=== PATIENT | female | born 1945 | race Asian ===

== ENCOUNTER → 2017-08-25 12:00 | Outpatient (CLI) | payer MEDICARE, SELFPAY | PROVIDERS: Family Provider Family Medicine; PCP Family Medicine; Visit Provider Internal Medicine Cardiovascular Disease | DX: I25.10 Atherosclerotic heart disease of native coronary artery without angina pectoris (principal); J32.9 Chronic sinusitis, unspecified; R06.02 Shortness of breath ==

== ENCOUNTER → 2017-08-25 12:03 | Outpatient (CLI) | payer MEDICARE, SELFPAY ==
--- NOTE | 2017-08-25 12:05 | DI.RAD.S_ITS ---
PROCEDURE: XR CHEST 2V INDICATIONS: chest congestion with sinusitis TECHNIQUE: 2 views of the chest were acquired. COMPARISON: [facility], , CHEST 2 VIEW, 06/07/2014, 8:31. FINDINGS: Surgical changes and devices: Cervical spine postoperative change Lungs and pleura: No pleural effusions or pneumothorax. Lungs are clear. Mediastinum: Prominent cardiomediastinal silhouette. Vascular calcifications Bones and chest wall: No suspicious bony abnormalities. Soft tissues appear unremarkable. IMPRESSION: Prominent cardiomediastinal silhouette. Atherosclerotic disease. Lungs are clear. Dictated by: James Navarro M.D. on 08/25/2017 at 11:47 Approved by: James Navarro M.D. on 08/25/2017 at 11:49
== END ==
PROVIDERS: Family Provider Family Medicine; PCP Family Medicine; Visit Provider Nurse Practitioner Family
DX: I25.10 Atherosclerotic heart disease of native coronary artery without angina pectoris (principal); J32.9 Chronic sinusitis, unspecified; R09.89 Other specified symptoms and signs involving the circulatory and respiratory systems
CPT/HCPCS: 71046

== ENCOUNTER → 2017-08-27 13:10 | Outpatient (CLI) | payer MEDICARE, SELFPAY ==
--- NOTE | 2017-08-27 | DI.ECHO.S_ITS ---
[facility]---------+ [facility] +---------+ : : [address] [place] [address] : : : : [id number] : : : : Phone: [phone]+ Echocardiogram Report + + :Name: BOBO HEAD Study Date: 08/27/2017 Height: 57 in : :[facility] Weight: 136 lb : : Gender: Female BSA: 1.5 m2 : :: 1945 Age: 72 yrs BP: 134/82 mmHg: :Reason For Study: Dyspnea : :Ordering Physician: Suzanne : :Poloiwjames Performed By: Tamiko Matute : :Referring: Tawny Whitt : + + Interpretation Summary The left ventricle is normal in size. The ejection fraction is estimated to be 60-65%. There has been no significant change in LV EF since the previous study. The right ventricle is normal size. The right ventricular systolic function is normal. There is moderate aortic regurgitation. Compared to the prior echo study, there has been an increase in the severity of aortic regurgitation. The right ventricular systolic pressure is estimated at 33 mmHg assuming a right atrial pressure of 3 mm Hg. Procedure: A two-dimensional transthoracic echocardiogram with color flow and Doppler was performed. The study quality was technically adequate. Comparison is made with the echocardiogram of 03-17-13. The patient was in normal sinus rhythm during the exam. Left Ventricle: The left ventricle is normal in size. There is normal left ventricular wall thickness. There is no thrombus. The ejection fraction is estimated to be 60-65%. There has been no significant change since the previous study. There are no focal wall motion abnormalities. MV E/A: 0.84 Med Peak E' Alejandro: 5.2 cm/sec E/E' med: 15.3. Right Ventricle: The right ventricle is normal size. The right ventricular systolic function is normal. Atria: The left atrium is mildly dilated. The left atrium has mildly increased in size since the prior echo exam. Right atrial size is normal. The interatrial septum is intact with no evidence for an atrial septal defect. Mitral Valve: The mitral valve leaflets are slightly calcified. There is mild mitral regurgitation. Compared to the prior echo study, there has been an increase in the severity of mitral regurgitation. Aortic Valve: The aortic valve is trileaflet. There is discrete, calcified nodular thickening of the right coronary cusp which was seen in 03/2013 as well.. There is no aortic valve stenosis. There is moderate aortic regurgitation. Compared to the prior echo study, there has been an increase in the severity of aortic regurgitation. Tricuspid Valve: The tricuspid valve is normal in structure and function. There is trace tricuspid regurgitation. The right ventricular systolic pressure is estimated at 33 mmHg assuming a right atrial pressure of 3 mm Hg. Pulmonic Valve: The pulmonic valve is not well seen, but is grossly normal. There is trace pulmonic regurgitation. Great Vessels: The aortic root is normal size. The dimensions of the ascending aorta are normal. The IVC is of normal diameter and collapses greater than 50% with a sniff. This suggests a low right atrial pressure of 3 mm Hg. Pericardium/ Pleura There is no pericardial effusion. There is no pleural effusion. MMode/2D Measurements & Calculations LVIDd: 4.1 cm Ao root diam: 2.8 cm LVIDs: 2.5 cm Aortic Jxn: 2.4 cm FS: 39.7 % asc Aorta Diam: 3.4 cm EPSS: 0.29 cm Ao Arch Diam (Prox Trans): 2.5 cm IVSd: 0.89 cm LVPWd: 0.79 cm LV silva. diameter/BSA (cm/m^2): 2.7 LV sys. diameter/BSA (cm/m^2): 1.6 LA dimension: 3.7 cm RA long axis: 4.1 cm LA A2 area: 18.5 cm2 RA area: 12.2 cm2 LA A4 area: 17.9 cm2 RA vol: 30.8 ml LA length (vol): 5.0 cm RA : 20.2 ml/m2 LA vol: 56.6 ml IVC diam: 1.5 cm LA vol index: 37.1 ml/m2 Doppler Measurements & Calculations Ao V2 max: 156.7 cm/sec AI P1/2t: 497.5 msec Ao V2 mean: 106.6 cm/sec AI dec slope: 334.3 cm/sec2 Ao max P.8 mmHg Ao mean P.1 mmHg Ao V2 VTI: 34.9 cm MV E max alejandro: 79.7 cm/sec TR max alejandro: 274.8 cm/sec MV A max alejandro: 94.5 cm/sec TR max P.2 mmHg MV E/A: 0.84 PA V2 max: 80.4 cm/sec Med Peak E' Alejandro: 5.2 cm/sec PA V2 mean: 50.5 cm/sec E/E' med: 15.3 PA mean P.2 mmHg Lat Peak E' Alejandro: 7.0 cm/sec PA Accel Time: 0.14 sec E/E' lat: 11.4 E/e' average: 13.3 MV dec time: 0.20 sec MV P1/2t: 58.9 msec MV P1/2t max alejandro: 79.9 cm/sec MVA(P1/2t): 3.7 cm2 Reading Physician:JAMES
== END ==
PROVIDERS: Family Provider Family Medicine; PCP Family Medicine; Visit Provider Internal Medicine Cardiovascular Disease
DX: R06.00 Dyspnea, unspecified (principal)
CPT/HCPCS: 93306

== ENCOUNTER 2017-09-03 10:30 | Outpatient (RCR) | payer MEDICARE, SELFPAY ==
[2017-08-14 08:51] LABS: Cholesterol 169 mg/dL (140-199); HDL Cholesterol 68 mg/dL (40-60); LDL Cholesterol Calculated 57 mg/dL (<100); Triglycerides 219 mg/dL (35-150)
--- NOTE | 2017-08-18 08:14 | PT.OIE ---
Current Diagnoses Radiculopathy, lumbar region (08/17/17) Other enthesopathy of unspecified foot (08/17/17) Past Surgical History History of carpal tunnel repair Status post breast biopsy Status post parathyroidectomy Provider Visit Care Team Role Provider Type Tawny Whitt MD Attending Provider Physician Family Provider Primary Care Provider Specialty: Family Practice Address: [address] [place] [address], [facility] Email: [email or web address] Physical Therapy Initial Evaluation PT-OP-A Visit Information Start: 08/17/17 17:36 Freq: Status: Active Protocol: Document 08/17/17 16:00 EA (Rec: 08/18/17 08:12 EA [id number]) Out-Patient Physical Therapy Visit Information Visit Information Visit Type Initial Evaluation Visit Start Time 10:33 Visit Stop Time 11:20 Total Visit Minutes 45 Visit Number 1 Number of INSPECTOR RUBBER STAMP DIE Visits 0 Evaluation Information Evaluation Date 08/17/17 PT-OP-B Current Condition Start: 08/17/17 17:36 Freq: Status: Active Protocol: Document 08/17/17 16:00 EA (Rec: 08/18/17 08:12 EA [id number]) Current Condition History of Current Condition Onset Date 1 month ago Current Complaints Low back pain, right hip/thigh and leg pain History of Current Condition Patient reports initially c/o of back and foot pain with no history of recent surgery or history related to conditions. Patient right hip and low back gradually started after numerous yard gardening that mostly intensifies with bending, lifting and prolong walking. Pain to left foot was managed by cortisone shot but not resolved. Pain to other region managed temporarily with pain medication. Prior Treatments and Tests Right heel cortisone shot x 1 Future Testing and Treatments Planned x-rays taken to right heel Treatment Goals Patient/Caregiver Goals Patient wants to decrease pain to slight pain and be able to perform gardening and walking without increase of pain. Prior Functional Status Baseline Function- ADL's Independent Baseline Function- Mobility Independent Baseline Function- Other Gardening and walking more than 2 miles indep without discomfort Current Functional Impairments (Reported) Functional Limitations- ADL's indep with difficulty Functional Limitations- Mobility/Gait Indep with difficulty Functional Limitations- Other Gardening and walking more than 2 miles with difficulty Personal Factors Other Personal Factors That May Effect T2 DM insulin dependent, HTN, Therapy/Recovery History of kidney transplant ( R) PT-OP-C Subjective Start: 08/17/17 17:36 Freq: Status: Active Protocol: Document 08/17/17 16:00 EA (Rec: 08/18/17 08:12 EA [id number]) OP-PT Subjective Patient Comments Patient Comments Patient c/o of difficulty of gardening and prolong walking due to radiating/sore pain from low back to posterior thigh/leg and heel rated 7/10 with activities and 5/10 without activities. Patient Reported Progress Same Patient Questionnaires Lower Extremity Functional Scale LEFS Impairment 40 to 59% Impaired (Score 32- 47) Oswestry Low Back Index Oswestry Impairment 20 to 39% Impaired (Score 20- 39) PT-OP-F Manual Assessment Start: 08/17/17 17:36 Freq: Status: Active Protocol: Document 08/17/17 16:00 EA (Rec: 08/18/17 08:12 EA [id number]) Manual Assessments Soft Tissue Assessment Soft Tissue Mobility Assessment Tightness to right hamstring, calf, bilateral QL. PT-OP-G Mobility & Gait Start: 08/17/17 17:36 Freq: Status: Active Protocol: Document 08/17/17 16:00 EA (Rec: 08/18/17 08:12 EA [id number]) OP Gait Assessment Gait Deviations General Gait Pattern Antalgic Factors Limiting Gait Function Factors Limiting Gait Function Pain PT-OP-J Posture/Palpation/Skin Start: 08/17/17 17:36 Freq: Status: Active Protocol: Document 08/17/17 16:00 EA (Rec: 08/18/17 08:12 EA [id number]) Posture Evaluation Position Standing Evaluation View Lateral L-Spine Posture Decreased Lordosis Pelvis Posture Posterior Tilted Foot Arch (L) Low Arch (R) Low Arch Palpation Assessment Location One Palpation Location Low back region, upper gluteals, R prox hamstring, R lat calf Palpation Findings Soft Tissue Tightness Tenderness Palpation Details Low back region, upper gluteals, R prox hamstring, R lat calf PT-OP-K Range of Motion Start: 08/17/17 17:36 Freq: Status: Active Protocol: Document 08/17/17 16:00 EA (Rec: 08/18/17 08:12 EA [id number]) Lumbar Spine Range of Motion Lumbar Spine Active Percentage Testing Position Standing Flexion 70 Extension 75 Rotation Left 75 Rotation Right 75 Lateral Flexion Left 60 Lateral Flexion Right 60 ROM Limitations Soft Tissue Tightness Pain PT-OP-L Special Tests Start: 08/17/17 17:36 Freq: Status: Active Protocol: Document 08/17/17 16:00 EA (Rec: 08/18/17 08:12 EA [id number]) Special Tests Lumbar Spine Special Tests Other- 3 Test Results Positive with hamstring strain : Overpressure Other- 2 Test Results Quadrant test: Postive with facet dysfunction Other- 1 Test Results Obers test: Tight bilat Stork Test Test Results negative Straight Leg Raise Test Results hamstring pain,R Hip Special Tests Scour Test Test Results negative JAMIA Test Results Negative Piriformis Test Results Test sensitive to right PT-OP-M Strength Start: 08/17/17 17:36 Freq: Status: Active Protocol: Document 08/17/17 16:00 EA (Rec: 08/18/17 08:12 EA [id number]) Trunk Strength Trunk Manual Muscle Testing Flexion 3 Fair Rotation Left 3 Fair Rotation Right 3 Fair Lateral Flexion Left 3- Fair- Lateral Flexion Right 3- Fair- Hip Strength Hip Manual Muscle Testing Left Flexion (L2) 4- Good- Extension (S1) 4- Good- Abduction 4- Good- Adduction 4- Good- External Rotation 4- Good- Internal Rotation 3+ Fair+ Right Flexion (L2) 4- Good- Extension (S1) 4- Good- Abduction 4- Good- Adduction 3+ Fair+ External Rotation 4- Good- Internal Rotation 3+ Fair+ PT-OP-Q Treatments Start: 08/17/17 17:36 Freq: Status: Active Protocol: Document 08/18/17 08:13 EA (Rec: 08/18/17 08:13 EA [id number]) Self-Care/Home Management Treatment Education Patient Education Body Mechanics Pain Management Posture Safety PT-OP-T Assessment and Plan Start: 08/17/17 17:36 Freq: Status: Active Protocol: Document 08/17/17 16:00 EA (Rec: 08/18/17 08:12 EA [id number]) Physical Therapy Assessment Rehab Potential Rehabilitation Potential Good Evaluation Complexity Number of Personal Factors/Comorbidities 1-2 Number of Body Systems Impaired 3 Clinical Presentation at Evaluation Evolving Impairments Impairments Activity Tolerance Gait Pain Posture Soft Tissue Mobility Strength Goals Four Impairment Back/ RLE pain scale of 7/10 with activity Precast Concrete Ironworker Goal (LTG) Patient will subjectively report PS of 3/10 with activity LTG Duration 5 wks Three Impairment LEFS score of 37 Precast Concrete Ironworker Goal (LTG) Patient will increase LEFS score to 60 LTG Duration 5 wks Two Impairment gardening activity tolerance less than 1 hour Precast Concrete Ironworker Goal (LTG) Patient will increase activity tolerance of yard gardening to > 2 hours LTG Duration 6 wks One Impairment Walking tolerance to less 10 mins Precast Concrete Ironworker Goal (LTG) Patient will amb more than 10 -20 mins without increase of hip and low back pain LTG Duration 4 wks Assessment Summary Assessment 72 y/o F patient with a c/c of difficulty with prolong walking, lifting, bending, and decreased activity tolerance due to localized back/thigh, and leg pain. During physical assessment, patient demonstrates significant tightness to hamstring with possible strain to right, tightness to lumbar side flexors and posterior lumbar structures, and right calf muscle. Test reveals positive with Carlene's test, quadrant test ; SLR is sensitive to localized pain to hamstring but not leg and low back region; muscle weakness seems to be more related to disuse w / no indication of atrophy. Patient functional deficits is possibly related to all this dysfunctional mentioned body structures. Patient will benefit with skilled PT to address the aforementioned deficits and reach high functional mobility. Physical Therapy Plan Frequency and Duration Frequency of Treatment 2x/Week Plan of Care Start Date 08/17/17 Plan of Care End Date 10/17/17 Therapeutic Interventions Therapeutic Interventions Home Exercise Program Joint Mobilizations Manual Therapy Patient/Caregiver Education Self-Care/Home Management Soft Tissue Mobilization Therapeutic Activities Therapeutic Exercises Modalities Cold Pack/Ice Massage Electric Stimulation Hot Packs Ultrasound Next Visit Focus/Plan Next Visit Plan Begin with Cardio followed with flexibility, therapeutic exercises w/ postural correction. To end STM to low back, R hamstring and thermal agents Provider Signature Date
--- NOTE | 2017-08-18 08:18 | PT.OPPOC ---
Current Diagnoses Radiculopathy, lumbar region (08/17/17) Other enthesopathy of unspecified foot (08/17/17) Provider Visit Care Team Role Provider Type Tawny Whitt MD Attending Provider Physician Family Provider Primary Care Provider Specialty: Family Practice Address: [address] [place] [address], [id number] Email: [email or web address] Plan Of Care PT-OP-T Assessment and Plan Start: 08/17/17 17:36 Freq: Status: Active Protocol: Document 08/17/17 16:00 EA (Rec: 08/18/17 08:12 EA [id number]) Physical Therapy Assessment Rehab Potential Rehabilitation Potential Good Evaluation Complexity Number of Personal Factors/Comorbidities 1-2 Number of Body Systems Impaired 3 Clinical Presentation at Evaluation Evolving Impairments Impairments Activity Tolerance Gait Pain Posture Soft Tissue Mobility Strength Goals Four Impairment Back/ RLE pain scale of 7/10 with activity Supervisor/Port Director Goal (LTG) Patient will subjectively report PS of 3/10 with activity LTG Duration 5 wks Three Impairment LEFS score of 37 Supervisor/Port Director Goal (LTG) Patient will increase LEFS score to 60 LTG Duration 5 wks Two Impairment gardening activity tolerance less than 1 hour Supervisor/Port Director Goal (LTG) Patient will increase activity tolerance of yard gardening to > 2 hours LTG Duration 6 wks One Impairment Walking tolerance to less 10 mins Supervisor/Port Director Goal (LTG) Patient will amb more than 10 -20 mins without increase of hip and low back pain LTG Duration 4 wks Assessment Summary Assessment 72 y/o F patient with a c/c of difficulty with prolong walking, lifting, bending, decreased activity tolerance due to localized back/thigh, and leg pain. During physical assessment, patient demonstrates significant tightness to hamstring with possible strain to right, tightness to lumbar side flexors and posterio lumbars structures, and right calf muscle. Test reveals postive with Obers test, quadrant test ; SLR is sensitive to localized pain to hamstring but not leg and low back region; muscle weakness seems to be more related to disuse w / no idnation of atrophy. Patient functional deficits is possible related to all this dysfunctional mentioned body structures. Patient will benefit with skilled PT to address the aforementioned deficits and reach high functional mobility. Physical Therapy Plan Frequency and Duration Frequency of Treatment 2x/Week Plan of Care Start Date 08/17/17 Plan of Care End Date 10/17/17 Therapeutic Interventions Therapeutic Interventions Home Exercise Program Joint Mobilizations Manual Therapy Patient/Caregiver Education Self-Care/Home Management Soft Tissue Mobilization Therapeutic Activities Therapeutic Exercises Modalities Cold Pack/Ice Massage Electric Stimulation Hot Packs Ultrasound Next Visit Focus/Plan Next Visit Plan Begin with Cardio followed with flexibility, therapeutic exercises w/ postural correction. To end STM to low back, R hamstring and thermal agents Plan of Care Dates Plan of Care Start Date 08/17/17 Plan of Care End Date 10/17/17 Please Sign and Return: I have reviewed this Plan of Care and certify that the skilled therapy services above are required to meet the patient???s needs. Physician Signature Date Printed Name and Credentials
--- NOTE | 2017-08-20 14:53 | PT.OTN ---
Current Diagnoses Radiculopathy, lumbar region (08/20/17) Other enthesopathy of unspecified foot (08/20/17) Physical Therapy Treatment Note PT-OP-A Visit Information Start: 08/17/17 17:36 Freq: Status: Active Protocol: Document 08/20/17 14:42 EA (Rec: 08/20/17 14:53 EA [id number]) Out-Patient Physical Therapy Visit Information Visit Information Visit Type Treatment Note Visit Start Time 10:30 Visit Stop Time 11:15 Total Visit Minutes 45 Visit Number 2 PT-OP-B Current Condition Start: 08/17/17 17:36 Freq: Status: Active Protocol: Document 08/17/17 16:00 EA (Rec: 08/18/17 08:12 EA [id number]) Current Condition History of Current Condition Onset Date 1 month ago Current Complaints Low back pain, right hip/thigh and leg pain History of Current Condition Patient reports initially c/o of back and foot pain with no history of recent surgery or history related to conditions. Patient right hip and low back grdaully started after numerous yard gardening that mostly intensifies with bending, lifting and prolong walking. Pain to left foot was managed by cortisone shot but not resolved. Pain to other region managed temporarily with pain medication. Prior Treatments and Tests Right heel cortisone shot x 1 Future Testing and Treatments Planned x-rays taken to right heel Treatment Goals Patient/Caregiver Goals Patient wants to decrease pain to slight pain and be able to perform gardening and wlaking without increase of pain. Prior Functional Status Baseline Function- ADL's Independent Baseline Function- Mobility Independent Baseline Function- Other Gardening and walking more than 2 miles indep without discomfort Current Functional Impairments (Reported) Functional Limitations- ADL's indep with difficulty Functional Limitations- Mobility/Gait Indep with difficulty Functional Limitations- Other Gardening and walking more than 2 miles with difficulty Personal Factors Other Personal Factors That May Effect T2 DM insulin dependent, HTN, Therapy/Recovery History of kidney transplant ( R) PT-OP-C Subjective Start: 08/17/17 17:36 Freq: Status: Active Protocol: Document 08/20/17 14:42 EA (Rec: 08/20/17 14:53 EA [id number]) OP-PT Subjective Patient Comments Patient Comments As per patient; contrary to pervious reports, patient states that she remember this time that she had a fall prior to onset of yahir; states fell in the BR with knee extendend and hip flex on right side. PT-OP-F Manual Assessment Start: 08/17/17 17:36 Freq: Status: Active Protocol: Document 08/17/17 16:00 EA (Rec: 08/18/17 08:12 EA [id number]) Manual Assessments Soft Tissue Assessment Soft Tissue Mobility Assessment Tightness to right hamstring, calf, bilateral QL. PT-OP-G Mobility & Gait Start: 08/17/17 17:36 Freq: Status: Active Protocol: Document 08/17/17 16:00 EA (Rec: 08/18/17 08:12 EA [id number]) OP Gait Assessment Gait Deviations General Gait Pattern Antalgic Factors Limiting Gait Function Factors Limiting Gait Function Pain PT-OP-J Posture/Palpation/Skin Start: 08/17/17 17:36 Freq: Status: Active Protocol: Document 08/17/17 16:00 EA (Rec: 08/18/17 08:12 EA [id number]) Posture Evaluation Position Standing Evaluation View Lateral L-Spine Posture Decreased Lordosis Pelvis Posture Posterior Tilted Foot Arch (L) Low Arch (R) Low Arch Palpation Assessment Location One Palpation Location Low back region, upper gluteals, R prox hamstring, R lat calf Palpation Findings Soft Tissue Tightness Tenderness Palpation Details Low back region, upper gluteals, R prox hamstring, R lat calf PT-OP-K Range of Motion Start: 08/17/17 17:36 Freq: Status: Active Protocol: Document 08/17/17 16:00 EA (Rec: 08/18/17 08:12 EA [id number]) Lumbar Spine Range of Motion Lumbar Spine Active Percentage Testing Position Standing Flexion 70 Extension 75 Rotation Left 75 Rotation Right 75 Lateral Flexion Left 60 Lateral Flexion Right 60 ROM Limitations Soft Tissue Tightness Pain PT-OP-L Special Tests Start: 08/17/17 17:36 Freq: Status: Active Protocol: Document 08/17/17 16:00 EA (Rec: 08/18/17 08:12 EA [id number]) Special Tests Lumbar Spine Special Tests Other- 3 Test Results Positive with hamstring strain : Overpressure Other- 2 Test Results Quadrant test: Postive with facet dysfunction Other- 1 Test Results Obers test: Tight bilat Stork Test Test Results negative Straight Leg Raise Test Results hamstring pain,R Hip Special Tests Scour Test Test Results negative JAMIA Test Results Negative Piriformis Test Results Test sensitive to right PT-OP-M Strength Start: 08/17/17 17:36 Freq: Status: Active Protocol: Document 08/17/17 16:00 EA (Rec: 08/18/17 08:12 EA [id number]) Trunk Strength Trunk Manual Muscle Testing Flexion 3 Fair Rotation Left 3 Fair Rotation Right 3 Fair Lateral Flexion Left 3- Fair- Lateral Flexion Right 3- Fair- Hip Strength Hip Manual Muscle Testing Left Flexion (L2) 4- Good- Extension (S1) 4- Good- Abduction 4- Good- Adduction 4- Good- External Rotation 4- Good- Internal Rotation 3+ Fair+ Right Flexion (L2) 4- Good- Extension (S1) 4- Good- Abduction 4- Good- Adduction 3+ Fair+ External Rotation 4- Good- Internal Rotation 3+ Fair+ PT-OP-Q Treatments Start: 08/17/17 17:36 Freq: Status: Active Protocol: Document 08/20/17 14:42 EA (Rec: 08/20/17 14:53 EA [id number]) Cardio Equipment Recumbent Stepper (Sci-Fit) Duration (Minutes) 5 Resistance 1 Therapeutic Exercises Supine Exercises 1 Supine Exercise Name hamstring and Piriformis stretch Side right Reps/Minutes x 30 SH x 3 reps Prone Exercises 1 Prone Exercise Name hip extension and knee flexion Side right Resistance manual Reps/Minutes x 12 reps x 3 sets Sidelying Exercises 1 Sidelying Exercise Name IT band stretch Reps/Minutes x 15 sh x 2 reps Manual Therapy Treatment Soft Tissue Mobilization 1 Body Location Right proximal hamstring/ ER Mobilization Type Rolling Sustained Pressure Trigger Point Release Intensity/Depth Moderate Body Position Prone Self-Care/Home Management Treatment Education Patient Education Home Exercise Program PT-OP-R Modalities Start: 08/17/17 17:36 Freq: Status: Active Protocol: Document 08/20/17 14:42 EA (Rec: 08/20/17 14:53 EA [id number]) Electric Stimulation Electric Stimulation Interferential Current (IFC) Body Location right gluteals region/distal hamstring Combined With Heat/Cold Hot Pack PT-OP-T Assessment and Plan Start: 08/17/17 17:36 Freq: Status: Active Protocol: Document 08/20/17 14:42 EA (Rec: 05/17/18 14:53 EA [id number]) Physical Therapy Assessment Assessment Summary Assessment Tolerated treatment well. Physical Therapy Plan Next Visit Focus/Plan Next Visit Plan Cont. with current program
--- NOTE | 2017-08-24 11:14 | PT.OTN ---
Current Diagnoses Radiculopathy, lumbar region (08/24/17) Other enthesopathy of unspecified foot (08/24/17) Physical Therapy Treatment Note PT-OP-A Visit Information Start: 08/17/17 17:36 Freq: Status: Active Protocol: Document 08/24/17 11:10 EA (Rec: 08/24/17 11:14 EA [id number]) Out-Patient Physical Therapy Visit Information Visit Information Visit Type Treatment Note Visit Start Time 10:30 Visit Stop Time 11:15 Total Visit Minutes 45 Visit Number 3 Number of MEDIA PLANNER / BUYER Visits 0 PT-OP-B Current Condition Start: 08/17/17 17:36 Freq: Status: Active Protocol: Document 08/17/17 16:00 EA (Rec: 08/18/17 08:12 EA [id number]) Current Condition History of Current Condition Onset Date 1 month ago Current Complaints Low back pain, right hip/thigh and leg pain History of Current Condition Patient reports initially c/o of back and foot pain with no history of recent surgery or history related to conditions. Patient right hip and low back grdaully started after numerous yard gardening that mostly intensifies with bending, lifting and prolong walking. Pain to left foot was managed by cortisone shot but not resolved. Pain to other region managed temporarily with pain medication. Prior Treatments and Tests Right heel cortisone shot x 1 Future Testing and Treatments Planned x-rays taken to right heel Treatment Goals Patient/Caregiver Goals Patient wants to decrease pain to slight pain and be able to perform gardening and wlaking without increase of pain. Prior Functional Status Baseline Function- ADL's Independent Baseline Function- Mobility Independent Baseline Function- Other Gardening and walking more than 2 miles indep without discomfort Current Functional Impairments (Reported) Functional Limitations- ADL's indep with difficulty Functional Limitations- Mobility/Gait Indep with difficulty Functional Limitations- Other Gardening and walking more than 2 miles with difficulty Personal Factors Other Personal Factors That May Effect T2 DM insulin dependent, HTN, Therapy/Recovery History of kidney transplant ( R) PT-OP-C Subjective Start: 08/17/17 17:36 Freq: Status: Active Protocol: Document 08/24/17 11:10 EA (Rec: 08/24/17 11:14 EA [id number]) OP-PT Subjective Patient Comments Patient Comments Patient reports eased of pain after last session; states she has been complaint with HEP too. PT-OP-F Manual Assessment Start: 08/17/17 17:36 Freq: Status: Active Protocol: Document 08/17/17 16:00 EA (Rec: 08/18/17 08:12 EA [id number]) Manual Assessments Soft Tissue Assessment Soft Tissue Mobility Assessment Tightness to right hamstring, calf, bilateral QL. PT-OP-G Mobility & Gait Start: 08/17/17 17:36 Freq: Status: Active Protocol: Document 08/17/17 16:00 EA (Rec: 08/18/17 08:12 EA [id number]) OP Gait Assessment Gait Deviations General Gait Pattern Antalgic Factors Limiting Gait Function Factors Limiting Gait Function Pain PT-OP-J Posture/Palpation/Skin Start: 08/17/17 17:36 Freq: Status: Active Protocol: Document 08/17/17 16:00 EA (Rec: 08/18/17 08:12 EA [id number]) Posture Evaluation Position Standing Evaluation View Lateral L-Spine Posture Decreased Lordosis Pelvis Posture Posterior Tilted Foot Arch (L) Low Arch (R) Low Arch Palpation Assessment Location One Palpation Location Low back region, upper gluteals, R prox hamstring, R lat calf Palpation Findings Soft Tissue Tightness Tenderness Palpation Details Low back region, upper gluteals, R prox hamstring, R lat calf PT-OP-K Range of Motion Start: 08/17/17 17:36 Freq: Status: Active Protocol: Document 08/17/17 16:00 EA (Rec: 08/18/17 08:12 EA [id number]) Lumbar Spine Range of Motion Lumbar Spine Active Percentage Testing Position Standing Flexion 70 Extension 75 Rotation Left 75 Rotation Right 75 Lateral Flexion Left 60 Lateral Flexion Right 60 ROM Limitations Soft Tissue Tightness Pain PT-OP-L Special Tests Start: 08/17/17 17:36 Freq: Status: Active Protocol: Document 08/17/17 16:00 EA (Rec: 08/18/17 08:12 EA [id number]) Special Tests Lumbar Spine Special Tests Other- 3 Test Results Positive with hamstring strain : Overpressure Other- 2 Test Results Quadrant test: Postive with facet dysfunction Other- 1 Test Results Obers test: Tight bilat Stork Test Test Results negative Straight Leg Raise Test Results hamstring pain,R Hip Special Tests Scour Test Test Results negative JAMIA Test Results Negative Piriformis Test Results Test sensitive to right PT-OP-M Strength Start: 08/17/17 17:36 Freq: Status: Active Protocol: Document 08/17/17 16:00 EA (Rec: 08/18/17 08:12 EA [id number]) Trunk Strength Trunk Manual Muscle Testing Flexion 3 Fair Rotation Left 3 Fair Rotation Right 3 Fair Lateral Flexion Left 3- Fair- Lateral Flexion Right 3- Fair- Hip Strength Hip Manual Muscle Testing Left Flexion (L2) 4- Good- Extension (S1) 4- Good- Abduction 4- Good- Adduction 4- Good- External Rotation 4- Good- Internal Rotation 3+ Fair+ Right Flexion (L2) 4- Good- Extension (S1) 4- Good- Abduction 4- Good- Adduction 3+ Fair+ External Rotation 4- Good- Internal Rotation 3+ Fair+ PT-OP-Q Treatments Start: 08/17/17 17:36 Freq: Status: Active Protocol: Document 08/24/17 11:10 EA (Rec: 08/24/17 11:14 EA [id number]) Cardio Equipment Recumbent Stepper (Sci-Fit) Duration (Minutes) 5 Resistance 1 Therapeutic Exercises Supine Exercises 1 Supine Exercise Name hamstring and Piriformis stretch Side right Reps/Minutes x 30 SH x 3 reps Prone Exercises 1 Prone Exercise Name hip extension and knee flexion Side right Resistance manual Reps/Minutes x 12 reps x 3 sets Sidelying Exercises 1 Sidelying Exercise Name IT band stretch Reps/Minutes x 15 sh x 2 reps PT-OP-R Modalities Start: 08/17/17 17:36 Freq: Status: Active Protocol: Document 08/24/17 11:10 EA (Rec: 08/24/17 11:14 EA [id number]) Electric Stimulation Electric Stimulation Interferential Current (IFC) Body Location right gluteals region/distal hamstring Combined With Heat/Cold Hot Pack PT-OP-T Assessment and Plan Start: 08/17/17 17:36 Freq: Status: Active Protocol: Document 08/24/17 11:10 EA (Rec: 08/24/17 11:14 EA [id number]) Physical Therapy Assessment Assessment Summary Assessment Tolerated treatment well with minor discomfort during hamstring stretch. Physical Therapy Plan Next Visit Focus/Plan Next Visit Plan Cont. with current plan. Use ultra soung if necessary. Please Sign and Return: I have reviewed this Plan of Care and certify that the skilled therapy services above are required to meet the patient???s needs. Physician Signature Date Printed Name and Credentials Clinical Instructor Signature Printed Name and Credentials
--- NOTE | 2017-09-03 10:28 | PT.OTN ---
Current Diagnoses Radiculopathy, lumbar region (09/03/17) Other enthesopathy of unspecified foot (09/03/17) Physical Therapy Treatment Note PT-OP-A Visit Information Start: 08/17/17 17:36 Freq: Status: Active Protocol: Document 09/03/17 10:22 EA (Rec: 09/03/17 10:27 EA [id number]) Out-Patient Physical Therapy Visit Information Visit Information Visit Type Treatment Note Visit Start Time 09:45 Visit Stop Time 10:30 Total Visit Minutes 45 Visit Number 4 Number of THREAD ROLLER Visits 0 PT-OP-B Current Condition Start: 08/17/17 17:36 Freq: Status: Active Protocol: Document 08/17/17 16:00 EA (Rec: 08/18/17 08:12 EA [id number]) Current Condition History of Current Condition Onset Date 1 month ago Current Complaints Low back pain, right hip/thigh and leg pain History of Current Condition Patient reports initially c/o of back and foot pain with no history of recent surgery or history related to conditions. Patient right hip and low back grdaully started after numerous yard gardening that mostly intensifies with bending, lifting and prolong walking. Pain to left foot was managed by cortisone shot but not resolved. Pain to other region managed temporarily with pain medication. Prior Treatments and Tests Right heel cortisone shot x 1 Future Testing and Treatments Planned x-rays taken to right heel Treatment Goals Patient/Caregiver Goals Patient wants to decrease pain to slight pain and be able to perform gardening and wlaking without increase of pain. Prior Functional Status Baseline Function- ADL's Independent Baseline Function- Mobility Independent Baseline Function- Other Gardening and walking more than 2 miles indep without discomfort Current Functional Impairments (Reported) Functional Limitations- ADL's indep with difficulty Functional Limitations- Mobility/Gait Indep with difficulty Functional Limitations- Other Gardening and walking more than 2 miles with difficulty Personal Factors Other Personal Factors That May Effect T2 DM insulin dependent, HTN, Therapy/Recovery History of kidney transplant ( R) PT-OP-C Subjective Start: 08/17/17 17:36 Freq: Status: Active Protocol: Document 09/03/17 10:22 EA (Rec: 09/03/17 10:27 EA [id number]) OP-PT Subjective Patient Comments Patient Comments Patient reports pain and tightness is improving very well; states she has been compliant with HEP PT-OP-F Manual Assessment Start: 08/17/17 17:36 Freq: Status: Active Protocol: Document 08/17/17 16:00 EA (Rec: 08/18/17 08:12 EA [id number]) Manual Assessments Soft Tissue Assessment Soft Tissue Mobility Assessment Tightness to right hamstring, calf, bilateral QL. PT-OP-G Mobility & Gait Start: 08/17/17 17:36 Freq: Status: Active Protocol: Document 08/17/17 16:00 EA (Rec: 08/18/17 08:12 EA [id number]) OP Gait Assessment Gait Deviations General Gait Pattern Antalgic Factors Limiting Gait Function Factors Limiting Gait Function Pain PT-OP-J Posture/Palpation/Skin Start: 08/17/17 17:36 Freq: Status: Active Protocol: Document 08/17/17 16:00 EA (Rec: 08/18/17 08:12 EA [id number]) Posture Evaluation Position Standing Evaluation View Lateral L-Spine Posture Decreased Lordosis Pelvis Posture Posterior Tilted Foot Arch (L) Low Arch (R) Low Arch Palpation Assessment Location One Palpation Location Low back region, upper gluteals, R prox hamstring, R lat calf Palpation Findings Soft Tissue Tightness Tenderness Palpation Details Low back region, upper gluteals, R prox hamstring, R lat calf PT-OP-K Range of Motion Start: 08/17/17 17:36 Freq: Status: Active Protocol: Document 08/17/17 16:00 EA (Rec: 08/18/17 08:12 EA [id number]) Lumbar Spine Range of Motion Lumbar Spine Active Percentage Testing Position Standing Flexion 70 Extension 75 Rotation Left 75 Rotation Right 75 Lateral Flexion Left 60 Lateral Flexion Right 60 ROM Limitations Soft Tissue Tightness Pain PT-OP-L Special Tests Start: 08/17/17 17:36 Freq: Status: Active Protocol: Document 08/17/17 16:00 EA (Rec: 08/18/17 08:12 EA [id number]) Special Tests Lumbar Spine Special Tests Other- 3 Test Results Positive with hamstring strain : Overpressure Other- 2 Test Results Quadrant test: Postive with facet dysfunction Other- 1 Test Results Obers test: Tight bilat Stork Test Test Results negative Straight Leg Raise Test Results hamstring pain,R Hip Special Tests Scour Test Test Results negative JAMIA Test Results Negative Piriformis Test Results Test sensitive to right PT-OP-M Strength Start: 08/17/17 17:36 Freq: Status: Active Protocol: Document 08/17/17 16:00 EA (Rec: 08/18/17 08:12 EA [id number]) Trunk Strength Trunk Manual Muscle Testing Flexion 3 Fair Rotation Left 3 Fair Rotation Right 3 Fair Lateral Flexion Left 3- Fair- Lateral Flexion Right 3- Fair- Hip Strength Hip Manual Muscle Testing Left Flexion (L2) 4- Good- Extension (S1) 4- Good- Abduction 4- Good- Adduction 4- Good- External Rotation 4- Good- Internal Rotation 3+ Fair+ Right Flexion (L2) 4- Good- Extension (S1) 4- Good- Abduction 4- Good- Adduction 3+ Fair+ External Rotation 4- Good- Internal Rotation 3+ Fair+ PT-OP-Q Treatments Start: 08/17/17 17:36 Freq: Status: Active Protocol: Document 09/03/17 10:22 EA (Rec: 09/03/17 10:27 EA [id number]) Cardio Equipment Recumbent Stepper (Sci-Fit) Duration (Minutes) 5 Resistance 2 Therapeutic Exercises Supine Exercises 1 Supine Exercise Name hamstring and Piriformis stretch Side right Reps/Minutes x 30 SH x 3 reps Comments Contract relax- Prone Exercises 1 Prone Exercise Name hip extension and knee flexion Side right Resistance manual Reps/Minutes x 12 reps x 3 sets Sidelying Exercises 1 Sidelying Exercise Name IT band stretch Reps/Minutes x 15 sh x 2 reps Manual Therapy Treatment Soft Tissue Mobilization 1 Body Location Right proximal hamstring/ ER Mobilization Type Rolling Sustained Pressure Trigger Point Release Intensity/Depth Deep Body Position Prone PT-OP-R Modalities Start: 08/17/17 17:36 Freq: Status: Active Protocol: Document 09/03/17 10:22 EA (Rec: 09/03/17 10:27 EA [id number]) Electric Stimulation Electric Stimulation Interferential Current (IFC) Body Location right gluteals region/distal hamstring Combined With Heat/Cold Hot Pack PT-OP-T Assessment and Plan Start: 08/17/17 17:36 Freq: Status: Active Protocol: Document 09/03/17 10:22 EA (Rec: 09/03/17 10:27 EA [id number]) Physical Therapy Assessment Assessment Summary Assessment decreased tenderness and complaint of pain at this time . Patient is progressing well and may begin with progressive hasmtring exercises next visit Physical Therapy Plan Next Visit Focus/Plan Next Visit Plan Open chain hamstring with resistance. Please Sign and Return: I have reviewed this Plan of Care and certify that the skilled therapy services above are required to meet the patient???s needs. Physician Signature Date Printed Name and Credentials Clinical Instructor Signature Printed Name and Credentials
--- NOTE | 2017-11-05 14:50 | PT.OTN ---
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 Patient right hip and low back grdaully started after numerous yard gardening that mostly intensifies with bending, lifting and prolong walking. Pain to left foot was managed by cortisone shot but not resolved. Pain to other region managed temporarily with pain medication. Prior Treatments and Tests Right heel cortisone shot x 1 Future Testing and Treatments Planned x-rays taken to right heel Treatment Goals Patient/Caregiver Goals Patient wants to decrease pain to slight pain and be able to perform gardening and wlaking without increase of pain. Prior Functional Status Baseline Function- ADL's Independent Baseline Function- Mobility Independent Baseline Function- Other Gardening and walking more than 2 miles indep without discomfort Current Functional Impairments (Reported) Functional Limitations- ADL's indep with difficulty Functional Limitations- Mobility/Gait Indep with difficulty Functional Limitations- Other Gardening and walking more than 2 miles with difficulty Personal Factors Other Personal Factors That May Effect T2 DM insulin dependent, HTN, Therapy/Recovery History of kidney transplant ( R) PT-OP-C Subjective Start: 08/17/17 17:36 Freq: Status: Active Protocol: Document 11/05/17 14:47 EA (Rec: 11/05/17 14:50 EA [id number]) OP-PT Subjective Patient Comments Patient Comments As per conversation today by phone, patient reports that her condition is now resolved; states she wants to be discharge from skilled PT as her doctor recommends to rest for a while on medication for significant heart problem. PT-OP-F Manual Assessment Start: 08/17/17 17:36 Freq: Status: Active Protocol: Document 08/17/17 16:00 EA (Rec: 08/18/17 08:12 EA [id number]) Manual Assessments Soft Tissue Assessment Soft Tissue Mobility Assessment Tightness to right hamstring, calf, bilateral QL. PT-OP-G Mobility & Gait Start: 08/17/17 17:36 Freq: Status: Active Protocol: Document 08/17/17 16:00 EA (Rec: 08/18/17 08:12 EA [id number]) OP Gait Assessment Gait Deviations General Gait Pattern Antalgic Factors Limiting Gait Function Factors Limiting Gait Function Pain PT-OP-J Posture/Palpation/Skin Start: 08/17/17 17:36 Freq: Status: Active Protocol: Document 08/17/17 16:00 EA (Rec: 08/18/17 08:12 EA [id number]) Posture Evaluation Position Standing Evaluation View Lateral L-Spine Posture Decreased Lordosis Pelvis Posture Posterior Tilted Foot Arch (L) Low Arch (R) Low Arch Palpation Assessment Location One Palpation Location Low back region, upper gluteals, R prox hamstring, R lat calf Palpation Findings Soft Tissue Tightness Tenderness Palpation Details Low back region, upper gluteals, R prox hamstring, R lat calf PT-OP-K Range of Motion Start: 08/17/17 17:36 Freq: Status: Active Protocol: Document 08/17/17 16:00 EA (Rec: 08/18/17 08:12 EA [id number]) Lumbar Spine Range of Motion Lumbar Spine Active Percentage Testing Position Standing Flexion 70 Extension 75 Rotation Left 75 Rotation Right 75 Lateral Flexion Left 60 Lateral Flexion Right 60 ROM Limitations Soft Tissue Tightness Pain PT-OP-L Special Tests Start: 08/17/17 17:36 Freq: Status: Active Protocol: Document 08/17/17 16:00 EA (Rec: 08/18/17 08:12 EA [id number]) Special Tests Lumbar Spine Special Tests Other- 3 Test Results Positive with hamstring strain : Overpressure Other- 2 Test Results Quadrant test: Postive with facet dysfunction Other- 1 Test Results Obers test: Tight bilat Stork Test Test Results negative Straight Leg Raise Test Results hamstring pain,R Hip Special Tests Scour Test Test Results negative JAMIA Test Results Negative Piriformis Test Results Test sensitive to right PT-OP-M Strength Start: 08/17/17 17:36 Freq: Status: Active Protocol: Document 08/17/17 16:00 EA (Rec: 08/18/17 08:12 EA [id number]) Trunk Strength Trunk Manual Muscle Testing Flexion 3 Fair Rotation Left 3 Fair Rotation Right 3 Fair Lateral Flexion Left 3- Fair- Lateral Flexion Right 3- Fair- Hip Strength Hip Manual Muscle Testing Left Flexion (L2) 4- Good- Extension (S1) 4- Good- Abduction 4- Good- Adduction 4- Good- External Rotation 4- Good- Internal Rotation 3+ Fair+ Right Flexion (L2) 4- Good- Extension (S1) 4- Good- Abduction 4- Good- Adduction 3+ Fair+ External Rotation 4- Good- Internal Rotation 3+ Fair+ PT-OP-Q Treatments Start: 08/17/17 17:36 Freq: Status: Active Protocol: Document 09/03/17 10:22 EA (Rec: 09/03/17 10:27 EA [id number]) Cardio Equipment Recumbent Stepper (Sci-Fit) Duration (Minutes) 5 Resistance 2 Therapeutic Exercises Supine Exercises 1 Supine Exercise Name hamstring and Piriformis stretch Side right Reps/Minutes x 30 SH x 3 reps Comments Contract relax- Prone Exercises 1 Prone Exercise Name hip extension and knee flexion Side right Resistance manual Reps/Minutes x 12 reps x 3 sets Sidelying Exercises 1 Sidelying Exercise Name IT band stretch Reps/Minutes x 15 sh x 2 reps Manual Therapy Treatment Soft Tissue Mobilization 1 Body Location Right proximal hamstring/ ER Mobilization Type Rolling Sustained Pressure Trigger Point Release Intensity/Depth Deep Body Position Prone PT-OP-R Modalities Start: 08/17/17 17:36 Freq: Status: Active Protocol: Document 09/03/17 10:22 EA (Rec: 09/03/17 10:27 EA [id number]) Electric Stimulation Electric Stimulation Interferential Current (IFC) Body Location right gluteals region/distal hamstring Combined With Heat/Cold Hot Pack PT-OP-T Assessment and Plan Start: 08/17/17 17:36 Freq: Status: Active Protocol: Document 11/05/17 14:47 EA (Rec: 11/05/17 14:50 EA [id number]) Physical Therapy Assessment Assessment Summary Assessment Pt is discharge per request. Physical Therapy Plan Discharge Physical Therapy Discharge Reasons Patient Request Discharge Comments Patient is rehabilitated since the treatment.
--- NOTE | 2017-11-05 15:03 | PT.OPDS ---
Current Diagnoses Radiculopathy, lumbar region (09/03/17) Other enthesopathy of right foot (09/03/17) Provider Visit Care Team Role Provider Type Tawny Whitt MD Attending Provider Physician Family Provider Primary Care Provider Specialty: Family Practice Address: [address] [place] [address], [facility] Email: [email or web address] Visit Number Visit Number 4 Discharge Summary PT-OP-B Current Condition Start: 08/17/17 17:36 Freq: Status: Active Protocol: Document 08/17/17 16:00 EA (Rec: 08/18/17 08:12 EA [id number]) Current Condition History of Current Condition Onset Date 1 month ago Current Complaints Low back pain, right hip/thigh and leg pain History of Current Condition Patient reports initially c/o of back and foot pain with no history of recent surgery or history related to conditions. Patient right hip and low back grdaully started after numerous yard gardening that mostly intensifies with bending, lifting and prolong walking. Pain to left foot was managed by cortisone shot but not resolved. Pain to other region managed temporarily with pain medication. Prior Treatments and Tests Right heel cortisone shot x 1 Future Testing and Treatments Planned x-rays taken to right heel Treatment Goals Patient/Caregiver Goals Patient wants to decrease pain to slight pain and be able to perform gardening and wlaking without increase of pain. Prior Functional Status Baseline Function- ADL's Independent Baseline Function- Mobility Independent Baseline Function- Other Gardening and walking more than 2 miles indep without discomfort Current Functional Impairments (Reported) Functional Limitations- ADL's indep with difficulty Functional Limitations- Mobility/Gait Indep with difficulty Functional Limitations- Other Gardening and walking more than 2 miles with difficulty Personal Factors Other Personal Factors That May Effect T2 DM insulin dependent, HTN, Therapy/Recovery History of kidney transplant ( R) PT-OP-C Subjective Start: 08/17/17 17:36 Freq: Status: Active Protocol: Document 11/05/17 14:47 EA (Rec: 11/05/17 14:50 EA [id number]) OP-PT Subjective Patient Comments Patient Comments As per conversation today by phone, patient reports that her condition is now resolved; states she wants to be discharge from skilled PT as her doctor recommends to rest for a while on medication for significant heart problem. PT-OP-F Manual Assessment Start: 08/17/17 17:36 Freq: Status: Active Protocol: Document 08/17/17 16:00 EA (Rec: 08/18/17 08:12 EA [id number]) Manual Assessments Soft Tissue Assessment Soft Tissue Mobility Assessment Tightness to right hamstring, calf, bilateral QL. PT-OP-G Mobility & Gait Start: 08/17/17 17:36 Freq: Status: Active Protocol: Document 08/17/17 16:00 EA (Rec: 08/18/17 08:12 EA [id number]) OP Gait Assessment Gait Deviations General Gait Pattern Antalgic Factors Limiting Gait Function Factors Limiting Gait Function Pain PT-OP-J Posture/Palpation/Skin Start: 08/17/17 17:36 Freq: Status: Active Protocol: Document 08/17/17 16:00 EA (Rec: 08/18/17 08:12 EA [id number]) Posture Evaluation Position Standing Evaluation View Lateral L-Spine Posture Decreased Lordosis Pelvis Posture Posterior Tilted Foot Arch (L) Low Arch (R) Low Arch Palpation Assessment Location One Palpation Location Low back region, upper gluteals, R prox hamstring, R lat calf Palpation Findings Soft Tissue Tightness Tenderness Palpation Details Low back region, upper gluteals, R prox hamstring, R lat calf PT-OP-K Range of Motion Start: 08/17/17 17:36 Freq: Status: Active Protocol: Document 08/17/17 16:00 EA (Rec: 08/18/17 08:12 EA [id number]) Lumbar Spine Range of Motion Lumbar Spine Active Percentage Testing Position Standing Flexion 70 Extension 75 Rotation Left 75 Rotation Right 75 Lateral Flexion Left 60 Lateral Flexion Right 60 ROM Limitations Soft Tissue Tightness Pain PT-OP-L Special Tests Start: 08/17/17 17:36 Freq: Status: Active Protocol: Document 08/17/17 16:00 EA (Rec: 08/18/17 08:12 EA [id number]) Special Tests Lumbar Spine Special Tests Other- 3 Test Results Positive with hamstring strain : Overpressure Other- 2 Test Results Quadrant test: Postive with facet dysfunction Other- 1 Test Results Obers test: Tight bilat Stork Test Test Results negative Straight Leg Raise Test Results hamstring pain,R Hip Special Tests Scour Test Test Results negative JAMIA Test Results Negative Piriformis Test Results Test sensitive to right PT-OP-M Strength Start: 08/17/17 17:36 Freq: Status: Active Protocol: Document 08/17/17 16:00 EA (Rec: 08/18/17 08:12 EA [id number]) Trunk Strength Trunk Manual Muscle Testing Flexion 3 Fair Rotation Left 3 Fair Rotation Right 3 Fair Lateral Flexion Left 3- Fair- Lateral Flexion Right 3- Fair- Hip Strength Hip Manual Muscle Testing Left Flexion (L2) 4- Good- Extension (S1) 4- Good- Abduction 4- Good- Adduction 4- Good- External Rotation 4- Good- Internal Rotation 3+ Fair+ Right Flexion (L2) 4- Good- Extension (S1) 4- Good- Abduction 4- Good- Adduction 3+ Fair+ External Rotation 4- Good- Internal Rotation 3+ Fair+ PT-OP-T Assessment and Plan Start: 08/17/17 17:36 Freq: Status: Active Protocol: Document 11/05/17 14:47 EA (Rec: 11/05/17 14:50 EA [id number]) Physical Therapy Assessment Assessment Summary Assessment Pt is discharge per request. Physical Therapy Plan Discharge Physical Therapy Discharge Reasons Patient Request Discharge Comments Patient is rehabilitated since the treatment.
== END 2017-11-09 12:39 ==
LOC: PHYS 10:30
PROVIDERS: Family Provider Family Medicine; PCP Family Medicine; Visit Provider Family Medicine
DX: M77.51 Other enthesopathy of right foot and ankle (principal); M54.16 Radiculopathy, lumbar region
CPT/HCPCS: 36415; 80061; 97014; 97110; 97140; 97162; 97535; G0283

== ENCOUNTER 2017-09-05 14:01 | Emergency (ER) | payer MEDICARE, SELFPAY ==
[2017-09-05 14:04] VITALS: BP 161/77; PULSE 97; RESP 20; TEMP 37; O2SAT 98
--- NOTE | 2017-09-05 14:09 | DI.RAD.S_ITS ---
PROCEDURE: XR CHEST 1V INDICATIONS: chest pain TECHNIQUE: One view of the chest was acquired. COMPARISON: [facility], , XR CHEST 2V, 08/25/2017, 11:45. [facility], , CHEST 2 VIEW, 06/07/2014, 8:31. FINDINGS: Surgical changes and devices: Neck base surgical clips. Lungs and pleura: No pleural effusions or pneumothorax. Lungs are clear. Shallow inspiration. Mediastinum: Calcified tortuous aorta. Prominent cardiomediastinal contours. Bones and chest wall: No suspicious bony lesions. Overlying soft tissues appear unremarkable. IMPRESSION: Prominent cardiomediastinal contours. Calcified tortuous aorta. Shallow inspiration. Lungs are clear. Dictated by: James Navarro M.D. on 09/05/2017 at 14:27 Approved by: James Navarro M.D. on 09/05/2017 at 14:28
[2017-09-05 14:20] LABS: Add Manual Diff / Slide Review NO; Basophils Percent Auto 0.3 % (0-2); Eosinophils Percent Auto 0.8 % (2-4); Hematocrit 37.5 % (36-46); Hemoglobin 12.4 g/dL (12.0-16.0); Lymphocytes Percent Auto 22.4 % (25-40); Mean Corpuscular HGB Conc 33.2 % (30-36); Mean Corpuscular Hemoglobin 27.9 PG (26-34); Mean Corpuscular Volume 83.9 fL (80-100); Monocytes Percent Auto 11.8 % (3-14); Neutrophils Absolute Auto 5800 /uL (3000-5900); Neutrophils Percent Auto 64.7 % (50-75); Platelet Count 93 X10^3/uL (150-400); Red Blood Cell Count 4.46 X10^6/uL (4.0-5.2); Red Cell Distribution Width 15.5 % (11.6-14.8); White Blood Cell Count 8.9 X10^3/uL (4.5-11.0)
[2017-09-05] MEDS: ASPIRIN 81 MG TAB 324 MG PO (14:21)
[2017-09-05 14:31] LABS: Alanine Aminotransferase 33 IU/L (9-52); Albumin 4.1 g/dL (3.5-5.0); Albumin Globulin Ratio 1.2 (1.0-2.8); Alkaline Phosphatase 85 U/L (38-126); Aspartate Aminotransferase 24 IU/L (14-36); BUN Creatinine Ratio 12.6 (6-22); Bilirubin Total 0.6 mg/dL (0.2-1.3); Blood Urea Nitrogen 29 mg/dL (7-17); Calcium 10.6 mg/dL (8.4-10.2); Carbon Dioxide 25 mmol/L (22-32); Chloride 104 mmol/L (98-107); Globulin 3.3 g/dL (1.7-4.1); Glucose 88 mg/dL (80-110); HEMOLYSIS < 15 (0-50); Lipase 49 U/L (23-300); Potassium 4.7 mmol/L (3.4-5.1); Sodium 140 mmol/L (137-145); Total Protein 7.4 g/dL (6.3-8.2)
[2017-09-05 14:40] VITALS: BP 153/66; PULSE 98; RESP 16; O2SAT 98
[2017-09-05 14:48] LABS: Troponin I < 0.012 ng/mL (0.01-0.034)
--- NOTE | 2017-09-05 14:57 | ED_ITS ---
HPI - Chest Pain General Chief Complaint: Chest Pain Stated Complaint: CHEST PAIN Time Seen by Provider: 09/05/17 14:07 History of Present Illness HPI narrative: HPI 72-year-old female with DM, ESRD now S/P renal transplant and CAD with stents x 5 (2006) presents complaining of 2 days of gradually worsening substernal chest pain radiating to her back and jaw. Patient unable to characterize provoking or relieving factors. No known history of DVT or PE. Takes ASA 81 mg daily. Chart indicates a clopidogrel intolerance due to agranulocytosis. Denies fevers, chills, forward symptoms. M/S/F/SocHx notable for: please see HPI; remainder reviewed with patient and in chart. ROS: Negative constitutional, eye, cardiovascular, pulmonary, GI, , MSK, skin , neurologic, psychiatric, endocrine unless noted in the HPI. Exam Gen: Pleasant, non-toxic appearing, resting in mild discomfort. HEENT: NC, AT, PEERL, EOMI. Resp: Clear to auscultation bilaterally, normal work of breathing, no accessory muscle usage. Card: Regular rate and rhythm with no murmurs, rubs, or gallops, extremities warm and well perfused. GI: Non-tender to palpation throughout all quadrants, no focal tenderness at McBurney's point, negative Morris's sign, non-distended, no rebound or guarding. : No suprapubic tenderness to palpation. MSK: No visible deformities, strength and tone without visually appreciable deficit. Skin: Normal color with no visible lesions. Neuro: AO x 3, no facial asymmetry, vision and hearing WNL. Psych: Mood and affect appropriate. Labs / Imaging: EKG: SR 96 bpm, leads I with nonspecific ST segment depression, lead II with nonspecific ST segment elevation, lead III with [address] segment elevation, lead aVL with [address] segment depression, lead aVF with 0.[address] segment elevation, Q waves in leads III, no further Q waves, ST segment changes, or T- wave abnormalities appreciated. ECG compared with prior dated 2012, ST segment changes new. CXR: prominent cardiomediastinal contours. Calcified tortuous aorta. Shall inspiration. Lungs are clear. WBC 8.9, Hb 12.4, sodium 140, potassium 4.7, lipase 49, troponin less than 0.012. MDM Previous chart, nursing note, labs, imaging, and vitals reviewed. A: 72-year-old female with DM, ESRD now S/P renal transplant and CAD with stents x 5 (2006) presents complaining of 2 days of gradually worsening substernal chest pain radiating to her back and jaw. DDx & Evaluation: ECG concerning for STEMI. Patient given aspirin. Contacted [facility], initial cardiology consultation was inadvertently with general sludge control operator, [facility] recontacted for interventional cardiology. ECG transmitted by fax. Discussed patient's care with Dr. Patel, patient accepted in transfer. CBC and CMP are clinically WNL. Troponin nondetectable. Given duration of symptoms raises concern for persistent ST segment elevations due to aneurysm versus early STEMI. Chest x-ray without clear explain etiology for the patient's symptoms. While dissection cannot be definitively excluded, ST segment elevation NE is considered more likely likely and is in the patient's best interests for emergent transfer. Patient given aspirin, nitroglycerin held due to inferior wall, patient transferred for further care and evaluation at [facility]. Further evaluation of remainder of differential deferred to the accepting physician. PE also considered, however given lack of hypoxemia, tachycardia, or known risk factors further emergent evaluation is not presently indicated. Impression: chest pain, ECG with ST segment changes. (please reference below for remainder of encounter information) Critical Care Time Organ system(s): Cardiopulmonary Intervention: Assessment of the patient, interpretation of studies, communication related to patient care. Time: 30 minutes were spent directly related to patient care exclusive of separately billed procedures. Related Data Home Medications Medication Instructions Recorded Confirmed loratadine 10 mg PO QDAY #0 04/23/17 09/01/17 timolol maleate 1 drp [facility] QDAY #0 04/23/17 09/01/17 tacrolimus 1 mg PO BID #0 07/07/17 09/01/17 Previous Rx's Medication Instructions Recorded carvedilol [Coreg] 6.25 mg PO BID #60 tab 12/06/15 fluticasone 1 spray INTRANASAL BID #16 gm 04/14/16 metformin [Glucophage] 1,000 mg PO BIDCC #180 tab 07/28/16 magnesium oxide 0 PO BID #360 tab 08/18/16 gabapentin [Neurontin] 600 mg PO TID #90 tab 09/15/16 Glucose: Home Monitoring Kit kit TD QID #1 11/28/16 pravastatin [Pravachol] 80 mg PO HS #90 tab 02/20/17 Glucose: Test Strips box TD QID #3 02/23/17 [place] units SQ QID #120 02/23/17 Syringes 0 syr BID #120 ea 02/23/17 insulin lispro [Humalog U-100 0 u SQ TID #2 vial 06/03/17 Insulin] insulin glargine [Lantus U-100 40 unit SQ QHS #2 vial 06/08/17 Insulin] colchicine 0.6 mg PO QDAY #90 tab 06/11/17 albuterol sulfate HFA 90 2 puff INHALATION Q4-6H PRN #18 08/25/17 mcg/actuation aerosol inhaler gram amoxicillin 875 mg-potassium 1 tab PO BID #14 tab 08/25/17 clavulanate 125 mg tablet oxycodone 5 mg tablet 5 mg PO TID PRN #270 tab 09/01/17 Allergies Allergy/AdvReac Type Severity Reaction Status Date / Time clopidogrel [CLOPIDOGREL] Allergy Mild AGRANOLOCYT Unverified 07/15/17 12:11 OSIS PFSH Medical History Coronary stent patent (Acute) Diabetes (Acute) Surgical History Kidney replaced by transplant (Acute) History of carpal tunnel repair Status post breast biopsy Status post parathyroidectomy Social History Smoking Status: Never smoker Exam Initial Vital Signs Initial Vital Signs: Vital Signs Temperature 98.6 F 09/05/17 14:04 Pulse Rate 97 H 09/05/17 14:04 Respiratory Rate 20 09/05/17 14:04 Blood Pressure 161/77 H 09/05/17 14:04 Pulse Oximetry 98 09/05/17 14:04 Course Orders Ordered: ED Orders 09/05/17 14:00 Complete Blood Count AUTO DIFF Stat Comprehensive Metabolic Panel Stat Lipase Stat Troponin I Stat 09/05/17 14:09 XR chest 1V Stat Discontinued Medications Aspirin (Aspirin Chew) 324 mg PO NOW ONE Stop: 09/05/17 14:10 Last Admin: 09/05/17 14:21 Dose: 243 mg Vital Signs - 8 hr 09/05/17 14:04 09/05/17 14:40 Temperature 98.6 F Pulse Rate 97 H 98 H Respiratory Rate 20 16 Blood Pressure 161/77 H 153/66 H Pulse Oximetry 98 98 MDM - Chest Pain Lab Data Result diagrams: 09/05/17 14:00 09/05/17 14:00 Lab Results 09/05/17 09/05/17 Range/Units 14:00 14:00 WBC 8.9 (4.5-11.0) X10^3/uL RBC 4.46 (4.0-5.2) X10^6/uL Hgb 12.4 (12.0-16.0) g/dL Hct 37.5 (36-46) % MCV 83.9 (80-100) fL MCH 27.9 (26-34) PG MCHC 33.2 (30-36) % RDW 15.5 H (11.6-14.8) % Plt Count 93 L (150-400) X10^3/uL Neut % (Auto) 64.7 (50-75) % Lymph % (Auto) 22.4 L (25-40) % Bland % (Auto) 11.8 (3-14) % Eos % (Auto) 0.8 L (2-4) % Baso % (Auto) 0.3 (0-2) % Neut # (Auto) 5800 (7246-8545) /uL Sodium 140 (137-145) mmol/L Potassium 4.7 (3.4-5.1) mmol/L Chloride 104 (98-107) mmol/L Carbon Dioxide 25 (22-32) mmol/L BUN 29 H (7-17) mg/dL Creatinine 2.30 H (0.52-1.04) mg/dL Estimated GFR 21.0 L (>60) mL/min BUN/Creatinine Ratio 12.6 (6-22) Glucose 88 (80-110) mg/dL Calcium 10.6 H (8.4-10.2) mg/dL Total Bilirubin 0.6 (0.2-1.3) mg/dL AST 24 (14-36) IU/L ALT 33 (9-52) IU/L Alkaline Phosphatase 85 (38-126) U/L Troponin I < 0.012 (0.01-0.034) ng/mL Total Protein 7.4 (6.3-8.2) g/dL Albumin 4.1 (3.5-5.0) g/dL Globulin 3.3 (1.7-4.1) g/dL Albumin/Globulin Ratio 1.2 (1.0-2.8) Lipase 49 (23-300) U/L Discharge Plan Departure Interventions: ED Discharge Assessment Last Done: 09/05/17 14:40 Prescriptions: No Action carvedilol [Coreg] 6.25 MG tablet 6.25 mg PO BID Qty: 60 RF: 0 fluticasone 16 GM spray,suspension 1 spray Intranasal BID Qty: 16 RF: 12 metformin [Glucophage] 1,000 MG tablet 1,000 mg PO BIDCC Qty: 180 RF: 3 magnesium oxide 400 MG tablet PO BID Qty: 360 RF: 3 gabapentin [Neurontin] 600 MG tablet 600 mg PO TID Qty: 90 RF: 11 Glucose: Home Monitoring Kit TD QID Qty: 1 RF: PRN pravastatin [Pravachol] 80 MG tablet 80 mg PO HS Qty: 90 RF: 3 Glucose: Test Strips TD QID Qty: 3 RF: PRN Syringes BID Qty: 120 RF: 0 [place] SQ QID Qty: 120 RF: 11 timolol maleate 0.5 % drops 1 drp OPHTH QDAY Qty: 0 RF: 0 loratadine 10 MG tablet 10 mg PO QDAY Qty: 0 RF: 0 insulin lispro [Humalog U-100 Insulin] 100 UNIT/1 ML solution SQ TID Qty: 2 RF: 12 insulin glargine [Lantus U-100 Insulin] 100 UNIT/1 ML solution 40 unit SQ QHS Qty: 2 RF: 12 colchicine 0.6 MG tablet 0.6 mg PO QDAY Qty: 90 RF: 0 tacrolimus 1 MG capsule 1 mg PO BID Qty: 0 RF: 0 oxycodone [Roxicodone] 5 mg tablet 5 mg PO TID PRN (Reason: pain) Qty: 270 RF: 0 albuterol sulfate 90 mcg/actuation HFA aerosol inhaler 2 puff INHALATION Q4-6H PRN (Reason: shortness of breath or wheezing) Qty: 18 RF: 0 amoxicillin-pot clavulanate 875-125 mg tablet 1 tab PO BID Qty: 14 RF: 0
== END 2017-09-05 14:40 | disposition short-term general hospital (02) ==
PROVIDERS: Emergency Provider Emergency Medicine; Family Provider Family Medicine; PCP Family Medicine
DX: R07.9 Chest pain, unspecified (principal); R94.31 Abnormal electrocardiogram [ECG] [EKG]
CPT/HCPCS: 36415; 36591; 71045; 80053; 83690; 84484; 85025; 93005; 99282; 99285; 99291; 99292

== ENCOUNTER 2017-09-26 12:50 | Emergency (ER) | payer MEDICARE, SELFPAY ==
[2017-09-26 12:53] VITALS: BP 137/72; PULSE 80; RESP 14; TEMP 36.8; O2SAT 99; BMI 28.4
--- NOTE | 2017-09-26 12:53 | ED.GENADULT ---
HPI - General Adult General Chief complaint: Dizziness Stated complaint: LOW BLOOD PRESSUE Time Seen by Provider: 09/26/17 12:52 Source: patient Mode of arrival: ambulatory Limitations: no limitations History of Present Illness HPI narrative: Patient is a 72-year-old female here for evaluation of low blood pressure. Patient states that she has a history of a ?aortic swelling ?and is a renal transplant patient. She states that she has been placed on 4 different blood pressure medicines by the cardiothoracic surgeon at [place]. She states that this morning she took her blood pressure which she normally does and the systolic was 139. She states that she took 3 of her blood pressure medicines. She states that after that she took her blood pressure again and the systolic was in the 80s. She also felt like she was lightheaded. Denied any chest pain or problems breathing. She states that yesterday morning she took her blood pressure and it was 131. She states she only took 2 of her blood pressure medicines and subsequently her systolic blood pressure throughout the day was less than 120. By the time she arrived here in the emergency department she felt much better. Related Data Home Medications Medication Instructions Recorded Confirmed loratadine 10 mg PO QDAY #0 04/23/17 09/17/17 timolol maleate 1 drp OPH QDAY #0 04/23/17 09/17/17 tacrolimus 1 mg PO BID #0 07/07/17 09/26/17 amlodipine 10 mg tablet 10 mg PO DAILY 09/17/17 09/26/17 aspirin 81 mg tablet,delayed 81 mg PO DAILY 09/17/17 09/17/17 release isosorbide mononitrate ER 30 mg 30 mg PO QAM 09/17/17 09/26/17 tablet,extended release 24 hr lisinopril 40 mg tablet 40 mg PO DAILY 09/17/17 09/17/17 prednisone 5 mg tablet 5 mg PO DAILY 09/17/17 09/26/17 labetalol 200 mg PO BID 09/26/17 09/26/17 magnesium oxide 800 mg PO BID 09/26/17 09/26/17 Previous Rx's Medication Instructions Recorded fluticasone 1 spray INTRANASAL BID #16 gm 04/14/16 metformin [Glucophage] 1,000 mg PO BIDCC #180 tab 07/28/16 Glucose: Home Monitoring Kit kit TD QID #1 11/28/16 pravastatin [Pravachol] 80 mg PO HS #90 tab 02/20/17 Glucose: Test Strips box TD QID #3 02/23/17 [place] units SQ QID #120 02/23/17 insulin lispro [Humalog U-100 0 u SQ TID #2 vial 06/03/17 Insulin] insulin glargine [Lantus U-100 40 unit SQ QHS #2 vial 06/08/17 Insulin] oxycodone 5 mg tablet 5 mg PO TID PRN #270 tab 09/01/17 colchicine 0.6 mg tablet 0.6 mg PO QDAY #90 tab 09/08/17 Disabled Parking Permit See Label Instructions 09/17/17 [id number] .COMPLEX #1 [id number] ondansetron 4 mg disintegrating 4 mg PO Q6H PRN #30 tab 09/17/17 tablet gabapentin 600 mg tablet 600 mg PO TID #270 tab 09/21/17 Allergies Allergy/AdvReac Type Severity Reaction Status Date / Time clopidogrel [CLOPIDOGREL] Allergy Mild AGRANOLOCYT Verified 09/17/17 13:56 OSIS Review of Systems Constitutional Reports fatigue, Denies fever(s), Denies frequent falls, Denies headache(s) and Denies malaise ENT Ears, Nose, Mouth, and Throat: Reports dizziness and Denies headache(s) Cardiovascular Denies chest pain, Denies diaphoresis, Denies syncope, Denies rapid heart rate, Denies edema, Denies irregular heart rhythm, Denies dyspnea and Denies slow heart rate Respiratory Denies chest congestion, Denies cough and Denies dyspnea Gastrointestinal Gastrointestinal: Denies constipation, Denies diarrhea, Denies nausea and Denies vomiting Genitourinary Denies dysuria Musculoskeletal Denies myalgias, Denies arthralgias and Denies numbness Integumentary/Breasts Denies lesions, Denies rash and Denies wounds Neurologic Denies behavioral changes, Denies confusion, Reports dizziness, Denies syncope, Denies frequent falls, Denies headache(s), Denies memory loss and Denies numbness Psychiatric Denies behavioral changes, Denies confusion and Denies memory loss Endocrine Reports fatigue Hematologic/Lymphatic Denies easy bleeding PFSH Medical History Aortic aneurysm (Acute) Essential hypertension (Chronic 10/29/10) Diabetes mellitus type 2 in nonobese (Chronic 10/29/10) 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/15) Chronic lumbar radiculopathy (Chronic 03/19/15) Status post kidney transplant (Chronic 08/02/13) Peripheral polyneuropathy (Chronic 03/06/16) Aortic dissection (Acute) CAD (coronary artery disease) (Chronic 2007) Coronary stent patent (Chronic 03/2008) Diabetes (Chronic) GERD (gastroesophageal reflux disease) (Chronic) Hypertension (Chronic) Lumbar radiculopathy (Chronic) Tertiary hyperparathyroidism (Chronic) Vesicoureteral reflux (Chronic 07/01/13) Weakness on right side of face (Chronic) History of peritoneal dialysis (Resolved) Kidney replaced by transplant (Resolved) Chest pain (Inactive) ST elevation (Inactive) Surgical History History of cardiac cath (Resolved 04/2012) History of carpal tunnel repair (Resolved) Kidney transplant status, cadaveric (Resolved 04/03/13) Status post breast biopsy (Resolved) Status post parathyroidectomy (Resolved) Social History Smoking Status: Never smoker Exam Initial Vital Signs Initial Vital Signs: Vital Signs Temperature 98.2 F 09/26/17 12:53 Pulse Rate 80 09/26/17 12:53 Respiratory Rate 14 09/26/17 12:53 Blood Pressure 137/72 H 09/26/17 12:53 Pulse Oximetry 99 09/26/17 12:53 Const General: cooperative, comfortable and No acute distress Resp Effort & Inspection: normal respiratory effort Auscultation: clear to auscultation bilaterally Cardio Rate: regular rate Rhythm: regular rhythm GI Inspection: non-distended Palpation: soft and No firm Skin Rashes: no rashes Neuro General: alert, awake and oriented x3 Extrem General: normal to inspection Course Vital Signs - 8 hr 09/26/17 12:53 09/26/17 13:00 09/26/17 13:34 Temperature 98.2 F Pulse Rate 80 77 Pulse Rate [Orthostatic Lying] 76 Pulse Rate [Orthostatic Sitting] 78 Pulse Rate [Orthostatic Standing] 86 Respiratory Rate 14 22 Blood Pressure 137/72 H Blood Pressure [Left Arm] 123/61 H Blood Pressure [Orthostatic Lying] 110/59 L Blood Pressure [Orthostatic Sitting] 106/54 L Blood Pressure [Orthostatic Standing] 113/57 L Pulse Oximetry 99 99 Medical Decision Making MDM Narrative Medical decision making narrative: Patient was asymptomatic the time of my evaluation. Orthostatics were negative. Patient ambulated around the emergency department without any problems. She denies any chest pain or problems breathing. I suspect that her symptoms this morning were secondary to her taking the 3 blood pressure medicines and dropping her blood pressure too low. She states that on a regular basis she only takes 2 blood pressure medicines in the morning. She seems to be somewhat confused about what medicines to take at what time in for what reasons. She does have a list of medicines with instructions given to her by her cardiothoracic surgeon however I do not think that she is following these appropriately. We did discuss medicine use for the next couple days and an attempt to avoid future hypotension episodes. She was informed that she needed to contact her armature winder on Thursday to discuss this further. She does have an appointment with her armature winder on the of next month. She was given return precautions. She expressed understanding and agreement with plan. Discharge Plan Departure Patient Disposition: Home, Self-Care Clinical Impression: Acute hypotension Instructions: DI for Orthostatic Hypotension, DI for Hypotension Activity Restrictions/Additional Instructions: Take your medications like we discussed. Call your armature winder on Thursday to discuss further evaluation and treatment of your symptoms. Make sure you are taking your time when transitioning from laying to sitting and sitting to standing to avoid becoming lightheaded and falling. Return to the emergency department for any new symptoms, worsening symptoms, chest pain, or any other concerning symptoms. Prescriptions: No Action fluticasone 16 GM spray,suspension 1 spray Intranasal BID Qty: 16 RF: 12 metformin [Glucophage] 1,000 MG tablet 1,000 mg PO BIDCC Qty: 180 RF: 3 Glucose: Home Monitoring Kit TD QID Qty: 1 RF: PRN pravastatin [Pravachol] 80 MG tablet 80 mg PO HS Qty: 90 RF: 3 Glucose: Test Strips TD QID Qty: 3 RF: PRN [place] SQ QID Qty: 120 RF: 11 timolol maleate 0.5 % drops 1 drp OPHTH QDAY Qty: 0 RF: 0 loratadine 10 MG tablet 10 mg PO QDAY Qty: 0 RF: 0 insulin lispro [Humalog U-100 Insulin] 100 UNIT/1 ML solution SQ TID Qty: 2 RF: 12 insulin glargine [Lantus U-100 Insulin] 100 UNIT/1 ML solution 40 unit SQ QHS Qty: 2 RF: 12 tacrolimus 1 MG capsule 1 mg PO BID Qty: 0 RF: 0 oxycodone [Roxicodone] 5 mg tablet 5 mg PO TID PRN (Reason: pain) Qty: 270 RF: 0 colchicine 0.6 mg tablet 0.6 mg PO QDAY Qty: 90 RF: 3 gabapentin [Neurontin] 600 mg tablet 600 mg PO TID Qty: 270 RF: 3 prednisone 5 mg tablet 5 mg PO DAILY RF: 0 amlodipine 10 mg tablet 10 mg PO DAILY RF: 0 aspirin 81 mg tablet,delayed release (DR/EC) 81 mg PO DAILY RF: 0 isosorbide mononitrate 30 mg tablet extended release 24 hr 30 mg PO QAM RF: 0 lisinopril 40 mg tablet 40 mg PO DAILY RF: 0 ondansetron 4 mg tablet,disintegrating 4 mg PO Q6H PRN (Reason: nausea) Qty: 30 RF: 0 Disabled Parking Permit See Label Instructions [id number] .COMPLEX Qty: 1 RF: 0 labetalol 200 mg Tablet 200 mg PO BID RF: 0 magnesium oxide 400 MG tablet 800 mg PO BID RF: 0
[2017-09-26 13:00] VITALS: BP 123/61; PULSE 77; RESP 22; O2SAT 99
[2017-09-26 13:34] VITALS: BP 106/54; BP 110/59; BP 113/57; PULSE 76; PULSE 78; PULSE 86
[2017-09-26 14:15] VITALS: BP 110/59; PULSE 77; RESP 18; O2SAT 100
== END 2017-09-26 14:20 | disposition home or self-care (01) ==
PROVIDERS: Emergency Provider Emergency Medicine; Family Provider Family Medicine; PCP Family Medicine
DX: I95.9 Hypotension, unspecified (principal)
CPT/HCPCS: 93041; 99283

== ENCOUNTER → 2017-09-28 06:51 | Outpatient (CLI) | payer MEDICARE, SELFPAY ==
[2017-09-28 07:13] LABS: Bacteria Urine None Seen; RBC Urine None Seen (0-5/HPF); WBC Urine None Seen (0-5/HPF)
[2017-09-28 09:05] LABS: Add Manual Diff / Slide Review NO; Basophils Percent Auto 0.8 % (0-2); Eosinophils Percent Auto 2.2 % (2-4); Hematocrit 32.6 % (36-46); Hemoglobin 10.5 g/dL (12.0-16.0); Lymphocytes Percent Auto 25.2 % (25-40); Mean Corpuscular HGB Conc 32.2 % (30-36); Mean Corpuscular Hemoglobin 27.5 PG (26-34); Mean Corpuscular Volume 85.5 fL (80-100); Monocytes Percent Auto 7.7 % (3-14); Neutrophils Absolute Auto 4000 /uL (3000-5900); Neutrophils Percent Auto 64.1 % (50-75); Platelet Count 209 X10^3/uL (150-400); Red Blood Cell Count 3.81 X10^6/uL (4.0-5.2); Red Cell Distribution Width 15.2 % (11.6-14.8); White Blood Cell Count 6.3 X10^3/uL (4.5-11.0)
[2017-09-28 10:05] LABS: HEMOLYSIS < 15 (0-50)
[2017-09-28 10:06] LABS: Alanine Aminotransferase 31 IU/L (9-52); Albumin 4.3 g/dL (3.5-5.0); Albumin Globulin Ratio 1.3 (1.0-2.8); Alkaline Phosphatase 80 U/L (38-126); Aspartate Aminotransferase 23 IU/L (14-36); BUN Creatinine Ratio 17.8 (6-22); Bilirubin Total 0.5 mg/dL (0.2-1.3); Blood Urea Nitrogen 41 mg/dL (7-17); Calcium 10.6 mg/dL (8.4-10.2); Carbon Dioxide 24 mmol/L (22-32); Chloride 108 mmol/L (98-107); Globulin 3.2 g/dL (1.7-4.1); Glucose 85 mg/dL (80-110); Magnesium 2.1 mg/dL (1.6-2.3); Phosphorous 3.1 mg/dL (2.8-4.1); Sodium 143 mmol/L (137-145); Total Protein 7.5 g/dL (6.3-8.2)
[2017-09-28 10:50] LABS: Potassium 6.3 mmol/L (3.4-5.1)
[2017-09-28 12:20] LABS: Appearance Urine UA CLEAR; Bilirubin Urine UA NEGATIVE (NEGATIVE); Color Urine UA YELLOW; Glucose Urine UA NEGATIVE (Normal); Ketones Urine UA NEGATIVE (NEGATIVE); Leukocyte Esterase Urine UA NEGATIVE (NEGATIVE); Nitrite Urine UA Negative (Negative); Occult Blood Urine UA NEGATIVE (Negative); Protein Urine UA NEGATIVE (Negative); Urobilinogen Urine UA 0.2 E.U./dL (0.2); pH Urine UA 6.5 (4.5-8.0)
[2017-09-28 12:21] LABS: Culture Indicated Urine Cult Not Indicated; Urine Comments Microscopic Normal
[2017-09-28 12:32] LABS: Creatinine Urine Random 59.5 mg/dL; Protein (Total) Urine Random 16 mg/dL (0-12); Protein Creatinine Ratio Urine 0.26 GRAM/24H
[2017-09-30 10:39] LABS: Tacrolimus 4.1 mcg/L (5.0-20.0)
[2017-09-30 13:45] LABS: Parathyroid Hormone Int 135 pg/mL (14-64)
== END ==
PROVIDERS: PCP Family Medicine; Visit Provider Specialist
DX: Z94.0 Kidney transplant status (principal); Z41.8 Encounter for other procedures for purposes other than remedying health state; E11.22 Type 2 diabetes mellitus with diabetic chronic kidney disease
CPT/HCPCS: 36415; 80053; 80197; 81001; 82570; 83735; 83970; 84100; 84156; 85025

== ENCOUNTER → 2017-10-05 06:53 | Outpatient (CLI) | payer MEDICARE, SELFPAY ==
[2017-10-05 09:05] LABS: Cholesterol 125 mg/dL (140-199); HDL Cholesterol 59 mg/dL (40-60); LDL Cholesterol Calculated 35 mg/dL (<100); Triglycerides 155 mg/dL (35-150)
== END ==
PROVIDERS: PCP Family Medicine; Visit Provider Internal Medicine Cardiovascular Disease
DX: E78.5 Hyperlipidemia, unspecified (principal)
CPT/HCPCS: 36415; 80061

== ENCOUNTER → 2017-10-14 07:08 | Outpatient (CLI) | payer MEDICARE, SELFPAY ==
[2017-10-14 07:23] LABS: Bacteria Urine None Seen
[2017-10-14 08:16] LABS: Appearance Urine UA CLEAR; Bilirubin Urine UA NEGATIVE (NEGATIVE); Color Urine UA YELLOW; Glucose Urine UA NEGATIVE (Normal); Ketones Urine UA NEGATIVE (NEGATIVE); Leukocyte Esterase Urine UA NEGATIVE (NEGATIVE); Nitrite Urine UA Negative (Negative); Occult Blood Urine UA NEGATIVE (Negative); Protein Urine UA NEGATIVE (Negative); Urobilinogen Urine UA 0.2 E.U./dL (0.2)
[2017-10-14 08:29] LABS: Culture Indicated Urine Cult Not Indicated; RBC Urine 0-1/HPF (0-5/HPF); Transitional Epi Cells Urine 0-1/HPF (0-5/HPF); WBC Urine 0-1/HPF (0-5/HPF)
[2017-10-14 09:03] LABS: Add Manual Diff / Slide Review NO; Basophils Percent Auto 0.8 % (0-2); Eosinophils Percent Auto 2.5 % (2-4); Hematocrit 30.2 % (36-46); Lymphocytes Percent Auto 29.3 % (25-40); Mean Corpuscular HGB Conc 33.2 % (30-36); Mean Corpuscular Hemoglobin 28.4 PG (26-34); Mean Corpuscular Volume 85.5 fL (80-100); Neutrophils Absolute Auto 3400 /uL (3000-5900); Neutrophils Percent Auto 58.4 % (50-75); Platelet Count 117 X10^3/uL (150-400); Red Blood Cell Count 3.53 X10^6/uL (4.0-5.2); Red Cell Distribution Width 15.7 % (11.6-14.8); White Blood Cell Count 5.8 X10^3/uL (4.5-11.0)
[2017-10-14 09:43] LABS: Alanine Aminotransferase 23 IU/L (9-52); Albumin Globulin Ratio 1.4 (1.0-2.8); Alkaline Phosphatase 70 U/L (38-126); Aspartate Aminotransferase 19 IU/L (14-36); BUN Creatinine Ratio 18.2 (6-22); Bilirubin Total 0.4 mg/dL (0.2-1.3); Blood Urea Nitrogen 31 mg/dL (7-17); Calcium 10.2 mg/dL (8.4-10.2); Carbon Dioxide 26 mmol/L (22-32); Chloride 107 mmol/L (98-107); Estimated Glomerular Filt Rate 29.7 mL/min (>60); Globulin 2.8 g/dL (1.7-4.1); Glucose 92 mg/dL (80-110); HEMOLYSIS < 15 (0-50); Magnesium 2.1 mg/dL (1.6-2.3); Phosphorous 3.4 mg/dL (2.8-4.1); Sodium 143 mmol/L (137-145); Total Protein 6.8 g/dL (6.3-8.2)
[2017-10-14 09:47] LABS: Potassium 5.4 mmol/L (3.4-5.1)
== END ==
PROVIDERS: PCP Family Medicine; Visit Provider Specialist
DX: T86.11 Kidney transplant rejection (principal); Z41.8 Encounter for other procedures for purposes other than remedying health state
CPT/HCPCS: 36415; 80053; 81001; 83735; 84100; 85025; 87086

== ENCOUNTER → 2017-11-02 14:29 | Outpatient (CLI) | payer MEDICARE, SELFPAY ==
--- NOTE | 2017-11-02 14:32 | DI.US.S_ITS ---
PROCEDURE: US ABDOMEN COMPLETE INDICATIONS: HEPATOMEGALY TECHNIQUE: Real-time scanning was performed of the abdominal and retroperitoneal organs, with image documentation. COMPARISON: [facility], US, ABDOMEN COMPLETE, 03/16/2012, 10:59. FINDINGS: Liver: Liver measures 12.1 cm in length. Normal echotexture. Gallbladder: The gallbladder wall measures 2 mm in thickness. No sludge, stones, pericholecystic fluid or sonographic jaeger's sign. Biliary ducts: Intrahepatic bile ducts are non-dilated. Extrahepatic bile duct caliber measures 4 mm. Normal is 6-7 mm or less in diameter, or 10 mm or less post-cholecystectomy. Pancreas: Visualized portions of the pancreas are sonographically normal. Spleen: Spleen is normal in size and homogeneous in echotexture. Kidneys: The [place] kidney are not well-visualized. There is a right lower quadrant renal allograft which measures 9.7 cm in length. Aorta: Visualized aorta is normal in caliber at less than 3 cm. Iliacs: The iliacs are not visualize due to bowel gas. IVC: Intrahepatic inferior vena cava is patent. Miscellaneous: No free abdominal fluid. IMPRESSION: No cholelithiasis or findings to suggest choledocholithiasis or acute cholecystitis. Liver is normal size. Dictated by: Abbie Leonard M.D. on 11/02/2017 at 15:49 Approved by: Abbie Leonard M.D. on 11/02/2017 at 16:11
== END ==
PROVIDERS: Family Provider Specialist; PCP Internal Medicine; Visit Provider Internal Medicine Cardiovascular Disease
DX: R16.0 Hepatomegaly, not elsewhere classified (principal)
CPT/HCPCS: 76700

== ENCOUNTER → 2017-11-25 08:15 | Outpatient (CLI) | payer MEDICARE, SELFPAY | PROVIDERS: Family Provider Specialist; PCP Internal Medicine; Visit Provider Physician Assistant | DX: N39.0 Urinary tract infection, site not specified (principal) | CPT/HCPCS: 87077; 87086 ==

== ENCOUNTER → 2017-11-25 08:44 | Outpatient (CLI) | payer MEDICARE, SELFPAY ==
[2017-11-25 10:10] LABS: Chloride 106 mmol/L (98-107); HEMOLYSIS < 15 (0-50)
[2017-11-25 10:13] LABS: Alanine Aminotransferase 35 IU/L (9-52); Albumin 4.4 g/dL (3.5-5.0); Albumin Globulin Ratio 1.6 (1.0-2.8); Alkaline Phosphatase 85 U/L (38-126); Aspartate Aminotransferase 27 IU/L (14-36); BUN Creatinine Ratio 18.9 (6-22); Bilirubin Total 0.4 mg/dL (0.2-1.3); Blood Urea Nitrogen 34 mg/dL (7-17); Calcium 10.3 mg/dL (8.4-10.2); Carbon Dioxide 28 mmol/L (22-32); Estimated Glomerular Filt Rate 27.8 mL/min (>60); Globulin 2.7 g/dL (1.7-4.1); Glucose 132 mg/dL (80-110); Potassium 5.5 mmol/L (3.4-5.1); Sodium 142 mmol/L (137-145); Total Protein 7.1 g/dL (6.3-8.2)
[2017-11-25 10:27] LABS: Hemoglobin A1C% w Est Avg Glu 5.4 % (4.0-6.0)
== END ==
PROVIDERS: PCP Internal Medicine; Visit Provider Physician Assistant
DX: E11.59 Type 2 diabetes mellitus with other circulatory complications (principal); E11.9 Type 2 diabetes mellitus without complications; N39.0 Urinary tract infection, site not specified; Z94.0 Kidney transplant status
CPT/HCPCS: 36415; 80053; 83036; 87077; 87086; 87186

== ENCOUNTER → 2017-12-01 11:23 | Outpatient (CLI) | payer MEDICARE, SELFPAY ==
--- NOTE | 2017-12-01 11:25 | DI.RAD.S_ITS ---
PROCEDURE: XR FOOT RT MIN 3V INDICATIONS: Pain in unspecified foot TECHNIQUE: 3 views of the foot were acquired. COMPARISON: None. FINDINGS: Bones: No fractures or dislocations. No suspicious bony lesions. Osteoarthritic changes are noted at the first MTP joint. Well-defined plantar calcaneus enthesophyte is seen. Soft tissues: No tibiotalar joint effusion. Achilles tendon appears normal. IMPRESSION: First MTP joint osteoarthritis. No fracture or dislocation. Dictated by: Lucio Pelletier M.D. on 12/01/2017 at 12:28 Approved by: Lucio Pelletier M.D. on 12/01/2017 at 12:29
== END ==
PROVIDERS: PCP Internal Medicine; Visit Provider Internal Medicine
DX: M79.671 Pain in right foot (principal); M19.071 Primary osteoarthritis, right ankle and foot
CPT/HCPCS: 73630

== ENCOUNTER → 2017-12-24 07:42 | Outpatient (CLI) | payer MEDICARE, SELFPAY ==
[2017-12-24 07:50] LABS: Bacteria Urine None Seen; RBC Urine None Seen (0-5/HPF); WBC Urine None Seen (0-5/HPF)
[2017-12-24 08:05] LABS: Add Manual Diff / Slide Review NO; Basophils Percent Auto 0.6 % (0-2); Eosinophils Percent Auto 6.4 % (2-4); Hemoglobin 11.6 g/dL (12.0-16.0); Lymphocytes Percent Auto 32.7 % (25-40); Mean Corpuscular Hemoglobin 28.4 PG (26-34); Mean Corpuscular Volume 86.2 fL (80-100); Monocytes Percent Auto 8.7 % (3-14); Neutrophils Absolute Auto 3100 /uL (3000-5900); Neutrophils Percent Auto 51.6 % (50-75); Platelet Count 150 X10^3/uL (150-400); Red Blood Cell Count 4.07 X10^6/uL (4.0-5.2); Red Cell Distribution Width 14.7 % (11.6-14.8); White Blood Cell Count 6.1 X10^3/uL (4.5-11.0)
[2017-12-24 08:22] LABS: Appearance Urine UA CLEAR; Bilirubin Urine UA NEGATIVE (NEGATIVE); Color Urine UA YELLOW; Glucose Urine UA NEGATIVE (Normal); Ketones Urine UA NEGATIVE (NEGATIVE); Leukocyte Esterase Urine UA NEGATIVE (NEGATIVE); Nitrite Urine UA Negative (Negative); Occult Blood Urine UA NEGATIVE (Negative); Protein Urine UA NEGATIVE (Negative); Urobilinogen Urine UA 0.2 E.U./dL (0.2); pH Urine UA 5.5 (4.5-8.0)
[2017-12-24 08:29] LABS: Culture Indicated Urine Cult Not Indicated; Squamous Epithelial Cell Urine 5-10 /HPF
[2017-12-24 08:57] LABS: Alanine Aminotransferase 33 IU/L (9-52); Albumin 4.4 g/dL (3.5-5.0); Albumin Globulin Ratio 1.6 (1.0-2.8); Alkaline Phosphatase 76 U/L (38-126); Aspartate Aminotransferase 24 IU/L (14-36); BUN Creatinine Ratio 18.8 (6-22); Bilirubin Total 0.4 mg/dL (0.2-1.3); Blood Urea Nitrogen 32 mg/dL (7-17); Calcium 10.5 mg/dL (8.4-10.2); Carbon Dioxide 28 mmol/L (22-32); Chloride 107 mmol/L (98-107); Estimated Glomerular Filt Rate 29.7 mL/min (>60); Globulin 2.8 g/dL (1.7-4.1); Glucose 98 mg/dL (80-110); HEMOLYSIS < 15 (0-50); Magnesium 2.1 mg/dL (1.6-2.3); Phosphorous 3.5 mg/dL (2.8-4.1); Sodium 145 mmol/L (137-145); Total Protein 7.2 g/dL (6.3-8.2)
[2017-12-24 09:03] LABS: Potassium 5.5 mmol/L (3.4-5.1)
[2017-12-25 17:35] LABS: Creatinine Urine Random 90.9 mg/dL; Protein (Total) Urine Random 10 mg/dL (0-12); Protein Creatinine Ratio Urine 0.11 GRAM/24H
[2017-12-26 14:40] LABS: Parathyroid Hormone Int 117 pg/mL (14-64)
[2017-12-28 12:42] LABS: Tacrolimus 5.1 mcg/L (5.0-20.0)
== END ==
PROVIDERS: PCP Internal Medicine; Visit Provider Specialist
DX: Z94.0 Kidney transplant status (principal); Z41.8 Encounter for other procedures for purposes other than remedying health state
CPT/HCPCS: 36415; 80053; 80197; 81001; 82570; 83735; 83970; 84100; 84156; 85025

== ENCOUNTER → 2018-02-22 07:24 | Outpatient (CLI) | payer MEDICARE, SELFPAY ==
[2018-02-22 07:34] LABS: Bacteria Urine None Seen; RBC Urine None Seen (0-5/HPF); WBC Urine None Seen (0-5/HPF)
[2018-02-22 08:27] LABS: Add Manual Diff / Slide Review NO; Basophils Percent Auto 0.5 % (0-2); Eosinophils Percent Auto 3.8 % (2-4); Hematocrit 36.8 % (36-46); Hemoglobin 11.8 g/dL (12.0-16.0); Lymphocytes Percent Auto 33.7 % (25-40); Mean Corpuscular HGB Conc 32.2 % (30-36); Mean Corpuscular Hemoglobin 26.8 PG (26-34); Mean Corpuscular Volume 83.1 fL (80-100); Monocytes Percent Auto 6.7 % (3-14); Neutrophils Absolute Auto 3700 /uL (3000-5900); Neutrophils Percent Auto 55.3 % (50-75); Platelet Count 160 X10^3/uL (150-400); Red Blood Cell Count 4.43 X10^6/uL (4.0-5.2); Red Cell Distribution Width 14.5 % (11.6-14.8); White Blood Cell Count 6.7 X10^3/uL (4.5-11.0)
[2018-02-22 08:46] LABS: Alanine Aminotransferase 31 IU/L (9-52); Albumin 4.5 g/dL (3.5-5.0); Albumin Globulin Ratio 1.6 (1.0-2.8); Alkaline Phosphatase 69 U/L (38-126); Aspartate Aminotransferase 30 IU/L (14-36); BUN Creatinine Ratio 20.6 (6-22); Bilirubin Total 0.3 mg/dL (0.2-1.3); Blood Urea Nitrogen 35 mg/dL (7-17); Calcium 10.1 mg/dL (8.4-10.2); Carbon Dioxide 28 mmol/L (22-32); Chloride 106 mmol/L (98-107); Estimated Glomerular Filt Rate 29.7 mL/min (>60); Globulin 2.9 g/dL (1.7-4.1); Glucose 80 mg/dL (80-110); HEMOLYSIS < 15 (0-50); Magnesium 2.3 mg/dL (1.6-2.3); Phosphorous 3.3 mg/dL (2.8-4.1); Potassium 5.1 mmol/L (3.4-5.1); Sodium 143 mmol/L (137-145); Total Protein 7.4 g/dL (6.3-8.2)
[2018-02-22 09:01] LABS: Appearance Urine UA CLEAR; Bilirubin Urine UA NEGATIVE (NEGATIVE); Color Urine UA YELLOW; Glucose Urine UA NEGATIVE (Normal); Ketones Urine UA NEGATIVE (NEGATIVE); Leukocyte Esterase Urine UA NEGATIVE (NEGATIVE); Nitrite Urine UA NEGATIVE (Negative); Occult Blood Urine UA NEGATIVE (Negative); Protein Urine UA NEGATIVE (Negative); Specific Gravity Urine UA 1.015 (1.000-1.035); Urobilinogen Urine UA 0.2 E.U./dL (0.2)
[2018-02-22 09:31] LABS: Culture Indicated Urine Cult Not Indicated; Urine Comments Microscopic Normal
[2018-02-22 09:48] LABS: Creatinine Urine Random 73.3 mg/dL; Protein (Total) Urine Random 9 mg/dL (0-12); Protein Creatinine Ratio Urine 0.12 GRAM/24H
[2018-02-23 14:10] LABS: Parathyroid Hormone Int 148 pg/mL (14-64)
[2018-02-23 16:15] LABS: Tacrolimus 4.4 mcg/L (5.0-20.0)
== END ==
PROVIDERS: Family Provider Specialist; PCP Internal Medicine; Visit Provider Internal Medicine
DX: Z94.0 Kidney transplant status (principal); Z41.8 Encounter for other procedures for purposes other than remedying health state
CPT/HCPCS: 36415; 80053; 80197; 81001; 82570; 83735; 83970; 84100; 84156; 85025

== ENCOUNTER → 2018-04-03 10:31 | Outpatient (CLI) | payer MEDICARE, SELFPAY ==
--- NOTE | 2018-04-03 | DI.MG.S_ITS ---
BILATERAL DIGITAL SCREENING MAMMOGRAM 3D/2D WITH CAD: 04/03/2018 CLINICAL: Routine screening. Family history of breast cancer. Comparison is made to exams dated: 03/27/2017 mammogram, 03/24/2016 mammogram, and 03/22/2015 mammogram - Located [facility]. The tissue of both breasts is heterogeneously dense. This may lower the sensitivity of mammography. Current study was also evaluated with a Computer Aided Detection (CAD) system. There are benign calcifications in both breasts. No significant masses, calcifications, or other findings are seen in either breast. There has been no significant interval change. IMPRESSION: There is no mammographic evidence of malignancy. A 1 year screening mammogram is recommended. This exam was interpreted at Station ID: [id number]. NOTE: For mammograms, a report in lay terms will be sent to the patient. Approximately 15% of breast malignancies will not be visualized mammographically. In the management of a palpable breast mass, a negative mammogram must not discourage biopsy of a clinically suspicious lesion. Electronically Signed By: Antoni dalton/page:04/05/2018 10:18:25 letter sent: Normal Exam ACR BI-RADS Category 2: Benign Finding(s) [id number]
== END ==
PROVIDERS: Family Provider Specialist; PCP Internal Medicine; Visit Provider Internal Medicine
DX: Z12.31 Encounter for screening mammogram for malignant neoplasm of breast (principal); Z80.3 Family history of malignant neoplasm of breast
CPT/HCPCS: 77063; 77067

== ENCOUNTER → 2018-05-03 08:30 | Outpatient (CLI) | payer MEDICARE, SELFPAY ==
[2018-05-03 09:18] LABS: BUN Creatinine Ratio 18.8 (6-22); Blood Urea Nitrogen 30 mg/dL (7-17); Calcium 10.3 mg/dL (8.4-10.2); Carbon Dioxide 27 mmol/L (22-32); Chloride 106 mmol/L (98-107); Estimated Glomerular Filt Rate 31.9 mL/min (>60); Glucose 87 mg/dL (80-110); HEMOLYSIS < 15 (0-50); Potassium 5.1 mmol/L (3.4-5.1); Sodium 140 mmol/L (137-145)
[2018-05-03 10:03] LABS: Hemoglobin A1C% w Est Avg Glu 6.2 % (4.0-6.0)
== END ==
PROVIDERS: Family Provider Specialist; PCP Internal Medicine; Visit Provider Internal Medicine
DX: E11.9 Type 2 diabetes mellitus without complications (principal); I10 Essential (primary) hypertension
CPT/HCPCS: 36415; 80048; 83036

== ENCOUNTER → 2018-06-25 13:30 | Outpatient (CLI) | payer MEDICARE, SELFPAY ==
--- NOTE | 2018-06-25 | DI.ECHO.S_ITS ---
[facility]---------+ [facility] +---------+ : : [address] : : : : [id number] : : : : Phone: [phone]+ Echocardiogram Report + + :Name: BOBO HEAD Study Date: 06/25/2018 Height: 57 in : :[facility] Weight: 121 lb : : Gender: Female BSA: 1.5 m2 : :: 1945 Age: 72 yrs BP: 126/68 mmHg: :Reason For Study: THORACIC AORTIC DISSECTION : :Ordering Physician: Suzanne : :Sylvia Performed By: Eva Maldonado : :Referring: Dr. Brian Snow : + + Interpretation Summary The left ventricle is normal in size. The ejection fraction is estimated to be 60-65%. No significant change in LV systolic function. The right ventricle is normal in size and function. There is moderate aortic regurgitation. Compared to the prior echo study, there has been no change in the severity of aortic regurgitation. There is mild to moderate tricuspid regurgitation. Compared to the prior echo exam, there has been an increase in TR severity. The right ventricular systolic pressure is estimated to be at least 29 mmHg based on an estimated right atrial pressure of 3 mm Hg. Proximal aorta just distal to sinotubular junction is about 4.3 cm and more distally about 3.5 cm in diameter. In August 2017 more distal ascending aorta diameter was about 3.4 cm. The more proximal segment that time appears to have about 4.0 cm diameter. I don't see obvious dissection flap or false lumen. 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 Procedure: A two-dimensional transthoracic echocardiogram with color flow and Doppler was performed. The study quality was technically adequate. Comparison is made with the echocardiogram of 08/27/2017. The patient was in normal sinus rhythm during the exam. Left Ventricle: The left ventricle is normal in size. Left ventricular wall thickness is mildly increased. Proximal septal thickening is noted. There is no echo evidence for significant left ventricular outflow tract obstruction. There is no thrombus. The ejection fraction is estimated to be 60-65%. There are no focal wall motion abnormalities. MV E/A: 1.0 Med Peak E' Alejandro: 6.6 cm/sec E/E' med: 13.9. Right Ventricle: The right ventricle is normal in size and function. Atria: The left atrium is mildly dilated. The left atrium has remained unchanged in size since the prior echo exam. Right atrial size is normal. There is no Doppler evidence for an interatrial shunt. Mitral Valve: The mitral valve leaflets are slightly calcified. There is mild mitral regurgitation. Compared to the prior echo study, there has been no change in the severity of mitral regurgitation. Aortic Valve: The aortic valve is trileaflet. The aortic valve is mildly calcified. Nodular calcification involving all 3 cusps but more prominent in the right coronary cusp seen in the previous study as well. There is no aortic valve stenosis. There is moderate aortic regurgitation. Compared to the prior echo study, there has been no change in the severity of aortic regurgitation. Tricuspid Valve: The tricuspid valve is normal. There is mild to moderate tricuspid regurgitation. The right ventricular systolic pressure is estimated to be at least 29 mmHg based on an estimated right atrial pressure of 3 mm Hg. Compared to the prior echo exam, there has been an increase in TR severity. Pulmonic Valve: The pulmonic valve is normal in structure and function. There is a trace or physiologic amount of pulmonic regurgitation. Great Vessels: The aortic root is normal size. There is aortic root sclerosis/calcification. The ascending aorta is moderately enlarged. The aortic arch is normal in size. There is moderate luminal irregularity and echogenicity in the abdominal aorta, suggestive of aortic atherosclerotic disease. The IVC is of normal diameter and collapses greater than 50% with a sniff. This suggests a low right atrial pressure of 3 mm Hg. Pericardium/ Pleura There is no pericardial effusion. MMode/2D Measurements & Calculations LVIDd: 3.8 cm LVOT diam: 2.0 cm LVIDs: 2.1 cm Ao root diam: 2.8 cm FS: 44.5 % asc Aorta Diam: 4.3 cm EPSS: 0.27 cm Ao Arch Diam (Prox Trans): 2.6 cm IVSd: 1.2 cm LVPWd: 1.1 cm LV silva. diameter/BSA (cm/m^2): 2.6 LV sys. diameter/BSA (cm/m^2): 1.5 LA A2 area: 18.4 cm2 RA long axis: 3.9 cm LA A4 area: 16.7 cm2 RA area: 13.0 cm2 LA length (vol): 4.9 cm RA vol: 37.1 ml LA vol: 53.2 ml RA : 25.5 ml/m2 LA vol index: 36.6 ml/m2 IVC diam: 1.3 cm RVD1 (basal): 3.7 cm RVD2 (mid): 2.6 cm TAPSE: 1.5 cm Doppler Measurements & Calculations Ao V2 max: 156.5 cm/sec LVOT Max Alejandro: 105.0 cm/sec Ao V2 mean: 109.1 cm/sec LV V1 max P.4 mmHg Ao max P.8 mmHg LV V1 VTI: 22.5 cm Ao mean P.3 mmHg VIANEY(I,D): 1.9 cm2 Ao V2 VTI: 36.3 cm VIANEY(V,D): 2.0 cm2 sev ratio: 0.62 VIANEY indexed to BSA (cm^2/m^2): 1.3 AI P1/2t: 446.7 msec AI dec slope: 273.0 cm/sec2 MV E max alejandro: 92.0 cm/sec TR max alejandro: 253.8 cm/sec MV A max alejandro: 92.0 cm/sec TR max P.8 mmHg MV E/A: 1.0 PA V2 max: 71.7 cm/sec Med Peak E' Alejandro: 6.6 cm/sec PA V2 mean: 46.5 cm/sec E/E' med: 13.9 PA mean P.99 mmHg Lat Peak E' Alejandro: 9.7 cm/sec PA Accel Time: 0.12 sec E/E' lat: 9.5 E/e' average: 11.7 MV dec time: 0.16 sec MV P1/2t: 46.3 msec MV P1/2t max alejandro: 92.1 cm/sec SV(LVOT): 67.3 ml MVA(P1/2t): 4.7 cm2 Reading Physician:PM
== END ==
PROVIDERS: Family Provider Specialist; PCP Internal Medicine; Visit Provider Internal Medicine Cardiovascular Disease
DX: I08.3 Combined rheumatic disorders of mitral, aortic and tricuspid valves (principal); I71.01 Dissection of thoracic aorta
CPT/HCPCS: 93306

== ENCOUNTER → 2018-08-05 11:59 | Outpatient (CLI) | payer MEDICARE, SELFPAY ==
[2018-08-05 12:48] LABS: BUN Creatinine Ratio 20.6 (6-22); Blood Urea Nitrogen 33 mg/dL (7-17); Calcium 10.2 mg/dL (8.4-10.2); Carbon Dioxide 25 mmol/L (22-32); Chloride 107 mmol/L (98-107); Estimated Glomerular Filt Rate 31.8 mL/min (>60); Glucose 52 mg/dL (80-110); HEMOLYSIS < 15 (0-50); Potassium 4.9 mmol/L (3.4-5.1); Sodium 141 mmol/L (137-145)
== END ==
PROVIDERS: Family Provider Specialist; PCP Internal Medicine; Visit Provider Hospitalist
DX: R25.2 Cramp and spasm (principal)
CPT/HCPCS: 36415; 80048; 83735

== ENCOUNTER → 2018-08-26 07:22 | Outpatient (CLI) | payer MEDICARE, SELFPAY ==
[2018-08-26 08:09] LABS: Appearance Urine UA CLEAR; Bilirubin Urine UA NEGATIVE (NEGATIVE); Color Urine UA YELLOW; Glucose Urine UA NEGATIVE (Negative); Ketones Urine UA NEGATIVE (NEGATIVE); Leukocyte Esterase Urine UA NEGATIVE (NEGATIVE); Nitrite Urine UA NEGATIVE (Negative); Occult Blood Urine UA TRACE-INTACT (Negative); Protein Urine UA NEGATIVE (Negative); Urobilinogen Urine UA 0.2 E.U./dL (0.2); pH Urine UA 7.5 (4.5-8.0)
[2018-08-26 08:13] LABS: Add Manual Diff / Slide Review NO; Basophils Absolute Auto 0 /uL (0-100); Basophils Percent Auto 0.4 % (0-2); Eosinophils Absolute Auto 200 /uL (0-450); Eosinophils Percent Auto 2.6 % (2-4); Hematocrit 36.9 % (36-46); Lymphocytes Absolute Auto 2700 /uL (1100-4500); Lymphocytes Percent Auto 35.3 % (25-40); Mean Corpuscular HGB Conc 32.4 % (30-36); Mean Corpuscular Hemoglobin 27.9 PG (26-34); Mean Corpuscular Volume 86.3 fL (80-100); Monocytes Absolute Auto 600 /uL (0-900); Neutrophils Absolute Auto 4000 /uL (1500-7000); Neutrophils Percent Auto 53.7 % (50-75); Platelet Count 163 X10^3/uL (150-400); Red Blood Cell Count 4.28 X10^6/uL (4.0-5.2); Red Cell Distribution Width 14.7 % (11.6-14.8); White Blood Cell Count 7.5 X10^3/uL (4.5-11.0)
[2018-08-26 08:25] LABS: Bacteria Urine Occasional (0-1); Culture Indicated Urine Cult Not Indicated; RBC Urine 0-1/HPF (0-5/HPF); WBC Urine 1-5/HPF (0-5/HPF)
[2018-08-26 08:40] LABS: Creatinine Urine Random 84.6 mg/dL; Protein (Total) Urine Random 11 mg/dL (0-12); Protein Creatinine Ratio Urine 0.13 GRAM/24H
[2018-08-26 08:44] LABS: Alanine Aminotransferase 35 IU/L (9-52); Albumin 4.2 g/dL (3.5-5.0); Albumin Globulin Ratio 1.5 (1.0-2.8); Alkaline Phosphatase 64 U/L (38-126); Aspartate Aminotransferase 27 IU/L (14-36); BUN Creatinine Ratio 18.8 (6-22); Bilirubin Total 0.4 mg/dL (0.2-1.3); Blood Urea Nitrogen 30 mg/dL (7-17); Calcium 10.2 mg/dL (8.4-10.2); Carbon Dioxide 28 mmol/L (22-32); Chloride 106 mmol/L (98-107); Estimated Glomerular Filt Rate 31.8 mL/min (>60); Globulin 2.8 g/dL (1.7-4.1); Glucose 98 mg/dL (80-110); HEMOLYSIS < 15 (0-50); Magnesium 2.2 mg/dL (1.6-2.3); Phosphorous 3.1 mg/dL (2.8-4.1); Sodium 141 mmol/L (137-145)
[2018-08-28 15:15] LABS: Parathyroid Hormone Int 139 pg/mL (14-64)
[2018-08-31 09:43] LABS: Tacrolimus 5.5 mcg/L (5.0-20.0)
== END ==
PROVIDERS: PCP Internal Medicine; Visit Provider Specialist
DX: Z94.0 Kidney transplant status (principal); Z41.8 Encounter for other procedures for purposes other than remedying health state
CPT/HCPCS: 36415; 80053; 80197; 81001; 82570; 83735; 83970; 84100; 84156; 85025

== ENCOUNTER → 2019-01-24 07:31 | Outpatient (CLI) | payer MEDICARE, SELFPAY ==
[2019-01-24 08:19] LABS: Alanine Aminotransferase 36 IU/L (9-52); Albumin 4.3 g/dL (3.5-5.0); Albumin Globulin Ratio 1.5 (1.0-2.8); Alkaline Phosphatase 63 U/L (38-126); Aspartate Aminotransferase 32 IU/L (14-36); BUN Creatinine Ratio 21.3 (6-22); Bilirubin Total 0.5 mg/dL (0.2-1.3); Blood Urea Nitrogen 34 mg/dL (7-17); Calcium 10.1 mg/dL (8.4-10.2); Carbon Dioxide 29 mmol/L (22-32); Chloride 104 mmol/L (98-107); Estimated Glomerular Filt Rate 31.8 mL/min (>60); Globulin 2.8 g/dL (1.7-4.1); Glucose 79 mg/dL (80-110); HEMOLYSIS < 15 (0-50); Magnesium 2.3 mg/dL (1.6-2.3); Potassium 4.7 mmol/L (3.4-5.1); Sodium 141 mmol/L (137-145); Total Protein 7.1 g/dL (6.3-8.2)
[2019-01-24 08:20] LABS: Add Manual Diff / Slide Review NO; Appearance Urine UA SL CLOUDY; Basophils Absolute Auto 0 /uL (0-100); Basophils Percent Auto 0.3 % (0-2); Bilirubin Urine UA NEGATIVE (NEGATIVE); Color Urine UA YELLOW; Eosinophils Absolute Auto 200 /uL (0-450); Glucose Urine UA NEGATIVE (Negative); Hematocrit 37.8 % (36-46); Hemoglobin 12.5 g/dL (12.0-16.0); Ketones Urine UA NEGATIVE (NEGATIVE); Leukocyte Esterase Urine UA 2+ (NEGATIVE); Lymphocytes Absolute Auto 2400 /uL (1100-4500); Lymphocytes Percent Auto 34.1 % (25-40); Mean Corpuscular Hemoglobin 28.3 PG (26-34); Monocytes Absolute Auto 600 /uL (0-900); Monocytes Percent Auto 8.7 % (3-14); Neutrophils Absolute Auto 3700 /uL (1500-7000); Neutrophils Percent Auto 53.9 % (50-75); Nitrite Urine UA POSITIVE (Negative); Occult Blood Urine UA TRACE-INTACT (Negative); Platelet Count 146 X10^3/uL (150-400); Protein Urine UA NEGATIVE (Negative); Red Cell Distribution Width 14.4 % (11.6-14.8); Urobilinogen Urine UA 0.2 E.U./dL (0.2); White Blood Cell Count 6.9 X10^3/uL (4.5-11.0)
[2019-01-24 08:23] LABS: pH Urine UA 8.5 (4.5-8.0)
[2019-01-24 08:26] LABS: Bacteria Urine Many (>30); RBC Urine 1-5/HPF (0-5/HPF); Squamous Epithelial Cell Urine 0-1 /HPF (0-5/HPF); Triple Phosphate Crystal Urine Moderate; WBC Urine 5-10/HPF (0-5/HPF)
[2019-01-24 08:27] LABS: Culture Indicated Urine Specimen Cultured
[2019-01-24 08:55] LABS: Creatinine Urine Random 52.9 mg/dL; Protein (Total) Urine Random 16 mg/dL (0-12)
[2019-01-24 13:28] LABS: Phosphorous 2.9 mg/dL (2.8-4.1)
[2019-01-29 15:17] LABS: Parathyroid Hormone Int 113 pg/mL (14-64)
== END ==
PROVIDERS: Family Provider Internal Medicine; PCP Internal Medicine; Visit Provider Specialist
DX: Z94.0 Kidney transplant status (principal); Z41.8 Encounter for other procedures for purposes other than remedying health state
CPT/HCPCS: 36415; 80053; 80197; 81001; 82570; 83735; 83970; 84100; 84156; 85025; 87077; 87086; 87186

== ENCOUNTER → 2019-03-04 15:03 | Outpatient (CLI) | payer MEDICARE, SELFPAY ==
[2019-03-04 15:54] LABS: Erythrocyte Sedimentation Rate 4 MM/HR (0-20)
[2019-03-04 16:06] LABS: Blood Urea Nitrogen 38 mg/dL (7-17); Calcium 10.4 mg/dL (8.4-10.2); Carbon Dioxide 26 mmol/L (22-32); Chloride 105 mmol/L (98-107); Creatine Kinase 110 U/L (30-135); Estimated Glomerular Filt Rate 26.1 mL/min (>60); Glucose 240 mg/dL (80-110); HEMOLYSIS < 15 (0-50); Sodium 139 mmol/L (137-145)
[2019-03-04 16:16] LABS: C-Reactive Protein Quant < 0.5 mg/dL (<1.0); Potassium 5.6 mmol/L (3.4-5.1)
== END ==
PROVIDERS: Family Provider Internal Medicine; PCP Internal Medicine; Visit Provider Internal Medicine
DX: R25.2 Cramp and spasm (principal)
CPT/HCPCS: 36415; 80048; 82550; 85651; 86140

== ENCOUNTER → 2019-04-04 13:30 | Outpatient (CLI) | payer MEDICARE, SELFPAY ==
--- NOTE | 2019-04-04 | DI.MG.S_ITS ---
BILATERAL DIGITAL SCREENING MAMMOGRAM 3D/2D WITH CAD: 04/04/2019 CLINICAL: Routine screening. Family history of breast cancer. Comparison is made to exams dated: 04/03/2018 mammogram, 03/27/2017 mammogram, and 03/24/2016 mammogram - [facility]. The tissue of both breasts is heterogeneously dense. This may lower the sensitivity of mammography. Current study was also evaluated with a Computer Aided Detection (CAD) system. There are benign calcifications in both breasts. No significant masses, calcifications, or other findings are seen in either breast. There has been no significant interval change. IMPRESSION: There is no mammographic evidence of malignancy. A 1 year screening mammogram is recommended. This exam was interpreted at Station ID: [id number]. NOTE: For mammograms, a report in lay terms will be sent to the patient. Approximately 15% of breast malignancies will not be visualized mammographically. In the management of a palpable breast mass, a negative mammogram must not discourage biopsy of a clinically suspicious lesion. Electronically Signed By: Conor bowen/page:04/04/2019 18:20:07 letter sent: Normal Exam ACR BI-RADS Category 2: Benign Finding(s) 3342F
== END ==
PROVIDERS: PCP Internal Medicine; Visit Provider Internal Medicine
DX: Z12.31 Encounter for screening mammogram for malignant neoplasm of breast (principal); Z80.3 Family history of malignant neoplasm of breast
CPT/HCPCS: 77063; 77067

== ENCOUNTER → 2019-04-15 08:04 | Outpatient (CLI) | payer MEDICARE, SELFPAY ==
[2019-04-15 08:20] LABS: WBC Urine None Seen (0-5/HPF)
[2019-04-15 08:47] LABS: Appearance Urine UA CLEAR; Bilirubin Urine UA NEGATIVE (NEGATIVE); Color Urine UA YELLOW; Glucose Urine UA NEGATIVE (Negative); Ketones Urine UA NEGATIVE (NEGATIVE); Leukocyte Esterase Urine UA NEGATIVE (NEGATIVE); Nitrite Urine UA NEGATIVE (Negative); Occult Blood Urine UA NEGATIVE (Negative); Protein Urine UA NEGATIVE (Negative); Urobilinogen Urine UA 0.2 E.U./dL (0.2)
[2019-04-15 08:48] LABS: pH Urine UA 7.5 (4.5-8.0)
[2019-04-15 08:55] LABS: Add Manual Diff / Slide Review NO; Basophils Absolute Auto 0 /uL (0-100); Basophils Percent Auto 0.3 % (0-2); Eosinophils Absolute Auto 300 /uL (0-450); Eosinophils Percent Auto 4.8 % (2-4); Hematocrit 37.3 % (36-46); Hemoglobin 12.6 g/dL (12.0-16.0); Lymphocytes Absolute Auto 2400 /uL (1100-4500); Lymphocytes Percent Auto 34.6 % (25-40); Mean Corpuscular HGB Conc 33.9 % (30-36); Mean Corpuscular Hemoglobin 28.9 PG (26-34); Mean Corpuscular Volume 85.3 fL (80-100); Monocytes Absolute Auto 600 /uL (0-900); Monocytes Percent Auto 8.1 % (3-14); Neutrophils Absolute Auto 3700 /uL (1500-7000); Neutrophils Percent Auto 52.2 % (50-75); Platelet Count 149 X10^3/uL (150-400); Red Blood Cell Count 4.37 X10^6/uL (4.0-5.2); Red Cell Distribution Width 14.3 % (11.6-14.8)
[2019-04-15 09:10] LABS: Alanine Aminotransferase 40 IU/L (<35); Albumin 4.3 g/dL (3.5-5.0); Albumin Globulin Ratio 1.5 (1.0-2.8); Alkaline Phosphatase 66 U/L (38-126); Aspartate Aminotransferase 35 IU/L (14-36); Bilirubin Total 0.3 mg/dL (0.2-1.3); Blood Urea Nitrogen 32 mg/dL (7-17); Calcium 10.1 mg/dL (8.4-10.2); Carbon Dioxide 25 mmol/L (22-32); Chloride 106 mmol/L (98-107); Estimated Glomerular Filt Rate 31.8 mL/min (>60); Globulin 2.8 g/dL (1.7-4.1); Glucose 94 mg/dL (80-110); HEMOLYSIS < 15 (0-50); Magnesium 2.2 mg/dL (1.6-2.3); Phosphorous 2.6 mg/dL (2.8-4.1); Potassium 4.8 mmol/L (3.4-5.1); Sodium 138 mmol/L (137-145); Total Protein 7.1 g/dL (6.3-8.2)
[2019-04-15 09:12] LABS: Creatinine Urine Random 88.5 mg/dL; Protein (Total) Urine Random 12 mg/dL (0-12); Protein Creatinine Ratio Urine 0.13 GRAM/24H
[2019-04-15 09:27] LABS: Bacteria Urine Occasional (0-1); RBC Urine 0-1/HPF (0-5/HPF); Squamous Epithelial Cell Urine 0-1 /HPF (0-5/HPF)
[2019-04-18 12:53] LABS: Tacrolimus 6.3 mcg/L (5.0-20.0)
[2019-04-19 15:44] LABS: Parathyroid Hormone Int 63 pg/mL (14-64)
== END ==
PROVIDERS: PCP Internal Medicine; Visit Provider Specialist
DX: Z94.0 Kidney transplant status (principal); Z79.899 Other long term (current) drug therapy
CPT/HCPCS: 36415; 80053; 80197; 81001; 82570; 83735; 83970; 84100; 84156; 85025

== ENCOUNTER 2019-04-21 09:00 | Outpatient (RCR) | payer MEDICARE, SELFPAY ==
--- NOTE | 2019-03-10 13:42 | PT.OIE ---
Current Diagnoses Cervicalgia (03/10/19) Past Medical History (Last Reviewed 10/05/18 @ 15:42 by Gaston Valentino MD) Aortic aneurysm (Chronic) Ascending aortic dissection (Chronic) CAD (coronary atherosclerotic disease) (Chronic 10/29/10) Chest pain (Inactive) Chronic gout (Chronic 10/29/10) Diabetes mellitus type 2 in nonobese (Chronic 10/29/10) Essential hypertension (Chronic 10/29/10) GERD (gastroesophageal reflux disease) (Chronic) History of peritoneal dialysis (Resolved) Lumbar radiculopathy (Chronic) Other and unspecified hyperlipidemia (Chronic) Peripheral polyneuropathy (Chronic 03/06/16) ST elevation (Inactive) 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/15) Vesicoureteral reflux (Chronic 07/01/13) Weakness on right side of face (Chronic) Past Surgical History (Last Reviewed 10/05/18 @ 15:42 by Gaston Valentino MD) History of cardiac cath (Resolved 04/2012) History of carpal tunnel repair (Resolved) Status post breast biopsy (Resolved) Status post kidney transplant (Resolved 04/03/13) Status post parathyroidectomy (Resolved) Visit Care Team Role Provider Type Gaston Valentino MD Attending Provider Physician Primary Care Provider Specialty: Internal Medicine Address: [address] [place] [address], [address], [facility] Email: [email or web address] Physical Therapy Initial Evaluation PT-OP-A Visit Information Start: 03/10/19 07:29 Freq: Status: Active Protocol: Document 03/10/19 10:30 AMB (Rec: 03/10/19 13:38 AMB [email or web address]) Out-Patient Physical Therapy Visit Information Visit Information Visit Type Initial Evaluation Visit Start Time 10:30 Visit Stop Time 11:25 Total Visit Minutes 55 Visit Number 1 PT-OP-B Current Condition Start: 03/10/19 07:29 Freq: Status: Active Protocol: Document 03/10/19 10:30 AMB (Rec: 03/10/19 13:38 AMB [email or web address]) Current Condition History of Current Condition Onset Date 2 months ago Current Complaints R sided neck pain History of Current Condition Ignacia states that about 2 months ago she was doing a lot of yardwork and noticed increased pain. Since then she has had right sided neck pain with sleeping on the right side, and with using the right arm. Reports current pain 2/10, at worst in last week 5/10, denies radiating pain into the arm or hand, does go into the upper shoulder. Exercise seems to help. She is left hand dominant. Treatment Goals Patient/Caregiver Goals Reduce pain so can go back to yardwork/sleep without pain Prior Functional Status Baseline Function- ADL's Independent Baseline Function- Mobility Independent Current Functional Impairments (Reported) Functional Limitations- ADL's difficulty sleeping and difficulty using moving neck, epsecially to sleep. 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 History Therapy/Recovery of aortic dissection not surgically fixed- just watching it. History of kidney transplant in 2012. PT-OP-C Subjective Start: 03/10/19 07:29 Freq: Status: Active Protocol: Document 03/10/19 10:30 AMB (Rec: 03/10/19 13:38 AMB [email or web address]) Patient Questionnaires Quick Dash- Upper Extremity Quick Dash UE Score 32 Quick Dash UE Impairment 20 to 39% Impaired (Score 20- 39) PT-OP-J Posture/Palpation/Skin Start: 03/10/19 13:40 Freq: Status: Active Protocol: Document 03/10/19 10:30 AMB (Rec: 03/10/19 13:42 AMB [email or web address]) Posture Evaluation Comments Posture Comments Slight forward head, no winging scapula Palpation Assessment Location One Palpation Location cervical spine Palpation Findings Soft Tissue Tightness,Muscle Guarding,Tenderness Palpation Details Tendnerness at suboccipitals, tightness and tenderess at upper trap and levator scap. No pain with central PAs or unilateral PAs throughout C- spine. PT-OP-K Range of Motion Start: 03/10/19 07:29 Freq: Status: Active Protocol: Document 03/10/19 10:30 AMB (Rec: 03/10/19 13:38 AMB [email or web address]) Cervical Spine Range of Motion Cervical Spine Active Degrees Testing Position Sitting Flexion 55 Extension 57 Rotation Left 60 Rotation Right 52 Lateral Flexion Left 25 Lateral Flexion Right 35 Comments painful with extension, right rotation, right sidebending PT-OP-L Special Tests Start: 03/10/19 07:29 Freq: Status: Active Protocol: Document 03/10/19 10:30 AMB (Rec: 03/10/19 13:38 AMB [email or web address]) Special Tests Cervical Spine Special Tests Traction Test Results decreases pain Spurling's Test Test Results negative for radicular sx PT-OP-M Strength Start: 03/10/19 07:29 Freq: Status: Active Protocol: Document 03/10/19 10:30 AMB (Rec: 03/10/19 13:38 AMB [email or web address]) Hand Veterans Services Specialist/Pinch Strength Hand Dominance Hand Dominance Left Hand Strength Right Veterans Services Specialist (lbs) 20 Left Veterans Services Specialist (lbs) 25 PT-OP-R Modalities Start: 03/10/19 07:29 Freq: Status: Active Protocol: Document 03/10/19 10:30 AMB (Rec: 03/10/19 13:38 AMB [email or web address]) Electric Stimulation Electric Stimulation Interferential Current (IFC) Body Location R neck Duration (Minutes) 15 Combined With Heat/Cold Hot Pack PT-OP-T Assessment and Plan Start: 03/10/19 07:29 Freq: Status: Active Protocol: Document 03/10/19 10:30 AMB (Rec: 03/10/19 13:38 AMB [email or web address]) Physical Therapy Assessment Rehab Potential Rehabilitation Potential Good Evaluation Complexity Number of Personal Factors/Comorbidities 1-2 Number of Body Systems Impaired 4 or More Clinical Presentation at Evaluation Stable Impairments Impairments Functional Activities, Functional Mobility,Pain,ROM, Strength Goals Two Impairment neck pain Short Term Goal (STG) Ignacia will do 1 hour of yardwork with 2/10 neck pain or less. STG Duration 4 weeks [facility] Goal (LTG) Ignacia will lift 15 pounds from the floor to waist height without an increase in neck pain. LTG Duration 8 weeks One Impairment ROM Short Term Goal (STG) Ignacia will increase her cervical AROM to 60 degrees bilaterally. STG Duration 4 weeks [facility] Goal (LTG) Ignacia will increase her cervical sidebending to 35 degrees without an increase in pain. Assessment Summary Assessment Ignacia attends PT with 2 month history of right sided neck pain. She did not show signs of radicular symptoms and did not have any tenderness over spinous or transverse processes. She did have significant tenderness over R levator scapulae, upper trapezius, and suboccipitals. She will benefit from physical therapy to treat her muscular dysfunction with instruction in body mechanics and posture as needed. Physical Therapy Plan Frequency and Duration Frequency of Treatment 2x/Week Duration of Treatment 8 weeks Plan of Care Start Date 03/10/19 Plan of Care End Date 05/05/19 Therapeutic Interventions Therapeutic Interventions Home Exercise Program,Joint Mobilizations,Manual Therapy, Neuromuscular Re-education, Soft Tissue Mobilization, Therapeutic Activities, Therapeutic Exercises Modalities Electric Stimulation,Hot Packs ,Ultrasound Next Visit Focus/Plan Next Note Type Treatment Note Next Visit Plan Progress HEP with gentle cervical isometrics and stretching. Manual therapy and modalities as necessary for pain relief.
--- NOTE | 2019-03-15 08:05 | PT.OTN ---
Current Diagnoses Cervicalgia (03/14/19) Physical Therapy Treatment Note PT-OP-A Visit Information Start: 03/10/19 07:29 Freq: Status: Active Protocol: Document 03/14/19 10:30 AMB (Rec: 03/15/19 08:04 AMB [email or web address]) Out-Patient Physical Therapy Visit Information Visit Information Visit Type Treatment Note Visit Start Time 10:30 Visit Stop Time 11:25 Total Visit Minutes 55 Visit Number 2 PT-OP-B Current Condition Start: 03/10/19 07:29 Freq: Status: Active Protocol: Document 03/10/19 10:30 AMB (Rec: 03/10/19 13:38 AMB [email or web address]) Current Condition History of Current Condition Onset Date 2 months ago Current Complaints R sided neck pain History of Current Condition Ignacia states that about 2 months ago she was doing a lot of yardwork and noticed increased pain. Since then she has had right sided neck pain with sleeping on the right side, and with using the right arm. Reports current pain 2/10, at worst in last week 5/10, denies radiating pain into the arm or hand, does go into the upper shoulder. Exercise seems to help. She is left hand dominant. Treatment Goals Patient/Caregiver Goals Reduce pain so can go back to yardwork/sleep without pain Prior Functional Status Baseline Function- ADL's Independent Baseline Function- Mobility Independent Current Functional Impairments (Reported) Functional Limitations- ADL's difficulty sleeping and difficulty using moving neck, epsecially to sleep. 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 History Therapy/Recovery of aortic dissection not surgically fixed- just watching it. History of kidney transplant in 2012. PT-OP-C Subjective Start: 03/10/19 07:29 Freq: Status: Active Protocol: Document 03/14/19 10:30 AMB (Rec: 03/15/19 08:04 AMB [email or web address]) OP-PT Subjective Patient Comments Patient Comments Pt states she is doing a little better. She was able to tolerate mopping the floors for a while this week. PT-OP-J Posture/Palpation/Skin Start: 03/10/19 13:40 Freq: Status: Active Protocol: Document 03/10/19 10:30 AMB (Rec: 03/10/19 13:42 AMB [email or web address]) Posture Evaluation Comments Posture Comments Slight forward head, no winging scapula Palpation Assessment Location One Palpation Location cervical spine Palpation Findings Soft Tissue Tightness,Muscle Guarding,Tenderness Palpation Details Tendnerness at suboccipitals, tightness and tenderess at upper trap and levator scap. No pain with central PAs or unilateral PAs throughout C- spine. PT-OP-K Range of Motion Start: 03/10/19 07:29 Freq: Status: Active Protocol: Document 03/10/19 10:30 AMB (Rec: 03/10/19 13:38 AMB [email or web address]) Cervical Spine Range of Motion Cervical Spine Active Degrees Testing Position Sitting Flexion 55 Extension 57 Rotation Left 60 Rotation Right 52 Lateral Flexion Left 25 Lateral Flexion Right 35 Comments painful with extension, right rotation, right sidebending PT-OP-L Special Tests Start: 03/10/19 07:29 Freq: Status: Active Protocol: Document 03/10/19 10:30 AMB (Rec: 03/10/19 13:38 AMB [email or web address]) Special Tests Cervical Spine Special Tests Traction Test Results decreases pain Spurling's Test Test Results negative for radicular sx PT-OP-M Strength Start: 03/10/19 07:29 Freq: Status: Active Protocol: Document 03/10/19 10:30 AMB (Rec: 03/10/19 13:38 AMB [email or web address]) Hand Aging Room Operator/Pinch Strength Hand Dominance Hand Dominance Left Hand Strength Right Aging Room Operator (lbs) 20 Left Aging Room Operator (lbs) 25 PT-OP-Q Treatments Start: 03/10/19 07:29 Freq: Status: Active Protocol: Document 03/14/19 10:30 AMB (Rec: 03/15/19 08:04 AMB [email or web address]) Cardio Equipment Upper Body Ergometer (UBE) Duration (Minutes) 3 Other increased pt pain Therapeutic Exercises Supine Exercises 1 Supine Exercise Name cervical rotation isometric Comments 5x5 Sitting Exercises 1 Sitting Exercise Name levator scap stretch Reps/Minutes 30x2 Manual Therapy Treatment Soft Tissue Mobilization 1 Body Location Cervical spine Mobilization Type Myofascial Release,Rolling, Sustained Pressure,Trigger Point Release Intensity/Depth Deep Body Position Supine Comments R levator scap/upper trap, sub occipitals Manual Traction Cervical Body Position Hooklying Other Other Manual Treatments PROM sidebending and rotation PT-OP-R Modalities Start: 03/10/19 07:29 Freq: Status: Active Protocol: Document 03/14/19 10:30 AMB (Rec: 03/15/19 08:05 AMB [email or web address]) Electric Stimulation Electric Stimulation Interferential Current (IFC) Body Location R neck Duration (Minutes) 15 Combined With Heat/Cold Hot Pack PT-OP-T Assessment and Plan Start: 03/10/19 07:29 Freq: Status: Active Protocol: Document 03/14/19 10:30 AMB (Rec: 03/15/19 08:04 AMB [email or web address]) Physical Therapy Assessment Assessment Summary Assessment Ignacia encouraged to gently stretch for HEP, as she has been forcing the neck. She is worried about lifting, as she states when she was in the hospital for her aorta they told her not to lift much, but her partner thinks that was just for while in the hospital . Pt encouraged to follow up with leaf fat scraper regarding cardiac precautions, but orthopedically she is allowed to lift things. Physical Therapy Plan Next Visit Focus/Plan Next Note Type Treatment Note Next Visit Plan Progress HEP with gentle cervical isometrics and stretching. Manual therapy and modalities as necessary for pain relief, assess thoracic spine.
--- NOTE | 2019-03-16 10:30 | PT.OTN ---
Current Diagnoses Cervicalgia (03/16/19) Physical Therapy Treatment Note PT-OP-A Visit Information Start: 03/10/19 07:29 Freq: Status: Active Protocol: Document 03/16/19 10:05 SP (Rec: 03/16/19 11:24 SP [id number]) Out-Patient Physical Therapy Visit Information Visit Information Visit Type Treatment Note Visit Note Pt arrived 20 min late. Visit Start Time 10:05 Visit Stop Time 10:30 Total Visit Minutes 25 Visit Number 3 Number of OPERATIONS EXECUTIVE Visits 1 PT-OP-B Current Condition Start: 03/10/19 07:29 Freq: Status: Active Protocol: Document 03/10/19 10:30 AMB (Rec: 03/10/19 13:38 AMB [email or web address]) Current Condition History of Current Condition Onset Date 2 months ago Current Complaints R sided neck pain History of Current Condition Ignacia states that about 2 months ago she was doing a lot of yardwork and noticed increased pain. Since then she has had right sided neck pain with sleeping on the right side, and with using the right arm. Reports current pain 2/10, at worst in last week 510, denies radiating pain into the arm or hand, does go into the upper shoulder. Exercise seems to help. She is left hand dominant. Treatment Goals Patient/Caregiver Goals Reduce pain so can go back to yardwork/sleep without pain Prior Functional Status Baseline Function- ADL's Independent Baseline Function- Mobility Independent Current Functional Impairments (Reported) Functional Limitations- ADL's difficulty sleeping and difficulty using moving neck, epsecially to sleep. 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 History Therapy/Recovery of aortic dissection not surgically fixed- just watching it. History of kidney transplant in 2012. PT-OP-C Subjective Start: 03/10/19 07:29 Freq: Status: Active Protocol: Document 03/16/19 10:05 SP (Rec: 03/16/19 11:24 SP [id number]) OP-PT Subjective Patient Comments Patient Comments Pt stated compliant with HEP, R lateral neck tightness pre PT. PT-OP-J Posture/Palpation/Skin Start: 03/10/19 13:40 Freq: Status: Active Protocol: Document 03/10/19 10:30 AMB (Rec: 03/10/19 13:42 AMB [email or web address]) Posture Evaluation Comments Posture Comments Slight forward head, no winging scapula Palpation Assessment Location One Palpation Location cervical spine Palpation Findings Soft Tissue Tightness,Muscle Guarding,Tenderness Palpation Details Tendnerness at suboccipitals, tightness and tenderess at upper trap and levator scap. No pain with central PAs or unilateral PAs throughout C- spine. PT-OP-K Range of Motion Start: 03/10/19 07:29 Freq: Status: Active Protocol: Document 03/10/19 10:30 AMB (Rec: 03/10/19 13:38 AMB [email or web address]) Cervical Spine Range of Motion Cervical Spine Active Degrees Testing Position Sitting Flexion 55 Extension 57 Rotation Left 60 Rotation Right 52 Lateral Flexion Left 25 Lateral Flexion Right 35 Comments painful with extension, right rotation, right sidebending PT-OP-L Special Tests Start: 03/10/19 07:29 Freq: Status: Active Protocol: Document 03/10/19 10:30 AMB (Rec: 03/10/19 13:38 AMB [email or web address]) Special Tests Cervical Spine Special Tests Traction Test Results decreases pain Spurling's Test Test Results negative for radicular sx PT-OP-M Strength Start: 03/10/19 07:29 Freq: Status: Active Protocol: Document 03/10/19 10:30 AMB (Rec: 03/10/19 13:38 AMB [email or web address]) Hand Vulcanizer Operator/Pinch Strength Hand Dominance Hand Dominance Left Hand Strength Right Vulcanizer Operator (lbs) 20 Left Vulcanizer Operator (lbs) 25 PT-OP-Q Treatments Start: 03/10/19 07:29 Freq: Status: Active Protocol: Document 03/16/19 10:05 SP (Rec: 03/16/19 11:24 SP [id number]) Therapeutic Exercises Supine Exercises chin nods Supine Exercise Name (DNF) chin nods Reps/Minutes 5 x5 Comments cued slow pacing small range 1 Supine Exercise Name cervical rotation isometric Comments 5x5 Sitting Exercises scap retraction Reps/Minutes 5 x5 chin nods Reps/Minutes 5 x5 Comments chest elevate with neutral CS chin nod 1 Sitting Exercise Name levator scap stretch Side right Reps/Minutes 30x3 PT-OP-R Modalities Start: 03/10/19 07:29 Freq: Status: Active Protocol: Document 03/14/19 10:30 AMB (Rec: 03/15/19 08:05 AMB [email or web address]) Electric Stimulation Electric Stimulation Interferential Current (IFC) Body Location R neck Duration (Minutes) 15 Combined With Heat/Cold Hot Pack PT-OP-T Assessment and Plan Start: 03/10/19 07:29 Freq: Status: Active Protocol: Document 03/16/19 10:05 SP (Rec: 03/16/19 11:24 SP [id number]) Physical Therapy Assessment Goals Four Impairment Back/ RLE pain scale of 7/10 with activity [facility] Goal (LTG) Patient will subjectively report PS of 3/10 with activity LTG Duration 5 wks Three Impairment LEFS score of 37 Typewriter Mechanic Goal (LTG) Patient will increase LEFS score to 60 LTG Duration 5 wks Two Impairment neck pain Short Term Goal (STG) Ignacia will do 1 hour of yardwork with 2/10 neck pain or less. STG Duration 4 weeks [facility] Goal (LTG) Ignacia will lift 15 pounds from the floor to waist height without an increase in neck pain. LTG Duration 8 weeks One Impairment ROM Short Term Goal (STG) Ignacia will increase her cervical AROM to 60 degrees bilaterally. STG Duration 4 weeks [facility] Goal (LTG) Ignacia will increase her cervical sidebending to 35 degrees without an increase in pain. Assessment Summary Assessment Pt arrived 20 min late for apt , still worked with her for remaining time of appt. Office staff provided print out of appts to view and refer to. Reviewed HEP, cued for slow pacing gentle contraction rotation isometric, introduced chin nod (DNF) and scap retraction gentle activation to decrease over SCM recruitment head lift supine and CS and TS extension seated . Improvement with self corrections as progressed in reps. Pt stated not as tight end of tx. Physical Therapy Plan Frequency and Duration Frequency of Treatment 2x/Week Duration of Treatment 8 weeks Plan of Care Start Date 03/10/19 Plan of Care End Date 05/05/19 Therapeutic Interventions Therapeutic Interventions Home Exercise Program,Joint Mobilizations,Manual Therapy, Neuromuscular Re-education, Soft Tissue Mobilization, Therapeutic Activities, Therapeutic Exercises Modalities Electric Stimulation,Hot Packs ,Ultrasound Next Visit Focus/Plan Next Note Type Treatment Note Next Visit Plan Assess response to added chin nods and scap retractions last tx. Continue per PT POC: Progress HEP with gentle cervical isometrics and stretching. Manual therapy and modalities as necessary for pain relief, assess thoracic spine.
--- NOTE | 2019-03-21 14:13 | PT.OTN ---
Current Diagnoses Cervicalgia (03/21/19) Physical Therapy Treatment Note PT-OP-A Visit Information Start: 03/10/19 07:29 Freq: Status: Active Protocol: Document 03/21/19 10:15 AMB (Rec: 03/21/19 11:02 AMB [id number]) Out-Patient Physical Therapy Visit Information Visit Information Visit Type Treatment Note Visit Start Time 10:00 Visit Stop Time 10:45 Total Visit Minutes 45 Visit Number 4 Number of FOOD MANAGER Visits 0 PT-OP-B Current Condition Start: 03/10/19 07:29 Freq: Status: Active Protocol: Document 03/10/19 10:30 AMB (Rec: 03/10/19 13:38 AMB [email or web address]) Current Condition History of Current Condition Onset Date 2 months ago Current Complaints R sided neck pain History of Current Condition Ignacia states that about 2 months ago she was doing a lot of yardwork and noticed increased pain. Since then she has had right sided neck pain with sleeping on the right side, and with using the right arm. Reports current pain 2/10, at worst in last week 5/10, denies radiating pain into the arm or hand, does go into the upper shoulder. Exercise seems to help. She is left hand dominant. Treatment Goals Patient/Caregiver Goals Reduce pain so can go back to yardwork/sleep without pain Prior Functional Status Baseline Function- ADL's Independent Baseline Function- Mobility Independent Current Functional Impairments (Reported) Functional Limitations- ADL's difficulty sleeping and difficulty using moving neck, epsecially to sleep. 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 History Therapy/Recovery of aortic dissection not surgically fixed- just watching it. History of kidney transplant in 2012. PT-OP-C Subjective Start: 03/10/19 07:29 Freq: Status: Active Protocol: Document 03/21/19 10:15 AMB (Rec: 03/21/19 11:02 AMB [id number]) OP-PT Subjective Patient Comments Patient Comments Pt is doing well, she states her neck is feeling better. Her spouse states that she did a lot of cooking on Thursday and that increased her neck pain. PT-OP-J Posture/Palpation/Skin Start: 03/10/19 13:40 Freq: Status: Active Protocol: Document 03/10/19 10:30 AMB (Rec: 03/10/19 13:42 AMB [email or web address]) Posture Evaluation Comments Posture Comments Slight forward head, no winging scapula Palpation Assessment Location One Palpation Location cervical spine Palpation Findings Soft Tissue Tightness,Muscle Guarding,Tenderness Palpation Details Tendnerness at suboccipitals, tightness and tenderess at upper trap and levator scap. No pain with central PAs or unilateral PAs throughout C- spine. PT-OP-K Range of Motion Start: 03/10/19 07:29 Freq: Status: Active Protocol: Document 03/10/19 10:30 AMB (Rec: 03/10/19 13:38 AMB [email or web address]) Cervical Spine Range of Motion Cervical Spine Active Degrees Testing Position Sitting Flexion 55 Extension 57 Rotation Left 60 Rotation Right 52 Lateral Flexion Left 25 Lateral Flexion Right 35 Comments painful with extension, right rotation, right sidebending PT-OP-L Special Tests Start: 03/10/19 07:29 Freq: Status: Active Protocol: Document 03/10/19 10:30 AMB (Rec: 03/10/19 13:38 AMB [email or web address]) Special Tests Cervical Spine Special Tests Traction Test Results decreases pain Spurling's Test Test Results negative for radicular sx PT-OP-M Strength Start: 03/10/19 07:29 Freq: Status: Active Protocol: Document 03/10/19 10:30 AMB (Rec: 03/10/19 13:38 AMB [email or web address]) Hand Process Mechanic/Pinch Strength Hand Dominance Hand Dominance Left Hand Strength Right Process Mechanic (lbs) 20 Left Process Mechanic (lbs) 25 PT-OP-Q Treatments Start: 03/10/19 07:29 Freq: Status: Active Protocol: Document 03/21/19 10:15 AMB (Rec: 03/22/19 14:13 AMB [email or web address]) Therapeutic Exercises Supine Exercises 1 Supine Exercise Name cervical rotation isometric Comments 5x10 Sitting Exercises scap retraction Reps/Minutes 5 x10 1 Sitting Exercise Name levator scap stretch Side right Reps/Minutes 30x3 Manual Therapy Treatment Soft Tissue Mobilization 1 Body Location Cervical spine Mobilization Type Myofascial Release,Rolling, Sustained Pressure,Trigger Point Release Intensity/Depth Deep Body Position Supine Comments R levator scap/upper trap, sub occipitals Manual Traction Cervical Body Position Hooklying PT-OP-R Modalities Start: 03/10/19 07:29 Freq: Status: Active Protocol: Document 03/21/19 10:15 AMB (Rec: 03/22/19 14:13 AMB [email or web address]) Electric Stimulation Electric Stimulation Interferential Current (IFC) Body Location R neck Duration (Minutes) 15 Combined With Heat/Cold Hot Pack PT-OP-T Assessment and Plan Start: 03/10/19 07:29 Freq: Status: Active Protocol: Document 03/21/19 10:15 AMB (Rec: 03/22/19 14:13 AMB [email or web address]) Physical Therapy Assessment Goals Two Impairment neck pain Short Term Goal (STG) Ignacia will do 1 hour of yardwork with 2/10 neck pain or less. STG Duration 4 weeks [facility] Goal (LTG) Ignacia will lift 15 pounds from the floor to waist height without an increase in neck pain. LTG Duration 8 weeks One Impairment ROM Short Term Goal (STG) Ignacia will increase her cervical AROM to 60 degrees bilaterally. STG Duration 4 weeks Photoengraving Apprentice Goal (LTG) Ignacia will increase her cervical sidebending to 35 degrees without an increase in pain. Assessment Summary Assessment Pt overall states that symptoms are much improved. However she did have increased pain with extended cooking. Physical Therapy Plan Next Visit Focus/Plan Next Note Type Treatment Note Next Visit Plan Pt did well with HEP, if still doing well, could try to add back in UBE or other cardio equipment.
--- NOTE | 2019-03-23 15:43 | PT.OTN ---
Current Diagnoses Cervicalgia (03/23/19) Physical Therapy Treatment Note PT-OP-A Visit Information Start: 03/10/19 07:29 Freq: Status: Active Protocol: Document 03/23/19 10:15 AMB (Rec: 03/23/19 14:32 AMB [email or web address]) Out-Patient Physical Therapy Visit Information Visit Information Visit Type Treatment Note Visit Start Time 10:15 Visit Stop Time 11:10 Total Visit Minutes 55 Visit Number 5 Number of RN FORENSIC Visits 0 PT-OP-B Current Condition Start: 03/10/19 07:29 Freq: Status: Active Protocol: Document 03/10/19 10:30 AMB (Rec: 03/10/19 13:38 AMB [email or web address]) Current Condition History of Current Condition Onset Date 2 months ago Current Complaints R sided neck pain History of Current Condition Ignacia states that about 2 months ago she was doing a lot of yardwork and noticed increased pain. Since then she has had right sided neck pain with sleeping on the right side, and with using the right arm. Reports current pain 2/10, at worst in last week 510, denies radiating pain into the arm or hand, does go into the upper shoulder. Exercise seems to help. She is left hand dominant. Treatment Goals Patient/Caregiver Goals Reduce pain so can go back to yardwork/sleep without pain Prior Functional Status Baseline Function- ADL's Independent Baseline Function- Mobility Independent Current Functional Impairments (Reported) Functional Limitations- ADL's difficulty sleeping and difficulty using moving neck, epsecially to sleep. 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 History Therapy/Recovery of aortic dissection not surgically fixed- just watching it. History of kidney transplant in 2012. PT-OP-C Subjective Start: 03/10/19 07:29 Freq: Status: Active Protocol: Document 03/23/19 10:15 AMB (Rec: 03/23/19 14:32 AMB [email or web address]) OP-PT Subjective Patient Comments Patient Comments Pt overall feels better, but states that when she is vacuuming or otherwise using the right arm the neck pain has continued PT-OP-J Posture/Palpation/Skin Start: 03/10/19 13:40 Freq: Status: Active Protocol: Document 03/10/19 10:30 AMB (Rec: 03/10/19 13:42 AMB [email or web address]) Posture Evaluation Comments Posture Comments Slight forward head, no winging scapula Palpation Assessment Location One Palpation Location cervical spine Palpation Findings Soft Tissue Tightness,Muscle Guarding,Tenderness Palpation Details Tendnerness at suboccipitals, tightness and tenderess at upper trap and levator scap. No pain with central PAs or unilateral PAs throughout C- spine. PT-OP-K Range of Motion Start: 03/10/19 07:29 Freq: Status: Active Protocol: Document 03/10/19 10:30 AMB (Rec: 03/10/19 13:38 AMB [email or web address]) Cervical Spine Range of Motion Cervical Spine Active Degrees Testing Position Sitting Flexion 55 Extension 57 Rotation Left 60 Rotation Right 52 Lateral Flexion Left 25 Lateral Flexion Right 35 Comments painful with extension, right rotation, right sidebending PT-OP-L Special Tests Start: 03/10/19 07:29 Freq: Status: Active Protocol: Document 03/10/19 10:30 AMB (Rec: 03/10/19 13:38 AMB [email or web address]) Special Tests Cervical Spine Special Tests Traction Test Results decreases pain Spurling's Test Test Results negative for radicular sx PT-OP-M Strength Start: 03/10/19 07:29 Freq: Status: Active Protocol: Document 03/10/19 10:30 AMB (Rec: 03/10/19 13:38 AMB [email or web address]) Hand Swim Instructor/Pinch Strength Hand Dominance Hand Dominance Left Hand Strength Right Swim Instructor (lbs) 20 Left Swim Instructor (lbs) 25 PT-OP-Q Treatments Start: 03/10/19 07:29 Freq: Status: Active Protocol: Document 03/23/19 10:15 AMB (Rec: 03/23/19 14:32 AMB [email or web address]) Therapeutic Exercises Supine Exercises 1 Supine Exercise Name cervical rotation isometric Comments 5x10 Sitting Exercises 1 Sitting Exercise Name levator scap stretch Side right Reps/Minutes 30x3 Standing Exercises 3 Standing Exercise Name lifting 10# crate without over using upper traps Reps/Minutes x10 Comments did slightly increase pain. 2 Standing Exercise Name rows Resistance #2 t band Reps/Minutes 3x10 1 Standing Exercise Name ER and IR Resistance #2 t band Reps/Minutes 2x10 ea Comments with curing for form Manual Therapy Treatment Soft Tissue Mobilization 1 Body Location Cervical spine Mobilization Type Myofascial Release,Rolling, Sustained Pressure,Trigger Point Release Intensity/Depth Deep Body Position Supine Comments R levator scap/upper trap, sub occipitals Manual Traction Cervical Body Position Hooklying PT-OP-R Modalities Start: 03/10/19 07:29 Freq: Status: Active Protocol: Document 03/23/19 10:15 AMB (Rec: 03/23/19 15:43 AMB [email or web address]) Electric Stimulation Electric Stimulation Interferential Current (IFC) Body Location R neck Duration (Minutes) 15 Combined With Heat/Cold Hot Pack PT-OP-T Assessment and Plan Start: 03/10/19 07:29 Freq: Status: Active Protocol: Document 03/23/19 10:15 AMB (Rec: 03/23/19 14:32 AMB [email or web address]) Physical Therapy Assessment Goals Two Impairment neck pain Short Term Goal (STG) Ignacia will do 1 hour of yardwork with 2/10 neck pain or less. STG Duration 4 weeks [facility] Goal (LTG) Ignacia will lift 15 pounds from the floor to waist height without an increase in neck pain. LTG Duration 8 weeks One Impairment ROM Short Term Goal (STG) Ignacia will increase her cervical AROM to 60 degrees bilaterally. STG Duration 4 weeks Senior [facility] Goal (LTG) Ignacia will increase her cervical sidebending to 35 degrees without an increase in pain. Assessment Summary Assessment Reinforced not overusing upper trap with lifting and with exercises. Pt appeared to tolerate band exercises without an increase in pain but did need cueing to avoid shrugged shoulder position with exercises and lifting Physical Therapy Plan Next Visit Focus/Plan Next Note Type Treatment Note Next Visit Plan Assess response to added theraband exercises, if tolerated well provide band and written HEP for t band rows, ER, IR
--- NOTE | 2019-04-05 14:30 | PT.OTN ---
Current Diagnoses Cervicalgia (04/05/19) Physical Therapy Treatment Note PT-OP-A Visit Information Start: 03/10/19 07:29 Freq: Status: Active Protocol: Document 04/05/19 13:52 SP (Rec: 04/05/19 14:38 SP [id number]) Out-Patient Physical Therapy Visit Information Visit Information Visit Type Treatment Note Visit Start Time 13:52 Visit Stop Time 14:30 Total Visit Minutes 38 Visit Number 6 Number of QUALITY LIAISON Visits 1 PT-OP-B Current Condition Start: 03/10/19 07:29 Freq: Status: Active Protocol: Document 03/10/19 10:30 AMB (Rec: 03/10/19 13:38 AMB [email or web address]) Current Condition History of Current Condition Onset Date 2 months ago Current Complaints R sided neck pain History of Current Condition Ignacia states that about 2 months ago she was doing a lot of yardwork and noticed increased pain. Since then she has had right sided neck pain with sleeping on the right side, and with using the right arm. Reports current pain 2/10, at worst in last week 5/10, denies radiating pain into the arm or hand, does go into the upper shoulder. Exercise seems to help. She is left hand dominant. Treatment Goals Patient/Caregiver Goals Reduce pain so can go back to yardwork/sleep without pain Prior Functional Status Baseline Function- ADL's Independent Baseline Function- Mobility Independent Current Functional Impairments (Reported) Functional Limitations- ADL's difficulty sleeping and difficulty using moving neck, epsecially to sleep. 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 History Therapy/Recovery of aortic dissection not surgically fixed- just watching it. History of kidney transplant in 2012. PT-OP-C Subjective Start: 03/10/19 07:29 Freq: Status: Active Protocol: Document 04/05/19 13:52 SP (Rec: 04/05/19 14:38 SP [id number]) OP-PT Subjective Patient Comments Patient Comments Pt stated hurts a little when tips head back and L lateral side bend but not to bad, overall better. PT-OP-J Posture/Palpation/Skin Start: 03/10/19 13:40 Freq: Status: Active Protocol: Document 03/10/19 10:30 AMB (Rec: 03/10/19 13:42 AMB [email or web address]) Posture Evaluation Comments Posture Comments Slight forward head, no winging scapula Palpation Assessment Location One Palpation Location cervical spine Palpation Findings Soft Tissue Tightness,Muscle Guarding,Tenderness Palpation Details Tendnerness at suboccipitals, tightness and tenderess at upper trap and levator scap. No pain with central PAs or unilateral PAs throughout C- spine. PT-OP-K Range of Motion Start: 03/10/19 07:29 Freq: Status: Active Protocol: Document 03/10/19 10:30 AMB (Rec: 03/10/19 13:38 AMB [email or web address]) Cervical Spine Range of Motion Cervical Spine Active Degrees Testing Position Sitting Flexion 55 Extension 57 Rotation Left 60 Rotation Right 52 Lateral Flexion Left 25 Lateral Flexion Right 35 Comments painful with extension, right rotation, right sidebending PT-OP-L Special Tests Start: 03/10/19 07:29 Freq: Status: Active Protocol: Document 03/10/19 10:30 AMB (Rec: 03/10/19 13:38 AMB [email or web address]) Special Tests Cervical Spine Special Tests Traction Test Results decreases pain Spurling's Test Test Results negative for radicular sx PT-OP-M Strength Start: 03/10/19 07:29 Freq: Status: Active Protocol: Document 03/10/19 10:30 AMB (Rec: 03/10/19 13:38 AMB [email or web address]) Hand Delivery Supervisor/Pinch Strength Hand Dominance Hand Dominance Left Hand Strength Right Delivery Supervisor (lbs) 20 Left Delivery Supervisor (lbs) 25 PT-OP-Q Treatments Start: 03/10/19 07:29 Freq: Status: Active Protocol: Document 04/05/19 13:52 SP (Rec: 04/05/19 14:38 SP [id number]) Therapeutic Exercises Supine Exercises chin nods Supine Exercise Name (DNF) chin nods Reps/Minutes 5 x5 Comments cued slow pacing small range Standing Exercises 3 Standing Exercise Name lifting 10# crate without over using upper traps Reps/Minutes x10 Comments no pain, max cues sit back as into chair (hip hinge) 2 Standing Exercise Name rows Resistance #2 t band Reps/Minutes 3x10 1 Standing Exercise Name ER and IR Resistance #2 t band Reps/Minutes 2x10 ea Comments with curing for form Manual Therapy Treatment Soft Tissue Mobilization 1 Body Location Cervical spine Mobilization Type Myofascial Release,Rolling, Sustained Pressure,Trigger Point Release Intensity/Depth Deep Body Position Supine Comments R levator scap/upper trap, PT-OP-R Modalities Start: 03/10/19 07:29 Freq: Status: Active Protocol: Document 03/23/19 10:15 AMB (Rec: 03/23/19 15:43 AMB [email or web address]) Electric Stimulation Electric Stimulation Interferential Current (IFC) Body Location R neck Duration (Minutes) 15 Combined With Heat/Cold Hot Pack PT-OP-T Assessment and Plan Start: 03/10/19 07:29 Freq: Status: Active Protocol: Document 04/05/19 13:52 SP (Rec: 04/05/19 14:38 SP [id number]) Physical Therapy Assessment Goals Four Impairment Back/ RLE pain scale of 7/10 with activity Care Home Goal (LTG) Patient will subjectively report PS of 3/10 with activity LTG Duration 5 wks Three Impairment LEFS score of 37 Theatrical Agent Goal (LTG) Patient will increase LEFS score to 60 LTG Duration 5 wks Two Impairment neck pain Short Term Goal (STG) Ignacia will do 1 hour of yardwork with 2/10 neck pain or less. STG Duration 4 weeks Care Home Goal (LTG) Ignacia will lift 15 pounds from the floor to waist height without an increase in neck pain. LTG Duration 8 weeks One Impairment ROM Short Term Goal (STG) Ignacia will increase her cervical AROM to 60 degrees bilaterally. STG Duration 4 weeks Theatrical Agent Goal (LTG) Ignacia will increase her cervical sidebending to 35 degrees without an increase in pain. Assessment Summary Assessment Pt tolerated tx well, cued R UT started tightnesing during ther ex but improved post cue for chest lift/ribcage elevation with awareness of CS neutral head nod range with positive demonstration. Added sit to stands with arms across body to improve hip hinge, knees apart and chest lift mechanics to lift 10# basket for carrying laundry. Provided Tb and hand outs for recall and proper form. Physical Therapy Plan Frequency and Duration Frequency of Treatment 2x/Week Duration of Treatment 8 weeks Plan of Care Start Date 03/10/19 Plan of Care End Date 05/05/19 Therapeutic Interventions Therapeutic Interventions Home Exercise Program,Joint Mobilizations,Manual Therapy, Neuromuscular Re-education, Soft Tissue Mobilization, Therapeutic Activities, Therapeutic Exercises Modalities Electric Stimulation,Hot Packs ,Ultrasound Discharge Physical Therapy Discharge Reasons Patient Request Next Visit Focus/Plan Next Note Type Treatment Note Next Visit Plan Assess response to added theraband exercises and sit to stands to improved lifting laundry basket,Continue strengthening as toleranted
--- NOTE | 2019-04-07 17:53 | PT.OTN ---
Current Diagnoses Cervicalgia (04/07/19) Physical Therapy Treatment Note PT-OP-A Visit Information Start: 03/10/19 07:29 Freq: Status: Active Protocol: Document 04/07/19 14:52 HH (Rec: 04/07/19 17:51 [id number]) Out-Patient Physical Therapy Visit Information Visit Information Visit Type Treatment Note Visit Note Pt's attended session Visit Start Time 14:35 Visit Stop Time 15:15 Total Visit Minutes 40 Visit Number 7 Number of CATTLE BROKER Visits 0 PT-OP-B Current Condition Start: 03/10/19 07:29 Freq: Status: Active Protocol: Document 03/10/19 10:30 AMB (Rec: 03/10/19 13:38 AMB [email or web address]) Current Condition History of Current Condition Onset Date 2 months ago Current Complaints R sided neck pain History of Current Condition Ignacia states that about 2 months ago she was doing a lot of yardwork and noticed increased pain. Since then she has had right sided neck pain with sleeping on the right side, and with using the right arm. Reports current pain 2/10, at worst in last week 5/10, denies radiating pain into the arm or hand, does go into the upper shoulder. Exercise seems to help. She is left hand dominant. Treatment Goals Patient/Caregiver Goals Reduce pain so can go back to yardwork/sleep without pain Prior Functional Status Baseline Function- ADL's Independent Baseline Function- Mobility Independent Current Functional Impairments (Reported) Functional Limitations- ADL's difficulty sleeping and difficulty using moving neck, epsecially to sleep. 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 History Therapy/Recovery of aortic dissection not surgically fixed- just watching it. History of kidney transplant in 2012. PT-OP-C Subjective Start: 03/10/19 07:29 Freq: Status: Active Protocol: Document 04/07/19 14:52 HH (Rec: 04/07/19 17:51 HH [id number]) OP-PT Subjective Patient Comments Patient Comments Suki been doing very good but turning my head is still bothers me. Patient Reported Progress Improving PT-OP-J Posture/Palpation/Skin Start: 03/10/19 13:40 Freq: Status: Active Protocol: Document 03/10/19 10:30 AMB (Rec: 03/10/19 13:42 AMB [email or web address]) Posture Evaluation Comments Posture Comments Slight forward head, no winging scapula Palpation Assessment Location One Palpation Location cervical spine Palpation Findings Soft Tissue Tightness,Muscle Guarding,Tenderness Palpation Details Tendnerness at suboccipitals, tightness and tenderess at upper trap and levator scap. No pain with central PAs or unilateral PAs throughout C- spine. PT-OP-K Range of Motion Start: 03/10/19 07:29 Freq: Status: Active Protocol: Document 03/10/19 10:30 AMB (Rec: 03/10/19 13:38 AMB [email or web address]) Cervical Spine Range of Motion Cervical Spine Active Degrees Testing Position Sitting Flexion 55 Extension 57 Rotation Left 60 Rotation Right 52 Lateral Flexion Left 25 Lateral Flexion Right 35 Comments painful with extension, right rotation, right sidebending PT-OP-L Special Tests Start: 03/10/19 07:29 Freq: Status: Active Protocol: Document 03/10/19 10:30 AMB (Rec: 03/10/19 13:38 AMB [email or web address]) Special Tests Cervical Spine Special Tests Traction Test Results decreases pain Spurling's Test Test Results negative for radicular sx PT-OP-M Strength Start: 03/10/19 07:29 Freq: Status: Active Protocol: Document 03/10/19 10:30 AMB (Rec: 03/10/19 13:38 AMB [email or web address]) Hand Graphics Coordinator/Pinch Strength Hand Dominance Hand Dominance Left Hand Strength Right Graphics Coordinator (lbs) 20 Left Graphics Coordinator (lbs) 25 PT-OP-Q Treatments Start: 03/10/19 07:29 Freq: Status: Active Protocol: Document 04/07/19 14:52 HH (Rec: 04/07/19 17:51 HH [id number]) Therapeutic Exercises Supine Exercises chin nods Supine Exercise Name (DNF) chin nods Reps/Minutes 5 x5 Comments cued slow pacing small range Sidelying Exercises open book Side bilateral Reps/Minutes 15 x 2 Comments cues for cervical rotation Sitting Exercises seated t/s extension Side bilateral Reps/Minutes 10 x2 Comments cues on cervical extension Standing Exercises shoulder circles Side bilateral Reps/Minutes 10 x 2 Comments bwd and fwd , cues on isolated movements. prayer stretch Standing Exercise Name UEs on grab bar Reps/Minutes 10 x2 Comments cues on trunk extension Manual Therapy Treatment Soft Tissue Mobilization 1 Body Location Cervical spine Mobilization Type Myofascial Release,Rolling, Sustained Pressure,Trigger Point Release Intensity/Depth Deep Body Position Supine Comments R levator scap/upper trap, Joint Mobilizations C/S distraction Grade III Body Position Supine Reps/Duration 8 secs hold x5 Comments with SB bilaterally PT-OP-R Modalities Start: 03/10/19 07:29 Freq: Status: Active Protocol: Document 03/23/19 10:15 AMB (Rec: 03/23/19 15:43 AMB [email or web address]) Electric Stimulation Electric Stimulation Interferential Current (IFC) Body Location R neck Duration (Minutes) 15 Combined With Heat/Cold Hot Pack PT-OP-T Assessment and Plan Start: 03/10/19 07:29 Freq: Status: Active Protocol: Document 04/07/19 14:52 HH (Rec: 04/07/19 17:51 HH [id number]) Physical Therapy Assessment Goals Four Impairment Back/ RLE pain scale of 7/10 with activity Correction Goal (LTG) Patient will subjectively report PS of 3/10 with activity LTG Duration 5 wks Three Impairment LEFS score of 37 Assistant Store Manager Goal (LTG) Patient will increase LEFS score to 60 LTG Duration 5 wks Two Impairment neck pain Short Term Goal (STG) Ignacia will do 1 hour of yardwork with 2/10 neck pain or less. STG Duration 4 weeks Correction Goal (LTG) Ignacia will lift 15 pounds from the floor to waist height without an increase in neck pain. LTG Duration 8 weeks One Impairment ROM Short Term Goal (STG) Ignacia will increase her cervical AROM to 60 degrees bilaterally. STG Duration 4 weeks Assistant Store Manager Goal (LTG) Hermpraveen will increase her cervical sidebending to 35 degrees without an increase in pain. Assessment Summary Assessment Added open book with C/s rotation and trunk ext to facilitate T/S and cervical extension. Pt reports improved c/s rotation but residual discomfort but pain free with c/s extension at the end of session. New hep with seated t /s ext and open book with c/s rotation. Physical Therapy Plan Next Visit Focus/Plan Next Note Type Treatment Note Next Visit Plan Assess response to added theraband exercises and sit to stands to improved lifting laundry basket,Continue strengthening as toleranted
--- NOTE | 2019-04-12 16:00 | PT.OTN ---
Current Diagnoses Cervicalgia (04/12/19) Physical Therapy Treatment Note PT-OP-A Visit Information Start: 03/10/19 07:29 Freq: Status: Active Protocol: Document 04/12/19 14:30 AMB (Rec: 04/12/19 16:48 AMB [id number]) Out-Patient Physical Therapy Visit Information Visit Information Visit Type Treatment Note Visit Start Time 14:35 Visit Stop Time 15:15 Total Visit Minutes 40 Visit Number 8 Number of PERIODONTAL ASSISTANT Visits 0 PT-OP-B Current Condition Start: 03/10/19 07:29 Freq: Status: Active Protocol: Document 03/10/19 10:30 AMB (Rec: 03/10/19 13:38 AMB [email or web address]) Current Condition History of Current Condition Onset Date 2 months ago Current Complaints R sided neck pain History of Current Condition Ignacia states that about 2 months ago she was doing a lot of yardwork and noticed increased pain. Since then she has had right sided neck pain with sleeping on the right side, and with using the right arm. Reports current pain 2/10, at worst in last week 5/10, denies radiating pain into the arm or hand, does go into the upper shoulder. Exercise seems to help. She is left hand dominant. Treatment Goals Patient/Caregiver Goals Reduce pain so can go back to yardwork/sleep without pain Prior Functional Status Baseline Function- ADL's Independent Baseline Function- Mobility Independent Current Functional Impairments (Reported) Functional Limitations- ADL's difficulty sleeping and difficulty using moving neck, epsecially to sleep. 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 History Therapy/Recovery of aortic dissection not surgically fixed- just watching it. History of kidney transplant in 2012. PT-OP-C Subjective Start: 03/10/19 07:29 Freq: Status: Active Protocol: Document 04/12/19 14:30 AMB (Rec: 04/12/19 16:48 AMB [id number]) OP-PT Subjective Patient Comments Patient Comments Pt states overall better, but does feel neck pain when she falls asleep in her chair and the neck falls to the right side. PT-OP-J Posture/Palpation/Skin Start: 03/10/19 13:40 Freq: Status: Active Protocol: Document 03/10/19 10:30 AMB (Rec: 03/10/19 13:42 AMB [email or web address]) Posture Evaluation Comments Posture Comments Slight forward head, no winging scapula Palpation Assessment Location One Palpation Location cervical spine Palpation Findings Soft Tissue Tightness,Muscle Guarding,Tenderness Palpation Details Tendnerness at suboccipitals, tightness and tenderess at upper trap and levator scap. No pain with central PAs or unilateral PAs throughout C- spine. PT-OP-K Range of Motion Start: 03/10/19 07:29 Freq: Status: Active Protocol: Document 03/10/19 10:30 AMB (Rec: 03/10/19 13:38 AMB [email or web address]) Cervical Spine Range of Motion Cervical Spine Active Degrees Testing Position Sitting Flexion 55 Extension 57 Rotation Left 60 Rotation Right 52 Lateral Flexion Left 25 Lateral Flexion Right 35 Comments painful with extension, right rotation, right sidebending PT-OP-L Special Tests Start: 03/10/19 07:29 Freq: Status: Active Protocol: Document 03/10/19 10:30 AMB (Rec: 03/10/19 13:38 AMB [email or web address]) Special Tests Cervical Spine Special Tests Traction Test Results decreases pain Spurling's Test Test Results negative for radicular sx PT-OP-M Strength Start: 03/10/19 07:29 Freq: Status: Active Protocol: Document 03/10/19 10:30 AMB (Rec: 03/10/19 13:38 AMB [email or web address]) Hand Color Making Supervisor/Pinch Strength Hand Dominance Hand Dominance Left Hand Strength Right Color Making Supervisor (lbs) 20 Left Color Making Supervisor (lbs) 25 PT-OP-Q Treatments Start: 03/10/19 07:29 Freq: Status: Active Protocol: Document 04/12/19 14:30 AMB (Rec: 04/12/19 16:48 AMB [id number]) Therapeutic Exercises Supine Exercises chin nods Supine Exercise Name (DNF) chin nods Reps/Minutes 5 x5 Comments cued slow pacing small range Standing Exercises shoulder circles Side bilateral Reps/Minutes 10 x 2 Comments bwd and fwd , cues on isolated movements. prayer stretch Standing Exercise Name UEs on grab bar Reps/Minutes 10 x2 Comments cues on trunk extension 3 Standing Exercise Name lifting 10# crate without over using upper traps Reps/Minutes x10 Comments no pain, max cues sit back as into chair (hip hinge) 2 Standing Exercise Name rows Resistance #2 t band Reps/Minutes 3x10 1 Standing Exercise Name ER and IR Resistance #2 t band Reps/Minutes 2x10 ea Comments with curing for form Manual Therapy Treatment Soft Tissue Mobilization 1 Body Location Cervical spine Mobilization Type Myofascial Release,Rolling, Sustained Pressure,Trigger Point Release Intensity/Depth Deep Body Position Supine Comments R levator scap/upper trap, PT-OP-R Modalities Start: 03/10/19 07:29 Freq: Status: Active Protocol: Document 03/23/19 10:15 AMB (Rec: 03/23/19 15:43 AMB [email or web address]) Electric Stimulation Electric Stimulation Interferential Current (IFC) Body Location R neck Duration (Minutes) 15 Combined With Heat/Cold Hot Pack PT-OP-T Assessment and Plan Start: 03/10/19 07:29 Freq: Status: Active Protocol: Document 04/12/19 14:30 AMB (Rec: 04/12/19 16:48 AMB [id number]) Physical Therapy Assessment Assessment Summary Assessment Pt tolerated new exercises well, states she is doing well with HEP. Encouraged pt to try to avoid sleeping in recliner with head un supported. Physical Therapy Plan Next Visit Focus/Plan Next Note Type Treatment Note Next Visit Plan Continue strengthening as toleranted
--- NOTE | 2019-04-14 15:04 | PT.OTN ---
Current Diagnoses Cervicalgia (04/14/19) Physical Therapy Treatment Note PT-OP-A Visit Information Start: 03/10/19 07:29 Freq: Status: Active Protocol: Document 04/14/19 09:46 EG (Rec: 04/14/19 10:02 EG [email or web address]) Out-Patient Physical Therapy Visit Information Visit Information Visit Type Treatment Note Visit Note Pt's attended session Visit Start Time 09:00 Visit Stop Time 09:45 Total Visit Minutes 45 Visit Number 9 PT-OP-B Current Condition Start: 03/10/19 07:29 Freq: Status: Active Protocol: Document 03/10/19 10:30 AMB (Rec: 03/10/19 13:38 AMB [email or web address]) Current Condition History of Current Condition Onset Date 2 months ago Current Complaints R sided neck pain History of Current Condition Ignacia states that about 2 months ago she was doing a lot of yardwork and noticed increased pain. Since then she has had right sided neck pain with sleeping on the right side, and with using the right arm. Reports current pain 2/10, at worst in last week 5/10, denies radiating pain into the arm or hand, does go into the upper shoulder. Exercise seems to help. She is left hand dominant. Treatment Goals Patient/Caregiver Goals Reduce pain so can go back to yardwork/sleep without pain Prior Functional Status Baseline Function- ADL's Independent Baseline Function- Mobility Independent Current Functional Impairments (Reported) Functional Limitations- ADL's difficulty sleeping and difficulty using moving neck, epsecially to sleep. 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 History Therapy/Recovery of aortic dissection not surgically fixed- just watching it. History of kidney transplant in 2012. PT-OP-C Subjective Start: 03/10/19 07:29 Freq: Status: Active Protocol: Document 04/14/19 09:46 EG (Rec: 04/14/19 10:02 EG [email or web address]) OP-PT Subjective Patient Comments Patient Comments Patient reports that she is feeling better and that her legs were sore after last session when practicing the bends when picking things up. She feels like she is getting stronger and would like to strengthen her back muscles so she stands up straight. Patient Reported Progress Improving PT-OP-J Posture/Palpation/Skin Start: 03/10/19 13:40 Freq: Status: Active Protocol: Document 03/10/19 10:30 AMB (Rec: 03/10/19 13:42 AMB [email or web address]) Posture Evaluation Comments Posture Comments Slight forward head, no winging scapula Palpation Assessment Location One Palpation Location cervical spine Palpation Findings Soft Tissue Tightness,Muscle Guarding,Tenderness Palpation Details Tendnerness at suboccipitals, tightness and tenderess at upper trap and levator scap. No pain with central PAs or unilateral PAs throughout C- spine. PT-OP-K Range of Motion Start: 03/10/19 07:29 Freq: Status: Active Protocol: Document 03/10/19 10:30 AMB (Rec: 03/10/19 13:38 AMB [email or web address]) Cervical Spine Range of Motion Cervical Spine Active Degrees Testing Position Sitting Flexion 55 Extension 57 Rotation Left 60 Rotation Right 52 Lateral Flexion Left 25 Lateral Flexion Right 35 Comments painful with extension, right rotation, right sidebending PT-OP-L Special Tests Start: 03/10/19 07:29 Freq: Status: Active Protocol: Document 03/10/19 10:30 AMB (Rec: 03/10/19 13:38 AMB [email or web address]) Special Tests Cervical Spine Special Tests Traction Test Results decreases pain Spurling's Test Test Results negative for radicular sx PT-OP-M Strength Start: 03/10/19 07:29 Freq: Status: Active Protocol: Document 03/10/19 10:30 AMB (Rec: 03/10/19 13:38 AMB [email or web address]) Hand Environmental Services Specialist/Pinch Strength Hand Dominance Hand Dominance Left Hand Strength Right Environmental Services Specialist (lbs) 20 Left Environmental Services Specialist (lbs) 25 PT-OP-Q Treatments Start: 03/10/19 07:29 Freq: Status: Active Protocol: Document 04/14/19 09:46 EG (Rec: 04/14/19 10:02 EG [email or web address]) Therapeutic Exercises Sidelying Exercises open book Sidelying Exercise Name Open Books Side bilateral Reps/Minutes 10x ea side Comments cued moving with the breath Sitting Exercises seated t/s extension Sitting Exercise Name Standing pectoral stretch Reps/Minutes 2 sets 20 sec Comments done standing at wall Standing Exercises 5 Standing Exercise Name Y's on the wall Side bilateral Reps/Minutes 2x10 4 Standing Exercise Name Scaption Side bilateral Resistance 2# weights Reps/Minutes 2x10 Comments cueing for stopping at shoulder height 2 Standing Exercise Name Lat pull down Resistance #2 t band Reps/Minutes 2x10 1 Standing Exercise Name ER and IR Resistance #2 t band Reps/Minutes 2x10 ea Comments with cueing for form Therapeutic Activity Therapeutic Activity Deadlift crate Name Lifting crate with 7# weight Reps/Minutes done 10x Comments cue for bend at knees, hinge at hips, and shoulder retraction Manual Therapy Treatment Soft Tissue Mobilization 1 Body Location Cervical spine Mobilization Type Myofascial Release,Rolling, Sustained Pressure,Trigger Point Release Intensity/Depth Deep Body Position Supine Comments R levator scap/upper trap, Manual Traction Cervical Details Manual traction Body Position Supine Reps/Duration 2x 30 sec PT-OP-R Modalities Start: 03/10/19 07:29 Freq: Status: Active Protocol: Document 03/23/19 10:15 AMB (Rec: 03/23/19 15:43 AMB [email or web address]) Electric Stimulation Electric Stimulation Interferential Current (IFC) Body Location R neck Duration (Minutes) 15 Combined With Heat/Cold Hot Pack PT-OP-T Assessment and Plan Start: 03/10/19 07:29 Freq: Status: Active Protocol: Document 04/14/19 09:45 EG (Rec: 04/14/19 12:11 EG [email or web address]) Physical Therapy Assessment Assessment Summary Assessment Patient tolerated physical therapy treatment well this morning and was able to complete scapular postural musculature strengthening with good form. The patient has been increasing her neck ROM without pain and will continue to benefit from scapular strengthening to increase posterior musculature strength . Patient will also continue to benefit from alignment cues when picking up object from the ground to allow for increased LE work instead of stressing out the shoulder and arm musculature when performing this activity at home. Physical Therapy Plan Next Visit Focus/Plan Next Note Type Treatment Note Next Visit Plan Continue to strengthen the posterior chain as well as stretch out pectoral musculature. Begin to increase resistance on rotator cuff musculature and begin doing functional movements over head . Increase weight for lifting object off the ground. Possibly perform STS with overhead movements of the arms .
--- NOTE | 2019-04-21 13:30 | PT.OTN ---
Current Diagnoses Cervicalgia (04/21/19) Physical Therapy Treatment Note PT-OP-A Visit Information Start: 03/10/19 07:29 Freq: Status: Active Protocol: Document 04/21/19 10:32 EG (Rec: 04/21/19 10:56 EG [email or web address]) Out-Patient Physical Therapy Visit Information Visit Information Visit Type Discharge Summary Visit Note Pt's attended session Visit Start Time 09:05 Visit Stop Time 09:50 Total Visit Minutes 45 Visit Number 10 PT-OP-B Current Condition Start: 03/10/19 07:29 Freq: Status: Active Protocol: Document 03/10/19 10:30 AMB (Rec: 03/10/19 13:38 AMB [email or web address]) Current Condition History of Current Condition Onset Date 2 months ago Current Complaints R sided neck pain History of Current Condition Ignacia states that about 2 months ago she was doing a lot of yardwork and noticed increased pain. Since then she has had right sided neck pain with sleeping on the right side, and with using the right arm. Reports current pain 2/10, at worst in last week 5/10, denies radiating pain into the arm or hand, does go into the upper shoulder. Exercise seems to help. She is left hand dominant. Treatment Goals Patient/Caregiver Goals Reduce pain so can go back to yardwork/sleep without pain Prior Functional Status Baseline Function- ADL's Independent Baseline Function- Mobility Independent Current Functional Impairments (Reported) Functional Limitations- ADL's difficulty sleeping and difficulty using moving neck, epsecially to sleep. 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 History Therapy/Recovery of aortic dissection not surgically fixed- just watching it. History of kidney transplant in 2012. PT-OP-C Subjective Start: 03/10/19 07:29 Freq: Status: Active Protocol: Document 04/21/19 10:32 EG (Rec: 04/21/19 10:56 EG [email or web address]) OP-PT Subjective Patient Comments Patient Comments Patient reported that she has been feeling very good and that she feels stronger. She did report that she had to change the sheets on her chavo size bed and that was a little difficult due to the bed being big. She reports that when she is doing this and feels her neck, she takes a break. Patient Reported Progress Improving PT-OP-J Posture/Palpation/Skin Start: 03/10/19 13:40 Freq: Status: Active Protocol: Document 03/10/19 10:30 AMB (Rec: 03/10/19 13:42 AMB [email or web address]) Posture Evaluation Comments Posture Comments Slight forward head, no winging scapula Palpation Assessment Location One Palpation Location cervical spine Palpation Findings Soft Tissue Tightness,Muscle Guarding,Tenderness Palpation Details Tendnerness at suboccipitals, tightness and tenderess at upper trap and levator scap. No pain with central PAs or unilateral PAs throughout C- spine. PT-OP-K Range of Motion Start: 03/10/19 07:29 Freq: Status: Active Protocol: Document 04/21/19 10:32 EG (Rec: 04/21/19 10:56 EG [email or web address]) Cervical Spine Range of Motion Cervical Spine Active Degrees Testing Position Sitting Rotation Left 55 Rotation Right 65 Lateral Flexion Left 30 Lateral Flexion Right 40 Comments no p! reported with movement PT-OP-L Special Tests Start: 03/10/19 07:29 Freq: Status: Active Protocol: Document 03/10/19 10:30 AMB (Rec: 03/10/19 13:38 AMB [email or web address]) Special Tests Cervical Spine Special Tests Traction Test Results decreases pain Spurling's Test Test Results negative for radicular sx PT-OP-M Strength Start: 03/10/19 07:29 Freq: Status: Active Protocol: Document 03/10/19 10:30 AMB (Rec: 03/10/19 13:38 AMB [email or web address]) Hand Cloth Covered Helmet Puller/Pinch Strength Hand Dominance Hand Dominance Left Hand Strength Right Cloth Covered Helmet Puller (lbs) 20 Left Cloth Covered Helmet Puller (lbs) 25 PT-OP-Q Treatments Start: 03/10/19 07:29 Freq: Status: Active Protocol: Document 04/21/19 10:32 EG (Rec: 04/21/19 10:56 EG [email or web address]) Therapeutic Exercises Sitting Exercises pulleys Sitting Exercise Name pulleys Side bilateral Equipment Used miguel cord Reps/Minutes 2 min flex, 2 min abd Upper trap/levator scap stretch Sitting Exercise Name Seated upper trap and levator scap stretch Side bilateral Reps/Minutes 30 sec ea side Comments palm under seat with contralateral ear to shoulder Standing Exercises shoulder circles Side bilateral Reps/Minutes 10 x 2 Comments bwd 3 Standing Exercise Name lifting 10# crate without over using upper traps Reps/Minutes x10 Comments need max verbal cues to stick hips back with squat 2 Standing Exercise Name band work: ER, TB bilateral lat pull down, TB rows Side bilateral Resistance #2 for ER and rows, #1 for lat pulldown Reps/Minutes 2x10 Comments superset with each exercise PT-OP-R Modalities Start: 03/10/19 07:29 Freq: Status: Active Protocol: Document 03/23/19 10:15 AMB (Rec: 03/23/19 15:43 AMB [email or web address]) Electric Stimulation Electric Stimulation Interferential Current (IFC) Body Location R neck Duration (Minutes) 15 Combined With Heat/Cold Hot Pack PT-OP-T Assessment and Plan Start: 03/10/19 07:29 Freq: Status: Active Protocol: Document 04/21/19 10:32 EG (Rec: 04/21/19 10:56 EG [email or web address]) Physical Therapy Assessment Goals Two Impairment neck pain Short Term Goal (STG) Ignacia will do 1 hour of yardwork with 2/10 neck pain or less. STG Duration met [employer] Goal (LTG) Ignacia will lift 15 pounds from the floor to waist height without an increase in neck pain. LTG Duration improved One Impairment ROM Short Term Goal (STG) Ignacia will increase her cervical AROM to 60 degrees bilaterally. STG Duration improved but not met Mcc Goal (LTG) Ignacia will increase her cervical sidebending to 35 degrees without an increase in pain. LTG Duration improved Progress Towards Goals Progress Towards Goals Progressing Toward Goals,Slow Progress - Other Progress Comments Patient is discharging and will continue toward ROM goals at home with HEP for stretching. No longer limited by p! with daily activities and has learned activity modifications if pain in neck does increase. Assessment Summary Assessment Patient is now discharging from physical therapy services due to seeing improvements at home and having no other complaints. The patient has progressed toward goals but does still have cervical ROM defecits in to L lateral sidebend and L rotation though this does not cause pain during these movements. Patient was given stretches for the upper trapezius and levator scap to continue to do at home and encourage normal ROM per the R side. The patient has been able to do housework with less irritation and has increased awareness to body mechanics when lifting heavier objects. The patient will continue to work on LE strengthening at home by practicing squats with a chair which will help translate to picking up heavier objects at home. Physical Therapy Plan Discharge Physical Therapy Discharge Reasons Patient Request Discharge Comments Patient feels as if she has improved and will see MD about neck in upcoming appointments . She will continue HEP at home to continue to reach goals. Deepthi Velásquez DPT, supervised all treatment performed by, and agreed with the plan of care, as performed by Amanda Ibarra, DAVID.
== END 2019-06-02 13:03 ==
LOC: PHYS 09:00
PROVIDERS: PCP Internal Medicine; Visit Provider Internal Medicine
DX: M54.2 Cervicalgia (principal)
CPT/HCPCS: 97014; 97110; 97140; 97161; 97530; G0283

== ENCOUNTER → 2019-04-28 11:02 | Outpatient (CLI) | payer MEDICARE, SELFPAY ==
[2019-04-28 11:48] LABS: Hemoglobin A1C% w Est Avg Glu 6.8 % (4.0-6.0)
== END ==
PROVIDERS: PCP Internal Medicine; Visit Provider Internal Medicine
DX: E11.65 Type 2 diabetes mellitus with hyperglycemia (principal)
CPT/HCPCS: 36415; 83036

== ENCOUNTER → 2019-05-31 07:32 | Outpatient (CLI) | payer MEDICARE, SELFPAY ==
[2019-05-31 08:19] LABS: Add Manual Diff / Slide Review NO; Basophils Absolute Auto 0 /uL (0-100); Basophils Percent Auto 0.5 % (0-2); Eosinophils Absolute Auto 300 /uL (0-450); Eosinophils Percent Auto 4.6 % (2-4); Hematocrit 39.1 % (36-46); Lymphocytes Absolute Auto 2400 /uL (1100-4500); Lymphocytes Percent Auto 37.4 % (25-40); Mean Corpuscular HGB Conc 33.2 % (30-36); Mean Corpuscular Hemoglobin 28.4 PG (26-34); Mean Corpuscular Volume 85.5 fL (80-100); Monocytes Absolute Auto 500 /uL (0-900); Monocytes Percent Auto 7.4 % (3-14); Neutrophils Absolute Auto 3300 /uL (1500-7000); Neutrophils Percent Auto 50.1 % (50-75); Platelet Count 147 X10^3/uL (150-400); Red Blood Cell Count 4.58 X10^6/uL (4.0-5.2); Red Cell Distribution Width 14.6 % (11.6-14.8); White Blood Cell Count 6.5 X10^3/uL (4.5-11.0)
[2019-05-31 08:28] LABS: Hemoglobin A1C% w Est Avg Glu 7.4 % (4.0-6.0)
[2019-05-31 08:28] LABS: Alanine Aminotransferase 41 IU/L (<35); Albumin 4.3 g/dL (3.5-5.0); Albumin Globulin Ratio 1.3 (1.0-2.8); Alkaline Phosphatase 69 U/L (38-126); Aspartate Aminotransferase 32 IU/L (14-36); BUN Creatinine Ratio 19.4 (6-22); Bilirubin Total 0.3 mg/dL (0.2-1.3); Blood Urea Nitrogen 31 mg/dL (7-17); Calcium 10.1 mg/dL (8.4-10.2); Carbon Dioxide 28 mmol/L (22-32); Chloride 105 mmol/L (98-107); Cholesterol 173 mg/dL (140-199); Estimated Glomerular Filt Rate 31.8 mL/min (>60); Globulin 3.2 g/dL (1.7-4.1); Glucose 145 mg/dL (80-110); HDL Cholesterol 56 mg/dL (40-60); HEMOLYSIS < 15 (0-50); LDL Cholesterol Calculated 76 mg/dL (<100); Potassium 4.8 mmol/L (3.4-5.1); Sodium 140 mmol/L (137-145); Total Protein 7.5 g/dL (6.3-8.2); Triglycerides 206 mg/dL (35-150)
== END ==
PROVIDERS: PCP Internal Medicine; Referring Provider Nurse Practitioner; Visit Provider Nurse Practitioner
DX: E11.59 Type 2 diabetes mellitus with other circulatory complications (principal)
CPT/HCPCS: 36415; 80053; 80061; 83036; 85025

== ENCOUNTER 2019-06-19 08:27 | Emergency (ER) | payer MEDICARE, SELFPAY ==
[2019-06-19 08:35] VITALS: BP 158/77; PULSE 97; RESP 20; TEMP 37.3; O2SAT 97; BMI 28.2
--- NOTE | 2019-06-19 09:01 | DI.RAD.S_ITS ---
PROCEDURE: XR CHEST 2V INDICATIONS: cough, sore throat TECHNIQUE: 2 views of the chest were acquired. COMPARISON: [facility], CR, CHEST 2 VIEW, 06/07/2014, 8:31. [facility], CR, XR CHEST 2V, 08/25/2017, 11:45. [facility], CR, XR CHEST 1V, 09/05/2017, 14:14. FINDINGS: Surgical changes and devices: Cervical spine fixation hardware is seen. Right lower neck seen. Lungs and pleura: An incomplete inspiratory result is noted, causing a crowded appearance to the lung markings. No focal infiltrates are seen. No pneumothorax or significant pleural effusions are seen. Mediastinum: The cardiac contours are within normal limits. The aorta demonstrates calcification and tortuosity. Bones and chest wall: No suspicious bony abnormalities. Age-appropriate bony degenerative changes are seen. Soft tissues appear unremarkable. IMPRESSION: Limited study demonstrating no focal infiltrates. Prominent, tortuous aorta. Postoperative and degenerative changes are seen. Dictated by: Júnior Nieves M.D. on 06/19/2019 at 8:14 Approved by: Júnior Nieves M.D. on 06/19/2019 at 8:16
--- NOTE | 2019-06-19 09:03 | ED_ITS ---
HPI - URI/Sore Throat General Chief Complaint: Upper Respiratory Symptoms Stated Complaint: cough possible fever sore throat Source: patient and family Mode of arrival: Ambulatory History of Present Illness HPI Narrative: HPI: The patient is a 73-year-old female who presents to the emergency department for an evaluation of her upper respiratory infection. She states that she has had a mild cough that has been nonproductive of any sputum that started 5 days ago associated with a sore throat. She states that it got better in improved but then she became sick again last night with a sore throat. She denies any dizziness lightheadedness or passing out. She does not smoke cigarettes or drink alcohol. She has had no recent fever chills or sweats as well as any headache. She has developed a sore throat without any significant sinus congestion nasal drainage recent cough chest pain shortness of breath. She has been on nauseous but has had no vomiting diarrhea change in bowel habits. She has had no urinary symptoms. She admits to history of diabetes mellitus and hypertension but denies a history of a stroke congestive heart failure myocardial infarction COPD or asthma. The patient has not been exposed to anyone with defined winters virus. She has had no extremely high fever she has not traveled outside the [place]. Related Data Home Medications Medication Instructions Recorded Confirmed loratadine 10 mg PO QDAY #0 04/23/17 06/03/19 timolol maleate 1 drp OPHTH QDAY #0 04/23/17 06/03/19 tacrolimus 1 mg PO BID #0 07/07/17 06/03/19 amlodipine 10 mg tablet 10 mg PO DAILY 09/17/17 06/03/19 aspirin 81 mg tablet,delayed 81 mg PO DAILY 09/17/17 06/03/19 release isosorbide mononitrate 30 mg 30 mg PO QAM 09/17/17 06/03/19 tablet,extended release 24 hr lisinopril 40 mg tablet 40 mg PO DAILY 09/17/17 06/03/19 prednisone 5 mg tablet 5 mg PO DAILY 09/17/17 06/03/19 labetalol 200 mg tablet 100 mg PO DAILY tab 04/28/19 06/03/19 Previous Rx's Medication Instructions Recorded fluticasone propionate 1 spray INTRANASAL BID #16 gm 04/14/16 Glucose: Home Monitoring Kit kit TD QID #1 11/28/16 Disabled Parking Permit See Rx Instructions .ROUTE 09/17/17 .COMPLEX #1 each estradiol 1 gram VAG 2XW #42.5 gram 11/24/17 insulin lispro [Humalog U-100 0 u SQ TID #2 vial 06/04/18 Insulin] colchicine 0.6 mg tablet 0.6 mg PO QDAY #90 tab 09/22/18 gabapentin 600 mg tablet 600 mg PO TID #270 tab 09/24/18 metformin 1,000 mg tablet 1,000 mg PO BIDCC #180 tab 10/05/18 magnesium oxide 400 mg (241.3 mg 800 mg PO BID #360 tab 11/05/18 magnesium) tablet blood sugar diagnostic See Rx Instructions .ROUTE 02/04/19 .COMPLEX #100 each pravastatin 80 mg tablet 80 mg PO HS #90 tab 02/23/19 insulin glargine 100 unit/mL 20 - 30 unit SUBCUT QHS #2 vial 04/28/19 subcutaneous solution insulin syringe-needle U-100 0.5 See Rx Instructions .ROUTE 05/04/19 mL 31 gauge x 5/16 .COMPLEX #120 unspecified oxycodone 5 mg tablet 5 mg PO TID PRN #90 tab 06/02/19 oseltamivir [Tamiflu] 75 mg PO BID 5 Days #10 cap 06/19/19 Allergies Allergy/AdvReac Type Severity Reaction Status Date / Time clopidogrel [CLOPIDOGREL] Allergy Mild AGRANOLOCYT Verified 06/19/19 08:44 OSIS Review of Systems Review of Systems Narrative: The patient's review of systems were all negative except for those mentioned in the history of present illness. Patient History Medical History Aortic aneurysm (Chronic) Ascending aortic dissection (Chronic) CAD (coronary atherosclerotic disease) (Chronic 10/29/10) Chest pain (Inactive) Chronic gout (Chronic 10/29/10) Diabetes mellitus type 2 in nonobese (Chronic 10/29/10) Essential hypertension (Chronic 10/29/10) GERD (gastroesophageal reflux disease) (Chronic) History of peritoneal dialysis (Resolved) Lumbar radiculopathy (Chronic) Other and unspecified hyperlipidemia (Chronic) Peripheral polyneuropathy (Chronic 03/06/16) ST elevation (Inactive) Tertiary hyperparathyroidism (Inactive) Type 2 diabetes mellitus (Chronic) 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/15) Vesicoureteral reflux (Chronic 07/01/13) Weakness on right side of face (Chronic) Surgical History History of cardiac cath (Resolved 04/2012) History of carpal tunnel repair (Resolved) Status post breast biopsy (Resolved) Status post kidney transplant (Resolved 04/03/13) Status post parathyroidectomy (Resolved) Social History marital status: number of children: 0 household members: spouse lives independently: Yes caregiver/support person: No housing: house pets and animals: No education level: high school occupational status: other (retired.) 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 Does not appear toxic or ill. HEAD: AT/NC EENT: PERRL, FROM of eyes, no discharge, No drainage from the ears, Tympanic membranes intact bilaterally, external auditory canals are partially occluded with cerumen. No epistaxis or nasal drainage Oral mucosa is moist and pink, posterior pharynx is without erythema or exudate. NECK: Supple, no obvious JVD, Trachea is midline without stridor, no palpable LN SPINE: No gross deformity, no palpable tenderness of the cervical, thoracic, lumbar or sacral spine. No CVA tenderness. THORAX: No deformity, retractions, chest wall tenderness, LUNGS: She has inspiratory crackles in both bases of her lungs without expiratory wheezes. HEART: Normal heart tones, regular rhythm and rate without murmur. ABDOMEN: Soft, non-tender, normal bowel sounds without guarding, rebound, rigidity or palpable mass EXTREMITIES: No edema, cyanosis, deformity or tenderness. SKIN: No rash, bruising, petechiae or purpura. NEURO: Awake, alert, oriented, conversive, cranial nerves II-XII are symmetrical and normal, moves all 4 extremities and is ambulatory Initial Vital Signs Initial Vital Signs: Vital Signs Temperature 99.2 F 06/19/19 08:35 Pulse Rate 97 H 06/19/19 08:35 Respiratory Rate 20 06/19/19 08:35 Blood Pressure 158/77 H 06/19/19 08:35 Pulse Oximetry 97 06/19/19 08:35 Course Course Course Narrative: 1040: Chest x-ray is negative for any infiltrates. Strep screen is negative. The patient is positive for influenza A she will be discharged home and started on Tamiflu. Orders Ordered: ED Orders 06/19/19 08:35 Influenza A & B (PCR) Stat Strep Grp A by PCR Rapid Stat 06/19/19 09:01 XR chest 2V Stat Discontinued Medications Prednisone (Deltasone) 60 mg PO NOW ONE Stop: 06/19/19 09:03 Last Admin: 06/19/19 09:11 Dose: 60 mg Documented by: ROSE Vital Signs Vital signs: Vital Signs - 8 hr 06/19/19 08:35 06/19/19 11:05 Temperature 99.2 F Pulse Rate 97 H 105 H Respiratory Rate 20 16 Blood Pressure 158/77 H Blood Pressure [Right Arm] 167/78 H Pulse Oximetry 97 98 MDM - URI/Sore Throat Lab Data Labs: Lab Results 06/19/19 06/19/19 Range/Units 08:35 08:35 Influenza A (RT-PCR) Flu a positive H (NEGATIVE) Influenza B (RT-PCR) Flu b negative (NEGATIVE) Group A Strep (PCR) Negative Discharge Plan Departure Patient Disposition: Home Clinical Impression: Acute sore throat, Cough, Influenza A Discharge Date/Time: 06/19/19 11:13 Instructions: DI for Influenza -- Adult, DI for Viral Pharyngitis Activity Restrictions/Additional Instructions: 1. Stay at home for the next 5 days. You have influenza a that causes sore throat cough and fever. You are contagious. 2. Follow-up as needed with her primary care physician in be rechecked in 4-5 days if not improved. 3. Take Tylenol or ibuprofen for pain and discomfort. You can take 600 mg of ibuprofen every 6 hours which is 3, 200 mg tablets over the counter. You can take Tylenol 650 mg every 4-6 hours for pain and discomfort or 1 g every 6 hours. Drink 2-3 L of fluid per day to keep herself hydrated. 4. Take Tamiflu 75 mg b.i.d.. For the next 5 days until gone. Prescriptions: New oseltamivir [Tamiflu] 75 mg capsule 75 mg PO BID 5 Days Qty: 10 RF: 0 No Action fluticasone propionate 16 GM spray,suspension 1 spray Intranasal BID Qty: 16 RF: 12 Glucose: Home Monitoring Kit TD QID Qty: 1 RF: PRN timolol maleate 0.5 % drops 1 drp OPHTH QDAY Qty: 0 RF: 0 loratadine 10 MG tablet 10 mg PO QDAY Qty: 0 RF: 0 tacrolimus 1 MG capsule 1 mg PO BID Qty: 0 RF: 0 estradiol 0.01 % (0.1 mg/gram) cream 1 gram VAG 2XW Qty: 42.5 RF: 3 Humalog U-100 Insulin 100 unit/mL solution 0 u SQ TID Qty: 2 RF: 12 colchicine 0.6 mg tablet 0.6 mg PO QDAY Qty: 90 RF: 3 gabapentin [Neurontin] 600 mg tablet 600 mg PO TID Qty: 270 RF: 3 magnesium oxide 400 mg (241.3 mg magnesium) tablet 800 mg PO BID Qty: 360 RF: 3 blood sugar diagnostic [Glucocard Expression] Strip See Rx Instructions .ROUTE .COMPLEX Qty: 100 RF: 11 pravastatin 80 mg tablet 80 mg PO HS Qty: 90 RF: 3 insulin syringe-needle U-100 0.5 mL 31 gauge x 5/16 syringe See Rx Instructions .ROUTE .COMPLEX Qty: 120 RF: 6 oxycodone [Roxicodone] 5 mg tablet 5 mg PO TID PRN (Reason: pain) Qty: 90 RF: 0 Lantus U-100 Insulin 100 unit/mL solution 20 - 30 unit subcut QHS Qty: 2 RF: 12 prednisone 5 mg tablet 5 mg PO DAILY RF: 0 amlodipine 10 mg tablet 10 mg PO DAILY RF: 0 aspirin 81 mg tablet,delayed release (DR/EC) 81 mg PO DAILY RF: 0 isosorbide mononitrate 30 mg tablet extended release 24 hr 30 mg PO QAM RF: 0 lisinopril 40 mg tablet 40 mg PO DAILY RF: 0 Disabled Parking Permit See Rx Instructions .Route .COMPLEX Qty: 1 RF: 0 metformin [Glucophage] 1,000 mg tablet 1,000 mg PO BIDCC Qty: 180 RF: 3 labetalol 200 mg tablet 100 mg PO DAILY RF: 0 Referrals: Gaston Valentino MD [Primary Care Provider] -
[2019-06-19] MEDS: predniSONE 20 MG TABLET 60 MG PO (09:11)
[2019-06-19 09:15] LABS: Strep Grp A by PCR Rapid Negative
[2019-06-19 09:44] LABS: Influenza A - CEPHEID Flu A POSITIVE (NEGATIVE); Influenza B - CEPHEID Flu B NEGATIVE (NEGATIVE)
[2019-06-19 11:05] VITALS: BP 167/78; PULSE 105; RESP 16; O2SAT 98
== END 2019-06-19 11:13 | disposition home or self-care (01) ==
PROVIDERS: Emergency Provider Emergency Medicine; PCP Internal Medicine
DX: J10.1 Influenza due to other identified influenza virus with other respiratory manifestations (principal); R05 Cough
CPT/HCPCS: 71046; 87502; 87651; 99283

== ENCOUNTER → 2019-07-29 07:42 | Outpatient (CLI) | payer MEDICARE, SELFPAY ==
[2019-07-29 07:52] LABS: Bacteria Urine None Seen
[2019-07-29 08:26] LABS: Add Manual Diff / Slide Review NO; Basophils Absolute Auto 0 /uL (0-100); Basophils Percent Auto 0.5 % (0-2); Eosinophils Absolute Auto 300 /uL (0-450); Eosinophils Percent Auto 3.9 % (2-4); Hematocrit 38.9 % (36-46); Hemoglobin 12.9 g/dL (12.0-16.0); Lymphocytes Absolute Auto 2600 /uL (1100-4500); Lymphocytes Percent Auto 35.5 % (25-40); Mean Corpuscular HGB Conc 33.1 % (30-36); Mean Corpuscular Hemoglobin 28.4 PG (26-34); Mean Corpuscular Volume 85.7 fL (80-100); Monocytes Absolute Auto 500 /uL (0-900); Monocytes Percent Auto 7.3 % (3-14); Neutrophils Absolute Auto 3800 /uL (1500-7000); Neutrophils Percent Auto 52.8 % (50-75); Platelet Count 140 X10^3/uL (150-400); Red Blood Cell Count 4.54 X10^6/uL (4.0-5.2); Red Cell Distribution Width 14.6 % (11.6-14.8); White Blood Cell Count 7.3 X10^3/uL (4.5-11.0)
[2019-07-29 08:46] LABS: Alanine Aminotransferase 41 IU/L (<35); Albumin 4.3 g/dL (3.5-5.0); Albumin Globulin Ratio 1.3 (1.0-2.8); Alkaline Phosphatase 71 U/L (38-126); Aspartate Aminotransferase 41 IU/L (14-36); Bilirubin Total 0.3 mg/dL (0.2-1.3); Blood Urea Nitrogen 31 mg/dL (7-17); Calcium 9.9 mg/dL (8.4-10.2); Carbon Dioxide 27 mmol/L (22-32); Chloride 104 mmol/L (98-107); Globulin 3.3 g/dL (1.7-4.1); Glucose 114 mg/dL (80-110); HEMOLYSIS 16 (0-50); Magnesium 2.6 mg/dL (1.6-2.3); Phosphorous 2.9 mg/dL (2.8-4.1); Potassium 5.2 mmol/L (3.4-5.1); Sodium 138 mmol/L (137-145); Total Protein 7.6 g/dL (6.3-8.2)
[2019-07-29 09:32] LABS: Appearance Urine UA CLEAR; Bilirubin Urine UA NEGATIVE (NEGATIVE); Color Urine UA YELLOW; Glucose Urine UA NEGATIVE (Negative); Ketones Urine UA NEGATIVE (NEGATIVE); Leukocyte Esterase Urine UA NEGATIVE (NEGATIVE); Nitrite Urine UA NEGATIVE (Negative); Occult Blood Urine UA NEGATIVE (Negative); Protein Urine UA NEGATIVE (Negative); Specific Gravity Urine UA 1.015 (1.000-1.035); Urobilinogen Urine UA 0.2 E.U./dL (0.2)
[2019-07-29 09:35] LABS: pH Urine UA 7.5 (4.5-8.0)
[2019-07-29 09:46] LABS: Culture Indicated Urine Cult Not Indicated; RBC Urine 0-1/HPF (0-5/HPF); WBC Urine 0-1/HPF (0-5/HPF)
[2019-07-29 10:38] LABS: Creatinine Urine Random 146.4 mg/dL; Protein (Total) Urine Random 7 mg/dL (0-12); Protein Creatinine Ratio Urine 0.04 GRAM/24H
[2019-07-30 05:36] LABS: Tacrolimus 7.1 ng/mL (2.0-20.0)
== END ==
PROVIDERS: PCP Internal Medicine; Referring Provider Specialist; Visit Provider Internal Medicine
DX: Z94.0 Kidney transplant status (principal); Z79.899 Other long term (current) drug therapy; E83.52 Hypercalcemia; E87.5 Hyperkalemia
CPT/HCPCS: 36415; 80053; 80197; 81001; 82570; 83735; 84100; 84156; 85025

== ENCOUNTER → 2019-08-30 06:59 | Outpatient (CLI) | payer MEDICARE, SELFPAY ==
[2019-08-30 07:39] LABS: Bacteria Urine None Seen; RBC Urine None Seen (0-5/HPF)
[2019-08-30 08:39] LABS: Add Manual Diff / Slide Review NO; Basophils Absolute Auto 0 /uL (0-100); Basophils Percent Auto 0.4 % (0-2); Eosinophils Absolute Auto 300 /uL (0-450); Eosinophils Percent Auto 4.4 % (2-4); Hematocrit 38.4 % (36-46); Hemoglobin 12.7 g/dL (12.0-16.0); Lymphocytes Absolute Auto 2500 /uL (1100-4500); Mean Corpuscular HGB Conc 33.2 % (30-36); Mean Corpuscular Hemoglobin 28.5 PG (26-34); Mean Corpuscular Volume 85.9 fL (80-100); Monocytes Absolute Auto 500 /uL (0-900); Monocytes Percent Auto 7.2 % (3-14); Neutrophils Absolute Auto 3900 /uL (1500-7000); Platelet Count 140 X10^3/uL (150-400); Red Blood Cell Count 4.47 X10^6/uL (4.0-5.2); White Blood Cell Count 7.3 X10^3/uL (4.5-11.0)
[2019-08-30 09:36] LABS: Alanine Aminotransferase 37 IU/L (<35); Alkaline Phosphatase 67 U/L (38-126); Aspartate Aminotransferase 33 IU/L (14-36); BUN Creatinine Ratio 24.8 (6-22); Bilirubin Total 0.3 mg/dL (0.2-1.3); Blood Urea Nitrogen 39 mg/dL (7-17); Calcium 10.1 mg/dL (8.4-10.2); Carbon Dioxide 28 mmol/L (22-32); Estimated Glomerular Filt Rate 32.4 mL/min (>60); Glucose 116 mg/dL (80-110); HEMOLYSIS < 15 (0-50); Magnesium 2.3 mg/dL (1.6-2.3); Phosphorous 2.5 mg/dL (2.8-4.1); Total Protein 7.5 g/dL (6.3-8.2)
[2019-08-30 10:33] LABS: Creatinine Urine Random 65.6 mg/dL; Protein (Total) Urine Random 14 mg/dL (0-12); Protein Creatinine Ratio Urine 0.21 GRAM/24H
[2019-08-30 11:00] LABS: Vitamin D 25 Hydroxy (D3) 18.5 ng/mL (30.0-100.0)
[2019-08-30 12:34] LABS: Cholesterol 170 mg/dL (140-199); HDL Cholesterol 58 mg/dL (40-60); LDL Cholesterol Calculated 70 mg/dL (<100); Triglycerides 210 mg/dL (35-150)
[2019-08-30 12:45] LABS: Appearance Urine UA CLEAR; Bilirubin Urine UA NEGATIVE (NEGATIVE); Color Urine UA YELLOW; Glucose Urine UA NEGATIVE (Negative); Ketones Urine UA NEGATIVE (NEGATIVE); Leukocyte Esterase Urine UA NEGATIVE (NEGATIVE); Nitrite Urine UA NEGATIVE (Negative); Occult Blood Urine UA NEGATIVE (Negative); Protein Urine UA NEGATIVE (Negative); Specific Gravity Urine UA 1.015 (1.000-1.035); Urobilinogen Urine UA 0.2 E.U./dL (0.2)
[2019-08-30 13:19] LABS: Albumin 4.4 g/dL (3.5-5.0); Albumin Globulin Ratio 1.4 (1.0-2.8); Chloride 107 mmol/L (98-107); Globulin 3.1 g/dL (1.7-4.1); Potassium 4.8 mmol/L (3.4-5.1); Sodium 138 mmol/L (137-145)
[2019-08-30 13:28] LABS: Culture Indicated Urine Cult Not Indicated; Squamous Epithelial Cell Urine 0-1 /HPF (0-5/HPF); WBC Urine 0-1/HPF (0-5/HPF); pH Urine UA 7.5 (4.5-8.0)
[2019-08-31 08:37] LABS: Parathyroid Hormone Int 94 pg/mL (15-65)
[2019-08-31 10:48] LABS: Tacrolimus 6.3 ng/mL (2.0-20.0)
== END ==
PROVIDERS: PCP Internal Medicine
DX: Z48.298 Encounter for aftercare following other organ transplant (principal); Z94.0 Kidney transplant status; T86.90 Unspecified complication of unspecified transplanted organ and tissue; E83.40 Disorders of magnesium metabolism, unspecified; B34.9 Viral infection, unspecified
CPT/HCPCS: 36415; 80053; 80061; 80197; 81001; 82306; 82570; 83735; 83970; 84100; 84156; 85025; 87799

== ENCOUNTER → 2019-10-31 07:14 | Outpatient (CLI) | payer MEDICARE, SELFPAY ==
[2019-10-31 08:01] LABS: Add Manual Diff / Slide Review NO; Basophils Absolute Auto 0 /uL (0-100); Basophils Percent Auto 0.4 % (0-2); Eosinophils Absolute Auto 400 /uL (0-450); Eosinophils Percent Auto 5.9 % (2-4); Hematocrit 38.4 % (36-46); Hemoglobin 12.7 g/dL (12.0-16.0); Lymphocytes Absolute Auto 2300 /uL (1100-4500); Lymphocytes Percent Auto 32.6 % (25-40); Mean Corpuscular Hemoglobin 28.5 PG (26-34); Mean Corpuscular Volume 86.4 fL (80-100); Monocytes Absolute Auto 500 /uL (0-900); Monocytes Percent Auto 7.7 % (3-14); Neutrophils Absolute Auto 3700 /uL (1500-7000); Neutrophils Percent Auto 53.4 % (50-75); Platelet Count 146 X10^3/uL (150-400); Red Blood Cell Count 4.44 X10^6/uL (4.0-5.2); Red Cell Distribution Width 14.6 % (11.6-14.8); White Blood Cell Count 6.9 X10^3/uL (4.5-11.0)
[2019-10-31 08:20] LABS: Alanine Aminotransferase 42 IU/L (<35); Albumin 4.2 g/dL (3.5-5.0); Albumin Globulin Ratio 1.4 (1.0-2.8); Alkaline Phosphatase 78 U/L (38-126); Aspartate Aminotransferase 46 IU/L (14-36); BUN Creatinine Ratio 24.1 (6-22); Bilirubin Total 0.3 mg/dL (0.2-1.3); Blood Urea Nitrogen 40 mg/dL (7-17); Carbon Dioxide 27 mmol/L (22-32); Chloride 108 mmol/L (98-107); Estimated Glomerular Filt Rate 30.4 mL/min (>60); Globulin 2.9 g/dL (1.7-4.1); Glucose 114 mg/dL (80-110); HEMOLYSIS < 15 (0-50); Magnesium 2.7 mg/dL (1.6-2.3); Phosphorous 2.6 mg/dL (2.8-4.1); Potassium 4.7 mmol/L (3.4-5.1); Sodium 138 mmol/L (137-145); Total Protein 7.1 g/dL (6.3-8.2)
[2019-11-01 07:13] LABS: Parathyroid Hormone Int 137 pg/mL (15-65)
== END ==
PROVIDERS: PCP Internal Medicine; Referring Provider Specialist; Visit Provider Specialist
DX: N18.9 Chronic kidney disease, unspecified (principal); Z94.0 Kidney transplant status; E21.1 Secondary hyperparathyroidism, not elsewhere classified; E55.9 Vitamin D deficiency, unspecified
CPT/HCPCS: 36415; 80053; 82306; 83735; 83970; 84100; 85025

== ENCOUNTER → 2019-11-07 13:37 | Outpatient (CLI) | payer MEDICARE, SELFPAY ==
--- NOTE | 2019-11-07 13:38 | DI.RAD.S_ITS ---
PROCEDURE: XR CERVICAL SPINE 2V OR 3V INDICATIONS: neck pain TECHNIQUE: 3 view(s) of the cervical spine were acquired. COMPARISON: None. FINDINGS: Bones: No fractures or dislocations to the C7 level. The lateral masses of C1 appear intact on the odontoid view. No suspicious bony lesions. Postsurgical changes related to C4-C6 ACDF. The hardware appears intact and there is expected postoperative alignment. Mild narrowing of the C2-C3 disc space and the C7-T1 disc space. Multilevel degenerative endplate sclerosis and spurring. Diffuse facet arthropathy. Soft tissues: No prevertebral soft tissue swelling. Carotid atherosclerotic plaques incidentally noted. IMPRESSION: Postsurgical changes from C4-C6 related to ACDF. Straightening of the normal lordotic curvature. Mild spondylosis at the remaining cervical levels. Dictated by: Robert Coy M.D. on 11/07/2019 at 15:13 Approved by: Robert Coy M.D. on 11/07/2019 at 15:23
== END ==
PROVIDERS: PCP Internal Medicine; Referring Provider Registered Nurse; Visit Provider Registered Nurse
DX: M54.2 Cervicalgia (principal); M47.812 Spondylosis without myelopathy or radiculopathy, cervical region; I65.29 Occlusion and stenosis of unspecified carotid artery; Z98.1 Arthrodesis status
CPT/HCPCS: 72040

== ENCOUNTER 2019-11-25 13:45 | Outpatient (RCR) | payer MEDICARE, SELFPAY ==
--- NOTE | 2019-11-17 14:07 | PT.OIE ---
Current Diagnoses Low back pain (11/17/19) Past Medical History (Last Reviewed 06/19/19 @ 09:05 by Gaston Manzo MD) Aortic aneurysm (Chronic) Ascending aortic dissection (Chronic) CAD (coronary atherosclerotic disease) (Chronic 10/29/10) Chest pain (Inactive) Chronic gout (Chronic 10/29/10) Diabetes mellitus type 2 in nonobese (Chronic 10/29/10) Essential hypertension (Chronic 10/29/10) GERD (gastroesophageal reflux disease) (Chronic) History of peritoneal dialysis (Resolved) Lumbar radiculopathy (Chronic) Other and unspecified hyperlipidemia (Chronic) Peripheral polyneuropathy (Chronic 03/06/16) ST elevation (Inactive) Tertiary hyperparathyroidism (Inactive) Type 2 diabetes mellitus (Chronic) 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/15) Vesicoureteral reflux (Chronic 07/01/13) Weakness on right side of face (Chronic) Past Surgical History (Last Reviewed 06/19/19 @ 09:05 by Gaston Manzo MD) History of cardiac cath (Resolved 04/2012) History of carpal tunnel repair (Resolved) Status post breast biopsy (Resolved) Status post kidney transplant (Resolved 04/03/13) Status post parathyroidectomy (Resolved) Visit Care Team Role Provider Type Gaston Valentino MD Family Provider Physician Primary Care Provider Specialty: Internal Medicine Address: [address] [place] [address], [address], [address] Email: [email or web address] ARIADNA Rivera Attending Provider Advanced Wool Cleaner Referring Provider Specialty: Medical Address: [address] [place] [address], [id number] Email: [email or web address] Physical Therapy Initial Evaluation PT-OP-A Visit Information Start: 11/17/19 10:55 Freq: Status: Active Protocol: Document 11/17/19 12:59 MB (Rec: 11/17/19 13:15 MB [id number]) Out-Patient Physical Therapy Visit Information Visit Information Visit Type Initial Evaluation Visit Note Medicare Visit Start Time 12:59 Visit Stop Time 13:44 Total Visit Minutes 45 Visit Number 1 Evaluation Information Evaluation Date 11/17/19 PT-OP-B Current Condition Start: 11/17/19 10:55 Freq: Status: Active Protocol: Document 11/17/19 12:59 MB (Rec: 11/17/19 13:15 MB [id number]) Current Condition History of Current Condition Onset Date 3 weeks Current Complaints Right arm numbness, thoracic pain History of Current Condition 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 She reports she does not neet an paper deliverer. Pt reports that three weeks ago, she was doing a lot of cutting outside and she got thoracic pain. Right thoracic pain up to 7/10 and right arm numbness and pain up to 5/10. Pt is left handed. Pt sleeps on her back. She uses one high pillow under her head. Prior Treatments and Tests History of C4-6 ACDF in 2005 Recent cervical spine x-ray 11/07/2019: post-surgical changes, straightening of cervical lordosis, previous PT for her neck Treatment Goals Patient/Caregiver Goals Pt's tends to speak. Pt's goal is to decrease pain and increase strength. PT-OP-C Subjective Start: 11/17/19 10:55 Freq: Status: Active Protocol: Document 11/17/19 12:59 MB (Rec: 11/17/19 13:15 MB [id number]) OP-PT Subjective Patient Comments Patient Comments See history of current condition. PT-OP-J Posture/Palpation/Skin Start: 11/17/19 10:55 Freq: Status: Active Protocol: Document 11/17/19 12:59 MB (Rec: 11/17/19 13:59 MB [id number]) Posture Evaluation Comments Posture Comments Standing posture: little cervical lordosis in setting of cervical fusion, mild Dowager's hump, no thoracic kyphosis, right scapula elevated and protracted compared to the left, anterior tilt pelvis and increased lumbar lordosis, right iliac crest higher than the left Standing thoracic rotation with hands crossed over shoulders: left 50% less than the right PT-OP-K Range of Motion Start: 11/17/19 10:55 Freq: Status: Active Protocol: Document 11/17/19 12:59 MB (Rec: 11/17/19 13:59 MB [id number]) Cervical Spine Range of Motion Cervical Spine Active Degrees Testing Position Standing Flexion 30 Extension 30 Rotation Left 35 Rotation Right 50 Lateral Flexion Left 11 Lateral Flexion Right 20 Shoulder Goniometric Range of Motion Shoulder Left Shoulder ROM WFL Yes Testing Position Standing Right Shoulder ROM WFL Yes Testing Position Standing PT-OP-M Strength Start: 11/17/19 10:55 Freq: Status: Active Protocol: Document 11/17/19 12:59 MB (Rec: 11/17/19 13:59 MB [id number]) Shoulder Strength Shoulder Manual Muscle Testing Left Flexion 4 Good Abduction (C5) 5 Normal External Rotation 4 Good Internal Rotation 5 Normal Right Flexion 4 Good Abduction (C5) 4 Good External Rotation 3+ Fair+ Internal Rotation 5 Normal Elbow/Forearm Strength Elbow and Forearm Manual Muscle Testing Left Flexion (C6) 5 Normal Extension (C7) 5 Normal Pronation 5 Normal Supination 5 Normal Right Flexion (C6) 4 Good Extension (C7) 5 Normal Pronation 4 Good Supination 4 Good Hand Corporate Law Assistant/Pinch Strength Hand Strength Left Comments 35 lb, 35 lb, 35 lb Pt standing with arm straight out in front of her, 90 deg shoulder flexion Right Comments 28 lb, 29 lb, 25 lb Pt standing with arm straight out in front of her, 90 deg shoulder flexion PT-OP-Q Treatments Start: 11/17/19 10:55 Freq: Status: Active Protocol: Document 11/17/19 12:59 MB (Rec: 11/17/19 13:54 MB [id number]) Therapeutic Exercises Standing Exercises Infraspinatus MWM with racquet ball Side right Comments Active shoulder ER and IR with ball on trigger point Intrascapular STM with racquet ball Side right Comments Ed pt to perform on both sides , use a sock, keep shoulder relaxed Self-Care/Home Management Treatment Education Patient Education Posture Other Education 2' proper sleeping position on back or side with one pillow and cervical support with towel roll PT-OP-T Assessment and Plan Start: 11/17/19 10:55 Freq: Status: Active Protocol: Document 11/17/19 12:59 MB (Rec: 11/17/19 13:22 MB [id number]) Physical Therapy Assessment Rehab Potential Rehabilitation Potential Fair Evaluation Complexity Number of Personal Factors/Comorbidities 1-2 Number of Body Systems Impaired 1-2 Clinical Presentation at Evaluation Evolving Impairments Impairments Activity Tolerance,Functional Activities,Functional Mobility ,Pain,Posture,ROM,Sensation, Soft Tissue Mobility,Strength Other Impairments Pt states that she can understand PT if PT lowers voice and speed of speaking Goals Four Merchandise Shopper Goal (LTG) Pt will present with improved left cervical and thoracic rotation equal to the left to improve looking over left shoulder and improve mobility by 01/17/2020. LTG Duration 8 weeks Three Group Home Goal (LTG) Pt will perform progressive HEP with I including postural, alignment, flexibility and strengthening exercises to improve overall strength and pain by 01/17/2020. LTG Duration 8 weeks Two Merchandise Shopper Goal (LTG) Pt will present with right shoulder abduction, elbow flexion, pronation and supination to 5/5 to improve functional strength for gardening by 01/17/2020. LTG Duration 8 weeks Assessment Summary Assessment PT order is for LBP. Doctor note from 11/07/2019 does not mention LBP and she had a cervical x-ray then d/t reports of right arm numbness and history of neck surgery. Pt denies LBP. Pt reports thoracic/intrascapular pain and PT asks front office to call about getting an order for PT eval and treat for pt's thoracic spine and PT evaluates this today given pt reports, MD note and recent dx . There is no indication for LBP. Pt presents with postural spinal changes, right UE paresthesias with decreased sensation and reports of numbness in C7 distribution right UE and in right finger tips, weakness in right UE and decreased left greater than right cervical and thoracic rotation. She will benefit from PT to improve posture, shoulder, intrascapular and core strength, flexibility and ergonomic and body mechanics training. Physical Therapy Plan Frequency and Duration Frequency of Treatment 2x/Week Duration of Treatment 8 weeks Plan of Care Start Date 11/17/19 Plan of Care End Date 01/17/20 Therapeutic Interventions Therapeutic Interventions Balance Training,Canalithic Repositioning,Home Exercise Program,Manual Therapy, Neuromuscular Re-education, Patient/Caregiver Education, Self-Care/Home Management,Soft Tissue Mobilization,Taping, Therapeutic Activities, Therapeutic Exercises Modalities Cold Pack/Ice Massage,Electric Stimulation,Hot Packs, Ultrasound Next Visit Focus/Plan Next Note Type Treatment Note Next Visit Plan Review exercises and progress as appropriate
--- NOTE | 2019-11-17 14:08 | PT.OPPOC ---
Physical, Occupational & Speech Therapy At [facility] Current Diagnoses Low back pain (11/17/19) Visit Care Team Role Provider Type Gaston Valentino MD Family Provider Physician Primary Care Provider Specialty: Internal Medicine Address: [address] [place] [address], [address], [place], [address] Email: [email or web address] ARIADNA Rivera Attending Provider Advanced Video Control Operator Referring Provider Specialty: Medical Address: [address] [place] [address], [address] Email: [email or web address] Plan Of Care PT-OP-T Assessment and Plan Start: 11/17/19 10:55 Freq: Status: Active Protocol: Document 11/17/19 12:59 MB (Rec: 11/17/19 13:22 MB [id number]) Physical Therapy Assessment Rehab Potential Rehabilitation Potential Fair Evaluation Complexity Number of Personal Factors/Comorbidities 1-2 Number of Body Systems Impaired 1-2 Clinical Presentation at Evaluation Evolving Impairments Impairments Activity Tolerance,Functional Activities,Functional Mobility ,Pain,Posture,ROM,Sensation, Soft Tissue Mobility,Strength Other Impairments Pt states that she can understand PT if PT lowers voice and speed of speaking Goals Four Vice President Medical Affairs Goal (LTG) Pt will present with improved left cervical and thoracic rotation equal to the left to improve looking over left shoulder and improve mobility by 01/17/2020. LTG Duration 8 weeks Three Vice President Medical Affairs Goal (LTG) Pt will perform progressive HEP with I including postural, alignment, flexibility and strengthening exercises to improve overall strength and pain by 01/17/2020. LTG Duration 8 weeks Two Vice President Medical Affairs Goal (LTG) Pt will present with right shoulder abduction, elbow flexion, pronation and supination to 5/5 to improve functional strength for gardening by 01/17/2020. LTG Duration 8 weeks Assessment Summary Assessment PT order is for LBP. Doctor note from 11/07/2019 does not mention LBP and she had a cervical x-ray then d/t reports of right arm numbness and history of neck surgery. Pt denies LBP. Pt reports thoracic/intrascapular pain and PT asks front office to call about getting an order for PT eval and treat for pt's thoracic spine and PT evaluates this today given pt reports, MD note and recent dx . There is no indication for LBP. Pt presents with postural spinal changes, right UE paresthesias with decreased sensation and reports of numbness in C7 distribution right UE and in right finger tips, weakness in right UE and decreased left greater than right cervical and thoracic rotation. She will benefit from PT to improve posture, shoulder, intrascapular and core strength, flexibility and ergonomic and body mechanics training. Physical Therapy Plan Frequency and Duration Frequency of Treatment 2x/Week Duration of Treatment 8 weeks Plan of Care Start Date 11/17/19 Plan of Care End Date 01/17/20 Therapeutic Interventions Therapeutic Interventions Balance Training,Canalithic Repositioning,Home Exercise Program,Manual Therapy, Neuromuscular Re-education, Patient/Caregiver Education, Self-Care/Home Management,Soft Tissue Mobilization,Taping, Therapeutic Activities, Therapeutic Exercises Modalities Cold Pack/Ice Massage,Electric Stimulation,Hot Packs, Ultrasound Next Visit Focus/Plan Next Note Type Treatment Note Next Visit Plan Review exercises and progress as appropriate Plan of Care Dates Plan of Care Start Date 11/17/19 Plan of Care End Date 01/17/20 Electronically Signed by: Phyllis Royal, PT 11/17/19 [id number] Please Sign and Return: I have reviewed this Plan of Care and certify that the skilled therapy services above are required to meet the patient?s needs. Physician Signature Date Printed Name and Credentials Clinical Instructor Signature Printed Name and Credentials
--- NOTE | 2019-11-21 10:30 | PT.OTN ---
Current Diagnoses Low back pain (11/21/19) Physical Therapy Treatment Note PT-OP-A Visit Information Start: 11/17/19 10:55 Freq: Status: Active Protocol: Document 11/21/19 09:50 SP (Rec: 11/21/19 10:30 SP [id number]) Out-Patient Physical Therapy Visit Information Visit Information Visit Type Treatment Note Visit Start Time 09:50 Visit Stop Time 10:30 Total Visit Minutes 40 Visit Number 2 Number of BILLING CLERK Visits 1 PT-OP-B Current Condition Start: 11/17/19 10:55 Freq: Status: Active Protocol: Document 11/17/19 12:59 MB (Rec: 11/17/19 13:15 MB [id number]) Current Condition History of Current Condition Onset Date 3 weeks Current Complaints Right arm numbness, thoracic pain History of Current Condition 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 She reports she does not neet an choir teacher. Pt reports that three weeks ago, she was doing a lot of cutting outside and she got thoracic pain. Right thoracic pain up to 7/10 and right arm numbness and pain up to 5/10. Pt is left handed. Pt sleeps on her back. She uses one high pillow under her head. Prior Treatments and Tests History of C4-6 ACDF in 2005 Recent cervical spine x-ray 11/07/2019: post-surgical changes, straightening of cervical lordosis, previous PT for her neck Treatment Goals Patient/Caregiver Goals Pt's tends to speak. Pt's goal is to decrease pain and increase strength. PT-OP-C Subjective Start: 11/17/19 10:55 Freq: Status: Active Protocol: Document 11/21/19 09:50 SP (Rec: 11/21/19 10:30 SP [id number]) OP-PT Subjective Patient Comments Patient Comments The ball in the sock rolling helped alot and doing at home, makes me feel better. PT-OP-J Posture/Palpation/Skin Start: 11/17/19 10:55 Freq: Status: Active Protocol: Document 11/17/19 12:59 MB (Rec: 11/17/19 13:59 MB [id number]) Posture Evaluation Comments Posture Comments Standing posture: little cervical lordosis in setting of cervical fusion, mild Dowager's hump, no thoracic kyphosis, right scapula elevated and protracted compared to the left, anterior tilt pelvis and increased lumbar lordosis, right iliac crest higher than the left Standing thoracic rotation with hands crossed over shoulders: left 50% less than the right PT-OP-K Range of Motion Start: 11/17/19 10:55 Freq: Status: Active Protocol: Document 11/17/19 12:59 MB (Rec: 11/17/19 13:59 MB [id number]) Cervical Spine Range of Motion Cervical Spine Active Degrees Testing Position Standing Flexion 30 Extension 30 Rotation Left 35 Rotation Right 50 Lateral Flexion Left 11 Lateral Flexion Right 20 Shoulder Goniometric Range of Motion Shoulder Left Shoulder ROM WFL Yes Testing Position Standing Right Shoulder ROM WFL Yes Testing Position Standing PT-OP-M Strength Start: 11/17/19 10:55 Freq: Status: Active Protocol: Document 11/17/19 12:59 MB (Rec: 11/17/19 13:59 MB [id number]) Shoulder Strength Shoulder Manual Muscle Testing Left Flexion 4 Good Abduction (C5) 5 Normal External Rotation 4 Good Internal Rotation 5 Normal Right Flexion 4 Good Abduction (C5) 4 Good External Rotation 3+ Fair+ Internal Rotation 5 Normal Elbow/Forearm Strength Elbow and Forearm Manual Muscle Testing Left Flexion (C6) 5 Normal Extension (C7) 5 Normal Pronation 5 Normal Supination 5 Normal Right Flexion (C6) 4 Good Extension (C7) 5 Normal Pronation 4 Good Supination 4 Good Hand Printed Circuit Board Panels Trimmer/Pinch Strength Hand Strength Left Comments 35 lb, 35 lb, 35 lb Pt standing with arm straight out in front of her, 90 deg shoulder flexion Right Comments 28 lb, 29 lb, 25 lb Pt standing with arm straight out in front of her, 90 deg shoulder flexion PT-OP-Q Treatments Start: 11/17/19 10:55 Freq: Status: Active Protocol: Document 11/21/19 09:50 SP (Rec: 11/21/19 10:30 SP [id number]) Therapeutic Exercises Supine Exercises scaption Supine Exercise Name Y Side bilateral Reps/Minutes 2x5 chin nods Supine Exercise Name (DNF) chin nods, towel under c /s Reps/Minutes 5 x5 Comments cued slow pacing small range Sidelying Exercises open book Sidelying Exercise Name Open Books Side bilateral Reps/Minutes 10x ea side Comments cued moving with the breath, head with arm Standing Exercises scaption pec stretch at wall Standing Exercise Name corner, forearms on wall tolerant range Reps/Minutes 3x10 wall posture Standing Exercise Name roll down back to wall Reps/Minutes 2 min Infraspinatus MWM with racquet ball Side right Comments Active shoulder ER and IR with ball on trigger point Intrascapular STM with racquet ball Side right Comments Ed pt to perform on both sides , use a sock, keep shoulder relaxed PT-OP-T Assessment and Plan Start: 11/17/19 10:55 Freq: Status: Active Protocol: Document 11/21/19 09:50 SP (Rec: 11/21/19 10:30 SP [id number]) Physical Therapy Assessment Goals Four Fci Goal (LTG) Pt will present with improved left cervical and thoracic rotation equal to the left to improve looking over left shoulder and improve mobility by 01/17/2020. LTG Duration 8 weeks Three Fci Goal (LTG) Pt will perform progressive HEP with I including postural, alignment, flexibility and strengthening exercises to improve overall strength and pain by 01/17/2020. LTG Duration 8 weeks Two Fci Goal (LTG) Pt will present with right shoulder abduction, elbow flexion, pronation and supination to 5/5 to improve functional strength for gardening by 01/17/2020. LTG Duration 8 weeks One Impairment ROM Short Term Goal (STG) Ignacia will increase her cervical AROM to 60 degrees bilaterally. STG Duration improved but not met Pole Truck Driver Goal (LTG) Ignacia will increase her cervical sidebending to 35 degrees without an increase in pain. LTG Duration improved Assessment Summary Assessment Tx focused on c/s chin nods, TS mobility, pec stretching and wall posture to improve over all mobility. Required cuing for set up and proper form with good feedback results I feel alot better. Physical Therapy Plan Frequency and Duration Frequency of Treatment 2x/Week Duration of Treatment 8 weeks Plan of Care Start Date 11/17/19 Plan of Care End Date 01/17/20 Therapeutic Interventions Therapeutic Interventions Balance Training,Canalithic Repositioning,Home Exercise Program,Manual Therapy, Neuromuscular Re-education, Patient/Caregiver Education, Self-Care/Home Management,Soft Tissue Mobilization,Taping, Therapeutic Activities, Therapeutic Exercises Modalities Cold Pack/Ice Massage,Electric Stimulation,Hot Packs, Ultrasound Next Visit Focus/Plan Next Note Type Treatment Note Next Visit Plan Assess response to last tx: supine, side, standing mobility exercises for posture . Review exercises and progress as appropriate
--- NOTE | 2019-11-25 14:30 | PT.OTN ---
Current Diagnoses Low back pain (11/25/19) Physical Therapy Treatment Note PT-OP-A Visit Information Start: 11/17/19 10:55 Freq: Status: Active Protocol: Document 11/25/19 13:45 MB (Rec: 11/25/19 14:06 MB [id number]) Out-Patient Physical Therapy Visit Information Visit Information Visit Type Treatment Note Visit Start Time 13:45 Visit Stop Time 14:23 Total Visit Minutes 38 Visit Number 3 Number of WET ROOM SUPERVISOR Visits 0 PT-OP-B Current Condition Start: 11/17/19 10:55 Freq: Status: Active Protocol: Document 11/17/19 12:59 MB (Rec: 11/17/19 13:15 MB [id number]) Current Condition History of Current Condition Onset Date 3 weeks Current Complaints Right arm numbness, thoracic pain History of Current Condition 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 Pt reports that three weeks ago, she was doing a lot of cutting outside and she got thoracic pain. Right thoracic pain up to 7/10 and right arm numbness and pain up to 5/10. Pt is left handed. Pt sleeps on her back. She uses one high pillow under her head. Prior Treatments and Tests History of C4-6 ACDF in 2005 Recent cervical spine x-ray 11/07/2019: post-surgical changes, straightening of cervical lordosis, previous PT for her neck Treatment Goals Patient/Caregiver Goals Pt's tends to speak. Pt's goal is to decrease pain and increase strength. PT-OP-C Subjective Start: 11/17/19 10:55 Freq: Status: Active Protocol: Document 11/25/19 13:45 MB (Rec: 11/25/19 14:06 MB [id number]) OP-PT Subjective Patient Comments Patient Comments Pt likes the exercises and is able to use the electric hiral and push the vacuum. Her traps were sore afterwards and her massaged her shoulders. PT-OP-J Posture/Palpation/Skin Start: 11/17/19 10:55 Freq: Status: Active Protocol: Document 11/17/19 12:59 MB (Rec: 11/17/19 13:59 MB [id number]) Posture Evaluation Comments Posture Comments Standing posture: little cervical lordosis in setting of cervical fusion, mild Dowager's hump, no thoracic kyphosis, right scapula elevated and protracted compared to the left, anterior tilt pelvis and increased lumbar lordosis, right iliac crest higher than the left Standing thoracic rotation with hands crossed over shoulders: left 50% less than the right PT-OP-K Range of Motion Start: 11/17/19 10:55 Freq: Status: Active Protocol: Document 11/17/19 12:59 MB (Rec: 11/17/19 13:59 MB [id number]) Cervical Spine Range of Motion Cervical Spine Active Degrees Testing Position Standing Flexion 30 Extension 30 Rotation Left 35 Rotation Right 50 Lateral Flexion Left 11 Lateral Flexion Right 20 Shoulder Goniometric Range of Motion Shoulder Left Shoulder ROM WFL Yes Testing Position Standing Right Shoulder ROM WFL Yes Testing Position Standing PT-OP-M Strength Start: 11/17/19 10:55 Freq: Status: Active Protocol: Document 11/17/19 12:59 MB (Rec: 11/17/19 13:59 MB [id number]) Shoulder Strength Shoulder Manual Muscle Testing Left Flexion 4 Good Abduction (C5) 5 Normal External Rotation 4 Good Internal Rotation 5 Normal Right Flexion 4 Good Abduction (C5) 4 Good External Rotation 3+ Fair+ Internal Rotation 5 Normal Elbow/Forearm Strength Elbow and Forearm Manual Muscle Testing Left Flexion (C6) 5 Normal Extension (C7) 5 Normal Pronation 5 Normal Supination 5 Normal Right Flexion (C6) 4 Good Extension (C7) 5 Normal Pronation 4 Good Supination 4 Good Hand Cooker Sulfate/Pinch Strength Hand Strength Left Comments 35 lb, 35 lb, 35 lb Pt standing with arm straight out in front of her, 90 deg shoulder flexion Right Comments 28 lb, 29 lb, 25 lb Pt standing with arm straight out in front of her, 90 deg shoulder flexion PT-OP-Q Treatments Start: 11/17/19 10:55 Freq: Status: Active Protocol: Document 11/25/19 13:45 MB (Rec: 11/25/19 14:06 MB [id number]) Therapeutic Exercises Sitting Exercises MWM upper traps Side bilateral Comments Ball on trigger point and pt performing cervical rotation Standing Exercises 5 Standing Exercise Name Scapular retraction and shoulder ER with level 2 band Side bilateral Reps/Minutes 10 Comments Slowly Other Exercises Reviewed all exercise handouts Comments reviewed all HEP exercises today for understanding and pt verbalizes unders Self-Care/Home Management Treatment Education Other Education Body mechanics for gardening and vacuuming: keep vacuum near and step with feet rather than reaching, for trimming, similar as much as possible. Also ed on stopping to break and perform scapular retraction, discussed PT plan and looked at appointments and will check back in 3 weeks and d/c in 2 treatments. PT-OP-T Assessment and Plan Start: 11/17/19 10:55 Freq: Status: Active Protocol: Document 11/25/19 13:45 MB (Rec: 11/25/19 14:06 MB [id number]) Physical Therapy Assessment Rehab Potential Rehabilitation Potential Fair Evaluation Complexity Number of Personal Factors/Comorbidities 1-2 Number of Body Systems Impaired 1-2 Clinical Presentation at Evaluation Evolving Impairments Impairments Activity Tolerance,Functional Activities,Functional Mobility ,Pain,Posture,ROM,Sensation, Soft Tissue Mobility,Strength Other Impairments Pt states that she can understand PT if PT lowers voice and speed of speaking Goals [employer] Line Technician Goal (LTG) Pt will present with improved left cervical and thoracic rotation equal to the left to improve looking over left shoulder and improve mobility by 01/17/2020. LTG Duration 8 weeks Three Halfway Goal (LTG) Pt will perform progressive HEP with I including postural, alignment, flexibility and strengthening exercises to improve overall strength and pain by 01/17/2020. LTG Duration 8 weeks Two Halfway Goal (LTG) Pt will present with right shoulder abduction, elbow flexion, pronation and supination to 5/5 to improve functional strength for gardening by 01/17/2020. LTG Duration 8 weeks Assessment Summary Assessment Pt is very compliant and is doing much better. Progressed strengthening and body mechanics training today. She is very compliant and active. Decreased frequency and duration of PT treatments today. Physical Therapy Plan Frequency and Duration Frequency of Treatment 2x/Week Duration of Treatment 8 weeks Plan of Care Start Date 11/17/19 Plan of Care End Date 01/17/20 Therapeutic Interventions Therapeutic Interventions Balance Training,Canalithic Repositioning,Home Exercise Program,Manual Therapy, Neuromuscular Re-education, Patient/Caregiver Education, Self-Care/Home Management,Soft Tissue Mobilization,Taping, Therapeutic Activities, Therapeutic Exercises Modalities Cold Pack/Ice Massage,Electric Stimulation,Hot Packs, Ultrasound Next Visit Focus/Plan Next Note Type Treatment Note Next Visit Plan Review exercises and progress as appropriate
--- NOTE | 2019-12-16 16:08 | PT.OPDS ---
Current Diagnoses Low back pain (11/25/19) Visit Care Team Role Provider Type Gaston Valentino MD Family Provider Physician Primary Care Provider Specialty: Internal Medicine Address: [address] [place] [address], [address], [place], [address] Email: [email or web address] ARIADNA Rivera Attending Provider Advanced Dsp Engineer Referring Provider Specialty: Medical Address: [address] [place] [address], [id number] Email: [email or web address] Visit Number Visit Number 3 Discharge Summary PT-OP-B Current Condition Start: 11/17/19 10:55 Freq: Status: Active Protocol: Document 11/17/19 12:59 MB (Rec: 11/17/19 13:15 MB [id number]) Current Condition History of Current Condition Onset Date 3 weeks Current Complaints Right arm numbness, thoracic pain History of Current Condition 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 Pt reports that three weeks ago, she was doing a lot of cutting outside and she got thoracic pain. Right thoracic pain up to 7/10 and right arm numbness and pain up to 5/10. Pt is left handed. Pt sleeps on her back. She uses one high pillow under her head. Prior Treatments and Tests History of C4-6 ACDF in 2005 Recent cervical spine x-ray 11/07/2019: post-surgical changes, straightening of cervical lordosis, previous PT for her neck Treatment Goals Patient/Caregiver Goals Pt's tends to speak. Pt's goal is to decrease pain and increase strength. PT-OP-C Subjective Start: 11/17/19 10:55 Freq: Status: Active Protocol: Document 11/25/19 13:45 MB (Rec: 11/25/19 14:06 MB [id number]) OP-PT Subjective Patient Comments Patient Comments Pt likes the exercises and is able to use the electric hiral and push the vacuum. Her traps were sore afterwards and her massaged her shoulders. PT-OP-J Posture/Palpation/Skin Start: 11/17/19 10:55 Freq: Status: Active Protocol: Document 11/17/19 12:59 MB (Rec: 11/17/19 13:59 MB [id number]) Posture Evaluation Comments Posture Comments Standing posture: little cervical lordosis in setting of cervical fusion, mild Dowager's hump, no thoracic kyphosis, right scapula elevated and protracted compared to the left, anterior tilt pelvis and increased lumbar lordosis, right iliac crest higher than the left Standing thoracic rotation with hands crossed over shoulders: left 50% less than the right PT-OP-K Range of Motion Start: 11/17/19 10:55 Freq: Status: Active Protocol: Document 11/17/19 12:59 MB (Rec: 11/17/19 13:59 MB [id number]) Cervical Spine Range of Motion Cervical Spine Active Degrees Testing Position Standing Flexion 30 Extension 30 Rotation Left 35 Rotation Right 50 Lateral Flexion Left 11 Lateral Flexion Right 20 Shoulder Goniometric Range of Motion Shoulder Left Shoulder ROM WFL Yes Testing Position Standing Right Shoulder ROM WFL Yes Testing Position Standing PT-OP-M Strength Start: 11/17/19 10:55 Freq: Status: Active Protocol: Document 11/17/19 12:59 MB (Rec: 11/17/19 13:59 MB [id number]) Shoulder Strength Shoulder Manual Muscle Testing Left Flexion 4 Good Abduction (C5) 5 Normal External Rotation 4 Good Internal Rotation 5 Normal Right Flexion 4 Good Abduction (C5) 4 Good External Rotation 3+ Fair+ Internal Rotation 5 Normal Elbow/Forearm Strength Elbow and Forearm Manual Muscle Testing Left Flexion (C6) 5 Normal Extension (C7) 5 Normal Pronation 5 Normal Supination 5 Normal Right Flexion (C6) 4 Good Extension (C7) 5 Normal Pronation 4 Good Supination 4 Good Hand Soil Biology Teacher/Pinch Strength Hand Strength Left Comments 35 lb, 35 lb, 35 lb Pt standing with arm straight out in front of her, 90 deg shoulder flexion Right Comments 28 lb, 29 lb, 25 lb Pt standing with arm straight out in front of her, 90 deg shoulder flexion PT-OP-T Assessment and Plan Start: 11/17/19 10:55 Freq: Status: Active Protocol: Document 12/16/19 16:07 MB (Rec: 12/16/19 16:08 MB [id number]) Physical Therapy Plan Discharge Physical Therapy Discharge Reasons Patient Request Discharge Comments calls to state that pt is doing well and does not need any more PT. He cancels PT appointment. Will d/c PT.
== END 2019-12-19 13:27 ==
LOC: PHYS 13:45
PROVIDERS: Family Provider Internal Medicine; PCP Internal Medicine; Referring Provider Registered Nurse; Visit Provider Registered Nurse
DX: M54.5 Low back pain (principal)
CPT/HCPCS: 97110; 97161; 97535

== ENCOUNTER → 2020-02-20 10:48 | Outpatient (CLI) | payer MEDICARE, SELFPAY ==
[2020-02-20 12:03] LABS: BUN Creatinine Ratio 27.7 (6-22); Blood Urea Nitrogen 44 mg/dL (7-17); Calcium 10.1 mg/dL (8.4-10.2); Carbon Dioxide 29 mmol/L (22-32); Chloride 106 mmol/L (98-107); Estimated Glomerular Filt Rate 31.9 mL/min (>60); Glucose 182 mg/dL (80-110); HEMOLYSIS < 15 (0-50); Potassium 4.8 mmol/L (3.4-5.1); Sodium 136 mmol/L (137-145)
== END ==
PROVIDERS: Family Provider Internal Medicine; PCP Internal Medicine; Referring Provider Internal Medicine; Visit Provider Internal Medicine
DX: E11.9 Type 2 diabetes mellitus without complications (principal); I10 Essential (primary) hypertension
CPT/HCPCS: 36415; 80048; 83036

== ENCOUNTER → 2020-02-23 07:19 | Outpatient (CLI) | payer MEDICARE, SELFPAY ==
[2020-02-23 07:43] LABS: RBC Urine None Seen (0-5/HPF)
[2020-02-23 08:10] LABS: Add Manual Diff / Slide Review NO; Basophils Absolute Auto 0 /uL (0-100); Basophils Percent Auto 0.6 % (0-2); Eosinophils Absolute Auto 300 /uL (0-450); Eosinophils Percent Auto 5.3 % (2-4); Hemoglobin 12.9 g/dL (12.0-16.0); Lymphocytes Absolute Auto 2400 /uL (1100-4500); Lymphocytes Percent Auto 38.2 % (25-40); Mean Corpuscular HGB Conc 33.2 % (30-36); Mean Corpuscular Hemoglobin 28.5 PG (26-34); Mean Corpuscular Volume 85.7 fL (80-100); Monocytes Absolute Auto 500 /uL (0-900); Monocytes Percent Auto 7.8 % (3-14); Neutrophils Absolute Auto 3000 /uL (1500-7000); Neutrophils Percent Auto 48.1 % (50-75); Platelet Count 143 X10^3/uL (150-400); Red Blood Cell Count 4.55 X10^6/uL (4.0-5.2); Red Cell Distribution Width 14.2 % (11.6-14.8); White Blood Cell Count 6.2 X10^3/uL (4.5-11.0)
[2020-02-23 08:24] LABS: Hemoglobin A1C% w Est Avg Glu 7.9 % (4.0-6.0)
[2020-02-23 08:46] LABS: Alanine Aminotransferase 40 IU/L (<35); Albumin 4.1 g/dL (3.5-5.0); Albumin Globulin Ratio 1.3 (1.0-2.8); Alkaline Phosphatase 75 U/L (38-126); Aspartate Aminotransferase 37 IU/L (14-36); BUN Creatinine Ratio 25.5 (6-22); Bilirubin Total 0.4 mg/dL (0.2-1.3); Blood Urea Nitrogen 37 mg/dL (7-17); Calcium 10.2 mg/dL (8.4-10.2); Carbon Dioxide 29 mmol/L (22-32); Chloride 105 mmol/L (98-107); Estimated Glomerular Filt Rate 35.5 mL/min (>60); Globulin 3.1 g/dL (1.7-4.1); Glucose 97 mg/dL (80-110); HEMOLYSIS < 15 (0-50); Magnesium 2.6 mg/dL (1.6-2.3); Phosphorous 2.8 mg/dL (2.8-4.1); Potassium 4.8 mmol/L (3.4-5.1); Sodium 138 mmol/L (137-145); Total Protein 7.2 g/dL (6.3-8.2)
[2020-02-23 09:46] LABS: Appearance Urine UA CLEAR; Bilirubin Urine UA NEGATIVE (NEGATIVE); Color Urine UA YELLOW; Glucose Urine UA NEGATIVE (Negative); Ketones Urine UA NEGATIVE (NEGATIVE); Leukocyte Esterase Urine UA NEGATIVE (NEGATIVE); Nitrite Urine UA NEGATIVE (Negative); Occult Blood Urine UA NEGATIVE (Negative); Protein Urine UA NEGATIVE (Negative); Urobilinogen Urine UA 0.2 E.U./dL (0.2)
[2020-02-23 10:09] LABS: pH Urine UA 7.5 (4.5-8.0)
[2020-02-23 10:11] LABS: Amorphous Sediment Urine 3+; WBC Urine 1-5/HPF (0-5/HPF)
[2020-02-23 10:12] LABS: Bacteria Urine Many (>30); Culture Indicated Urine Cult Not Indicated
[2020-02-23 12:01] LABS: Creatinine Urine Random 50.8 mg/dL
[2020-02-23 12:05] LABS: Microalbumi Creatinin Ratio Ur 94.4 ug/mg CR (<30); Microalbumin Urine Random 4.8 mg/dL (0-1.6)
[2020-02-24 10:08] LABS: Tacrolimus 5.6 ng/mL (2.0-20.0)
== END ==
PROVIDERS: Family Provider Internal Medicine; PCP Internal Medicine; Referring Provider Specialist; Visit Provider Specialist
DX: E11.9 Type 2 diabetes mellitus without complications (principal); E55.9 Vitamin D deficiency, unspecified; N18.30 Chronic kidney disease, stage 3 unspecified; Z94.0 Kidney transplant status
CPT/HCPCS: 36415; 80053; 80197; 81001; 82043; 82306; 82570; 83036; 83735; 84100; 85025; 87799

== ENCOUNTER → 2020-04-11 09:49 | Outpatient (CLI) | payer MEDICARE, SELFPAY ==
[2020-04-11 11:22] LABS: Alanine Aminotransferase 37 IU/L (<35); Albumin 4.1 g/dL (3.5-5.0); Albumin Globulin Ratio 1.4 (1.0-2.8); Alkaline Phosphatase 63 U/L (38-126); Aspartate Aminotransferase 34 IU/L (14-36); BUN Creatinine Ratio 26.4 (6-22); Bilirubin Total 0.3 mg/dL (0.2-1.3); Blood Urea Nitrogen 38 mg/dL (7-17); Carbon Dioxide 28 mmol/L (22-32); Chloride 106 mmol/L (98-107); Estimated Glomerular Filt Rate 35.8 mL/min (>60); Glucose 201 mg/dL (80-110); HEMOLYSIS < 15 (0-50); Potassium 4.4 mmol/L (3.4-5.1); Sodium 138 mmol/L (137-145); Total Protein 7.1 g/dL (6.3-8.2)
== END ==
PROVIDERS: Family Provider Internal Medicine; PCP Internal Medicine; Referring Provider Nurse Practitioner; Visit Provider Nurse Practitioner
DX: N18.6 End stage renal disease (principal); I10 Essential (primary) hypertension
CPT/HCPCS: 36415; 80053

== ENCOUNTER → 2020-05-10 08:13 | Outpatient (CLI) | payer MEDICARE, SELFPAY ==
[2020-05-10 09:37] LABS: Hemoglobin A1C% w Est Avg Glu 7.7 % (4.0-6.0)
[2020-05-10 09:43] LABS: Cholesterol 197 mg/dL (140-199); HDL Cholesterol 68 mg/dL (40-60); LDL Cholesterol Calculated 88 mg/dL (<100); Triglycerides 206 mg/dL (35-150)
== END ==
PROVIDERS: Family Provider Internal Medicine; PCP Internal Medicine; Referring Provider Internal Medicine; Visit Provider Internal Medicine
DX: E11.40 Type 2 diabetes mellitus with diabetic neuropathy, unspecified (principal); I10 Essential (primary) hypertension; I25.10 Atherosclerotic heart disease of native coronary artery without angina pectoris; Z79.4 Long term (current) use of insulin
CPT/HCPCS: 36415; 80061; 83036

== ENCOUNTER → 2020-05-14 14:31 | Outpatient (CLI) | payer MEDICARE, SELFPAY ==
--- NOTE | 2020-05-14 | DI.ECHO.S_ITS ---
[facility] +---------+ : : [address] : : : : [phone] : : : : Phone: [phone]+ Echocardiogram Report + + :Name: BOBO HEAD Study Date: 05/14/2020 Height: 57 in : :[facility] ReadingLocation: Weight: 127 lb : : Gender: Female BSA: 1.5 m2 : :: 1945 Age: 74 yrs BP: 135/84 mmHg: :Reason For Study: SHORTNESS OF BREATH : :Ordering Physician: HARINI, : :MIGUELANGEL Vargas Performed By: Heather Urena : :Referring: MIGUELANGEL SCHULER : + + Interpretation Summary The left ventricle is normal in size. The ejection fraction is estimated to be 60-65%. There has been no significant change in LVEF since the previous exam. The right ventricle is normal in size and function. There is mild to moderate mitral regurgitation. Compared to the prior echo study, there has been an increase in the severity of mitral regurgitation. There is mild to moderate aortic regurgitation. There has been no significant change since the previous study. There is mild to moderate tricuspid regurgitation. Compared to the prior echo exam, there has been no change in TR severity. The right ventricular systolic pressure is estimated to be at least 30 mmHg based on an estimated right atrial pressure of 3 mm Hg. The proximal ascending aorta is moderately enlarged. 4.5 cm in diameter. Previously it was about 4.3 cm. Mild atherosclerotic plaque(s) in the aortic arch. Procedure: A two-dimensional transthoracic echocardiogram with color flow and Doppler was performed. The study quality was technically adequate. Comparison is made with the echocardiogram of 06/25/2018. The patient was in sinus rhythm with heart rates between 63-70 bpm during the exam. Left Ventricle: The left ventricle is normal in size. Proximal septal thickening is noted. There is no echo evidence for significant left ventricular outflow tract obstruction. There is no thrombus. The ejection fraction is estimated to be 60-65%. There has been no significant change since the previous exam. There are no focal wall motion abnormalities. MV E/A: 0.96 Med Peak E' Alejandro: 5.3 cm/sec E/E' med: 14.9. Right Ventricle: The right ventricle is normal in size and function. Atria: The left atrium is moderately dilated. The left atrium has mildly increased in size since the prior echo exam. Right atrial size is normal. There is no Doppler evidence for an interatrial shunt. Mitral Valve: The mitral valve leaflets appear mildly thickened, but open well. The mitral valve leaflets are slightly calcified. There is mild to moderate mitral regurgitation. Compared to the prior echo study, there has been an increase in the severity of mitral regurgitation. Aortic Valve: The aortic valve is mildly calcified. Nodular calcification involving all 3 cusps but more prominent in the right coronary cusp seen in the previous study as well. There is mildly reduced leaflet mobility. There is no hemodynamically significant valvular aortic stenosis. There is mild to moderate aortic regurgitation. There has been no significant change since the previous study. Tricuspid Valve: The tricuspid valve is normal. There is mild to moderate tricuspid regurgitation. The right ventricular systolic pressure is estimated to be at least 30 mmHg based on an estimated right atrial pressure of 3 mm Hg. Compared to the prior echo exam, there has been no change in TR severity. Pulmonic Valve: The pulmonic valve leaflets are thin and pliable; valve motion is normal. There is mild pulmonic regurgitation. Great Vessels: The aortic root is normal size. There is aortic root sclerosis/calcification. The ascending aorta is moderately enlarged. Mild atherosclerotic plaque(s) in the aortic arch. The IVC is of normal diameter and collapses greater than 50% with a sniff. This suggests a low right atrial pressure of 3 mm Hg. Pericardium/ Pleura There is no pericardial effusion. There is an anterior echo-free space consistent with a fat pad. Cannot rule out trivial pericardial effusion. No tamponade. There is no pleural effusion. MMode/2D Measurements & Calculations LVIDd: 3.9 cm LVOT diam: 1.9 cm LVIDs: 2.6 cm Ao root diam: 2.5 cm FS: 32.9 % asc Aorta Diam: 4.4 cm EPSS: 0.23 cm Ao Arch Diam (Prox Trans): 2.5 cm IVSd: 0.93 cm LVPWd: 0.92 cm LV silva. diameter/BSA (cm/m^2): 2.6 LV sys. diameter/BSA (cm/m^2): 1.8 LA A2 area: 14.9 cm2 RA long axis: 4.2 cm LA A4 area: 14.2 cm2 RA area: 11.5 cm2 LA length (vol): 4.8 cm RA vol: 26.5 ml LA vol: 37.3 ml RA : 17.9 ml/m2 LA vol index: 25.2 ml/m2 IVC diam: 1.3 cm RVD1 (basal): 2.7 cm TAPSE: 1.7 cm Doppler Measurements & Calculations Ao V2 max: 153.1 cm/sec LVOT Max Alejandro: 90.5 cm/sec Ao V2 mean: 98.6 cm/sec LV V1 max P.3 mmHg Ao max P.4 mmHg LV V1 VTI: 21.0 cm Ao mean P.7 mmHg VIANEY(I,D): 1.7 cm2 Ao V2 VTI: 34.5 cm VIANEY(V,D): 1.6 cm2 sev ratio: 0.61 VIANEY indexed to BSA (cm^2/m^2): 1.1 AI P1/2t: 516.4 msec AI dec slope: 224.6 cm/sec2 MV E max alejandro: 78.8 cm/sec TR max alejandro: 238.0 cm/sec MV A max alejandro: 81.9 cm/sec TR max P.7 mmHg MV E/A: 0.96 PA V2 max: 46.2 cm/sec Med Peak E' Alejandro: 5.3 cm/sec PA V2 mean: 31.9 cm/sec E/E' med: 14.9 PA mean P.47 mmHg Lat Peak E' Alejandro: 8.2 cm/sec PA pr(Accel): 39.6 mmHg E/E' lat: 9.6 E/e' average: 12.3 MV dec time: 0.18 sec SV(LVOT): 57.4 ml Reading Physician:12:11 PM
== END ==
PROVIDERS: Family Provider Internal Medicine; PCP Internal Medicine; Referring Provider Nurse Practitioner; Visit Provider Nurse Practitioner
DX: I08.3 Combined rheumatic disorders of mitral, aortic and tricuspid valves (principal); R06.02 Shortness of breath; I77.89 Other specified disorders of arteries and arterioles; I70.0 Atherosclerosis of aorta
CPT/HCPCS: 93306

== ENCOUNTER → 2020-06-18 10:38 | Outpatient (CLI) | payer MEDICARE, SELFPAY ==
[2020-06-18] MEDS: COVID-19 VACC, Ad26(JANSSEN)/PF 0.5 ML IM (10:44)
== END ==
PROVIDERS: Family Provider Internal Medicine; PCP Internal Medicine; Visit Provider Internal Medicine
DX: Z23 Encounter for immunization (principal)
CPT/HCPCS: 0031A; 91303

== ENCOUNTER → 2020-06-25 08:00 | Outpatient (CLI) | payer MEDICARE, SELFPAY ==
[2020-06-25 08:19] LABS: Bacteria Urine None Seen; RBC Urine None Seen (0-5/HPF); WBC Urine None Seen (0-5/HPF)
[2020-06-25 08:54] LABS: Hemoglobin A1C% w Est Avg Glu 7.8 % (4.0-6.0)
[2020-06-25 09:00] LABS: Add Manual Diff / Slide Review NO; Basophils Absolute Auto 0 /uL (0-100); Basophils Percent Auto 0.3 % (0-2); Eosinophils Absolute Auto 300 /uL (0-450); Eosinophils Percent Auto 4.5 % (2-4); Hematocrit 39.2 % (36-46); Hemoglobin 12.9 g/dL (12.0-16.0); Lymphocytes Absolute Auto 2600 /uL (1100-4500); Lymphocytes Percent Auto 35.3 % (25-40); Mean Corpuscular HGB Conc 32.9 % (30-36); Mean Corpuscular Hemoglobin 28.4 PG (26-34); Mean Corpuscular Volume 86.3 fL (80-100); Monocytes Absolute Auto 600 /uL (0-900); Monocytes Percent Auto 7.5 % (3-14); Neutrophils Absolute Auto 3900 /uL (1500-7000); Neutrophils Percent Auto 52.4 % (50-75); Platelet Count 141 X10^3/uL (150-400); Red Blood Cell Count 4.55 X10^6/uL (4.0-5.2); Red Cell Distribution Width 14.8 % (11.6-14.8); White Blood Cell Count 7.4 X10^3/uL (4.5-11.0)
[2020-06-25 09:07] LABS: Alanine Aminotransferase 46 IU/L (<35); Albumin 4.2 g/dL (3.5-5.0); Albumin Globulin Ratio 1.5 (1.0-2.8); Alkaline Phosphatase 77 U/L (38-126); Aspartate Aminotransferase 36 IU/L (14-36); BUN Creatinine Ratio 29.3 (6-22); Bilirubin Total 0.2 mg/dL (0.2-1.3); Blood Urea Nitrogen 49 mg/dL (7-17); Calcium 10.9 mg/dL (8.4-10.2); Carbon Dioxide 28 mmol/L (22-32); Chloride 105 mmol/L (98-107); Estimated Glomerular Filt Rate 30.2 mL/min (>60); Globulin 2.8 g/dL (1.7-4.1); Glucose 113 mg/dL (80-110); HEMOLYSIS < 15 (0-50); Magnesium 2.1 mg/dL (1.6-2.3); Phosphorous 3.5 mg/dL (2.8-4.1); Potassium 5.2 mmol/L (3.4-5.1); Sodium 139 mmol/L (137-145)
[2020-06-25 09:14] LABS: Appearance Urine UA CLEAR; Bilirubin Urine UA NEGATIVE (NEGATIVE); Color Urine UA YELLOW; Glucose Urine UA NEGATIVE (Negative); Ketones Urine UA NEGATIVE (NEGATIVE); Leukocyte Esterase Urine UA NEGATIVE (NEGATIVE); Nitrite Urine UA NEGATIVE (Negative); Occult Blood Urine UA NEGATIVE (Negative); Protein Urine UA NEGATIVE (Negative); Urobilinogen Urine UA 0.2 E.U./dL (0.2)
[2020-06-25 09:26] LABS: Culture Indicated Urine Cult Not Indicated; Urine Comments Microscopic Normal
[2020-06-25 09:50] LABS: Creatinine Urine Random 49.2 mg/dL
[2020-06-25 09:56] LABS: Microalbumi Creatinin Ratio Ur 32.5 ug/mg CR (<30); Microalbumin Urine Random 1.6 mg/dL (0-1.6)
[2020-06-26 08:50] LABS: Tacrolimus 9.2 ng/mL (2.0-20.0)
== END ==
PROVIDERS: Family Provider Internal Medicine; PCP Internal Medicine; Referring Provider Specialist; Visit Provider Specialist
DX: E11.9 Type 2 diabetes mellitus without complications (principal); E55.9 Vitamin D deficiency, unspecified; N18.30 Chronic kidney disease, stage 3 unspecified; Z94.0 Kidney transplant status
CPT/HCPCS: 36415; 80053; 80197; 81001; 82043; 82306; 82570; 83036; 83735; 84100; 85025; 87799

== ENCOUNTER → 2020-11-03 08:27 | Outpatient (CLI) | payer MEDICARE, SELFPAY ==
[2020-11-03 10:07] LABS: Hemoglobin A1C% w Est Avg Glu 7.3 % (4.0-6.0)
[2020-11-03 10:17] LABS: Alanine Aminotransferase 45 IU/L (<35); Albumin 3.9 g/dL (3.5-5.0); Albumin Globulin Ratio 1.3 (1.0-2.8); Alkaline Phosphatase 69 U/L (38-126); Aspartate Aminotransferase 43 IU/L (14-36); BUN Creatinine Ratio 23.1 (6-22); Bilirubin Total 0.4 mg/dL (0.2-1.3); Blood Urea Nitrogen 34 mg/dL (7-17); Calcium 10.3 mg/dL (8.4-10.2); Carbon Dioxide 27 mmol/L (22-32); Chloride 109 mmol/L (98-107); Estimated Glomerular Filt Rate 34.8 mL/min (>60); Glucose 106 mg/dL (80-110); HEMOLYSIS < 15 (0-50); Potassium 4.5 mmol/L (3.4-5.1); Sodium 140 mmol/L (137-145); Total Protein 6.9 g/dL (6.3-8.2)
== END ==
PROVIDERS: Family Provider Internal Medicine; PCP Internal Medicine; Referring Provider Internal Medicine; Visit Provider Internal Medicine
DX: E11.40 Type 2 diabetes mellitus with diabetic neuropathy, unspecified (principal); E78.5 Hyperlipidemia, unspecified; I10 Essential (primary) hypertension; Z79.4 Long term (current) use of insulin
CPT/HCPCS: 36415; 80053; 83036

== ENCOUNTER → 2020-11-10 08:04 | Outpatient (CLI) | payer MEDICARE, SELFPAY ==
[2020-11-10 08:16] LABS: RBC Urine None Seen (0-5/HPF)
[2020-11-10 09:13] LABS: Add Manual Diff / Slide Review NO; Basophils Absolute Auto 0 /uL (0-100); Basophils Percent Auto 0.5 % (0-2); Eosinophils Absolute Auto 300 /uL (0-450); Eosinophils Percent Auto 5.5 % (2-4); Hemoglobin 12.8 g/dL (12.0-16.0); Lymphocytes Absolute Auto 2200 /uL (1100-4500); Lymphocytes Percent Auto 36.5 % (25-40); Mean Corpuscular HGB Conc 32.9 % (30-36); Mean Corpuscular Hemoglobin 28.5 PG (26-34); Mean Corpuscular Volume 86.7 fL (80-100); Monocytes Absolute Auto 500 /uL (0-900); Neutrophils Absolute Auto 3000 /uL (1500-7000); Neutrophils Percent Auto 49.5 % (50-75); Platelet Count 138 X10^3/uL (150-400); Red Cell Distribution Width 15.2 % (11.6-14.8); White Blood Cell Count 6.1 X10^3/uL (4.5-11.0)
[2020-11-10 09:17] LABS: Hemoglobin A1C% w Est Avg Glu 7.2 % (4.0-6.0)
[2020-11-10 09:20] LABS: Appearance Urine UA CLEAR; Bilirubin Urine UA NEGATIVE (NEGATIVE); Color Urine UA YELLOW; Glucose Urine UA NEGATIVE (Negative); Ketones Urine UA NEGATIVE (NEGATIVE); Leukocyte Esterase Urine UA NEGATIVE (NEGATIVE); Nitrite Urine UA NEGATIVE (Negative); Occult Blood Urine UA NEGATIVE (Negative); Protein Urine UA NEGATIVE (Negative); Specific Gravity Urine UA 1.015 (1.000-1.035); Urobilinogen Urine UA 0.2 E.U./dL (0.2)
[2020-11-10 09:27] LABS: Alanine Aminotransferase 47 IU/L (<35); Albumin Globulin Ratio 1.3 (1.0-2.8); Alkaline Phosphatase 71 U/L (38-126); Aspartate Aminotransferase 42 IU/L (14-36); Bilirubin Total 0.4 mg/dL (0.2-1.3); Blood Urea Nitrogen 40 mg/dL (7-17); Calcium 10.4 mg/dL (8.4-10.2); Carbon Dioxide 27 mmol/L (22-32); Chloride 108 mmol/L (98-107); Estimated Glomerular Filt Rate 34.6 mL/min (>60); Glucose 98 mg/dL (80-110); HEMOLYSIS < 15 (0-50); Magnesium 2.3 mg/dL (1.6-2.3); Phosphorous 2.9 mg/dL (2.8-4.1); Potassium 5.2 mmol/L (3.4-5.1); Sodium 140 mmol/L (137-145)
[2020-11-10 09:43] LABS: Vitamin D 25 Hydroxy (D3) 22.2 ng/mL (30.0-100.0)
[2020-11-10 09:46] LABS: Bacteria Urine Occasional (0-1); Culture Indicated Urine Cult Not Indicated; WBC Urine 0-1/HPF (0-5/HPF)
[2020-11-10 09:52] LABS: Creatinine Urine Random 131.4 mg/dL
[2020-11-10 09:56] LABS: Microalbumi Creatinin Ratio Ur 17.5 ug/mg CR (<30); Microalbumin Urine Random 2.3 mg/dL (0-1.6)
[2020-11-11 13:10] LABS: Tacrolimus 8.8 ng/mL (2.0-20.0)
== END ==
PROVIDERS: Specialist; Family Provider Internal Medicine; PCP Internal Medicine; Referring Provider Internal Medicine; Visit Provider Internal Medicine
DX: Z94.0 Kidney transplant status (principal); E11.9 Type 2 diabetes mellitus without complications; E55.9 Vitamin D deficiency, unspecified
CPT/HCPCS: 36415; 80053; 80197; 81001; 82043; 82306; 82570; 83036; 83735; 84100; 85025; 87799

== ENCOUNTER → 2021-02-22 08:23 | Outpatient (CLI) | payer MEDICARE, SELFPAY ==
[2021-02-22] MEDS: COVID-19 VACC #3, MRNA(MOD) 50 MCG/0.25 ML VIAL IM (08:31)
== END ==
PROVIDERS: Family Provider Internal Medicine; PCP Internal Medicine; Visit Provider Internal Medicine
DX: Z23 Encounter for immunization (principal)
CPT/HCPCS: 0013A; 91301

== ENCOUNTER → 2021-02-22 08:52 | Outpatient (CLI) | payer MEDICARE, SELFPAY ==
[2021-02-22 10:28] LABS: Blood Urea Nitrogen 42 mg/dL (7-17); Calcium 10.4 mg/dL (8.4-10.2); Carbon Dioxide 27 mmol/L (22-32); Chloride 105 mmol/L (98-107); Estimated Glomerular Filt Rate 35.4 mL/min (>60); Glucose 173 mg/dL (80-110); HEMOLYSIS < 15 (0-50); Potassium 4.8 mmol/L (3.4-5.1); Sodium 139 mmol/L (137-145)
== END ==
PROVIDERS: Family Provider Internal Medicine; PCP Internal Medicine; Referring Provider Internal Medicine; Visit Provider Internal Medicine
DX: E11.40 Type 2 diabetes mellitus with diabetic neuropathy, unspecified (principal); Z23 Encounter for immunization; I10 Essential (primary) hypertension; Z79.4 Long term (current) use of insulin
CPT/HCPCS: 0013A; 36415; 80048; 83036; 91301

== ENCOUNTER → 2021-03-13 07:59 | Outpatient (CLI) | payer MEDICARE, SELFPAY ==
[2021-03-13 09:20] LABS: Add Manual Diff / Slide Review NO; Basophils Absolute Auto 0 /uL (0-100); Basophils Percent Auto 0.6 % (0-2); Eosinophils Absolute Auto 300 /uL (0-450); Hematocrit 36.9 % (36-46); Hemoglobin 12.2 g/dL (12.0-16.0); Lymphocytes Absolute Auto 1900 /uL (1100-4500); Lymphocytes Percent Auto 35.1 % (25-40); Mean Corpuscular Hemoglobin 28.4 PG (26-34); Mean Corpuscular Volume 86.1 fL (80-100); Monocytes Absolute Auto 500 /uL (0-900); Monocytes Percent Auto 8.5 % (3-14); Neutrophils Absolute Auto 2700 /uL (1500-7000); Neutrophils Percent Auto 49.8 % (50-75); Platelet Count 144 X10^3/uL (150-400); Red Blood Cell Count 4.28 X10^6/uL (4.0-5.2); Red Cell Distribution Width 15.6 % (11.6-14.8); White Blood Cell Count 5.4 X10^3/uL (4.5-11.0)
[2021-03-13 09:42] LABS: Alkaline Phosphatase 79 U/L (38-126); Glucose 117 mg/dL (80-110); Potassium 4.7 mmol/L (3.4-5.1); Sodium 140 mmol/L (137-145)
[2021-03-13 10:07] LABS: RBC Urine None Seen (0-5/HPF); Squamous Epithelial Cell Urine 0-1 /HPF (0-5/HPF); WBC Urine 5-10/HPF (0-5/HPF); pH Urine UA 5.5 (4.5-8.0)
[2021-03-13 10:51] LABS: Vitamin D 25 Hydroxy (D3) 16.1 ng/mL (30.0-100.0)
[2021-03-16 07:09] LABS: BK Virus, DNA, QN, PCR Negative copies/mL (Negative)
== END ==
PROVIDERS: Family Provider Internal Medicine; PCP Internal Medicine; Referring Provider Specialist; Visit Provider Specialist
DX: N15.9 Renal tubulo-interstitial disease, unspecified (principal); Z94.0 Kidney transplant status; B97.89 Other viral agents as the cause of diseases classified elsewhere; I71.01 Dissection of thoracic aorta; D84.9 Immunodeficiency, unspecified; E55.9 Vitamin D deficiency, unspecified; R73.09 Other abnormal glucose
CPT/HCPCS: 36415; 80053; 81001; 82043; 82306; 82570; 83036; 83735; 84100; 85025; 87086; 87799

== ENCOUNTER → 2021-03-27 13:46 | Outpatient (CLI) | payer MEDICARE, SELFPAY ==
--- NOTE | 2021-03-27 | DI.MG.S_ITS ---
BILATERAL DIGITAL SCREENING MAMMOGRAM 3D/2D WITH CAD: 03/27/2021 CLINICAL: Routine screening. Family history of breast cancer. Comparison is made to exams dated: 04/04/2019 mammogram, 04/03/2018 mammogram, and 03/27/2017 mammogram - [facility]. The tissue of both breasts is heterogeneously dense. This may lower the sensitivity of mammography. Current study was also evaluated with a Computer Aided Detection (CAD) system. There are benign calcifications in both breasts. No significant masses, calcifications, or other findings are seen in either breast. There has been no significant interval change. IMPRESSION: BENIGN There is no mammographic evidence of malignancy. A 1 year screening mammogram is recommended. This exam was interpreted at Station ID: [id number]. NOTE: For mammograms, a report in lay terms will be sent to the patient. Approximately 15% of breast malignancies will not be visualized mammographically. In the management of a palpable breast mass, a negative mammogram must not discourage biopsy of a clinically suspicious lesion. Electronically Signed By: Gaetano Schmidt M.D., jr/page:03/27/2021 14:30:59 letter sent: Normal Exam ACR BI-RADS Category 2: Benign Finding(s) [id number]
== END ==
PROVIDERS: Family Provider Internal Medicine; PCP Internal Medicine; Referring Provider Internal Medicine; Visit Provider Internal Medicine
DX: Z12.31 Encounter for screening mammogram for malignant neoplasm of breast (principal); Z80.3 Family history of malignant neoplasm of breast
CPT/HCPCS: 77063; 77067

== ENCOUNTER → 2021-06-28 09:48 | Outpatient (CLI) | payer MEDICARE, SELFPAY ==
--- NOTE | 2021-06-28 09:51 | DI.RAD.S_ITS ---
PROCEDURE: XR FINGER RT MIN 2V INDICATIONS: right 5th digit, PIP and MCP joint pain TECHNIQUE: AP hand, 2 views of the right 5th finger(s) acquired. COMPARISON: None. FINDINGS: Bones: Diffuse osteopenia. Polyarticular osteoarthritic changes seen throughout the right wrist and hand. Joint space narrowing noted in the interphalangeal joints of the distal and proximal interphalangeal joints of the 2nd through 5th fingers. Moderate degenerative changes of the right thumb interphalangeal joint. There are also degenerative changes of the metacarpophalangeal joints of the thumb, 4th, and 5th fingers. Moderate-severe degenerative changes of the 1st and 2nd carpometacarpal joints as well as the triscaphe joint. Age-indeterminate ossification over the distal tip of the ulnar styloid process. Soft tissues: No suspicious soft tissue calcifications. Suggestion of soft tissue calcifications within the region of the TFCC. Vascular calcifications are noted. IMPRESSION: 1. Right hand and 5th finger without acute fracture or dislocation. Moderate degenerative changes noted in the right 5th finger as well as multiple other joints of the hand and wrist as described above. 2. Age-indeterminate ossification overlying the distal tip of the ulnar styloid process. Findings may represent sequela of remote injury. There is soft tissue prominence overlying this region which may represent more acute process if there is history of trauma or focal tenderness in this region. 3. Soft tissue calcifications in the region of the TFCC which may represent chondrocalcinosis. Differential diagnosis includes but is not limited to hemochromatosis, hyperparathyroidism and CPPD. If there are persistent symptoms or clinical suspicion for pathology, then repeat radiographs or advanced imaging (CT or MRI) may be considered for further evaluation. Dictated by: Conor Way M.D. on 06/28/2021 at 13:41 Approved by: Conor Way M.D. on 06/28/2021 at 13:48
== END ==
PROVIDERS: Family Provider Internal Medicine; PCP Internal Medicine; Referring Provider Internal Medicine; Visit Provider Internal Medicine
DX: M79.644 Pain in right finger(s) (principal)
CPT/HCPCS: 73140

== ENCOUNTER → 2021-07-11 07:46 | Outpatient (CLI) | payer MEDICARE, SELFPAY ==
[2021-07-11 09:30] LABS: Appearance Urine UA CLEAR; Bilirubin Urine UA NEGATIVE (NEGATIVE); Color Urine UA YELLOW; Glucose Urine UA NEGATIVE (Negative); Ketones Urine UA TRACE (NEGATIVE); Leukocyte Esterase Urine UA TRACE (NEGATIVE); Nitrite Urine UA NEGATIVE (Negative); Occult Blood Urine UA NEGATIVE (Negative); Protein Urine UA NEGATIVE (Negative); Specific Gravity Urine UA 1.015 (1.000-1.035); Urobilinogen Urine UA 0.2 E.U./dL (0.2)
[2021-07-11 09:32] LABS: Bacteria Urine None Seen; Culture Indicated Urine Specimen Cultured; RBC Urine None Seen (0-5/HPF); WBC Urine None Seen (0-5/HPF)
[2021-07-11 10:16] LABS: Add Manual Diff / Slide Review NO; Basophils Absolute Auto 0 /uL (0-100); Basophils Percent Auto 0.4 % (0-2); Eosinophils Absolute Auto 500 /uL (0-450); Eosinophils Percent Auto 7.5 % (2-4); Hematocrit 38.5 % (36-46); Hemoglobin 12.8 g/dL (12.0-16.0); Lymphocytes Absolute Auto 2600 /uL (1100-4500); Lymphocytes Percent Auto 41.8 % (25-40); Mean Corpuscular HGB Conc 33.2 % (30-36); Mean Corpuscular Hemoglobin 28.3 PG (26-34); Mean Corpuscular Volume 85.3 fL (80-100); Monocytes Absolute Auto 400 /uL (0-900); Monocytes Percent Auto 6.8 % (3-14); Neutrophils Absolute Auto 2700 /uL (1500-7000); Neutrophils Percent Auto 43.5 % (50-75); Platelet Count 135 X10^3/uL (150-400); Red Blood Cell Count 4.52 X10^6/uL (4.0-5.2); Red Cell Distribution Width 14.9 % (11.6-14.8); White Blood Cell Count 6.1 X10^3/uL (4.5-11.0)
[2021-07-11 10:46] LABS: Alanine Aminotransferase 32 IU/L (<35); Albumin 4.2 g/dL (3.5-5.0); Albumin Globulin Ratio 1.5 (1.0-2.8); Alkaline Phosphatase 73 U/L (38-126); Aspartate Aminotransferase 32 IU/L (14-36); BUN Creatinine Ratio 26.9 (6-22); Bilirubin Total 0.4 mg/dL (0.2-1.3); Blood Urea Nitrogen 45 mg/dL (7-17); Carbon Dioxide 29 mmol/L (22-32); Chloride 103 mmol/L (98-107); Estimated Glomerular Filt Rate 30.1 mL/min (>60); Globulin 2.8 g/dL (1.7-4.1); Glucose 121 mg/dL (80-110); HEMOLYSIS < 15 (0-50); Potassium 4.9 mmol/L (3.4-5.1); Sodium 140 mmol/L (137-145)
[2021-07-12 10:15] LABS: Tacrolimus 7.7 ng/mL (2.0-20.0)
== END ==
PROVIDERS: Family Provider Internal Medicine; PCP Internal Medicine; Referring Provider Specialist; Visit Provider Specialist
DX: D84.9 Immunodeficiency, unspecified (principal); Z94.0 Kidney transplant status
CPT/HCPCS: 36415; 80053; 80197; 81001; 85025; 87086

== ENCOUNTER → 2021-07-31 09:21 | Outpatient (CLI) | payer MEDICARE, SELFPAY ==
[2021-07-31 10:44] LABS: COVID19 -Nasal RAPID Negative (Negative)
== END ==
PROVIDERS: Family Provider Internal Medicine; PCP Internal Medicine; Visit Provider Surgery
DX: Z01.812 Encounter for preprocedural laboratory examination (principal); Z20.822 Contact with and (suspected) exposure to COVID-19
CPT/HCPCS: 87635; C9803

== ENCOUNTER 2021-08-01 09:29 | Day surgery (SDC) | payer MEDICARE, SELFPAY ==
[2021-08-01 09:57] VITALS: BP 146/77; PULSE 82; RESP 16; TEMP 36.3; O2SAT 96
[2021-08-01 09:59] VITALS: BMI 28.2
[2021-08-01] MEDS: LACTATED RINGERS 1,000 ML 42 ML IV (10:17)
--- NOTE | 2021-08-01 10:27 | PM.HP.1 ---
History of Present Illness History of Present Illness Date Patient Seen: 08/01/21 Time Patient Seen: 10:27 Chief complaint: SDC Narrative: Ignacia is a 76-year-old woman who has not had a colonoscopy past. 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) Vesicoureteral reflux (07/01/13) Weakness on right side of face Surgical History History of cardiac cath (04/2012) History of carpal tunnel repair Status post breast biopsy Status post kidney transplant (04/03/13) Status post parathyroidectomy Family & Social History Social History: household members spouse lives independently Yes caregiver/support person No Tobacco & Substance use: Smoking Status Never smoker alcohol intake never alcohol intake frequency 0-2 drinks per day Substance Use Type prescription drug Meds Home Medications and Allergies Home Medications Medication Instructions Recorded Confirmed Type fluticasone propionate 50 1 spray INTRANASAL BID #16 gm 04/14/16 08/01/21 Rx mcg/actuation nasal spray,suspension Glucose: Home Monitoring Kit kit TD QID #1 11/28/16 06/28/21 Rx loratadine 10 mg tablet 10 mg PO QDAY #0 04/23/17 08/01/21 History timolol maleate 0.5 % eye drops 1 drp OPHTH QDAY #0 04/23/17 08/01/21 History tacrolimus 1 mg capsule, 1 mg PO BID #0 07/07/17 08/01/21 History immediate-release Disabled Parking Permit See Rx Instructions .ROUTE 09/17/17 06/28/21 Rx .COMPLEX #1 each amlodipine 10 mg tablet 10 mg PO DAILY 09/17/17 08/01/21 History aspirin 81 mg tablet,delayed 81 mg PO DAILY 09/17/17 08/01/21 History release isosorbide mononitrate 30 mg 30 mg PO QAM 09/17/17 08/01/21 History tablet,extended release 24 hr lisinopril 40 mg tablet 40 mg PO DAILY 09/17/17 08/01/21 History insulin lispro 100 unit/mL See Rx Instructions SUBCUT TID #2 12/05/19 06/28/21 Rx subcutaneous solution (Humalog vial U-100 Insulin) hydrochlorothiazide 25 mg tablet 25 mg PO DAILY #30 tab 12/26/19 08/01/21 Rx colchicine 0.6 mg tablet 0.6 mg PO QDAY #90 tab 08/20/20 08/01/21 Rx gabapentin 600 mg tablet See Rx Instructions PO TID #360 tab 08/20/20 06/28/21 Rx (Neurontin) metformin 1,000 mg tablet 1,000 mg PO BIDCC #180 tab 09/24/20 08/01/21 Rx (Glucophage) ondansetron HCl 4 mg tablet 4 mg PO Q6-8H PRN #30 tab 10/02/20 08/01/21 Rx olopatadine 0.1 % eye drops 1 drp EYE-BOTH DAILY #5 ml 10/22/20 08/01/21 Rx carvedilol 3.125 mg tablet 3.125 mg PO BID tab 11/09/20 08/01/21 History omeprazole 20 mg tablet,delayed 20 mg PO BID 11/09/20 06/28/21 History release cyclobenzaprine 7.5 mg tablet 7.5 mg PO TID PRN #20 tab 12/07/20 08/01/21 Rx blood sugar diagnostic (Glucocard See Rx Instructions .ROUTE 12/13/20 06/28/21 Rx Expression) .COMPLEX #250 each insulin glargine 100 unit/mL 20 - 30 unit (0.2 - 0.3 mL) SUBCUT 12/17/20 08/01/21 Rx subcutaneous solution (Lantus QHS #20 ml U-100 Insulin) magnesium oxide 400 mg (241.3 mg 800 mg PO BID #360 tab 12/31/20 08/01/21 Rx magnesium) tablet pravastatin 80 mg tablet 80 mg PO HS #90 tab 02/18/21 08/01/21 Rx prednisone 5 mg tablet 5 mg PO DAILY #90 tab 02/25/21 06/28/21 Rx insulin syringe-needle U-100 0.5 See Rx Instructions .ROUTE 04/16/21 06/28/21 Rx mL 31 gauge x 5/16 .COMPLEX #120 unspecified doxycycline hyclate 100 mg capsule 100 mg PO BID #28 cap 06/28/21 08/01/21 Rx oxycodone 5 mg tablet (Roxicodone) 5 mg PO TID PRN #90 tab 07/22/21 Rx Allergies Allergy/AdvReac Type Severity Reaction Status Date / Time clopidogrel [CLOPIDOGREL] Allergy Mild AGRANOLOCYT Verified 08/01/21 09:43 OSIS Exam Vital Signs (past 8 hours): - 08/01/21 09:57 Temperature 97.4 F L Pulse Rate 82 Respiratory Rate 16 Blood Pressure 146/77 H Pulse Oximetry 96 Oxygen Delivery Method Room Air Const General: No acute distress Resp Effort & Inspection: normal respiratory effort GI Inspection: obesity Palpation: soft Assessment & Plan Assessment and plan (1) Colon cancer screening: Status: Acute Plan Risks and benefits of colonoscopy discussed and she would like to proceed. COVID-19 COVID-19 status: Negative Result date/Date tested (Pos, Neg/Pending): 07/31/21 Time Spent With Patient Critical Care time: I spent a total of [] minutes of critical care time on this patient's care today; this time is exclusive of procedural time.
[2021-08-01] MEDS: MIDAZOLAM 5 MG/5 ML VIAL 4 MG IV (10:38)
[2021-08-01] MEDS: fentaNYL 250 MCG/5 ML INJ 150 MCG IV (10:47)
--- NOTE | 2021-08-01 11:00 | PM.OP.COLON ---
Operative Date/Time/Diagnoses Date of procedure: 08/01/21 Time of procedure: 11:01 Pre-op diagnosis: Colon cancer screening Post-op diagnosis: same Procedure & Clinicians Study performed: Colonoscopy Same procedure as scheduled: Yes Surgeon: Marques Diggs Procedure Notes Procedure in detail: Procedure: The patient was brought to the endoscopy suite, placed in left lateral decubitus position. The patient was connected to monitoring devices. A time-out was performed. Sedation was administered. Once the patient was adequately sedated, a digital rectal exam was performed and was normal. The scope was then inserted and advanced to the cecum where the appendiceal orifice was identified and photographed. The scope was then slowly withdrawn over greater than 6 minutes. Mucosa was thoroughly inspected. There were no polyps. There were no diverticula. The scope was retroflexed in the rectum. There were mild internal hemorrhoids noted. The scope was straightened and removed. The patient was awakened and brought to recovery. Versed: 4 mg Fentanyl: 150 mcg EBL: 0 Findings: Normal colon Scope withdrawal time: 8 Sedation minutes: 24 Post-procedure Recommendations: Colonoscopy in 10 years Disposition: PACU
[2021-08-01 11:05] VITALS: BP 108/63; PULSE 73; RESP 17; TEMP 36.9; O2SAT 97
[2021-08-01 11:10] VITALS: BP 111/66; PULSE 75; RESP 19; O2SAT 96
[2021-08-01 11:15] VITALS: BP 125/68; PULSE 73; RESP 18; O2SAT 95
[2021-08-01 11:19] VITALS: BP 119/67; PULSE 73; RESP 11; O2SAT 98
== END 2021-08-01 11:34 | disposition home or self-care (01) ==
PROVIDERS: Family Provider Internal Medicine; PCP Internal Medicine; Referring Provider Surgery; Visit Provider Surgery
PROC: 0DJD8ZZ Inspection of Lower Intestinal Tract, Via Natural or Artificial Opening Endoscopic (ICD-10-PCS; CPT 45378; principal; 2021-08-01 10:45)
DX: Z12.11 Encounter for screening for malignant neoplasm of colon (principal); E11.9 Type 2 diabetes mellitus without complications; Z79.4 Long term (current) use of insulin; Z79.84 Long term (current) use of oral hypoglycemic drugs
CPT/HCPCS: G0121; 82962; 99152; J2250; J3010

== ENCOUNTER → 2021-08-19 07:07 | Outpatient (CLI) | payer MEDICARE, SELFPAY ==
[2021-08-19 09:50] LABS: Cholesterol 178 mg/dL (140-199); HDL Cholesterol 72 mg/dL (40-60); LDL Cholesterol Calculated 62 mg/dL (<100); Triglycerides 220 mg/dL (35-150)
== END ==
PROVIDERS: Family Provider Internal Medicine; PCP Internal Medicine; Referring Provider Internal Medicine Cardiovascular Disease; Visit Provider Internal Medicine Cardiovascular Disease
DX: E78.5 Hyperlipidemia, unspecified (principal)
CPT/HCPCS: 36415; 80061

== ENCOUNTER → 2021-09-12 06:54 | Outpatient (CLI) | payer MEDICARE, SELFPAY ==
[2021-09-12 08:33] LABS: Alanine Aminotransferase 31 IU/L (<35); Albumin 4.2 g/dL (3.5-5.0); Albumin Globulin Ratio 1.4 (1.0-2.8); Alkaline Phosphatase 79 U/L (38-126); Aspartate Aminotransferase 37 IU/L (14-36); BUN Creatinine Ratio 24.3 (6-22); Bilirubin Total 0.4 mg/dL (0.2-1.3); Blood Urea Nitrogen 34 mg/dL (7-17); Calcium 10.1 mg/dL (8.4-10.2); Carbon Dioxide 30 mmol/L (22-32); Chloride 105 mmol/L (98-107); Cholesterol 176 mg/dL (140-199); Estimated Glomerular Filt Rate 39 mL/min (>60); Glucose 148 mg/dL (80-110); HDL Cholesterol 64 mg/dL (40-60); HEMOLYSIS < 15 (0-50); LDL Cholesterol Calculated 70 mg/dL (<100); Potassium 5.1 mmol/L (3.4-5.1); Sodium 140 mmol/L (137-145); Total Protein 7.2 g/dL (6.3-8.2); Triglycerides 208 mg/dL (35-150)
== END ==
PROVIDERS: Family Provider Internal Medicine; PCP Internal Medicine; Referring Provider Nurse Practitioner Family; Visit Provider Nurse Practitioner Family
DX: E78.5 Hyperlipidemia, unspecified (principal)
CPT/HCPCS: 36415; 80053; 80061

== ENCOUNTER → 2021-10-18 09:36 | Outpatient (CLI) | payer MEDICARE, SELFPAY ==
--- NOTE | 2021-10-18 | DI.ECHO.S_ITS ---
[place] [facility]---------+ [facility] +---------+ : : [address] : : : : [phone] : : : : Phone: [phone] Echocardiogram Report + + :Name: BOBO HEAD Study Date: 10/18/2021 Height: 59 in : :[facility] ReadingLocation: Weight: 124 lb : : Gender: Female BSA: 1.5 m2 : :: 1945 Age: 76 yrs BP: 140/79 mmHg: :Reason For Study: Aortic, Ascending Aneurysm : :Ordering Physician: Matthias, : :Isac Performed By: Td Malagon : :Referring: Isac Rizzo : + + Interpretation Summary The left ventricle is normal in size. The ejection fraction is estimated to be 60-65%. There has been no significant change in LVEF since the previous exam. The right ventricle is normal in size and function. Overall mild MR, mild AR and mild TR which has decreased from the previous study. The ascending aorta is moderate-severely enlarged. 4.9 cm in diameter. In May 2020, 4.5 cm in diameter. June 2018, 4.3 cm in diameter. 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 In this study I do not see obvious dissection flap. Consider CT surgery evaluation. Discussed with CT surgeon Dr. Lopez at [facility]. Dr. Lopez will evaluate the patient. BP: 140/79 mmHg Procedure: A two-dimensional transthoracic echocardiogram with color flow and Doppler was performed. The study quality was technically adequate. Comparison is made with the echocardiogram of 05/14/2021. The patient was in normal sinus rhythm during the exam. Left Ventricle: The left ventricle is normal in size. Proximal septal thickening is noted. There is no thrombus. Left ventricular systolic function is normal. The ejection fraction is estimated to be 60-65%. There has been no significant change since the previous exam. There are no focal wall motion abnormalities. Diastolic parameters suggest a relaxation abnormality of the left ventricle, consistent with probable normal filling pressures. Right Ventricle: The right ventricle is normal in size and function. Atria: The left atrium is mildly dilated. The left atrium has mildly decreased in size since the prior echo exam. Right atrial size is normal. The interatrial septum grossly appears intact with no obvious evidence for an atrial septal defect. Mitral Valve: There is mild mitral annular calcification. There is mild mitral regurgitation. Compared to the prior echo study, there has been a decrease in the severity of mitral regurgitation. Aortic Valve: There is mild aortic valve sclerosis. The aortic valve is mildly calcified. Nodular calcification involving all 3 cusps but more prominent in the right coronary cusp seen in the previous study as well. There is mildly reduced leaflet mobility. There is no hemodynamically significant valvular aortic stenosis. There is mild aortic regurgitation. Compared to the prior echo study, there has been a decrease in the severity of aortic regurgitation. Tricuspid Valve: The tricuspid valve is normal. There is mild tricuspid regurgitation. The right ventricular systolic pressure is estimated to be at least 26 mmHg based on an estimated right atrial pressure of 3 mm Hg. Compared to the prior echo exam, there has been a decrease in TR severity. Pulmonic Valve: The pulmonic valve is normal in structure and function. There is a trace or physiologic amount of pulmonic regurgitation. Great Vessels: The aortic root is normal size. The ascending aorta is moderate-severely enlarged. The IVC is of normal diameter and collapses greater than 50% with a sniff. This suggests a low right atrial pressure of 3 mm Hg. Pericardium/ Pleura There is a trivial pericardial effusion noted. There is an anterior echo-free space consistent with a fat pad. There are no echocardiographic indications of cardiac tamponade. There is no pleural effusion. MMode/2D Measurements & Calculations LVIDd: 4.3 cm LVOT diam: 1.8 cm LVIDs: 2.8 cm Ao root diam: 2.6 cm FS: 34.4 % asc Aorta Diam: 4.9 cm IVSd: 0.68 cm LVPWd: 0.77 cm LV silva. diameter/BSA (cm/m^2): 2.9 LV sys. diameter/BSA (cm/m^2): 1.9 LA A2 area: 15.6 cm2 RA long axis: 3.4 cm LA A4 area: 11.4 cm2 RA area: 8.7 cm2 LA length (vol): 3.9 cm RA vol: 19.3 ml LA vol: 38.3 ml RA : 12.8 ml/m2 LA vol index: 25.5 ml/m2 TAPSE: 1.6 cm Doppler Measurements & Calculations Ao V2 max: 135.2 cm/sec LVOT Max Alejandro: 87.3 cm/sec Ao V2 mean: 98.1 cm/sec LV V1 max P.0 mmHg Ao max P.3 mmHg LV V1 VTI: 20.2 cm Ao mean P.3 mmHg VIANEY(I,D): 1.7 cm2 Ao V2 VTI: 30.0 cm VIANEY(V,D): 1.6 cm2 sev ratio: 0.67 VIANEY indexed to BSA (cm^2/m^2): 1.1 AI P1/2t: 521.9 msec AI dec slope: 208.0 cm/sec2 MV E max alejandro: 77.1 cm/sec TR max alejandro: 239.5 cm/sec MV A max alejandro: 89.6 cm/sec TR max P.9 mmHg MV E/A: 0.86 Med Peak E' Alejandro: 5.8 cm/sec E/E' med: 13.2 Lat Peak E' Alejandro: 7.2 cm/sec E/E' lat: 10.7 E/e' average: 12.0 MV dec time: 0.19 sec SV(LVOT): 50.4 ml Reading Physician:01:38 PM
--- NOTE | 2021-10-18 | DI.NM.S_ITS ---
PROCEDURE: NM ALEJANDRO PERF SPECT R&S PHARM Rest and pharmacological stress myocardial perfusion SPECT with gated imaging and ejection fraction RADIOPHARMACEUTICAL: 12.5 mCi Tc-99m tetrafosmin IV at rest and 25.6 mCi Tc-99m tetrafosmin IV at peak effect of pharmacological stress. [id number] was performed. INDICATIONS: dissection of thoracic aorta TECHNIQUE: Radiopharmaceutical was injected at peak stress test, and also at rest. SPECT images were obtained. SPECT myocardial perfusion images were displayed in short axis, horizontal long axis, and vertical long axis views. Gated images were reviewed using [employer] software. COMPARISON: None. CARDIAC STRESS: A pharmacologic stress test was performed under the supervision of an attending staff, using an infusion of lexiscan 0.4mg IV X1. Hemodynamic data: There is normal blood pressure and heart rate response to pharmacologic stress. Symptoms: The patient denied anginal chest pain. Aminophylline: none EKG: No diagnostic changes of ischemia; rare PACs present. FINDINGS: Raw data: There is good myocardial uptake of radiotracer. No significant motion artifacts. Left ventricle function: Gated images demonstrate normal left ventricular wall thickening. No segmental wall motion abnormalities. No transient ischemic dilation; TID is 0.7 (normal less than 1.3). Left ventricle resting end diastolic volume is 49 mL. Left ventricle stress ejection fraction is 96%; normal range is above 45%. Myocardial perfusion: Mildly intense fixed distal anterior wall defect that resolves with prone imaging. IMPRESSION: Low risk, normal pharmaceutical nuclear stress test 1) No perfusion evidence of ischemia or infarction. 2) Normal left ventricular size, wall motion, and systolic function (EF post stress over calculated at 96%). 3) No ST changes with lexiscan. 4) No angina during the study. 5) Compared to the nuc stress done 02/10/2012, the current study is normal. Dictated by: Delfino Lovett MD on 10/18/2021 at 16:32 Approved by: Delfino Lovett MD on 10/18/2021 at 16:36
[2021-10-18 10:41] LABS: COVID19 -Nasal RAPID Negative (Negative)
== END ==
PROVIDERS: Family Provider Internal Medicine; PCP Internal Medicine; Referring Provider Nurse Practitioner Family; Visit Provider Nurse Practitioner Family
DX: I71.01 Dissection of thoracic aorta (principal); R07.89 Other chest pain; Z20.822 Contact with and (suspected) exposure to COVID-19; I51.7 Cardiomegaly
CPT/HCPCS: 78452; 87635; 93017; 93306; A9502; J2785

== ENCOUNTER → 2021-10-19 07:54 | Outpatient (CLI) | payer MEDICARE, SELFPAY ==
[2021-10-19 08:51] LABS: Alanine Aminotransferase 25 IU/L (<35); Albumin 4.1 g/dL (3.5-5.0); Albumin Globulin Ratio 1.5 (1.0-2.8); Alkaline Phosphatase 87 U/L (38-126); Aspartate Aminotransferase 26 IU/L (14-36); BUN Creatinine Ratio 24.4 (6-22); Bilirubin Total 0.4 mg/dL (0.2-1.3); Blood Urea Nitrogen 32 mg/dL (7-17); Calcium 9.6 mg/dL (8.4-10.2); Carbon Dioxide 25 mmol/L (22-32); Chloride 108 mmol/L (98-107); Cholesterol 168 mg/dL (140-199); Estimated Glomerular Filt Rate 43 mL/min (>60); Globulin 2.8 g/dL (1.7-4.1); Glucose 166 mg/dL (80-110); HDL Cholesterol 54 mg/dL (40-60); HEMOLYSIS < 15 (0-50); LDL Cholesterol Calculated 65 mg/dL (<100); Potassium 4.9 mmol/L (3.4-5.1); Sodium 140 mmol/L (137-145); Total Protein 6.9 g/dL (6.3-8.2); Triglycerides 246 mg/dL (35-150)
== END ==
PROVIDERS: Family Provider Internal Medicine; PCP Internal Medicine; Referring Provider Internal Medicine; Visit Provider Internal Medicine
DX: E11.9 Type 2 diabetes mellitus without complications (principal); E78.5 Hyperlipidemia, unspecified; I10 Essential (primary) hypertension
CPT/HCPCS: 36415; 80053; 80061; 83036

== ENCOUNTER → 2021-11-06 07:18 | Outpatient (CLI) | payer MEDICARE, SELFPAY ==
[2021-11-06 08:07] LABS: Add Manual Diff / Slide Review NO; Basophils Absolute Auto 0 /uL (0-100); Basophils Percent Auto 0.4 % (0-2); Eosinophils Absolute Auto 300 /uL (0-450); Eosinophils Percent Auto 4.8 % (2-4); Hematocrit 38.7 % (36-46); Hemoglobin 12.6 g/dL (12.0-16.0); Lymphocytes Absolute Auto 2100 /uL (1100-4500); Lymphocytes Percent Auto 33.8 % (25-40); Mean Corpuscular HGB Conc 32.5 % (30-36); Mean Corpuscular Hemoglobin 28.5 PG (26-34); Mean Corpuscular Volume 87.6 fL (80-100); Monocytes Absolute Auto 500 /uL (0-900); Monocytes Percent Auto 8.2 % (3-14); Neutrophils Absolute Auto 3300 /uL (1500-7000); Neutrophils Percent Auto 52.8 % (50-75); Platelet Count 111 X10^3/uL (150-400); Red Blood Cell Count 4.42 X10^6/uL (4.0-5.2); White Blood Cell Count 6.2 X10^3/uL (4.5-11.0)
[2021-11-06 08:32] LABS: Alanine Aminotransferase 32 IU/L (<35); Albumin 4.1 g/dL (3.5-5.0); Albumin Globulin Ratio 1.4 (1.0-2.8); Alkaline Phosphatase 81 U/L (38-126); Aspartate Aminotransferase 33 IU/L (14-36); BUN Creatinine Ratio 27.7 (6-22); Bilirubin Total 0.5 mg/dL (0.2-1.3); Blood Urea Nitrogen 36 mg/dL (7-17); Calcium 9.7 mg/dL (8.4-10.2); Carbon Dioxide 29 mmol/L (22-32); Chloride 109 mmol/L (98-107); Estimated Glomerular Filt Rate 43 mL/min (>60); Globulin 2.9 g/dL (1.7-4.1); Glucose 116 mg/dL (80-110); HEMOLYSIS < 15 (0-50); Potassium 4.8 mmol/L (3.4-5.1); Sodium 139 mmol/L (137-145)
[2021-11-06 09:45] LABS: Appearance Urine UA CLEAR; Bilirubin Urine UA NEGATIVE (NEGATIVE); Color Urine UA YELLOW; Glucose Urine UA NEGATIVE (Negative); Ketones Urine UA NEGATIVE (NEGATIVE); Leukocyte Esterase Urine UA TRACE (NEGATIVE); Nitrite Urine UA NEGATIVE (Negative); Occult Blood Urine UA NEGATIVE (Negative); Protein Urine UA NEGATIVE (Negative); Specific Gravity Urine UA 1.015 (1.000-1.035); Urobilinogen Urine UA 0.2 E.U./dL (0.2)
[2021-11-06 10:16] LABS: Bacteria Urine Few (2-10); RBC Urine None Seen (0-5/HPF); WBC Urine 5-10/HPF (0-5/HPF)
[2021-11-07 10:10] LABS: Tacrolimus 7.7 ng/mL (2.0-20.0)
== END ==
PROVIDERS: Family Provider Internal Medicine; PCP Internal Medicine; Referring Provider Specialist; Visit Provider Specialist
DX: D84.9 Immunodeficiency, unspecified (principal); Z94.0 Kidney transplant status
CPT/HCPCS: 36415; 80053; 80197; 81001; 85025

== ENCOUNTER → 2021-11-28 07:25 | Outpatient (CLI) | payer MEDICARE, SELFPAY ==
[2021-11-28 09:25] LABS: BUN Creatinine Ratio 28.6 (6-22); Blood Urea Nitrogen 38 mg/dL (7-17); Estimated Glomerular Filt Rate 42 mL/min (>60)
== END ==
PROVIDERS: Family Provider Internal Medicine; PCP Internal Medicine; Referring Provider Internal Medicine; Visit Provider Internal Medicine
DX: Z01.812 Encounter for preprocedural laboratory examination (principal)
CPT/HCPCS: 36415; 82565; 84520

== ENCOUNTER → 2021-11-29 09:12 | Outpatient (CLI) | payer MEDICARE, SELFPAY ==
--- NOTE | 2021-11-29 09:14 | DI.CT.S_ITS ---
PROCEDURE: CT ANGIO CHEST INDICATIONS: assess ascending aortic aneurysm TECHNIQUE: After the administration of intravenous contrast, 2.5 mm thick sections acquired from the lung apices to the posterior lung bases. Maximum intensity projection (MIP) oblique sagittal reformats were then acquired parallel to the aortic arch. For radiation dose reduction, the following was used: automated exposure control. COMPARISON: [facility], CT, CT ANGIO CHEST ABDOMEN, 09/05/2017, 16:38. [facility], CT, CT CHEST ABDOMEN WITHOUT CONTRAST, 06/14/2019, 10:03. FINDINGS: Image quality: Excellent. Aorta: Chronic dissection within the ascending thoracic aorta, terminating at the innominate artery origin, as before. Aneurysmal dilatation of the mid ascending thoracic aorta, with a maximal short axis diameter of roughly 50 mm, which is not significantly changed compared to 06/14/2019. Aortic arch and descending thoracic aorta are within normal limits. Mediastinum: No hematomas. Heart size is normal. Severe calcification of the coronary vasculature. No pericardial effusion. No mediastinal or hilar adenopathy by size criteria. Central pulmonary arteries are normal in size. Esophagus is normal in caliber. No hiatal hernia. Lungs and pleura: No acute airspace opacities. No pleural effusions or pneumothorax. Central and peripheral airways are patent and normal in caliber. Bones and chest wall: No axillary adenopathy by size criteria. Thyroid gland is within normal limits . No suspicious bony lesions. No vertebral body compression fractures. Cervical fusion hardware is present. Abdomen: Visualized portions of the upper abdomen demonstrate a nodular hepatic contour, and are otherwise unremarkable. IMPRESSION: 1. No significant change in chronic ascending thoracic aortic dissection and aneurysm. 2. Coronary artery disease. 3. Cirrhosis. Dictated by: Judah Barber M.D. on 11/29/2021 at 10:15 Approved by: Judah Barber M.D. on 11/29/2021 at 10:19
== END ==
PROVIDERS: Family Provider Internal Medicine; PCP Internal Medicine; Referring Provider Internal Medicine; Visit Provider Internal Medicine
DX: I71.2 Thoracic aortic aneurysm, without rupture (principal); I25.10 Atherosclerotic heart disease of native coronary artery without angina pectoris; K74.60 Unspecified cirrhosis of liver
CPT/HCPCS: 71275; Q9967

== ENCOUNTER 2021-12-24 09:54 | Emergency (ER) | payer MEDICARE, SELFPAY ==
[2021-12-24] VITALS (11 sets, daily range): BP systolic 121–162; BP diastolic 67–82; PULSE 66–89; RESP 16–24; TEMP 36.3; O2SAT 97–99; BMI 28.0
--- NOTE | 2021-12-24 10:18 | DI.RAD.S_ITS ---
PROCEDURE: XR CHEST 1V INDICATIONS: chest pain TECHNIQUE: One view of the chest was acquired. COMPARISON: [facility], CR, XR CHEST 1V, 09/05/2017, 14:14. FINDINGS: Surgical changes and devices: None. Lungs and pleura: Lungs are clear. No pleural effusions or pneumothorax. Mediastinum: Mediastinal contours appear normal. Heart size is normal. Diffuse aortic atherosclerosis again noted. Bones and chest wall: No suspicious bony lesions. Overlying soft tissues appear unremarkable. IMPRESSION: No acute cardiopulmonary process demonstrated radiographically. Dictated by: Gaetano Schmidt M.D. on 12/24/2021 at 10:35 Approved by: Gaetano Schmidt M.D. on 12/24/2021 at 10:36
[2021-12-24 10:55] LABS: Add Manual Diff / Slide Review NO; Basophils Absolute Auto 0 /uL (0-100); Basophils Percent Auto 0.6 % (0-2); Eosinophils Absolute Auto 500 /uL (0-450); Hematocrit 37.6 % (36-46); Hemoglobin 12.6 g/dL (12.0-16.0); Lymphocytes Absolute Auto 2000 /uL (1100-4500); Lymphocytes Percent Auto 31.6 % (25-40); Mean Corpuscular HGB Conc 33.4 % (30-36); Mean Corpuscular Hemoglobin 28.5 PG (26-34); Mean Corpuscular Volume 85.3 fL (80-100); Monocytes Absolute Auto 600 /uL (0-900); Monocytes Percent Auto 9.6 % (3-14); Neutrophils Absolute Auto 3100 /uL (1500-7000); Neutrophils Percent Auto 50.2 % (50-75); Platelet Count 111 X10^3/uL (150-400); Red Blood Cell Count 4.41 X10^6/uL (4.0-5.2); Red Cell Distribution Width 15.5 % (11.6-14.8); White Blood Cell Count 6.3 X10^3/uL (4.5-11.0)
[2021-12-24 11:02] LABS: COVID19 -Nasal RAPID Negative (Negative)
[2021-12-24 11:11] LABS: Prothrombin Time 11.3 SECONDS (10.1-12.7)
[2021-12-24 11:14] LABS: PTT Partial Thromboplastin Tim 29 SECONDS (26-36)
[2021-12-24 11:15] LABS: Alanine Aminotransferase 39 IU/L (<35); Albumin 4.4 g/dL (3.5-5.0); Albumin Globulin Ratio 1.3 (1.0-2.8); Alkaline Phosphatase 78 U/L (38-126); Aspartate Aminotransferase 40 IU/L (14-36); BUN Creatinine Ratio 23.5 (6-22); Bilirubin Total 0.6 mg/dL (0.2-1.3); Blood Urea Nitrogen 28 mg/dL (7-17); Calcium 9.8 mg/dL (8.4-10.2); Carbon Dioxide 25 mmol/L (22-32); Chloride 107 mmol/L (98-107); Creatine Kinase 82 U/L (30-135); Estimated Glomerular Filt Rate 48 mL/min (>60); Globulin 3.4 g/dL (1.7-4.1); Glucose 134 mg/dL (80-110); HEMOLYSIS < 15 (0-50); Lipase 716 U/L (23-300); Magnesium 1.8 mg/dL (1.6-2.3); Sodium 141 mmol/L (137-145); Total Protein 7.8 g/dL (6.3-8.2)
--- NOTE | 2021-12-24 11:23 | PC.NURSE ---
PT has cardiac history and currently seeing Ambar Horton at [facility], referred from [facility] office due to needing possible heart surgery. Two weeks to one month of increasing shortness of breath and swelling in lower legs/feet. Reports that this is a symptoms of increasing her pregabalin from 50mg to 100mg. Sees MD Valentino for this med. Stopped taking it 12/20/21.
[2021-12-24 11:27] LABS: NT-proBNP (BNP-Adult 18+) 296 pg/mL (<125); Troponin I < 0.012 ng/mL (0.01-0.034)
--- NOTE | 2021-12-24 14:39 | ED.SOB ---
HPI - SOB/Dyspnea General Chief Complaint: Shortness of Breath/Dyspnea Stated Complaint: Trouble breathing, swelling in legs Time Seen by Provider: 12/24/21 11:48 Source: patient Mode of arrival: Ambulatory Limitations: no limitations History of Present Illness HPI Narrative: Patient is a 76-year-old female with history of kidney transplant, no in a ascending aortic aneurysm which is confirmed stable on CTA on 11/29/2021, CAD, hypertension, hyperlipidemia presenting with worsening lower extremity she was placed on perbablin, by PCP and dose was increased at which time her foot swelling also increased. She says she has since stopped the medication but the swelling persists. She is having some mild orthopnea. No chest pain minimal shortness of breath with exertion concern today is worsening bilateral lower extremity swelling. Her feet are definitely swollen in her shoes Related Data Home Medications Medication Instructions Recorded Confirmed loratadine 10 mg tablet 10 mg PO QDAY ##0 04/23/17 11/01/21 timolol maleate 0.5 % eye drops 1 drp OPHTH QDAY ##0 04/23/17 11/01/21 tacrolimus 1 mg capsule, 1 mg PO BID ##0 07/07/17 11/01/21 immediate-release amlodipine 10 mg tablet 10 mg PO DAILY 09/17/17 11/01/21 aspirin 81 mg tablet,delayed 81 mg PO DAILY 09/17/17 11/01/21 release isosorbide mononitrate 30 mg 30 mg PO QAM 09/17/17 11/01/21 tablet,extended release 24 hr lisinopril 40 mg tablet 40 mg PO DAILY 09/17/17 11/01/21 carvedilol 3.125 mg tablet 3.125 mg PO BID 11/09/20 11/01/21 omeprazole 20 mg tablet,delayed 20 mg PO BID 11/09/20 11/01/21 release Previous Rx's Medication Instructions Recorded fluticasone propionate 50 1 spray intranasal BID ##16 04/14/16 mcg/actuation nasal spray,suspension Glucose: Home Monitoring Kit kit TD QID ##1 11/28/16 Disabled Parking Permit See Rx Instructions .Route 09/17/17 .COMPLEX #1 ea insulin lispro 100 unit/mL See Rx Instructions SUBCUT TID #2 12/05/19 subcutaneous solution (Humalog vials U-100 Insulin) hydrochlorothiazide 25 mg tablet 25 mg PO DAILY #30 tabs 12/26/19 ondansetron HCl 4 mg tablet 4 mg PO Q6-8H PRN nausea and 10/02/20 vomiting #30 tabs olopatadine 0.1 % eye drops 1 drp EYE-BOTH DAILY #5 mL 10/22/20 cyclobenzaprine 7.5 mg tablet 7.5 mg PO TID PRN muscle spasm #20 12/07/20 tabs blood sugar diagnostic (Glucocard See Rx Instructions .Route 12/13/20 Expression strips) .COMPLEX #250 ea insulin glargine 100 unit/mL 20 - 30 unit (0.2 - 0.3 mL) SUBCUT 12/17/20 subcutaneous solution (Lantus QHS #20 mL U-100 Insulin) magnesium oxide 400 mg (241.3 mg 800 mg PO BID #360 tabs 12/31/20 magnesium) tablet pravastatin 80 mg tablet 80 mg PO HS #90 tabs 02/18/21 prednisone 5 mg tablet 5 mg PO DAILY #90 tabs 02/25/21 insulin syringe-needle U-100 0.5 See Rx Instructions .Route 04/16/21 mL 31 gauge x 5/16 .COMPLEX ##120 colchicine 0.6 mg tablet 0.6 mg PO QDAY #90 tabs 08/07/21 diclofenac sodium 1 % topical gel 4 g topical QID #100 grams 09/03/21 metformin 1,000 mg tablet 1,000 mg PO BIDCC #180 tabs 09/17/21 oxycodone 5 mg tablet (Roxicodone) 5 mg PO TID PRN pain #90 tabs 12/11/21 pregabalin 100 mg capsule 100 mg PO TID #270 caps 12/18/21 furosemide 20 mg tablet (Lasix) 20 mg PO QAM #4 tabs 12/24/21 Allergies Allergy/AdvReac Type Severity Reaction Status Date / Time clopidogrel [CLOPIDOGREL] Allergy Mild AGRANOLOCYT Verified 12/24/21 10:17 OSIS Review of Systems Review of Systems Narrative: GENERAL: Denies chills, fatigue, malaise, fever, sweats, travel HEENT: Denies sinus pain, ear pain, sore throat, difficulty swallowing, neck pain RESPIRATORY: Denies dyspnea, cough, wheezing, hemoptysis, sputum. CARDIOVASCULAR: See HPI GASTROINTESTINAL: Denies nausea, vomiting, abdominal pain, diarrhea, constipation, melena. : Denies dysuria, frequency, incontinence, hematuria, urinary retention, flank pain. MUSCULOSKELETAL: Denies weakness, joint pain, or bony pain SKIN: No rash, no erythema, no pruritus NEUROLOGIC: Denies weakness, dizziness, headache, numbness, change in speech, confusion PSYCHIATRIC: No concerning psychosocial issues. 12 point review of systems is negative except for those stated above and HPI Patient History Medical History Aortic aneurysm Ascending aortic aneurysm Ascending aortic dissection CAD (coronary atherosclerotic disease) (10/29/10) Chest pain Chronic gout (10/29/10) Essential hypertension (10/29/10) GERD (gastroesophageal reflux disease) History of peritoneal dialysis Lumbar radiculopathy Other and unspecified hyperlipidemia Peripheral polyneuropathy (03/06/16) ST elevation Tertiary hyperparathyroidism Type 2 diabetes mellitus Type 2 diabetes mellitus with other circulatory complication (02/19/15) Vesicoureteral reflux (07/01/13) Weakness on right side of face Surgical History History of cardiac cath (04/2012) History of carpal tunnel repair Status post breast biopsy Status post kidney transplant (04/03/13) Status post parathyroidectomy Social History marital status: number of children: 0 household members: spouse lives independently: Yes caregiver/support person: No housing: house pets and animals: No education level: high school occupational status: other Previous occupational history: [employer]/mormonism: Spiritism leisure activities: exercise and other Smoking Status: Never smoker Tobacco: How many years used: 0 quit status: quit date established second hand exposure: No alcohol intake: never substance use type: does not use Smoking Status: Never smoker alcohol intake frequency: 0-2 drinks per day Substance Use Type: does not use and prescription drug Exam Initial Vital Signs Initial Vital Signs: Vital Signs Temperature 97.4 F L 12/24/21 10:13 Pulse Rate 76 12/24/21 10:13 Respiratory Rate 24 12/24/21 10:13 Blood Pressure 147/70 H 12/24/21 10:13 Pulse Oximetry 98 12/24/21 10:13 Oxygen Delivery Method 12/24/21 10:13 GENERAL: Alert pleasant 76-year-old HEENT: Head atraumatic,EOMI, pupils reactive, face symmetric, [moist] mucous membranes CARDIOVASCULAR: Regular rate and rhythm without murmurs, rubs or gallops. RESPIRATORY: Breath sounds equal bilaterally, no wheezes rales or rhonchi. ABDOMEN: Soft, nontender. Normoactive bowel sounds all 4 quadrants. No guarding or rebound. EXTREMITIES: Normal range of motion, no clubbing bilateral +2 pitting edema NEUROLOGICAL: Alert and oriented x4 SKIN: Warm, dry, no laceration, no petechiae, no rashes or lesions. Course Orders Ordered: ED Orders 12/24/21 11:26 EKG-12 Lead Stat Vital Signs Vital signs: Vital Signs - 8 hr 12/24/21 12:00 12/24/21 12:00 12/24/21 12:30 Pulse Rate 69 67 Respiratory Rate 23 23 Blood Pressure 121/69 Pulse Oximetry 98 98 Oxygen Delivery Method 12/24/21 13:00 12/24/21 13:00 12/24/21 13:32 Pulse Rate 71 89 Respiratory Rate 16 18 Blood Pressure 136/73 Pulse Oximetry 97 98 Oxygen Delivery Method Room Air 12/24/21 13:33 12/24/21 13:33 12/24/21 14:00 Pulse Rate 85 Respiratory Rate 24 Blood Pressure 162/75 H 150/82 H Pulse Oximetry 98 Oxygen Delivery Method 12/24/21 14:00 12/24/21 14:30 12/24/21 14:30 Pulse Rate 74 81 Respiratory Rate 18 19 Blood Pressure 153/74 H Pulse Oximetry 99 98 Oxygen Delivery Method 12/24/21 15:00 12/24/21 15:00 Pulse Rate 75 Respiratory Rate 21 Blood Pressure 145/74 H Pulse Oximetry 99 Oxygen Delivery Method Room Air MDM - SOB/Dyspnea Lab Data Result diagrams: 12/24/21 10:25 12/24/21 10:25 Labs: Lab Results 12/24/21 12/24/21 12/24/21 Range/Units 10:25 10:25 10:25 WBC 6.3 (4.5-11.0) X10^3/uL RBC 4.41 (4.0-5.2) X10^6/uL Hgb 12.6 (12.0-16.0) g/dL Hct 37.6 (36-46) % MCV 85.3 (80-100) fL MCH 28.5 (26-34) PG MCHC 33.4 (30-36) % RDW 15.5 H (11.6-14.8) % Plt Count 111 L (150-400) X10^3/uL Neut % (Auto) 50.2 (50-75) % Lymph % (Auto) 31.6 (25-40) % [place] % (Auto) 9.6 (3-14) % Eos % (Auto) 8.0 H (2-4) % Baso % (Auto) 0.6 (0-2) % Neut # (Auto) 3100 (9047-5838) /uL Lymph # (Auto) 2000 (7595-2803) /uL [place] # (Auto) 600 (0-900) /uL Eos # (Auto) 500 H (0-450) /uL Baso # (Auto) 0 (0-100) /uL PT 11.3 (10.1-12.7) SECONDS INR 1.0 (0.9-1.3) APTT 29 (26-36) SECONDS Sodium 141 (137-145) mmol/L Potassium 5.0 (3.4-5.1) mmol/L Chloride 107 (98-107) mmol/L Carbon Dioxide 25 (22-32) mmol/L BUN 28 H (7-17) mg/dL Creatinine 1.19 H (0.52-1.04) mg/dL Estimated GFR 48 L (>60) mL/min BUN/Creatinine Ratio 23.5 H (6-22) Glucose 134 H (80-110) mg/dL Calcium 9.8 (8.4-10.2) mg/dL Magnesium 1.8 (1.6-2.3) mg/dL Total Bilirubin 0.6 (0.2-1.3) mg/dL AST 40 H (14-36) IU/L ALT 39 H (<35) IU/L Alkaline Phosphatase 78 (38-126) U/L Total Creatine Kinase 82 (30-135) U/L CK-MB (CK-2) TNP CK-MB (CK-2) Rel Index TNP Troponin I < 0.012 (0.01-0.034) ng/mL NT-Pro-B Natriuret Pep 296 H (<125) pg/mL Total Protein 7.8 (6.3-8.2) g/dL Albumin 4.4 (3.5-5.0) g/dL Globulin 3.4 (1.7-4.1) g/dL Albumin/Globulin Ratio 1.3 (1.0-2.8) Lipase 716 H (23-300) U/L SARS-CoV-2 (PCR) (Negative) 12/24/21 Range/Units 10:25 WBC (4.5-11.0) X10^3/uL RBC (4.0-5.2) X10^6/uL Hgb (12.0-16.0) g/dL Hct (36-46) % MCV (80-100) fL MCH (26-34) PG MCHC (30-36) % RDW (11.6-14.8) % Plt Count (150-400) X10^3/uL Neut % (Auto) (50-75) % Lymph % (Auto) (25-40) % [place] % (Auto) (3-14) % Eos % (Auto) (2-4) % Baso % (Auto) (0-2) % Neut # (Auto) (4575-8296) /uL Lymph # (Auto) (4566-7657) /uL [place] # (Auto) (0-900) /uL Eos # (Auto) (0-450) /uL Baso # (Auto) (0-100) /uL PT (10.1-12.7) SECONDS INR (0.9-1.3) APTT (26-36) SECONDS Sodium (137-145) mmol/L Potassium (3.4-5.1) mmol/L Chloride (98-107) mmol/L Carbon Dioxide (22-32) mmol/L BUN (7-17) mg/dL Creatinine (0.52-1.04) mg/dL Estimated GFR (>60) mL/min BUN/Creatinine Ratio (6-22) Glucose (80-110) mg/dL Calcium (8.4-10.2) mg/dL Magnesium (1.6-2.3) mg/dL Total Bilirubin (0.2-1.3) mg/dL AST (14-36) IU/L ALT (<35) IU/L Alkaline Phosphatase (38-126) U/L Total Creatine Kinase (30-135) U/L CK-MB (CK-2) CK-MB (CK-2) Rel Index Troponin I (0.01-0.034) ng/mL NT-Pro-B Natriuret Pep (<125) pg/mL Total Protein (6.3-8.2) g/dL Albumin (3.5-5.0) g/dL Globulin (1.7-4.1) g/dL Albumin/Globulin Ratio (1.0-2.8) Lipase (23-300) U/L SARS-CoV-2 (PCR) Negative (Negative) Imaging Data Chest x-ray: Radiologist's Impression: Signed Patient: Ignacia Marino MR#: [id number] : 1945 Acct:[id number] Age/Sex: 76 / F Date of Service: 12/24/21 Loc: ED Accession Number: [id number] ?? Procedure: XR chest 1V Ordering Provider: Sharon Simon D.O. PROCEDURE:? XR CHEST 1V ? INDICATIONS:? chest pain ? TECHNIQUE:? One view of the chest was acquired.? ? COMPARISON:? [facility], , XR CHEST 1V, 09/05/2017, 14:14. ? FINDINGS:? ? Surgical changes and devices:? None.? ? Lungs and pleura:? Lungs are clear.? No pleural effusions or pneumothorax.? ? Mediastinum:? Mediastinal contours appear normal.? Heart size is normal.? Diffuse aortic atherosclerosis again noted. ? Bones and chest wall:? No suspicious bony lesions.? Overlying soft tissues appear unremarkable.? ? IMPRESSION:? No acute cardiopulmonary process demonstrated radiographically. ? ? Dictated by: Gaetano Schmidt M.D. on 12/24/2021 at 10:35 ? ? Approved by: Gaetano Schmidt M.D. on 12/24/2021 at 10:36 ? ECG Data Interpretation: Normal sinus rhythm rate 69. Oval 172 QRS [address] changes similar to previous EKG 09/05/2017 [facility] Narrative Medical decision making narrative: Patient has no chest pain, no shortness. Overall appears. She has been having ongoing bilateral swelling. Blood work is actually overall reassuring. May or may not be related to medication. Will start her on Lasix for few days to see if there is any improvement. Creatinine is at baseline and even slightly improved. Discharge Plan Departure Patient Disposition: Home Clinical Impression: Bilateral edema of lower extremity Instructions: DI for Peripheral Edema -- Bilateral Activity Restrictions/Additional Instructions: *You have been diagnosed with bilateral lower extremity *What to do: Elevate legs I also recommend wearing compression socks. Will try water pill to see if it helps. *Continue to take medications as directed Lasix 20 mg once a day for the next 4 days --> SENT TO [facility] *Follow up with your primary care provider in 2-3 days or call [phone] *Return to ER if you should have increasing shortness of breath leg swelling chest pain or any new, worsening or concerning symptoms Prescriptions: New furosemide [Lasix] 20 mg tablet 20 mg PO QAM Qty: 4 0RF No Action diclofenac sodium 1 % gel 4 g topical QID Qty: 100 0RF Rx Instructions: apply to affected area fluticasone propionate 16 GM spray,suspension 1 spray Intranasal BID Qty: 16 12RF Glucose: Home Monitoring Kit TD QID Qty: 1 PRNRF timolol maleate 0.5 % drops 1 drp OPHTH QDAY Qty: 0 loratadine 10 MG tablet 10 mg PO QDAY Qty: 0 tacrolimus 1 MG capsule 1 mg PO BID Qty: 0 Humalog U-100 Insulin 100 unit/mL solution See Rx Instructions SUBCUT TID Qty: 2 12RF Rx Instructions: Use 8 to 30 units per sliding scale as needed SUBCUT three times a day hydrochlorothiazide 25 mg tablet 25 mg PO DAILY Qty: 30 3RF ondansetron HCl 4 mg tablet 4 mg PO Q6-8H PRN (Reason: nausea and vomiting) Qty: 30 6RF olopatadine 0.1 % drops 1 drp EYE-BOTH DAILY Qty: 5 2RF Glucocard Expression Strip See Rx Instructions .ROUTE .COMPLEX Qty: 250 11RF Dose Instruction: USE TO TEST BLOOD SUGAR UP TO FOUR TIMES A DAY. Rx Instructions: USE TO TEST BLOOD SUGAR UP TO FOUR TIMES A DAY. Lantus U-100 Insulin 100 unit/mL solution 20 - 30 unit subcut QHS Qty: 20 12RF magnesium oxide 400 mg (241.3 mg magnesium) tablet 800 mg PO BID Qty: 360 3RF pravastatin 80 mg tablet 80 mg PO HS Qty: 90 3RF prednisone 5 mg tablet 5 mg PO DAILY Qty: 90 3RF insulin syringe-needle U-100 0.5 mL 31 gauge x 5/16 syringe See Rx Instructions .ROUTE .COMPLEX Qty: 120 6RF Dose Instruction: USE TO INJECT INSULIN FOUR TIMES DAILY. Rx Instructions: USE TO INJECT INSULIN FOUR TIMES DAILY. colchicine 0.6 mg tablet 0.6 mg PO QDAY Qty: 90 3RF metformin 1,000 mg tablet 1,000 mg PO BIDCC Qty: 180 3RF oxycodone [Roxicodone] 5 mg tablet 5 mg PO TID PRN (Reason: pain) Qty: 90 0RF pregabalin 100 mg capsule 100 mg PO TID Qty: 270 3RF amlodipine 10 mg tablet 10 mg PO DAILY aspirin 81 mg tablet,delayed release (DR/EC) 81 mg PO DAILY isosorbide mononitrate 30 mg tablet extended release 24 hr 30 mg PO QAM lisinopril 40 mg tablet 40 mg PO DAILY Disabled Parking Permit See Rx Instructions .Route .COMPLEX Qty: 1 0RF Rx Instructions: I find this patient to be medically disabled and qualified for Disabled Parking as indicated, and signed, on the accompanying Disabled Parking Application for Individuals ; carvedilol 3.125 mg tablet 3.125 mg PO BID omeprazole 20 mg tablet,delayed release (DR/EC) 20 mg PO BID cyclobenzaprine 7.5 mg tablet 7.5 mg PO TID PRN (Reason: muscle spasm) Qty: 20 0RF Referrals: Gaston Valentino MD [Primary Care Provider] - Visit Report Forms: Patient Portal/API
== END 2021-12-24 15:15 | disposition home or self-care (01) ==
PROVIDERS: Emergency Provider Emergency Medicine; Family Provider Internal Medicine; PCP Internal Medicine
DX: R60.0 Localized edema (principal); R07.9 Chest pain, unspecified; R06.01 Orthopnea; Z20.822 Contact with and (suspected) exposure to COVID-19
CPT/HCPCS: 36415; 71045; 80053; 82550; 83690; 83735; 83880; 84484; 85025; 85610; 85730; 87635; 93005; 93010; 99284; C9803

== ENCOUNTER 2021-12-26 05:04 | Emergency (ER) | payer MEDICARE, SELFPAY ==
[2021-12-26] VITALS (11 sets, daily range): BP systolic 124–156; BP diastolic 60–77; PULSE 72–87; RESP 16–24; TEMP 36.5; O2SAT 95–98; BMI 27.8
--- NOTE | 2021-12-26 05:36 | DI.RAD.S_ITS ---
PROCEDURE: XR CHEST 1V INDICATIONS: short of breath TECHNIQUE: One view of the chest was acquired. COMPARISON: [facility], CR, XR CHEST 1V, 12/24/2021, 10:17. FINDINGS: Surgical changes and devices: None. Lungs and pleura: Lungs are clear. No pleural effusions or pneumothorax. The aorta is tortuous. Mediastinum: Mediastinal contours appear normal. Heart size is normal. Bones and chest wall: No suspicious bony lesions. Overlying soft tissues appear unremarkable. IMPRESSION: No acute cardiopulmonary abnormality. Dictated by: Justin Lloyd M.D. on 12/26/2021 at 8:21 Approved by: Justin Lloyd M.D. on 12/26/2021 at 8:23
[2021-12-26 05:53] LABS: Prothrombin Time 11.3 SECONDS (10.1-12.7)
[2021-12-26 05:54] LABS: Add Manual Diff / Slide Review NO; Basophils Absolute Auto 0 /uL (0-100); Basophils Percent Auto 0.5 % (0-2); Eosinophils Absolute Auto 200 /uL (0-450); Eosinophils Percent Auto 3.7 % (2-4); Hematocrit 38.8 % (36-46); Lymphocytes Absolute Auto 1700 /uL (1100-4500); Lymphocytes Percent Auto 27.7 % (25-40); Mean Corpuscular HGB Conc 33.5 % (30-36); Mean Corpuscular Hemoglobin 28.4 PG (26-34); Mean Corpuscular Volume 84.8 fL (80-100); Monocytes Absolute Auto 500 /uL (0-900); Monocytes Percent Auto 8.2 % (3-14); Neutrophils Absolute Auto 3600 /uL (1500-7000); Neutrophils Percent Auto 59.9 % (50-75); Platelet Count 134 X10^3/uL (150-400); Red Blood Cell Count 4.58 X10^6/uL (4.0-5.2); Red Cell Distribution Width 15.7 % (11.6-14.8)
[2021-12-26 05:55] LABS: PTT Partial Thromboplastin Tim 30 SECONDS (26-36)
[2021-12-26 05:56] LABS: Lactate (Lactic Acid) 1.4 mmol/L (0.7-2.1)
[2021-12-26 05:57] LABS: Alanine Aminotransferase 42 IU/L (<35); Albumin 4.4 g/dL (3.5-5.0); Albumin Globulin Ratio 1.3 (1.0-2.8); Alkaline Phosphatase 94 U/L (38-126); Aspartate Aminotransferase 47 IU/L (14-36); BUN Creatinine Ratio 27.8 (6-22); Bilirubin Total 0.6 mg/dL (0.2-1.3); Blood Urea Nitrogen 40 mg/dL (7-17); Calcium 10.5 mg/dL (8.4-10.2); Carbon Dioxide 24 mmol/L (22-32); Chloride 106 mmol/L (98-107); Creatine Kinase 138 U/L (30-135); Estimated Glomerular Filt Rate 38 mL/min (>60); Globulin 3.5 g/dL (1.7-4.1); Glucose 220 mg/dL (80-110); HEMOLYSIS < 15 (0-50); Lipase 114 U/L (23-300); Potassium 4.6 mmol/L (3.4-5.1); Sodium 139 mmol/L (137-145); Total Protein 7.9 g/dL (6.3-8.2)
[2021-12-26 06:09] LABS: NT-proBNP (BNP-Adult 18+) 230 pg/mL (<125); Troponin I < 0.012 ng/mL (0.01-0.034)
--- NOTE | 2021-12-26 06:10 | ED.SOB ---
HPI - SOB/Dyspnea <Sharon Aurora, DO - Last Filed: 12/27/21 01:12> General Chief Complaint: Shortness of Breath/Dyspnea Stated Complaint: hard to breath, nausea medicine Time Seen by Provider: 12/26/21 05:36 Source: patient and family Mode of arrival: Ambulatory Limitations: no limitations History of Present Illness HPI Narrative: Patient is a 76-year-old female history of kidney transplant, CAD, hypertension, hyperlipidemia ascending aortic aneurysm which is considered stable on CT 11/29/2021 presented today with increasing shortness of breath. She was seen evaluated his by myself on 12/24/2021 for the same. She has had increased lower extremity has edema. It was thought initially to be medication reaction. The medication has since been stopped. However she said the swelling was getting worse. She was started on small dose of Lasix she said she only took 1 pill yesterday had says she urinated about 4 times. She says the shortness of breath has gotten worse she complains worsening orthopnea and worsening dyspnea with exertion. She has no chest pain. Related Data Home Medications Medication Instructions Recorded Confirmed loratadine 10 mg tablet 10 mg PO QDAY ##0 04/23/17 12/25/21 timolol maleate 0.5 % eye drops 1 drp [facility] QDAY ##0 04/23/17 12/25/21 tacrolimus 1 mg capsule, 1 mg PO BID ##0 07/07/17 12/25/21 immediate-release amlodipine 10 mg tablet 10 mg PO DAILY 09/17/17 12/25/21 aspirin 81 mg tablet,delayed 81 mg PO DAILY 09/17/17 12/25/21 release isosorbide mononitrate 30 mg 30 mg PO QAM 09/17/17 12/25/21 tablet,extended release 24 hr lisinopril 40 mg tablet 40 mg PO DAILY 09/17/17 12/25/21 carvedilol 3.125 mg tablet 3.125 mg PO BID 11/09/20 12/25/21 omeprazole 20 mg tablet,delayed 20 mg PO BID 11/09/20 12/25/21 release Previous Rx's Medication Instructions Recorded fluticasone propionate 50 1 spray intranasal BID ##16 04/14/16 mcg/actuation nasal spray,suspension Glucose: Home Monitoring Kit kit TD QID ##1 11/28/16 Disabled Parking Permit See Rx Instructions .Route 09/17/17 .COMPLEX #1 ea insulin lispro 100 unit/mL See Rx Instructions SUBCUT TID #2 12/05/19 subcutaneous solution (Humalog vials U-100 Insulin) hydrochlorothiazide 25 mg tablet 25 mg PO DAILY #30 tabs 12/26/19 ondansetron HCl 4 mg tablet 4 mg PO Q6-8H PRN nausea and 10/02/20 vomiting #30 tabs olopatadine 0.1 % eye drops 1 drp EYE-BOTH DAILY #5 mL 10/22/20 cyclobenzaprine 7.5 mg tablet 7.5 mg PO TID PRN muscle spasm #20 12/07/20 tabs blood sugar diagnostic (Glucocard See Rx Instructions .Route 12/13/20 Expression strips) .COMPLEX #250 ea insulin glargine 100 unit/mL 20 - 30 unit (0.2 - 0.3 mL) SUBCUT 12/17/20 subcutaneous solution (Lantus QHS #20 mL U-100 Insulin) magnesium oxide 400 mg (241.3 mg 800 mg PO BID #360 tabs 12/31/20 magnesium) tablet pravastatin 80 mg tablet 80 mg PO HS #90 tabs 02/18/21 prednisone 5 mg tablet 5 mg PO DAILY #90 tabs 02/25/21 insulin syringe-needle U-100 0.5 See Rx Instructions .Route 04/16/21 mL 31 gauge x 5/16 .COMPLEX ##120 colchicine 0.6 mg tablet 0.6 mg PO QDAY #90 tabs 08/07/21 diclofenac sodium 1 % topical gel 4 g topical QID #100 grams 09/03/21 metformin 1,000 mg tablet 1,000 mg PO BIDCC #180 tabs 09/17/21 pregabalin 100 mg capsule 100 mg PO TID #270 caps 12/18/21 furosemide 20 mg tablet (Lasix) 20 mg PO QAM #4 tabs 12/24/21 oxycodone 5 mg tablet (Roxicodone) 5 mg PO QID PRN pain #120 tabs 12/25/21 ondansetron 4 mg disintegrating 4 mg PO Q8H PRN nausea and 12/26/21 tablet vomiting #10 tabs Allergies Allergy/AdvReac Type Severity Reaction Status Date / Time clopidogrel [CLOPIDOGREL] Allergy Mild AGRANOLOCYT Verified 12/25/21 07:22 OSIS Review of Systems <Sharon Khan DO - Last Filed: 12/27/21 01:12> Review of Systems Narrative: GENERAL: Denies chills, fatigue, malaise, fever, sweats, travel HEENT: Denies sinus pain, ear pain, sore throat, difficulty swallowing, neck pain RESPIRATORY: See HPI CARDIOVASCULAR: Denies chest pain, palpitations, orthopnea, edema GASTROINTESTINAL: Denies nausea, vomiting, abdominal pain, diarrhea, constipation, melena. : Denies dysuria, frequency, incontinence, hematuria, urinary retention, flank pain. MUSCULOSKELETAL: Denies weakness, joint pain, or bony pain SKIN: No rash, no erythema, no pruritus NEUROLOGIC: Denies weakness, dizziness, headache, numbness, change in speech, confusion PSYCHIATRIC: No concerning psychosocial issues. 12 point review of systems is negative except for those stated above and HPI Patient History <Sharon Khan DO - Last Filed: 12/27/21 01:12> Medical History Acute on chronic diastolic CHF (congestive heart failure) Aortic aneurysm Ascending aortic aneurysm Ascending aortic dissection CAD (coronary atherosclerotic disease) (10/29/10) Chest pain Chronic gout (10/29/10) Essential hypertension (10/29/10) GERD (gastroesophageal reflux disease) History of peritoneal dialysis Lumbar radiculopathy Other and unspecified hyperlipidemia Peripheral polyneuropathy (03/06/16) ST elevation Stage 3b chronic kidney disease (CKD) Tertiary hyperparathyroidism Type 2 diabetes mellitus Type 2 diabetes mellitus with other circulatory complication (02/19/15) Vesicoureteral reflux (07/01/13) Weakness on right side of face Surgical History History of cardiac cath (04/2012) History of carpal tunnel repair Status post breast biopsy Status post kidney transplant (04/03/13) Status post parathyroidectomy Social History marital status: number of children: 0 household members: spouse lives independently: Yes caregiver/support person: No housing: house pets and animals: No education level: high school occupational status: other Previous occupational history: [employer] in [employer]: Denominational leisure activities: exercise and other Smoking Status: Never smoker Tobacco: How many years used: 0 quit status: quit date established second hand exposure: No alcohol intake: never substance use type: does not use Smoking Status: Never smoker alcohol intake frequency: 0-2 drinks per day Substance Use Type: does not use and prescription drug Exam <Sharon Khan DO - Last Filed: 12/27/21 01:12> Initial Vital Signs Initial Vital Signs: Vital Signs Temperature 97.7 F 12/26/21 05:06 Pulse Rate 81 12/26/21 05:06 Respiratory Rate 22 12/26/21 05:06 Blood Pressure 156/72 H 12/26/21 05:06 Pulse Oximetry 97 12/26/21 05:06 Oxygen Delivery Method 12/26/21 05:06 GENERAL: Alert very nice pleasant 76-year-old female HEENT: Head atraumatic,EOMI, pupils reactive, face symmetric, moist mucous membranes CARDIOVASCULAR: Regular rate and rhythm without murmurs, rubs or gallops. RESPIRATORY: Breath sounds equal bilaterally, no wheezes rales or rhonchi. ABDOMEN: Soft, nontender. Normoactive bowel sounds all 4 quadrants. No guarding or rebound. EXTREMITIES: Normal range of motion, no clubbing. Her lower extremity edema actually seems to be improved. Her feet look significantly better. No significant calf pain and calf are soft. Neurovascularly intact NEUROLOGICAL: Alert and oriented x4.Normal gait and speech. SKIN: Warm, dry, no laceration, no petechiae, no rashes or lesions. <Baltazar Morrell MD - Last Filed: 12/26/21 16:51> Initial Vital Signs Initial Vital Signs: Vital Signs Temperature 97.7 F 12/26/21 05:06 Pulse Rate 81 12/26/21 05:06 Respiratory Rate 22 12/26/21 05:06 Blood Pressure 156/72 H 12/26/21 05:06 Pulse Oximetry 97 12/26/21 05:06 Oxygen Delivery Method 12/26/21 05:06 Course <Sharon Khan DO - Last Filed: 12/27/21 01:12> Orders Ordered: Discontinued Medications Furosemide (Furosemide 40 Mg/4 Ml Vial) 40 mg IV NOW ONE Stop: 12/26/21 06:22 Last Admin: 12/26/21 06:52 Dose: 40 mg Documented By: ABELARDO Ondansetron HCl (Ondansetron 4 Mg/2 Ml Inj) 4 mg IV NOW ONE Stop: 12/26/21 08:01 Last Admin: 12/26/21 08:13 Dose: 4 mg Documented By: QUINCY Vital Signs Vital signs: Vital Signs - 8 hr 12/26/21 09:31 Blood Pressure 124/60 <Baltazar Morrell MD - Last Filed: 12/26/21 16:51> Course Course Narrative: December 26, 2021, sign out from dr khan at 7:[address] angiogram chest PE protocol has been ordered to rule out PE. Patient has improved with diuretic with edema of the feet. Likely disposition discharge home. Patient not requiring supplemental oxygen. In no respiratory distress at this time. Orders Ordered: Discontinued Medications Furosemide (Furosemide 40 Mg/4 Ml Vial) 40 mg IV NOW ONE Stop: 12/26/21 06:22 Last Admin: 12/26/21 06:52 Dose: 40 mg Documented By: ABELARDO Ondansetron HCl (Ondansetron 4 Mg/2 Ml Inj) 4 mg IV NOW ONE Stop: 12/26/21 08:01 Last Admin: 12/26/21 08:13 Dose: 4 mg Documented By: QUINCY Vital Signs Vital signs: Vital Signs - 8 hr 12/26/21 09:31 Blood Pressure 124/60 MDM - SOB/Dyspnea <Sharon Khan DO - Last Filed: 12/27/21 01:12> Lab Data Result diagrams: 12/26/21 05:24 12/26/21 05:24 Labs: Lab Results 12/26/21 12/26/21 12/26/21 Range/Units 05:24 05:24 05:24 WBC 6.0 (4.5-11.0) X10^3/uL RBC 4.58 (4.0-5.2) X10^6/uL Hgb 13.0 (12.0-16.0) g/dL Hct 38.8 (36-46) % MCV 84.8 (80-100) fL MCH 28.4 (26-34) PG MCHC 33.5 (30-36) % RDW 15.7 H (11.6-14.8) % Plt Count 134 L (150-400) X10^3/uL Neut % (Auto) 59.9 (50-75) % Lymph % (Auto) 27.7 (25-40) % [place] % (Auto) 8.2 (3-14) % Eos % (Auto) 3.7 (2-4) % Baso % (Auto) 0.5 (0-2) % Neut # (Auto) 3600 (8524-1207) /uL Lymph # (Auto) 1700 (8378-5709) /uL [place] # (Auto) 500 (0-900) /uL Eos # (Auto) 200 (0-450) /uL Baso # (Auto) 0 (0-100) /uL PT 11.3 (10.1-12.7) SECONDS INR 1.0 (0.9-1.3) APTT 30 (26-36) SECONDS D-Dimer (<500) ng/ml Sodium 139 (137-145) mmol/L Potassium 4.6 (3.4-5.1) mmol/L Chloride 106 (98-107) mmol/L Carbon Dioxide 24 (22-32) mmol/L BUN 40 H (7-17) mg/dL Creatinine 1.44 H (0.52-1.04) mg/dL Estimated GFR 38 L (>60) mL/min BUN/Creatinine Ratio 27.8 H (6-22) Glucose 220 H (80-110) mg/dL Lactate (0.7-2.1) mmol/L Calcium 10.5 H (8.4-10.2) mg/dL Total Bilirubin 0.6 (0.2-1.3) mg/dL AST 47 H (14-36) IU/L ALT 42 H (<35) IU/L Alkaline Phosphatase 94 (38-126) U/L Total Creatine Kinase 138 H (30-135) U/L CK-MB (CK-2) 1.46 (<2.37) ng/mL CK-MB (CK-2) Rel Index 1.1 L (1.5-5.0) % Troponin I < 0.012 (0.01-0.034) ng/mL NT-Pro-B Natriuret Pep 230 H (<125) pg/mL Total Protein 7.9 (6.3-8.2) g/dL Albumin 4.4 (3.5-5.0) g/dL Globulin 3.5 (1.7-4.1) g/dL Albumin/Globulin Ratio 1.3 (1.0-2.8) Lipase 114 D (23-300) U/L 12/26/21 12/26/21 Range/Units 05:24 05:24 WBC (4.5-11.0) X10^3/uL RBC (4.0-5.2) X10^6/uL Hgb (12.0-16.0) g/dL Hct (36-46) % MCV (80-100) fL MCH (26-34) PG MCHC (30-36) % RDW (11.6-14.8) % Plt Count (150-400) X10^3/uL Neut % (Auto) (50-75) % Lymph % (Auto) (25-40) % [place] % (Auto) (3-14) % Eos % (Auto) (2-4) % Baso % (Auto) (0-2) % Neut # (Auto) (9330-8703) /uL Lymph # (Auto) (8670-6718) /uL [place] # (Auto) (0-900) /uL Eos # (Auto) (0-450) /uL Baso # (Auto) (0-100) /uL PT (10.1-12.7) SECONDS INR (0.9-1.3) APTT (26-36) SECONDS D-Dimer 1093 H (<500) ng/ml Sodium (137-145) mmol/L Potassium (3.4-5.1) mmol/L Chloride (98-107) mmol/L Carbon Dioxide (22-32) mmol/L BUN (7-17) mg/dL Creatinine (0.52-1.04) mg/dL Estimated GFR (>60) mL/min BUN/Creatinine Ratio (6-22) Glucose (80-110) mg/dL Lactate 1.4 (0.7-2.1) mmol/L Calcium (8.4-10.2) mg/dL Total Bilirubin (0.2-1.3) mg/dL AST (14-36) IU/L ALT (<35) IU/L Alkaline Phosphatase (38-126) U/L Total Creatine Kinase (30-135) U/L CK-MB (CK-2) (<2.37) ng/mL CK-MB (CK-2) Rel Index (1.5-5.0) % Troponin I (0.01-0.034) ng/mL NT-Pro-B Natriuret Pep (<125) pg/mL Total Protein (6.3-8.2) g/dL Albumin (3.5-5.0) g/dL Globulin (1.7-4.1) g/dL Albumin/Globulin Ratio (1.0-2.8) Lipase (23-300) U/L MDM Narrative Medical decision making narrative: Patient returns for the 2nd time with increasing shortness of breath and peripheral edema. Her swelling actually looks and more improved to me than it did previously. BNP is not significantly elevated. She is having some orthopnea. D-dimer is checked and is greater than 1000. CT angio is ordered. Patient is signed out to Dr. Morrell Appropriate for discharge home. Patient symptoms likely due to Pregalabin, patient prescribed this [address] Valentino. Side effects include peripheral edema. Patient did follow up with primary care office yesterday and was instructed to stop the Pregalabin Patient seen here 2 days ago and had EKG and troponin which was normal. Today troponin remains normal and CT scan is reassuring. Two days ago patient was seen by Dr. Khan, and was signed out to me by her again this morning, patient was prescribed Lasix 20 mg daily, total 4 day quantity. Patient states she did not urinate very much yesterday despite taking the Lasix. However she was able to urinate here with Lasix, significant improvement with leg edema and denies any dyspnea at time of discharge. Return precautions reviewed with patient and partner. They desire discharge home. Otherwise laboratory studies and imaging are reassuring. <Baltazar Morrell MD - Last Filed: 12/26/21 16:51> Differential Diagnosis Differential diagnosis: Likely congestive heart failure, community acquired pneumonia, pulmonary embolism and other (Fluid overload/non-STEMI/STEMI) Lab Data Labs: Lab Results 12/26/21 12/26/21 12/26/21 Range/Units 05:24 05:24 05:24 WBC 6.0 (4.5-11.0) X10^3/uL RBC 4.58 (4.0-5.2) X10^6/uL Hgb 13.0 (12.0-16.0) g/dL Hct 38.8 (36-46) % MCV 84.8 (80-100) fL MCH 28.4 (26-34) PG MCHC 33.5 (30-36) % RDW 15.7 H (11.6-14.8) % Plt Count 134 L (150-400) X10^3/uL Neut % (Auto) 59.9 (50-75) % Lymph % (Auto) 27.7 (25-40) % [place] % (Auto) 8.2 (3-14) % Eos % (Auto) 3.7 (2-4) % Baso % (Auto) 0.5 (0-2) % Neut # (Auto) 3600 (8468-8811) /uL Lymph # (Auto) 1700 (7273-2077) /uL [place] # (Auto) 500 (0-900) /uL Eos # (Auto) 200 (0-450) /uL Baso # (Auto) 0 (0-100) /uL PT 11.3 (10.1-12.7) SECONDS INR 1.0 (0.9-1.3) APTT 30 (26-36) SECONDS D-Dimer (<500) ng/ml Sodium 139 (137-145) mmol/L Potassium 4.6 (3.4-5.1) mmol/L Chloride 106 (98-107) mmol/L Carbon Dioxide 24 (22-32) mmol/L BUN 40 H (7-17) mg/dL Creatinine 1.44 H (0.52-1.04) mg/dL Estimated GFR 38 L (>60) mL/min BUN/Creatinine Ratio 27.8 H (6-22) Glucose 220 H (80-110) mg/dL Lactate (0.7-2.1) mmol/L Calcium 10.5 H (8.4-10.2) mg/dL Total Bilirubin 0.6 (0.2-1.3) mg/dL AST 47 H (14-36) IU/L ALT 42 H (<35) IU/L Alkaline Phosphatase 94 (38-126) U/L Total Creatine Kinase 138 H (30-135) U/L CK-MB (CK-2) 1.46 (<2.37) ng/mL CK-MB (CK-2) Rel Index 1.1 L (1.5-5.0) % Troponin I < 0.012 (0.01-0.034) ng/mL NT-Pro-B Natriuret Pep 230 H (<125) pg/mL Total Protein 7.9 (6.3-8.2) g/dL Albumin 4.4 (3.5-5.0) g/dL Globulin 3.5 (1.7-4.1) g/dL Albumin/Globulin Ratio 1.3 (1.0-2.8) Lipase 114 D (23-300) U/L 12/26/21 12/26/21 Range/Units 05:24 05:24 WBC (4.5-11.0) X10^3/uL RBC (4.0-5.2) X10^6/uL Hgb (12.0-16.0) g/dL Hct (36-46) % MCV (80-100) fL MCH (26-34) PG MCHC (30-36) % RDW (11.6-14.8) % Plt Count (150-400) X10^3/uL Neut % (Auto) (50-75) % Lymph % (Auto) (25-40) % [place] % (Auto) (3-14) % Eos % (Auto) (2-4) % Baso % (Auto) (0-2) % Neut # (Auto) (5180-3383) /uL Lymph # (Auto) (3807-7812) /uL [place] # (Auto) (0-900) /uL Eos # (Auto) (0-450) /uL Baso # (Auto) (0-100) /uL PT (10.1-12.7) SECONDS INR (0.9-1.3) APTT (26-36) SECONDS D-Dimer 1093 H (<500) ng/ml Sodium (137-145) mmol/L Potassium (3.4-5.1) mmol/L Chloride (98-107) mmol/L Carbon Dioxide (22-32) mmol/L BUN (7-17) mg/dL Creatinine (0.52-1.04) mg/dL Estimated GFR (>60) mL/min BUN/Creatinine Ratio (6-22) Glucose (80-110) mg/dL Lactate 1.4 (0.7-2.1) mmol/L Calcium (8.4-10.2) mg/dL Total Bilirubin (0.2-1.3) mg/dL AST (14-36) IU/L ALT (<35) IU/L Alkaline Phosphatase (38-126) U/L Total Creatine Kinase (30-135) U/L CK-MB (CK-2) (<2.37) ng/mL CK-MB (CK-2) Rel Index (1.5-5.0) % Troponin I (0.01-0.034) ng/mL NT-Pro-B Natriuret Pep (<125) pg/mL Total Protein (6.3-8.2) g/dL Albumin (3.5-5.0) g/dL Globulin (1.7-4.1) g/dL Albumin/Globulin Ratio (1.0-2.8) Lipase (23-300) U/L Imaging Data Chest x-ray: Radiologist's Impression: [address] [address] XRay Report Signed Patient: Ignacia Marino MR#: [id number] : 1945 Acct:[id number] Age/Sex: 76 / F Date of Service: 12/26/21 Loc: Accession Number: [id number] ?? Procedure: XR chest 1V Ordering Provider: Sharon Khan D.O. PROCEDURE:? XR CHEST 1V ? INDICATIONS:? short of breath ? TECHNIQUE:? One view of the chest was acquired.? ? COMPARISON:? [facility], CR, XR CHEST 1V, 12/24/2021, 10:17. ? FINDINGS:? ? Surgical changes and devices:? None.? ? Lungs and pleura:? Lungs are clear.? No pleural effusions or pneumothorax.? The aorta is tortuous. ? Mediastinum:? Mediastinal contours appear normal.? Heart size is normal.? ? Bones and chest wall:? No suspicious bony lesions.? Overlying soft tissues appear unremarkable.? ? IMPRESSION:? No acute cardiopulmonary abnormality. ? ? Dictated by: Justin Lloyd M.D. on 12/26/2021 at 8:21 ? ? Approved by: Justin Lloyd M.D. on 12/26/2021 at 8:23 ? CT scan - chest: Radiologist's Impression: [address] [address] [address] Scan Report Signed Patient: Ignacia Marino MR#: [id number] : 1945 Acct:[id number] Age/Sex: 76 / F Date of Service: 12/26/21 Loc: ED Accession Number: [id number] ?? Procedure: CT angio chest PE protocol Ordering Provider: Sharon Khan D.O. PROCEDURE:? CT ANGIO CHEST PE PROTOCOL ? INDICATIONS:? high dimer with sob and aortic aneurysm ? TECHNIQUE:? After the administration of intravenous contrast, 2 mm thick sections acquired from the pulmonary apices to the posterior costophrenic angles.? 3-dimensional maximum intensity projection (MIP) coronal and sagittal reformats were then acquired through the thorax.? For radiation dose reduction, the following was used:? automated exposure control, adjustment of mA and/or kV according to patient size.? ? COMPARISON:? [facility], CT, CT ANGIO CHEST, 11/29/2021, 9:21. ? FINDINGS:? Image quality:? Excellent.? ? Pulmonary arteries:? Pulmonary arteries are normal in size, and demonstrate no intraluminal filling defects to suggest central pulmonary embolism.? ? Lungs and pleura:? Lungs are clear.? No pleural effusions or pneumothorax.? Central and peripheral airways are patent.? ? Mediastinum:? Heart size is normal, without pericardial effusion.? Moderate to severe coronary artery calcifications.? No mediastinal or hilar adenopathy.? Chronic ascending thoracic aortic aneurysm is redemonstrated measuring up to 4.7 cm in diameter on coronal images and approximately 5 cm in diameter on axial images of the level of the right pulmonary artery, not significantly changed when compared to the CT a from 11/29/2021.? The dissection terminates at the origin of the brachiocephalic trunk, unchanged.? The aortic arch and descending thoracic aorta are normal in size.? Severe aortic atherosclerotic calcifications are present.? Esophagus is normal in caliber, with a probable small hiatal hernia.? ? Bones and chest wall:? No suspicious bony lesions.? Cervical fusion hardware is noted.? Mild degenerative changes are seen in the spine.? Thyroid is unremarkable.? No axillary or supraclavicular adenopathy.? ? Abdomen:? Included portions of the kidneys appear atrophic.? Possible subtle nodularity of the liver surface. ? IMPRESSION:? 1. No acute pulmonary embolus. 2. 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 3. Severe coronary artery calcifications and aortic atherosclerosis. ? ? Dictated by: Eric Bailey M.D. on 12/26/2021 at 7:56 ? ? Approved by: Eric Bailey M.D. on 12/26/2021 at 8:07 ? ECG Data Interpretation: Normal sinus rhythm rate [address] elevation or depression MDM Narrative Medical decision making narrative: Appropriate for discharge home. Patient symptoms likely due to Pregalabin, patient prescribed this [address] Valentino. Side effects include peripheral edema. Patient did follow up with primary care office yesterday and was instructed to stop the Pregalabin Patient seen here 2 days ago and had EKG and troponin which was normal. Today troponin remains normal and CT scan is reassuring. Two days ago patient was seen by Dr. Khan, and was signed out to me by her again this morning, patient was prescribed Lasix 20 mg daily, total 4 day quantity. Patient states she did not urinate very much yesterday despite taking the Lasix. However she was able to urinate here with Lasix, significant improvement with leg edema and denies any dyspnea at time of discharge. Return precautions reviewed with patient and partner. They desire discharge home. Otherwise laboratory studies and imaging are reassuring. Discharge Plan Departure Patient Disposition: Home Clinical Impression: Bilateral edema of lower extremity, Shortness of Breath Instructions: DI for Shortness of Breath, DI for Peripheral Edema -- Bilateral Activity Restrictions/Additional Instructions: Return if worse or any questions or concerns. Return immediately if any trouble breathing or any chest pain. Please do continue medications that were prescribed to you 2 days ago. Please do follow instructions from family doctor's office from yesterday's visit. Regarding your medications. Return if worse if any questions or concerns. Prescriptions: New ondansetron 4 mg tablet,disintegrating 4 mg PO Q8H PRN (Reason: nausea and vomiting) Qty: 10 0RF No Action diclofenac sodium 1 % gel 4 g topical QID Qty: 100 0RF Rx Instructions: apply to affected area fluticasone propionate 16 GM spray,suspension 1 spray Intranasal BID Qty: 16 12RF Glucose: Home Monitoring Kit TD QID Qty: 1 PRNRF timolol maleate 0.5 % drops 1 drp OPHTH QDAY Qty: 0 loratadine 10 MG tablet 10 mg PO QDAY Qty: 0 tacrolimus 1 MG capsule 1 mg PO BID Qty: 0 Humalog U-100 Insulin 100 unit/mL solution See Rx Instructions SUBCUT TID Qty: 2 12RF Rx Instructions: Use 8 to 30 units per sliding scale as needed SUBCUT three times a day hydrochlorothiazide 25 mg tablet 25 mg PO DAILY Qty: 30 3RF ondansetron HCl 4 mg tablet 4 mg PO Q6-8H PRN (Reason: nausea and vomiting) Qty: 30 6RF olopatadine 0.1 % drops 1 drp EYE-BOTH DAILY Qty: 5 2RF Glucocard Expression Strip See Rx Instructions .ROUTE .COMPLEX Qty: 250 11RF Dose Instruction: USE TO TEST BLOOD SUGAR UP TO FOUR TIMES A DAY. Rx Instructions: USE TO TEST BLOOD SUGAR UP TO FOUR TIMES A DAY. Lantus U-100 Insulin 100 unit/mL solution 20 - 30 unit subcut QHS Qty: 20 12RF magnesium oxide 400 mg (241.3 mg magnesium) tablet 800 mg PO BID Qty: 360 3RF pravastatin 80 mg tablet 80 mg PO HS Qty: 90 3RF prednisone 5 mg tablet 5 mg PO DAILY Qty: 90 3RF insulin syringe-needle U-100 0.5 mL 31 gauge x 5/16 syringe See Rx Instructions .ROUTE .COMPLEX Qty: 120 6RF Dose Instruction: USE TO INJECT INSULIN FOUR TIMES DAILY. Rx Instructions: USE TO INJECT INSULIN FOUR TIMES DAILY. colchicine 0.6 mg tablet 0.6 mg PO QDAY Qty: 90 3RF metformin 1,000 mg tablet 1,000 mg PO BIDCC Qty: 180 3RF pregabalin 100 mg capsule 100 mg PO TID Qty: 270 3RF amlodipine 10 mg tablet 10 mg PO DAILY aspirin 81 mg tablet,delayed release (DR/EC) 81 mg PO DAILY isosorbide mononitrate 30 mg tablet extended release 24 hr 30 mg PO QAM lisinopril 40 mg tablet 40 mg PO DAILY Disabled Parking Permit See Rx Instructions .Route .COMPLEX Qty: 1 0RF Rx Instructions: I find this patient to be medically disabled and qualified for Disabled Parking as indicated, and signed, on the accompanying Disabled Parking Application for Individuals ; carvedilol 3.125 mg tablet 3.125 mg PO BID omeprazole 20 mg tablet,delayed release (DR/EC) 20 mg PO BID cyclobenzaprine 7.5 mg tablet 7.5 mg PO TID PRN (Reason: muscle spasm) Qty: 20 0RF oxycodone [Roxicodone] 5 mg tablet 5 mg PO QID PRN (Reason: pain) Qty: 120 0RF furosemide [Lasix] 20 mg tablet 20 mg PO QAM Qty: 4 0RF Referrals: Gaston Valentino MD [Primary Care Provider] - Visit Report Forms: Patient Portal/API
[2021-12-26 06:12] LABS: CKMB % Relative Index 1.1 % (1.5-5.0); Creatine Kinase MB 1.46 ng/mL (<2.37)
[2021-12-26 06:40] LABS: D Dimer 1093 ng/ml (<500)
[2021-12-26] MEDS: FUROSEMIDE 40 MG/4 ML VIAL IV (06:52)
--- NOTE | 2021-12-26 07:16 | DI.CT.S_ITS ---
PROCEDURE: CT ANGIO CHEST PE PROTOCOL INDICATIONS: high dimer with sob and aortic aneurysm TECHNIQUE: After the administration of intravenous contrast, 2 mm thick sections acquired from the pulmonary apices to the posterior costophrenic angles. 3-dimensional maximum intensity projection (MIP) coronal and sagittal reformats were then acquired through the thorax. For radiation dose reduction, the following was used: automated exposure control, adjustment of mA and/or kV according to patient size. COMPARISON: [facility], CT, CT ANGIO CHEST, 11/29/2021, 9:21. FINDINGS: Image quality: Excellent. Pulmonary arteries: Pulmonary arteries are normal in size, and demonstrate no intraluminal filling defects to suggest central pulmonary embolism. Lungs and pleura: Lungs are clear. No pleural effusions or pneumothorax. Central and peripheral airways are patent. Mediastinum: Heart size is normal, without pericardial effusion. Moderate to severe coronary artery calcifications. No mediastinal or hilar adenopathy. Chronic ascending thoracic aortic aneurysm is redemonstrated measuring up to 4.7 cm in diameter on coronal images and approximately 5 cm in diameter on axial images of the level of the right pulmonary artery, not significantly changed when compared to the CT a from 11/29/2021. The dissection terminates at the origin of the brachiocephalic trunk, unchanged. The aortic arch and descending thoracic aorta are normal in size. Severe aortic atherosclerotic calcifications are present. Esophagus is normal in caliber, with a probable small hiatal hernia. Bones and chest wall: No suspicious bony lesions. Cervical fusion hardware is noted. Mild degenerative changes are seen in the spine. Thyroid is unremarkable. No axillary or supraclavicular adenopathy. Abdomen: Included portions of the kidneys appear atrophic. Possible subtle nodularity of the liver surface. IMPRESSION: 1. No acute pulmonary embolus. 2. 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 3. Severe coronary artery calcifications and aortic atherosclerosis. Dictated by: Eric Bailey M.D. on 12/26/2021 at 7:56 Approved by: Eric Bailey M.D. on 12/26/2021 at 8:07
[2021-12-26] MEDS: ONDANSETRON 4 MG/2 ML INJ IV (08:13)
== END 2021-12-26 09:46 | disposition home or self-care (01) ==
PROVIDERS: Emergency Medicine; Emergency Provider Emergency Medicine; Family Provider Internal Medicine; PCP Internal Medicine
DX: R60.0 Localized edema (principal); R06.02 Shortness of breath; R06.01 Orthopnea; R79.89 Other specified abnormal findings of blood chemistry
CPT/HCPCS: 36415; 71045; 71275; 80053; 82550; 82553; 83605; 83690; 83880; 84484; 85025; 85379; 85610; 85730; 93005; 93010; 96374; 96375; 99284; J1940; J2405; Q9967

== ENCOUNTER 2021-12-27 08:52 | Inpatient (IN) | payer MEDICARE, SELFPAY ==
[2021-12-27] VITALS (7 sets, daily range): BP systolic 106–147; BP diastolic 63–76; PULSE 66–84; RESP 17–22; TEMP 35.7–36.6; O2SAT 97–99; BMI 28.8; BMI 27.1
[2021-12-27] MEDS: METOCLOPRAMIDE 10 MG/2 ML INJ 5 MG IV (10:10)
[2021-12-27 10:13] LABS: Add Manual Diff / Slide Review NO; Basophils Absolute Auto 0 /uL (0-100); Basophils Percent Auto 0.6 % (0-2); Eosinophils Absolute Auto 500 /uL (0-450); Eosinophils Percent Auto 7.7 % (2-4); Hematocrit 39.5 % (36-46); Hemoglobin 13.3 g/dL (12.0-16.0); Lymphocytes Absolute Auto 1800 /uL (1100-4500); Mean Corpuscular HGB Conc 33.6 % (30-36); Mean Corpuscular Hemoglobin 28.6 PG (26-34); Mean Corpuscular Volume 85.2 fL (80-100); Monocytes Absolute Auto 700 /uL (0-900); Monocytes Percent Auto 10.3 % (3-14); Neutrophils Absolute Auto 4000 /uL (1500-7000); Neutrophils Percent Auto 56.4 % (50-75); Platelet Count 131 X10^3/uL (150-400); Red Blood Cell Count 4.64 X10^6/uL (4.0-5.2); White Blood Cell Count 7.1 X10^3/uL (4.5-11.0)
[2021-12-27 10:26] LABS: Alanine Aminotransferase 43 IU/L (<35); Albumin 4.5 g/dL (3.5-5.0); Albumin Globulin Ratio 1.3 (1.0-2.8); Alkaline Phosphatase 94 U/L (38-126); Aspartate Aminotransferase 49 IU/L (14-36); BUN Creatinine Ratio 22.5 (6-22); Blood Urea Nitrogen 51 mg/dL (7-17); Calcium 10.5 mg/dL (8.4-10.2); Carbon Dioxide 25 mmol/L (22-32); Chloride 101 mmol/L (98-107); Estimated Glomerular Filt Rate 22 mL/min (>60); Globulin 3.5 g/dL (1.7-4.1); Glucose 179 mg/dL (80-110); HEMOLYSIS < 15 (0-50); Lipase 75 U/L (23-300); Potassium 4.7 mmol/L (3.4-5.1); Sodium 139 mmol/L (137-145)
--- NOTE | 2021-12-27 10:33 | PC.NURSE ---
Pt/spouse reports 3-4 days of nausea and unable to eat due to this. Reports nausea is triggered when she swallows food and water. Is able to swallow with out coughing or choking, it just increases her nausea when she swallows.
--- NOTE | 2021-12-27 11:15 | ED_ITS ---
HPI - Nausea/Vomiting/Diarrhea General Chief complaint: Nausea/Vomiting/Diarrhea Stated complaint: Having trouble eating, trouble swallowing Time Seen by Provider: 12/27/21 09:53 Source: patient Mode of arrival: Ambulatory History of Present Illness HPI Narrative: Patient states as felt no appetite to eat. She feels dehydrated. 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 She improved with Lasix. Leg swelling has improved. However patient also was prescribed diuretics for 4 day course, renal function noted today. Does show likely prerenal injury. No dyspnea at this time. Related Data Home Medications Medication Instructions Recorded Confirmed loratadine 10 mg tablet 10 mg PO QDAY ##0 04/23/17 12/27/21 timolol maleate 0.5 % eye drops 1 drp OPHTH QDAY ##0 04/23/17 12/27/21 tacrolimus 1 mg capsule, 1 mg PO BID ##0 07/07/17 12/27/21 immediate-release aspirin 81 mg tablet,delayed 81 mg PO DAILY 09/17/17 12/27/21 release isosorbide mononitrate 30 mg 30 mg PO QAM 09/17/17 12/27/21 tablet,extended release 24 hr omeprazole 20 mg tablet,delayed 20 mg PO BID 11/09/20 12/27/21 release Glucose: Home Monitoring Kit 1 kit TD QID 12/27/21 12/27/21 Previous Rx's Medication Instructions Recorded fluticasone propionate 50 1 spray intranasal BID ##16 04/14/16 mcg/actuation nasal spray,suspension Disabled Parking Permit See Rx Instructions .Route 09/17/17 .COMPLEX #1 ea insulin lispro 100 unit/mL See Rx Instructions SUBCUT TID #2 12/05/19 subcutaneous solution (Humalog vials U-100 Insulin) hydrochlorothiazide 25 mg tablet 25 mg PO DAILY #30 tabs 12/26/19 olopatadine 0.1 % eye drops 1 drp EYE-BOTH DAILY #5 mL 10/22/20 cyclobenzaprine 7.5 mg tablet 7.5 mg PO TID PRN muscle spasm #20 12/07/20 tabs blood sugar diagnostic (Glucocard See Rx Instructions .Route 12/13/20 Expression strips) .COMPLEX #250 ea magnesium oxide 400 mg (241.3 mg 800 mg PO BID #360 tabs 12/31/20 magnesium) tablet pravastatin 80 mg tablet 80 mg PO HS #90 tabs 02/18/21 prednisone 5 mg tablet 5 mg PO DAILY #90 tabs 02/25/21 insulin syringe-needle U-100 0.5 See Rx Instructions .Route 04/16/21 mL 31 gauge x 5/16 .COMPLEX ##120 colchicine 0.6 mg tablet 0.6 mg PO QDAY #90 tabs 08/07/21 diclofenac sodium 1 % topical gel 4 g topical QID #100 grams 09/03/21 metformin 1,000 mg tablet 1,000 mg PO BIDCC #180 tabs 09/17/21 oxycodone 5 mg tablet (Roxicodone) 5 mg PO QID PRN pain #120 tabs 12/25/21 carvedilol 6.25 mg tablet 6.25 mg PO BID #180 tabs 12/30/21 insulin glargine 100 unit/mL 20 - 30 unit (0.2 - 0.3 mL) SUBCUT 12/30/21 subcutaneous solution (Lantus QHS #20 mL U-100 Insulin) lisinopril 40 mg tablet 20 mg PO DAILY #45 tabs 12/30/21 ondansetron 4 mg disintegrating 4 mg PO Q8H PRN nausea and 12/31/21 tablet vomiting #30 tabs Allergies Allergy/AdvReac Type Severity Reaction Status Date / Time clopidogrel [CLOPIDOGREL] Allergy Mild AGRANOLOCYT Verified 12/25/21 07:22 OSIS Review of Systems Review of Systems Narrative: GENERAL: Denies chills, fatigue, malaise, fever, sweats. HEENT: Denies sinus pain, ear pain, sore throat RESPIRATORY: Denies dyspnea, cough CARDIOVASCULAR: Denies chest pain, palpitations GASTROINTESTINAL: Denies nausea, vomiting, abdominal pain : Denies dysuria, frequency, hematuria MUSCULOSKELETAL: denies muscle or bony pain SKIN: Denies rash, skin lesions NEUROLOGIC: Denies weakness, numbness ROS Unobtainable: All systems reviewed & are unremarkable except as noted in HPI and below Patient History Medical History Acute on chronic diastolic CHF (congestive heart failure) Aortic aneurysm Ascending aortic aneurysm Ascending aortic dissection CAD (coronary atherosclerotic disease) (10/29/10) Chest pain Chronic gout (10/29/10) Essential hypertension (10/29/10) GERD (gastroesophageal reflux disease) History of peritoneal dialysis Lumbar radiculopathy Other and unspecified hyperlipidemia Peripheral polyneuropathy (03/06/16) ST elevation Stage 3b chronic kidney disease (CKD) Tertiary hyperparathyroidism Type 2 diabetes mellitus Type 2 diabetes mellitus with other circulatory complication (02/19/15) Vesicoureteral reflux (07/01/13) Weakness on right side of face Surgical History History of cardiac cath (04/2012) History of carpal tunnel repair Status post breast biopsy Status post kidney transplant (04/03/13) Status post parathyroidectomy Social History marital status: number of children: 0 household members: spouse lives independently: Yes caregiver/support person: No housing: house pets and animals: No education level: high school occupational status: other Previous occupational history: [employer] in [employer]/am[employer]: 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 EYES: Pupils equal round No scleral icterus. ENT: Mucous membranes moist. NECK: Trachea midline. CARDIOVASCULAR: Regular rate and rhythm without murmurs RESPIRATORY: Clear to auscultation. Breath sounds equal bilaterally. No wheezes, rales, or rhonchi. GASTROINTESTINAL: Abdomen soft, non-tender, bowel sounds present, no peritoneal signs EXTREMITIES: No gross deformities. No pedal or ankle edema. BACK: No flank tenderness. NEURO: AOx4. SKIN: Warm and dry PSYCH: Not anxious, is cooperative Initial Vital Signs Initial Vital Signs: Vital Signs Temperature 98 F 12/27/21 09:54 Pulse Rate 66 12/27/21 09:54 Respiratory Rate 18 12/27/21 09:54 Blood Pressure 147/68 H 12/27/21 09:54 Pulse Oximetry 99 12/27/21 09:54 Oxygen Delivery Method 12/27/21 09:54 Course Course Course Narrative: No new issues during course of stay Orders Ordered: Discontinued Medications Acetaminophen (Acetaminophen 325 Mg Tablet) 650 mg PO Q6HR PRN PRN Reason: Fever/Mild Pain (1-3) Amlodipine Besylate (Amlodipine 5 Mg Tablet) 10 mg PO DAILY [facility] Last Admin: 12/30/21 09:48 Dose: 10 mg Documented By: Admin: 12/29/21 08:32 Dose: 10 mg Documented By: Admin: 12/28/21 08:31 Dose: 10 mg Documented By: KIM Aspirin (Aspirin Ec 81 Mg Tablet) 81 mg PO DAILY [facility] Last Admin: 12/30/21 09:47 Dose: 81 mg Documented By: Admin: 12/29/21 08:32 Dose: 81 mg Documented By: Admin: 12/28/21 08:30 Dose: 81 mg Documented By: KIM Carvedilol (Carvedilol 3.125 Mg Tablet) 3.125 mg PO BID [facility] Last Admin: 12/30/21 09:49 Dose: 3.125 mg Documented By: Admin: 12/29/21 21:52 Dose: 3.125 mg Documented By: Admin: 12/29/21 08:32 Dose: 3.125 mg Documented By: Admin: 12/28/21 22:06 Dose: Not Given Documented By: Admin: 12/28/21 08:59 Dose: Not Given Documented By: Admin: 12/28/21 08:32 Dose: 3.125 mg Documented By: KIM Colchicine (Colchicine 0.6 Mg Tablet) 0.6 mg PO DAILY [facility] Last Admin: 12/30/21 09:46 Dose: 0.6 mg Documented By: Admin: 12/29/21 08:32 Dose: 0.6 mg Documented By: Admin: 12/28/21 09:05 Dose: 0.6 mg Documented By: KIM Dextrose (Dextrose 50 % In Water 25 Gm/50 Ml Syringe) 25 gm IV PRN PRN; Protocol PRN Reason: Hypoglycemia Diclofenac Sodium (Diclofenac 1% Gel 100 Gm) 1 applic TOP QID [facility] Last Admin: 12/30/21 09:50 Dose: 1 applic Documented By: Admin: 12/29/21 23:48 Dose: Not Given Documented By: Admin: 12/29/21 18:08 Dose: Not Given Documented By: Admin: 12/29/21 13:59 Dose: Not Given Documented By: Admin: 12/29/21 08:33 Dose: Not Given Documented By: Admin: 12/29/21 03:38 Dose: 1 applic Documented By: Admin: 12/28/21 22:10 Dose: Not Given Documented By: Admin: 12/28/21 16:54 Dose: Not Given Documented By: Admin: 12/28/21 14:37 Dose: Not Given Documented By: Admin: 12/28/21 08:34 Dose: Not Given Documented By: Admin: 12/27/21 20:56 Dose: Not Given Documented By: COCO Enoxaparin Sodium (Enoxaparin 30 Mg/0.3 Ml Syringe) 30 mg SUBCUT DAILY [facility] Last Admin: 12/30/21 09:49 Dose: 30 mg Documented By: Admin: 12/29/21 08:34 Dose: Not Given Documented By: Admin: 12/28/21 08:30 Dose: 30 mg Documented By: KIM Fluticasone Propionate (Fluticasone 120 [place]/16 Gm [place].Susp) 1 spray NASAL BID [facility] Last Admin: 12/30/21 09:53 Dose: 1 spray Documented By: Admin: 12/29/21 21:54 Dose: 1 spray Documented By: Admin: 12/29/21 08:34 Dose: 1 spray Documented By: Admin: 12/28/21 22:09 Dose: 1 spray Documented By: Admin: 12/28/21 08:35 Dose: Not Given Documented By: Admin: 12/27/21 20:57 Dose: 1 spray Documented By: COCO Sodium Chloride (Normal Saline 0.9%) 500 mls @ 1,000 mls/hr IV BOLUS ONE Stop: 12/27/21 11:43 Last Infusion: 12/27/21 11:52 Dose: 0 mls/hr Documented By: Admin: 12/27/21 11:20 Dose: 1,000 mls/hr Documented By: SG Sodium Chloride (Normal Saline 0.9%) 500 mls @ 500 mls/hr IV BOLUS ONE Stop: 12/27/21 13:12 Last Infusion: 12/27/21 13:42 Dose: 0 mls/hr Documented By: Admin: 12/27/21 12:28 Dose: 500 mls/hr Documented By: SG Sodium Chloride (Normal Saline 0.45%) 1,000 mls @ 75 mls/hr IV CONT DALY Last Infusion: 12/28/21 09:48 Dose: 75 mls/hr Documented By: Admin: 12/27/21 19:44 Dose: 75 mls/hr Documented By: COCO Sodium Chloride (Normal Saline 0.45%) 1,000 mls @ 75 mls/hr IV CONT DALY Last Admin: 12/30/21 05:08 Dose: 75 mls/hr Documented By: Infusion: 12/30/21 05:08 Dose: 75 mls/hr Documented By: Admin: 12/29/21 16:14 Dose: 75 mls/hr Documented By: Infusion: 12/29/21 16:14 Dose: 75 mls/hr Documented By: Admin: 12/29/21 03:13 Dose: 75 mls/hr Documented By: Infusion: 12/29/21 03:13 Dose: 0 mls/hr Documented By: Admin: 12/28/21 14:35 Dose: 75 mls/hr Documented By: KIM Insulin Glargine (Insulin Glargine 100 Unit/Ml 3ml Pen) 20 unit SUBCUT BEDTIME DALY Last Admin: 12/29/21 22:18 Dose: 20 unit Documented By: Co-signed By: OSCAR Admin: 12/28/21 22:10 Dose: 20 unit Documented By: GLORIA Co-signed By: ARTURO Admin: 12/27/21 20:57 Dose: Not Given Documented By: COCO Insulin Human Lispro (Insulin Lispro 100 Unit/Ml 3ml Vial) 0 unit SUBCUT ACHS DALY; Protocol Last Admin: 12/30/21 07:53 Dose: Not Given Documented By: Admin: 12/29/21 22:19 Dose: 3 unit Documented By: Co-signed By: OSCAR Admin: 12/29/21 16:57 Dose: 3 unit Documented By: NILS Co-signed By: IRAJ Admin: 12/29/21 12:08 Dose: 3 unit Documented By: NILS Co-signed By: JOSE Admin: 12/29/21 08:05 Dose: Not Given Documented By: Admin: 12/28/21 22:07 Dose: 2 unit Documented By: GLORIA Co-signed By: ARTURO Admin: 12/28/21 16:54 Dose: Not Given Documented By: Admin: 12/28/21 11:27 Dose: 8 unit Documented By: KIM Co-signed By: ROGELIO Admin: 12/28/21 08:15 Dose: Not Given Documented By: Admin: 12/27/21 20:44 Dose: Not Given Documented By: COCO Isosorbide Mononitrate (Isosorbide Mononitrate Er 30 Mg Tablet) 30 mg PO DAILY [facility] Last Admin: 12/30/21 09:47 Dose: 30 mg Documented By: Admin: 12/29/21 08:35 Dose: 30 mg Documented By: Admin: 12/28/21 08:31 Dose: 30 mg Documented By: KIM Loratadine (Loratadine 10 Mg Tablet) 10 mg PO DAILY [facility] Last Admin: 12/30/21 09:52 Dose: 10 mg Documented By: Admin: 12/29/21 08:37 Dose: Not Given Documented By: Admin: 12/28/21 08:36 Dose: Not Given Documented By: KIM Magnesium Oxide (Magnesium Oxide 400 Mg Tablet) 800 mg PO BID [facility] Last Admin: 12/30/21 09:48 Dose: 800 mg Documented By: Admin: 12/29/21 21:52 Dose: 800 mg Documented By: Admin: 12/29/21 08:37 Dose: 800 mg Documented By: Admin: 12/28/21 22:05 Dose: 800 mg Documented By: Admin: 12/28/21 09:02 Dose: 800 mg Documented By: Admin: 12/27/21 20:57 Dose: 800 mg Documented By: COCO Metoclopramide HCl (Metoclopramide 10 Mg/2 Ml Inj) 5 mg IV NOW ONE Stop: 12/27/21 09:54 Last Admin: 12/27/21 10:10 Dose: 5 mg Documented By: SG Non-Formulary Medication (Cyclobenzaprine) 7.5 mg PO TID PRN PRN Reason: muscle spasm Non-Formulary Medication (Glucose: Home Monitoring Kit) 1 kit TD QID [facility] Non-Formulary Medication (Ondansetron Hcl) 4 mg PO Q6-8H PRN PRN Reason: nausea and vomiting Olopatadine HCl (Olopatadine 0.1% Ophth Drops 5 Ml) 1 drops EYE-BOTH DAILY [facility] Last Admin: 12/30/21 09:54 Dose: 1 1000units Documented By: Admin: 12/29/21 08:38 Dose: Not Given Documented By: Admin: 12/28/21 09:19 Dose: Not Given Documented By: KIM Ondansetron HCl (Ondansetron 4 Mg/2 Ml Inj) 4 mg IV Q6HR PRN PRN Reason: Nausea And Vomiting Last Admin: 12/27/21 18:04 Dose: 4 mg Documented By: DEQUAN Ondansetron HCl (Ondansetron 4 Mg/2 Ml Inj) 4 mg IV Q8HR PRN PRN Reason: Nausea And Vomiting Ondansetron HCl (Ondansetron 4 Mg Odt) 4 mg PO Q8HR PRN PRN Reason: Nausea And Vomiting Last Admin: 12/30/21 05:08 Dose: 4 mg Documented By: Admin: 12/29/21 21:51 Dose: 4 mg Documented By: Ondansetron HCl (Ondansetron 4 Mg Odt) 4 mg PO Q8H PRN PRN Reason: nausea and vomiting Oxycodone HCl (Oxycodone Ir 5 Mg Tablet) 5 mg PO Q4HR PRN PRN Reason: Pain, Moderate (4-6) Oxycodone HCl (Oxycodone Ir 5 Mg Tablet) 5 mg PO QID PRN PRN Reason: pain Last Admin: 12/30/21 03:24 Dose: 5 mg Documented By: Admin: 12/29/21 16:14 Dose: 5 mg Documented By: Admin: 12/29/21 08:47 Dose: 5 mg Documented By: Admin: 12/28/21 22:27 Dose: 5 mg Documented By: Admin: 12/28/21 11:18 Dose: 5 mg Documented By: Admin: 12/28/21 01:28 Dose: 5 mg Documented By: Admin: 12/27/21 20:28 Dose: 5 mg Documented By: COCO Pantoprazole Sodium (Pantoprazole Dr 20 Mg Tablet) 20 mg PO BID DAL[facility] Last Admin: 12/30/21 09:49 Dose: 20 mg Documented By: Admin: 12/29/21 21:52 Dose: 20 mg Documented By: Admin: 12/29/21 08:35 Dose: 20 mg Documented By: Admin: 12/28/21 22:05 Dose: 20 mg Documented By: Admin: 12/28/21 08:32 Dose: 20 mg Documented By: Admin: 12/27/21 20:58 Dose: 20 mg Documented By: COCO Pravastatin Sodium (Pravastatin 20 Mg Tablet) 80 mg PO BEDTIME [facility] Last Admin: 12/29/21 21:52 Dose: 80 mg Documented By: Admin: 12/28/21 22:05 Dose: 80 mg Documented By: Admin: 12/27/21 20:57 Dose: 80 mg Documented By: COCO Prednisone (Prednisone 5 Mg Tablet) 5 mg PO DAILY [facility] Last Admin: 12/30/21 09:47 Dose: 5 mg Documented By: Admin: 12/29/21 08:35 Dose: 5 mg Documented By: Admin: 12/28/21 08:32 Dose: 5 mg Documented By: KIM Pregabalin (Pregabalin 50 Mg Capsule) 100 mg PO TID [facility] Last Admin: 12/29/21 08:36 Dose: Not Given Documented By: Admin: 12/28/21 22:19 Dose: Not Given Documented By: Admin: 12/28/21 15:41 Dose: 100 mg Documented By: Admin: 12/28/21 08:31 Dose: 100 mg Documented By: Admin: 12/27/21 20:58 Dose: 100 mg Documented By: COCO Sodium Chloride (Sodium Chloride 0.9% Flush) 10 ml IV PRN PRN PRN Reason: Flush Sodium Chloride (Sodium Chloride 0.9% Flush) 10 ml IV BID [facility] Last Admin: 12/30/21 09:54 Dose: Not Given Documented By: Admin: 12/29/21 21:59 Dose: Not Given Documented By: Admin: 12/29/21 08:36 Dose: 10 ml Documented By: Admin: 12/28/21 21:53 Dose: 10 ml Documented By: Admin: 12/28/21 09:07 Dose: 10 ml Documented By: Admin: 12/27/21 20:45 Dose: 10 ml Documented By: COCO Tacrolimus (Tacrolimus 0.5 Mg Capsule) 1 mg PO BID [facility] Last Admin: 12/30/21 09:47 Dose: 1 mg Documented By: Admin: 12/29/21 21:52 Dose: 1 mg Documented By: Admin: 12/29/21 08:36 Dose: 1 mg Documented By: Admin: 12/28/21 22:04 Dose: 1 mg Documented By: Admin: 12/28/21 08:32 Dose: 1 mg Documented By: Admin: 12/27/21 20:58 Dose: 1 mg Documented By: COCO Timolol Maleate (Timolol 0.5% Ophth) 1 drops EYE-BOTH DAILY [facility] Last Admin: 12/30/21 09:55 Dose: 1 drop Documented By: Admin: 12/29/21 08:38 Dose: 1 drop Documented By: Admin: 12/28/21 08:35 Dose: Not Given Documented By: KIM Reevaluation(s) Reevaluation #1: Patient laboratory studies are improving with IV hydration however patient and able to tolerate food or drink. They do desire admission. Time: 16:24 Consultations Consultation #1: Spoke with primary care on-call, Dr. Guardado, she will admit patient Time: 16:27 Vital Signs Vital signs: Vital Signs - 8 hr 12/27/21 09:54 12/27/21 09:58 12/27/21 10:00 Temperature 98 F Pulse Rate 66 72 Respiratory Rate 18 Blood Pressure 147/68 H 125/69 Pulse Oximetry 99 98 Oxygen Delivery Method Room Air 12/27/21 10:00 12/27/21 10:30 12/27/21 10:30 Temperature Pulse Rate 74 72 Respiratory Rate 22 18 Blood Pressure 106/63 Pulse Oximetry 97 98 Oxygen Delivery Method MDM - Nausea/Vomiting/Diarrhea Differential Diagnosis Differential diagnosis: Likely dehydration and other (Acute renal injury) Lab Data Result diagrams: 12/30/21 06:58 12/30/21 06:58 Labs: Lab Results 12/27/21 12/27/21 12/27/21 Range/Units 10:00 10:00 11:10 WBC 7.1 (4.5-11.0) X10^3/uL RBC 4.64 (4.0-5.2) X10^6/uL Hgb 13.3 (12.0-16.0) g/dL Hct 39.5 (36-46) % MCV 85.2 (80-100) fL MCH 28.6 (26-34) PG MCHC 33.6 (30-36) % RDW 16.0 H (11.6-14.8) % Plt Count 131 L (150-400) X10^3/uL Neut % (Auto) 56.4 (50-75) % Lymph % (Auto) 25.0 (25-40) % [place] % (Auto) 10.3 (3-14) % Eos % (Auto) 7.7 H (2-4) % Baso % (Auto) 0.6 (0-2) % Neut # (Auto) 4000 (4526-0148) /uL Lymph # (Auto) 1800 (0477-8216) /uL [place] # (Auto) 700 (0-900) /uL Eos # (Auto) 500 H (0-450) /uL Baso # (Auto) 0 (0-100) /uL Sodium 139 (137-145) mmol/L Potassium 4.7 (3.4-5.1) mmol/L Chloride 101 (98-107) mmol/L Carbon Dioxide 25 (22-32) mmol/L BUN 51 H (7-17) mg/dL Creatinine 2.27 H (0.52-1.04) mg/dL Estimated GFR 22 L (>60) mL/min BUN/Creatinine Ratio 22.5 H (6-22) Glucose 179 H (80-110) mg/dL Uric Acid (2.5-6.2) mg/dL Calcium 10.5 H (8.4-10.2) mg/dL Magnesium (1.6-2.3) mg/dL Total Bilirubin 1.0 (0.2-1.3) mg/dL AST 49 H (14-36) IU/L ALT 43 H (<35) IU/L Alkaline Phosphatase 94 (38-126) U/L NT-Pro-B Natriuret Pep (<125) pg/mL Total Protein 8.0 (6.3-8.2) g/dL Albumin 4.5 (3.5-5.0) g/dL Globulin 3.5 (1.7-4.1) g/dL Albumin/Globulin Ratio 1.3 (1.0-2.8) Lipase 75 (23-300) U/L Urine RBC None seen (0-5/HPF) Urine WBC 1-5/hpf (0-5/HPF) Ur Squamous Epith Cells 0-1 /hpf (0-5/HPF) Amorphous Sediment 1+ Urine Bacteria Occasional (0-1) (None) Ur Culture Indicated? Specimen cultured SARS-CoV-2 (PCR) (Negative) 12/27/21 12/27/21 12/28/21 Range/Units 11:15 13:40 07:37 WBC 7.3 (4.5-11.0) X10^3/uL RBC 4.54 (4.0-5.2) X10^6/uL Hgb 12.9 (12.0-16.0) g/dL Hct 38.3 (36-46) % MCV 84.4 (80-100) fL MCH 28.3 (26-34) PG MCHC 33.6 (30-36) % RDW 15.2 H (11.6-14.8) % Plt Count 117 L (150-400) X10^3/uL Neut % (Auto) 55.7 (50-75) % Lymph % (Auto) 24.1 L (25-40) % [place] % (Auto) 9.5 (3-14) % Eos % (Auto) 10.1 H (2-4) % Baso % (Auto) 0.6 (0-2) % Neut # (Auto) 4100 (0620-7734) /uL Lymph # (Auto) 1800 (3171-6334) /uL [place] # (Auto) 700 (0-900) /uL Eos # (Auto) 700 H (0-450) /uL Baso # (Auto) 0 (0-100) /uL Sodium 139 (137-145) mmol/L Potassium 4.7 (3.4-5.1) mmol/L Chloride 106 (98-107) mmol/L Carbon Dioxide 22 (22-32) mmol/L BUN 48 H (7-17) mg/dL Creatinine 1.96 H (0.52-1.04) mg/dL Estimated GFR 26 L (>60) mL/min BUN/Creatinine Ratio 24.5 H (6-22) Glucose 162 H (80-110) mg/dL Uric Acid (2.5-6.2) mg/dL Calcium 9.5 (8.4-10.2) mg/dL Magnesium (1.6-2.3) mg/dL Total Bilirubin (0.2-1.3) mg/dL AST (14-36) IU/L ALT (<35) IU/L Alkaline Phosphatase (38-126) U/L NT-Pro-B Natriuret Pep (<125) pg/mL Total Protein (6.3-8.2) g/dL Albumin (3.5-5.0) g/dL Globulin (1.7-4.1) g/dL Albumin/Globulin Ratio (1.0-2.8) Lipase (23-300) U/L Urine RBC (0-5/HPF) Urine WBC (0-5/HPF) Ur Squamous Epith Cells (0-5/HPF) Amorphous Sediment Urine Bacteria (None) Ur Culture Indicated? SARS-CoV-2 (PCR) Negative (Negative) 12/28/21 12/28/21 12/29/21 Range/Units 07:37 07:37 07:05 WBC 6.9 (4.5-11.0) X10^3/uL RBC 4.43 (4.0-5.2) X10^6/uL Hgb 12.6 (12.0-16.0) g/dL Hct 37.3 (36-46) % MCV 84.3 (80-100) fL MCH 28.4 (26-34) PG MCHC 33.7 (30-36) % RDW 15.1 H (11.6-14.8) % Plt Count 119 L (150-400) X10^3/uL Neut % (Auto) 54.3 (50-75) % Lymph % (Auto) 26.2 (25-40) % [place] % (Auto) 10.6 (3-14) % Eos % (Auto) 8.5 H (2-4) % Baso % (Auto) 0.4 (0-2) % Neut # (Auto) 3700 (9887-0623) /uL Lymph # (Auto) 1800 (2677-8362) /uL [place] # (Auto) 700 (0-900) /uL Eos # (Auto) 600 H (0-450) /uL Baso # (Auto) 0 (0-100) /uL Sodium 138 (137-145) mmol/L Potassium 4.3 (3.4-5.1) mmol/L Chloride 105 (98-107) mmol/L Carbon Dioxide 23 (22-32) mmol/L BUN 35 H (7-17) mg/dL Creatinine 1.56 H (0.52-1.04) mg/dL Estimated GFR 35 L (>60) mL/min BUN/Creatinine Ratio 22.4 H (6-22) Glucose 94 (80-110) mg/dL Uric Acid 10.4 H (2.5-6.2) mg/dL Calcium 9.2 (8.4-10.2) mg/dL Magnesium 1.9 (1.6-2.3) mg/dL Total Bilirubin 0.8 (0.2-1.3) mg/dL AST 40 H (14-36) IU/L ALT 34 (<35) IU/L Alkaline Phosphatase 79 (38-126) U/L NT-Pro-B Natriuret Pep 177 H (<125) pg/mL Total Protein 6.7 (6.3-8.2) g/dL Albumin 3.7 (3.5-5.0) g/dL Globulin 3.0 (1.7-4.1) g/dL Albumin/Globulin Ratio 1.2 (1.0-2.8) Lipase (23-300) U/L Urine RBC (0-5/HPF) Urine WBC (0-5/HPF) Ur Squamous Epith Cells (0-5/HPF) Amorphous Sediment Urine Bacteria (None) Ur Culture Indicated? SARS-CoV-2 (PCR) (Negative) 12/29/21 Range/Units 07:05 WBC (4.5-11.0) X10^3/uL RBC (4.0-5.2) X10^6/uL Hgb (12.0-16.0) g/dL Hct (36-46) % MCV (80-100) fL MCH (26-34) PG MCHC (30-36) % RDW (11.6-14.8) % Plt Count (150-400) X10^3/uL Neut % (Auto) (50-75) % Lymph % (Auto) (25-40) % [place] % (Auto) (3-14) % Eos % (Auto) (2-4) % Baso % (Auto) (0-2) % Neut # (Auto) (3438-3318) /uL Lymph # (Auto) (7079-7109) /uL [place] # (Auto) (0-900) /uL Eos # (Auto) (0-450) /uL Baso # (Auto) (0-100) /uL Sodium 139 (137-145) mmol/L Potassium 4.5 (3.4-5.1) mmol/L Chloride 106 (98-107) mmol/L Carbon Dioxide 25 (22-32) mmol/L BUN 36 H (7-17) mg/dL Creatinine 1.36 H (0.52-1.04) mg/dL Estimated GFR 41 L (>60) mL/min BUN/Creatinine Ratio 26.5 H (6-22) Glucose 115 H (80-110) mg/dL Uric Acid (2.5-6.2) mg/dL Calcium 8.9 (8.4-10.2) mg/dL Magnesium (1.6-2.3) mg/dL Total Bilirubin 0.5 (0.2-1.3) mg/dL AST 33 (14-36) IU/L ALT 30 (<35) IU/L Alkaline Phosphatase 85 (38-126) U/L NT-Pro-B Natriuret Pep (<125) pg/mL Total Protein 6.6 (6.3-8.2) g/dL Albumin 3.5 (3.5-5.0) g/dL Globulin 3.1 (1.7-4.1) g/dL Albumin/Globulin Ratio 1.1 (1.0-2.8) Lipase (23-300) U/L Urine RBC (0-5/HPF) Urine WBC (0-5/HPF) Ur Squamous Epith Cells (0-5/HPF) Amorphous Sediment Urine Bacteria (None) Ur Culture Indicated? SARS-CoV-2 (PCR) (Negative) Urine Dip Bedside Urine Glucose Negative Bedside Urine Bilirubin - Negative Bedside Urine Ketone - Negative Urine Specific [place] 1.015 Bedside Urine Occult Blood - Negative Bedside Urine pH 5.5 Bedside Urine Protein - Negative Bedside Urine Urobilinogen - Negative Bedside Urine Nitrite - Negative Bedside Urine Leukocytes +/- 15 Esterase ECG Data Interpretation: Normal sinus rhythm rate [address] elevation or depression MDM Narrative Medical decision making narrative: Appropriate for admission. Patient not tolerating food or drink. Today's labs does show dehydration on CMP compared to yesterday. No complaints of dyspnea. Leg swelling has improved. Would benefit admission for IV hydration Discharge Plan Departure Patient Disposition: Admitted as Observation Clinical Impression: Acute kidney injury, Acute dehydration Admit Date/Time: 12/29/21 13:29 Admit Provider: Alannah Guardado
[2021-12-27] MEDS: SODIUM CHLORIDE 0.9% 500 ML 1000 ML IV (11:20)
[2021-12-27 11:31] LABS: Amorphous Sediment Urine 1+; Bacteria Urine Occasional (0-1); Culture Indicated Urine Specimen Cultured; RBC Urine None Seen (0-5/HPF); Squamous Epithelial Cell Urine 0-1 /HPF (0-5/HPF); WBC Urine 1-5/HPF (0-5/HPF)
[2021-12-27 11:53] LABS: COVID19 -Nasal RAPID Negative (Negative)
[2021-12-27] MEDS: SODIUM CHLORIDE 0.9% 500 ML IV (12:28)
[2021-12-27 14:18] LABS: BUN Creatinine Ratio 24.5 (6-22); Blood Urea Nitrogen 48 mg/dL (7-17); Calcium 9.5 mg/dL (8.4-10.2); Carbon Dioxide 22 mmol/L (22-32); Chloride 106 mmol/L (98-107); Estimated Glomerular Filt Rate 26 mL/min (>60); Glucose 162 mg/dL (80-110); HEMOLYSIS 34 (0-50); Potassium 4.7 mmol/L (3.4-5.1); Sodium 139 mmol/L (137-145)
[2021-12-27] MEDS: ONDANSETRON 4 MG/2 ML INJ IV (18:04)
--- NOTE | 2021-12-27 19:32 | PM.HP.1 ---
History of Present Illness History of Present Illness Date Patient Seen: 12/27/21 Time Patient Seen: 19:32 Chief complaint: Having trouble eating, trouble swallowing Narrative: This is a very pleasant 76-year-old female with multiple chronic medical problems who is followed by Dr. Valentino as her PCP. Patient has had numerous office, urgent care, ER visits regarding lower extremity edema and foot pain. She was switched from gabapentin to Lyrica in the end of July by her television equipment operator, Dr. Snow. This was because she was on very high dose of gabapentin it did not seem to be effective. The Lyrica was tolerated well and gradually increased. The patient developed lower extremity edema over the last week or so and was seen by Dr. Cueva who recommended decreasing this as this was causing her lower extremity edema. The patient has had progressive nausea with decreased appetite. She was evaluated in the emergency department multiple times over the last few days with the intervening visit to the outpatient clinic. She had a CT angiogram on month ago and then had another CT angiogram yesterday and now she has acute on chronic kidney disease. She is a history of renal transplant 10 years ago, severe coronary artery disease with a stress MIBI in October that showed no ischemia. She had an updated echo that showed enlargement of her ascending aorta but otherwise no significant pathology. She was evaluated by a cardiothoracic surgeon and they opted to monitor the aortic aneurism given concerns for her tolerating the surgical repair. Patient really feels she is unable to eat anything because of nausea and unable to drink there is no clear etiology for this but now patient with acute on chronic kidney disease and admitted for further evaluation and treatment. Patient is followed by Dr. Clarissa obrien for Cardiology; Dr. Snow for Nephrology Patient History Medical History Acute on chronic diastolic CHF (congestive heart failure) Aortic aneurysm Ascending aortic aneurysm Ascending aortic dissection CAD (coronary atherosclerotic disease) (10/29/10) Chest pain Chronic gout (10/29/10) Essential hypertension (10/29/10) GERD (gastroesophageal reflux disease) History of peritoneal dialysis Lumbar radiculopathy Other and unspecified hyperlipidemia Peripheral polyneuropathy (03/06/16) ST elevation Stage 3b chronic kidney disease (CKD) Tertiary hyperparathyroidism Type 2 diabetes mellitus Type 2 diabetes mellitus with other circulatory complication (02/19/15) Vesicoureteral reflux (07/01/13) Weakness on right side of face Surgical History History of cardiac cath (04/2012) History of carpal tunnel repair Status post breast biopsy Status post kidney transplant (04/03/13) Status post parathyroidectomy Family & Social History Social History: household members spouse Prior Living Arrangements House lives independently Yes caregiver/support person No Safety & Behavioral: Feels Safe in Current Yes Environment Been Physically Hurt or No Threatened By a Person Tobacco & Substance use: Smoking Status Never smoker alcohol intake never alcohol intake frequency 0-2 drinks per day Substance Use Type does not use,prescription drug Meds Home Medications and Allergies Home Medications Medication Instructions Recorded Confirmed Type fluticasone propionate 50 1 spray intranasal BID ##16 04/14/16 12/27/21 Rx mcg/actuation nasal spray,suspension loratadine 10 mg tablet 10 mg PO QDAY ##0 04/23/17 12/27/21 History timolol maleate 0.5 % eye drops 1 drp OPHTH QDAY ##0 04/23/17 12/27/21 History tacrolimus 1 mg capsule, 1 mg PO BID ##0 07/07/17 12/27/21 History immediate-release Disabled Parking Permit See Rx Instructions .Route 09/17/17 12/27/21 Rx .COMPLEX #1 ea amlodipine 10 mg tablet 10 mg PO DAILY 09/17/17 12/27/21 History aspirin 81 mg tablet,delayed 81 mg PO DAILY 09/17/17 12/27/21 History release isosorbide mononitrate 30 mg 30 mg PO QAM 09/17/17 12/27/21 History tablet,extended release 24 hr lisinopril 40 mg tablet 40 mg PO DAILY 09/17/17 12/27/21 History insulin lispro 100 unit/mL See Rx Instructions SUBCUT TID #2 12/05/19 12/27/21 Rx subcutaneous solution (Humalog vials U-100 Insulin) hydrochlorothiazide 25 mg tablet 25 mg PO DAILY #30 tabs 12/26/19 12/27/21 Rx ondansetron HCl 4 mg tablet 4 mg PO Q6-8H PRN nausea and 10/02/20 12/27/21 Rx vomiting #30 tabs olopatadine 0.1 % eye drops 1 drp EYE-BOTH DAILY #5 mL 10/22/20 12/27/21 Rx carvedilol 3.125 mg tablet 3.125 mg PO BID 11/09/20 12/27/21 History omeprazole 20 mg tablet,delayed 20 mg PO BID 11/09/20 12/27/21 History release cyclobenzaprine 7.5 mg tablet 7.5 mg PO TID PRN muscle spasm #20 12/07/20 12/27/21 Rx tabs blood sugar diagnostic (Glucocard See Rx Instructions .Route 12/13/20 12/27/21 Rx Expression strips) .COMPLEX #250 ea insulin glargine 100 unit/mL 20 - 30 unit (0.2 - 0.3 mL) SUBCUT 12/17/20 12/27/21 Rx subcutaneous solution (Lantus QHS #20 mL U-100 Insulin) magnesium oxide 400 mg (241.3 mg 800 mg PO BID #360 tabs 12/31/20 12/27/21 Rx magnesium) tablet pravastatin 80 mg tablet 80 mg PO HS #90 tabs 02/18/21 12/27/21 Rx prednisone 5 mg tablet 5 mg PO DAILY #90 tabs 02/25/21 12/27/21 Rx insulin syringe-needle U-100 0.5 See Rx Instructions .Route 04/16/21 12/27/21 Rx mL 31 gauge x 5/16 .COMPLEX ##120 colchicine 0.6 mg tablet 0.6 mg PO QDAY #90 tabs 08/07/21 12/27/21 Rx diclofenac sodium 1 % topical gel 4 g topical QID #100 grams 09/03/21 12/27/21 Rx metformin 1,000 mg tablet 1,000 mg PO BIDCC #180 tabs 09/17/21 12/27/21 Rx pregabalin 100 mg capsule 100 mg PO TID #270 caps 12/18/21 12/27/21 Rx furosemide 20 mg tablet (Lasix) 20 mg PO QAM #4 tabs 12/24/21 12/27/21 Rx oxycodone 5 mg tablet (Roxicodone) 5 mg PO QID PRN pain #120 tabs 12/25/21 12/27/21 Rx ondansetron 4 mg disintegrating 4 mg PO Q8H PRN nausea and 12/26/21 12/27/21 Rx tablet vomiting #10 tabs Glucose: Home Monitoring Kit 1 kit TD QID 12/27/21 12/27/21 History carvedilol 12.5 mg tablet 12.5 mg PO DAILY 12/27/21 12/27/21 History Allergies Allergy/AdvReac Type Severity Reaction Status Date / Time clopidogrel [CLOPIDOGREL] Allergy Mild AGRANOLOCYT Verified 12/25/21 07:22 OSIS Review of Systems Review of Systems Narrative: Patient denies any chest pain. Patient denies any shortness of breath. Patient denies any fever, chills, cough. Patient denies any rashes. Patient does have peripheral neuropathy and is having pain. She is had lower extremity edema which has been evaluated multiple times over the last several weeks. She was given furosemide IV in the ER and this was beneficial. She denies any unintentional weight loss. There is no change in her bowels. No bright red blood per rectum or black tarry stools. No urine symptoms. No headaches. Exam Vital Signs (past 8 hours): - 12/27/21 17:25 Temperature 97.6 F Pulse Rate 84 Respiratory Rate 20 Blood Pressure 131/76 Pulse Oximetry 98 Oxygen Flow Rate 0 Oxygen Delivery Method Room Air Oxygen Flow Rate 0 Narrative Exam Narrative: This is a very pleasant elderly female who appears her stated age of 76. She is a mild facial tic on the right. She is alert and oriented sitting very comfortably in the hospital chair in no apparent distress. Her breathing is not labored. She is stable on room air. Her vital signs are entirely stable with a normal blood pressure 131/76 and O2 sat of 98%. HEENT is remarkable for right-sided facial tic Mouth: Shows mucous membranes slightly dry Neck: Is supple without adenopathy or thyromegaly or bruit Cor: Regular rate and rhythm with distant S1-S2 Chest: Clear to auscultation without wheezes rhonchi or crackles Abdomen: Protuberant, positive bowel sounds, soft, mild tenderness in her right upper quadrant. No guarding. No rebound. No hepatosplenomegaly Extremities: Patient has trace to 1+ pitting edema pretibial ankle and pedal Skin no rashes Neurologic exam is nonfocal other than right side facial tics Objective Labs Result Diagrams: 12/27/21 10:00 12/27/21 13:40 Labs: Laboratory Results - last 24 hr 12/27/21 12/27/21 12/27/21 10:00 10:00 11:10 WBC 7.1 RBC 4.64 Hgb 13.3 Hct 39.5 MCV 85.2 MCH 28.6 MCHC 33.6 RDW 16.0 H Plt Count 131 L Neut % (Auto) 56.4 Lymph % (Auto) 25.0 [place] % (Auto) 10.3 Eos % (Auto) 7.7 H Baso % (Auto) 0.6 Neut # (Auto) 4000 Lymph # (Auto) 1800 [place] # (Auto) 700 Eos # (Auto) 500 H Baso # (Auto) 0 Sodium 139 Potassium 4.7 Chloride 101 Carbon Dioxide 25 BUN 51 H Creatinine 2.27 H Estimated GFR 22 L BUN/Creatinine Ratio 22.5 H Glucose 179 H Calcium 10.5 H Total Bilirubin 1.0 AST 49 H ALT 43 H Alkaline Phosphatase 94 Total Protein 8.0 Albumin 4.5 Globulin 3.5 Albumin/Globulin Ratio 1.3 Lipase 75 Urine RBC None seen Urine WBC 1-5/hpf Ur Squamous Epith Cells 0-1 /hpf Amorphous Sediment 1+ Urine Bacteria Occasional (0-1) Ur Culture Indicated? Specimen cultured SARS-CoV-2 (PCR) 12/27/21 12/27/21 11:15 13:40 WBC RBC Hgb Hct MCV MCH MCHC RDW Plt Count Neut % (Auto) Lymph % (Auto) [place] % (Auto) Eos % (Auto) Baso % (Auto) Neut # (Auto) Lymph # (Auto) [place] # (Auto) Eos # (Auto) Baso # (Auto) Sodium 139 Potassium 4.7 Chloride 106 Carbon Dioxide 22 BUN 48 H Creatinine 1.96 H Estimated GFR 26 L BUN/Creatinine Ratio 24.5 H Glucose 162 H Calcium 9.5 Total Bilirubin AST ALT Alkaline Phosphatase Total Protein Albumin Globulin Albumin/Globulin Ratio Lipase Urine RBC Urine WBC Ur Squamous Epith Cells Amorphous Sediment Urine Bacteria Ur Culture Indicated? SARS-CoV-2 (PCR) Negative Assessment & Plan Assessment & Plan narrative: 76-year-old female admitted with a past medical history of severe coronary artery disease, insulin-dependent type 2 diabetes, renal transplant from 10 years ago, aortic aneurysm ascending chronic, admitted for acute on chronic kidney disease with nausea and dehydration of unclear etiology Assessment 1. Patient is admitted to the hospital for acute dehydration with nausea Plan: Will give IV fluids. Will assess amylase and other causes for nausea. Will do dietary consult. Will monitor kidney function Assessment 2. Acute on chronic kidney disease in light of history of kidney transplant. Question whether CT angiogram contributed. Plan: We will gently hydrate and watch for fluid overload. We will hold metformin, hydrochlorothiazide, lisinopril, furosemide at this time and will reassess in a.m. Assessment 3. Hypertension with excellent control now Plan: Continue on the amlodipine at 10 mg a day. Continue on the carvedilol. We will hold hydrochlorothiazide and lisinopril until kidney function improves Assessment 4. Type 2 diabetes on chronic insulin Plan: Will continue the Lantus at night. Will do sliding scale insulin. Will do CBGS q.a.c. and q.h.s.. Will hold metformin now due to acute exacerbation of chronic kidney disease Assessment 5. Hyperlipidemia with known history of coronary artery disease without acute symptoms Plan: Will continue on statin and baby aspirin Assessment 6. Gout Plan: Will continue with colchicine. Will check uric acid tomorrow No current gout symptoms Assessment 7. Severe coronary artery disease without current symptoms Plan: Continue isosorbide mononitrate. Continue with same statin and Coreg baby aspirin Assessment 8. Status post renal transplant Plan: Continue tacrolimus and prednisone. I do not think patient needs stress dosing Assessment 9. Peripheral neuropathy Plan: At this point will hold Lyrica. We will give oxycodone as needed. Will consider re initiating gabapentin pending how she does. 70 minutes was spent with patient in evaluating chart and discussing with nursing and physician and meeting with patient and formulating and documenting a plan Patient's code status is DNR. She is discussed this with her and had no questions regarding this. Time Spent With Patient Critical Care time: I spent a total of [] minutes of critical care time on this patient's care today; this time is exclusive of procedural time. Quality VTE Deep Vein Thrombosis/Pulmonary Embolism Present on Admission: No
[2021-12-27] MEDS: SODIUM CHLORIDE 0.45% 1,000 ML 75 ML IV (19:44)
[2021-12-27] MEDS: OXYCODONE IR 5 MG TABLET PO (20:28)
[2021-12-27] MEDS: SODIUM CHLORIDE 0.9% FLUSH 10 ML IV (20:45)
[2021-12-27] MEDS: PRAVASTATIN 20 MG TABLET 80 MG PO (20:57)
[2021-12-27] MEDS: MAGNESIUM OXIDE 400 MG TABLET 800 MG PO (20:57)
[2021-12-27] MEDS: FLUTICASONE 120 SPRAY/16 GM SPRAY.SUSP NASAL (20:57)
[2021-12-27] MEDS: PANTOPRAZOLE DR 20 MG TABLET PO (20:58)
[2021-12-27] MEDS: PREGABALIN 50 MG CAPSULE 100 MG PO (20:58)
[2021-12-27] MEDS: TACROLIMUS 0.5 MG CAPSULE 1 MG PO (20:58)
[2021-12-28] VITALS (8 sets, daily range): BP systolic 82–132; BP diastolic 43–72; PULSE 71–80; RESP 16–19; TEMP 35.6–36.4; O2SAT 96–98
[2021-12-28] MEDS: OXYCODONE IR 5 MG TABLET PO ×3 (01:28→22:27)
--- NOTE | 2021-12-28 02:47 | PC.NURSE ---
Pt. decliined her Isaius @ , states my blood sugar is low & I'm not eating much. CBG was 123 when last checked. Will monitor,
[2021-12-28 07:45] LABS: Add Manual Diff / Slide Review NO; Basophils Absolute Auto 0 /uL (0-100); Basophils Percent Auto 0.6 % (0-2); Eosinophils Absolute Auto 700 /uL (0-450); Eosinophils Percent Auto 10.1 % (2-4); Hematocrit 38.3 % (36-46); Hemoglobin 12.9 g/dL (12.0-16.0); Lymphocytes Absolute Auto 1800 /uL (1100-4500); Lymphocytes Percent Auto 24.1 % (25-40); Mean Corpuscular HGB Conc 33.6 % (30-36); Mean Corpuscular Hemoglobin 28.3 PG (26-34); Mean Corpuscular Volume 84.4 fL (80-100); Monocytes Absolute Auto 700 /uL (0-900); Monocytes Percent Auto 9.5 % (3-14); Neutrophils Absolute Auto 4100 /uL (1500-7000); Neutrophils Percent Auto 55.7 % (50-75); Platelet Count 117 X10^3/uL (150-400); Red Blood Cell Count 4.54 X10^6/uL (4.0-5.2); Red Cell Distribution Width 15.2 % (11.6-14.8); White Blood Cell Count 7.3 X10^3/uL (4.5-11.0)
[2021-12-28 08:11] LABS: Magnesium 1.9 mg/dL (1.6-2.3); Uric Acid 10.4 mg/dL (2.5-6.2)
[2021-12-28 08:12] LABS: Alanine Aminotransferase 34 IU/L (<35); Albumin 3.7 g/dL (3.5-5.0); Albumin Globulin Ratio 1.2 (1.0-2.8); Alkaline Phosphatase 79 U/L (38-126); Aspartate Aminotransferase 40 IU/L (14-36); BUN Creatinine Ratio 22.4 (6-22); Bilirubin Total 0.8 mg/dL (0.2-1.3); Blood Urea Nitrogen 35 mg/dL (7-17); Calcium 9.2 mg/dL (8.4-10.2); Carbon Dioxide 23 mmol/L (22-32); Chloride 105 mmol/L (98-107); Estimated Glomerular Filt Rate 35 mL/min (>60); Glucose 94 mg/dL (80-110); HEMOLYSIS < 15 (0-50); Potassium 4.3 mmol/L (3.4-5.1); Sodium 138 mmol/L (137-145); Total Protein 6.7 g/dL (6.3-8.2)
[2021-12-28 08:19] LABS: NT-proBNP (BNP-Adult 18+) 177 pg/mL (<125)
[2021-12-28] MEDS: ENOXAPARIN 30 MG/0.3 ML SYRINGE SUBCUT (08:30)
[2021-12-28] MEDS: ASPIRIN EC 81 MG TABLET PO (08:30)
[2021-12-28] MEDS: ISOSORBIDE MONONITRATE ER 30 MG TABLET PO (08:31)
[2021-12-28] MEDS: AMLODIPINE 5 MG TABLET 10 MG PO (08:31)
[2021-12-28] MEDS: PREGABALIN 50 MG CAPSULE 100 MG PO ×2 (08:31→15:41)
[2021-12-28] MEDS: predniSONE 5 MG TABLET PO (08:32)
[2021-12-28] MEDS: PANTOPRAZOLE DR 20 MG TABLET PO ×2 (08:32→22:05)
[2021-12-28] MEDS: TACROLIMUS 0.5 MG CAPSULE 1 MG PO ×2 (08:32→22:04)
[2021-12-28] MEDS: carvediloL 3.125 MG TABLET PO (08:32)
--- NOTE | 2021-12-28 08:58 | CM.DANOTE ---
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 F who presented to the ER with chief complaint of trouble eating and swallowing. Pt also had leg swelling and improved with Lasix. Pt admitted under observation for complaints and further management of symptoms. Pt shows dehydration per ordered labs. DCP met with pt this morning to discuss discharge needs. Spouse, Antonio, at bedside. Pt sitting up in bed eating breakfast. Pt and spouse state that they live in a single story house in [place]. Pt does not use any DME's or drive POV. Antonio is main source of transportation for pt. Pt used HH services about 10 years ago after her kidney transplant. Currently, pt is independent at baseline. Antonio states they have a neighbor who is a caregiver and has been able to help out when needed. No discharge needs at this time. DCP to continue to follow. White board updated and instructed to call if needed. Pt and pt spouse thankful for discussion. P: DCP to continue to follow case. Once medically cleared for discharge, pt to discharge home via spouse POV. Linda Hooks RN/JOSE ROBERTOP Discharge Planning/Care Management CM Discharge Assessment Start: 12/28/21 08:51 Freq: Status: Active Protocol: Document 12/28/21 08:51 JENI (Rec: 12/28/21 08:52 JENI [id number]) Discharge Planning Assessment Assigned [employer] Linda Hooks RN/ALBERTA Advance Directives? No History Provided By Patient,Significant Other, Medical Record Prior Living Arrangements House Household Members spouse Type of transporation used prior to Relies on Others admit Independent with ADL's Yes Is patient alert and oriented? Yes Caregiver for Another No Discharge Plan Home Transportation Arrangement Spouse POV Referrals Initiated None needed Additional Comment R/O Home Health Whiteboard Updated in Patient Room with Yes name and ext. # of [employer] Comment Instructed to call if needed. Review Status In Process Please Provide Date Initial DC 12/28/21 Assessment Was Performed Next Review Type Continued Stay Review
[2021-12-28] MEDS: MAGNESIUM OXIDE 400 MG TABLET 800 MG PO ×2 (09:02→22:05)
[2021-12-28] MEDS: COLCHICINE 0.6 MG TABLET PO (09:05)
[2021-12-28] MEDS: SODIUM CHLORIDE 0.9% FLUSH 10 ML IV ×2 (09:07→21:53)
[2021-12-28] MEDS: INSULIN LISPRO 100 UNIT/ML 3ML VIAL SUBCUT ×2 (11:27→22:07)
--- NOTE | 2021-12-28 14:22 | PM.PN.1 ---
Subjective Subjective Date Patient Seen: 12/28/21 Time Patient Seen: 14:22 Interval history: Patient had an uneventful night. However currently she was experiencing dizziness was found to have a systolic blood pressure in the low 80s and was placed in Trendelenburg. Currently she is feeling better in Trendelenburg and her blood pressures in the 90s. She received IV Lasix last night in the ER. She had significant diuresis. Her IV fluids were stopped this morning and she is not had allowed p.o. intake. She received her outpatient regimen of amlodipine 10 mg and carvedilol. Patient denies any shortness of breath or chest pain. The abdominal pain she was feeling last night she states has resolved. Her lower extremity edema has improved. It is suspected that the Lyrica was causing lower extremity edema. The remainder of her blood pressures have been normal and stable. Patient is an excellent historian. is present today. Review of systems: Patient denies any GI symptoms. Denies any chest pain or shortness of breath. Continues to have peripheral neuropathy symptoms Exam Vital Signs (past 8 hours): - 12/28/21 08:32 12/28/21 10:00 12/28/21 13:59 Temperature 96.8 F L 97.5 F L Pulse Rate 72 80 Respiratory Rate 18 16 Blood Pressure 123/72 132/72 82/43 L Pulse Oximetry 97 97 Oxygen Flow Rate 0 0 Oxygen Delivery Method Room Air Oxygen Flow Rate 0 Narrative Exam Narrative: Afebrile, vital signs stable except for hypotension HEENT is unchanged Neck: Supple without adenopathy Chest: Clear to auscultation without wheezes rhonchi or crackles Cor: Regular rate and rhythm with distant S1-S2 Abdomen: Positive bowel sounds, soft, nontender, nondistended Extremities: No edema, pulses intact Neurologic exam nonfocal Objective Labs Result Diagrams: 12/28/21 07:37 12/28/21 07:37 Labs: Laboratory Results - last 24 hr 12/27/21 12/28/21 12/28/21 13:40 07:37 07:37 WBC 7.3 RBC 4.54 Hgb 12.9 Hct 38.3 MCV 84.4 MCH 28.3 MCHC 33.6 RDW 15.2 H Plt Count 117 L Neut % (Auto) 55.7 Lymph % (Auto) 24.1 L [place] % (Auto) 9.5 Eos % (Auto) 10.1 H Baso % (Auto) 0.6 Neut # (Auto) 4100 Lymph # (Auto) 1800 [place] # (Auto) 700 Eos # (Auto) 700 H Baso # (Auto) 0 Sodium 139 138 Potassium 4.7 4.3 Chloride 106 105 Carbon Dioxide 22 23 BUN 48 H 35 H Creatinine 1.96 H 1.56 H Estimated GFR 26 L 35 L BUN/Creatinine Ratio 24.5 H 22.4 H Glucose 162 H 94 Uric Acid Calcium 9.5 9.2 Magnesium Total Bilirubin 0.8 AST 40 H ALT 34 Alkaline Phosphatase 79 NT-Pro-B Natriuret Pep 177 H Total Protein 6.7 Albumin 3.7 Globulin 3.0 Albumin/Globulin Ratio 1.2 12/28/21 07:37 WBC RBC Hgb Hct MCV MCH MCHC RDW Plt Count Neut % (Auto) Lymph % (Auto) [place] % (Auto) Eos % (Auto) Baso % (Auto) Neut # (Auto) Lymph # (Auto) [place] # (Auto) Eos # (Auto) Baso # (Auto) Sodium Potassium Chloride Carbon Dioxide BUN Creatinine Estimated GFR BUN/Creatinine Ratio Glucose Uric Acid 10.4 H Calcium Magnesium 1.9 Total Bilirubin AST ALT Alkaline Phosphatase NT-Pro-B Natriuret Pep Total Protein Albumin Globulin Albumin/Globulin Ratio [facility] Medical History Acute on chronic diastolic CHF (congestive heart failure) Aortic aneurysm Ascending aortic aneurysm Ascending aortic dissection CAD (coronary atherosclerotic disease) (10/29/10) Chest pain Chronic gout (10/29/10) Essential hypertension (10/29/10) GERD (gastroesophageal reflux disease) History of peritoneal dialysis Lumbar radiculopathy Other and unspecified hyperlipidemia Peripheral polyneuropathy (03/06/16) ST elevation Stage 3b chronic kidney disease (CKD) Tertiary hyperparathyroidism Type 2 diabetes mellitus Type 2 diabetes mellitus with other circulatory complication (02/19/15) Vesicoureteral reflux (07/01/13) Weakness on right side of face Surgical History History of cardiac cath (04/2012) History of carpal tunnel repair Status post breast biopsy Status post kidney transplant (04/03/13) Status post parathyroidectomy Social History marital status: number of children: 0 household members: spouse lives independently: Yes caregiver/support person: No housing: house pets and animals: No education level: high school occupational status: other Previous occupational history: [employer] in [employer]/syn[employer]: Nondenominational leisure activities: exercise and other Smoking Status: Never smoker Tobacco: How many years used: 0 quit status: quit date established second hand exposure: No alcohol intake: never substance use type: does not use Assessment & Plan Assessment & Plan narrative: Assessment 1. Patient is admitted to the hospital for acute dehydration, nausea and vomiting with improvement in renal function but still very poor p.o. intake Plan:? Will give IV fluids.? Will assess amylase and other causes for nausea.? Will do dietary consult.? Will monitor kidney function Assessment 2. Acute on chronic kidney disease in light of history of kidney transplant.? Question whether CT angiogram contributed. Improved Plan:? We will gently hydrate and watch for fluid overload.? We will continue to hold metformin, hydrochlorothiazide, lisinopril, furosemide at this time and will reassess in a.m. Assessment 3. Hypertension with excellent control but now episode of hypotension. Patient has had a recent echo, which did not show significant suppressed ejection fraction or cardiomyopathy etc. Suspect that IV Lasix in the emergency room perhaps contributed to hypotension today. Plan: Will decrease amlodipine from 10 mg daily to 5 mg daily.? Continue on the carvedilol.? We will hold hydrochlorothiazide and lisinopril until kidney function improves Assessment 4.? Type 2 diabetes on chronic insulin Plan: Will continue the Lantus at night.? Will do sliding scale insulin.? Will do CBGS q.a.c. and q.h.s..? Will hold metformin now due to acute exacerbation of chronic kidney disease Assessment 5. Hyperlipidemia with known history of coronary artery disease without acute symptoms Plan:? Will continue on statin and baby aspirin Assessment 6. Gout Plan: Will continue with colchicine.? Unclear if she is been taking her colchicine. Uric acid is elevated but she does not have current gout symptoms. We will discuss adding allopurinol with Nephrology. Assessment 7.? Severe coronary artery disease without current symptoms Plan:? Continue isosorbide mononitrate.? Continue with same statin and Coreg baby aspirin Assessment 8. Status post renal transplant Plan: Continue tacrolimus and prednisone.? I do not think patient needs stress dosing Assessment 9.? Peripheral neuropathy Plan: At this point will hold Lyrica.? We will give oxycodone as needed.? Will consider re initiating gabapentin pending how she does. Assessment 10. History of chronic ascending aorta aneurysm. If patient continues to have hypotension we will repeat echo. Assessment 11. DVT prophylaxis Plan: Continue with Lovenox and SCDs 35 minutes spent with patient Time Spent With Patient Critical Care time: I spent a total of [] minutes of critical care time on this patient's care today; this time is exclusive of procedural time. Quality VTE Deep Vein Thrombosis/Pulmonary Embolism Present on Admission: No
[2021-12-28] MEDS: SODIUM CHLORIDE 0.45% 1,000 ML 75 ML IV (14:35)
--- NOTE | 2021-12-28 15:14 | PC.NURSE ---
Pt resting at intervals. SCD in place. IVF of 1/2 NS infusing into the LAC at 75cc/hr via pump w/o incidence. Pt had episode of low B/P now back to WNL Med @ 1130 for discomfort w/good relief. Call light w/in reach, bed alarm on for pt safety. Continue w/plan of care.
[2021-12-28] MEDS: PRAVASTATIN 20 MG TABLET 80 MG PO (22:05)
[2021-12-28] MEDS: FLUTICASONE 120 SPRAY/16 GM SPRAY.SUSP NASAL (22:09)
[2021-12-28] MEDS: INSULIN GLARGINE 100 UNIT/ML 3ML PEN 20 UNIT SUBCUT (22:10)
[2021-12-29] VITALS (7 sets, daily range): BP systolic 104–137; BP diastolic 57–71; PULSE 68–79; RESP 14–20; TEMP 35.6–36; O2SAT 92–99
[2021-12-29] MEDS: SODIUM CHLORIDE 0.45% 1,000 ML 75 ML IV ×2 (03:13→16:14)
[2021-12-29] MEDS: DICLOFENAC 1% GEL 100 GM 1 APPLIC TOP (03:38)
[2021-12-29 07:37] LABS: Add Manual Diff / Slide Review NO; Basophils Absolute Auto 0 /uL (0-100); Basophils Percent Auto 0.4 % (0-2); Eosinophils Absolute Auto 600 /uL (0-450); Eosinophils Percent Auto 8.5 % (2-4); Hematocrit 37.3 % (36-46); Hemoglobin 12.6 g/dL (12.0-16.0); Lymphocytes Absolute Auto 1800 /uL (1100-4500); Lymphocytes Percent Auto 26.2 % (25-40); Mean Corpuscular HGB Conc 33.7 % (30-36); Mean Corpuscular Hemoglobin 28.4 PG (26-34); Mean Corpuscular Volume 84.3 fL (80-100); Monocytes Absolute Auto 700 /uL (0-900); Monocytes Percent Auto 10.6 % (3-14); Neutrophils Absolute Auto 3700 /uL (1500-7000); Neutrophils Percent Auto 54.3 % (50-75); Platelet Count 119 X10^3/uL (150-400); Red Blood Cell Count 4.43 X10^6/uL (4.0-5.2); Red Cell Distribution Width 15.1 % (11.6-14.8); White Blood Cell Count 6.9 X10^3/uL (4.5-11.0)
[2021-12-29 07:53] LABS: Alanine Aminotransferase 30 IU/L (<35); Albumin 3.5 g/dL (3.5-5.0); Albumin Globulin Ratio 1.1 (1.0-2.8); Alkaline Phosphatase 85 U/L (38-126); Aspartate Aminotransferase 33 IU/L (14-36); BUN Creatinine Ratio 26.5 (6-22); Bilirubin Total 0.5 mg/dL (0.2-1.3); Blood Urea Nitrogen 36 mg/dL (7-17); Calcium 8.9 mg/dL (8.4-10.2); Carbon Dioxide 25 mmol/L (22-32); Chloride 106 mmol/L (98-107); Estimated Glomerular Filt Rate 41 mL/min (>60); Globulin 3.1 g/dL (1.7-4.1); Glucose 115 mg/dL (80-110); HEMOLYSIS < 15 (0-50); Potassium 4.5 mmol/L (3.4-5.1); Sodium 139 mmol/L (137-145); Total Protein 6.6 g/dL (6.3-8.2)
[2021-12-29] MEDS: AMLODIPINE 5 MG TABLET 10 MG PO (08:32)
[2021-12-29] MEDS: COLCHICINE 0.6 MG TABLET PO (08:32)
[2021-12-29] MEDS: carvediloL 3.125 MG TABLET PO ×2 (08:32→21:52)
[2021-12-29] MEDS: ASPIRIN EC 81 MG TABLET PO (08:32)
[2021-12-29] MEDS: FLUTICASONE 120 SPRAY/16 GM SPRAY.SUSP NASAL ×2 (08:34→21:54)
[2021-12-29] MEDS: PANTOPRAZOLE DR 20 MG TABLET PO ×2 (08:35→21:52)
[2021-12-29] MEDS: predniSONE 5 MG TABLET PO (08:35)
[2021-12-29] MEDS: ISOSORBIDE MONONITRATE ER 30 MG TABLET PO (08:35)
[2021-12-29] MEDS: TACROLIMUS 0.5 MG CAPSULE 1 MG PO ×2 (08:36→21:52)
[2021-12-29] MEDS: SODIUM CHLORIDE 0.9% FLUSH 10 ML IV (08:36)
[2021-12-29] MEDS: MAGNESIUM OXIDE 400 MG TABLET 800 MG PO ×2 (08:37→21:52)
[2021-12-29] MEDS: TIMOLOL 0.5% OPHTH 1 DROPS EYE-BOTH (08:38)
[2021-12-29] MEDS: OXYCODONE IR 5 MG TABLET PO ×2 (08:47→16:14)
[2021-12-29] MEDS: INSULIN LISPRO 100 UNIT/ML 3ML VIAL SUBCUT ×3 (12:08→22:19)
--- NOTE | 2021-12-29 13:24 | P.PN_ITS ---
Subjective Subjective Date Patient Seen: 12/29/21 Time Patient Seen: 13:24 Interval history: Patient feeling better. She is able to eat more. She is still having episodes of dizziness. Her lower extremity edema has resolved. She is had fewer and less significant hypotensive episodes. The amlodipine was decreased from 10 mg to 5 mg. Patient is having normal bowel movements. Normal urination. Patient did eat [place] toast for breakfast this morning and her blood sugar after was 230 otherwise blood sugars have been good Exam Vital Signs (past 8 hours): - 12/29/21 07:53 12/29/21 08:32 12/29/21 11:56 Temperature 96.1 F L 96.3 F L Pulse Rate 72 72 69 Respiratory Rate 17 17 Blood Pressure 133/71 133/71 104/57 L Pulse Oximetry 98 98 Oxygen Flow Rate 0 0 Oxygen Delivery Method Room Air Oxygen Flow Rate 0 Narrative Exam Narrative: Patient alert and oriented in no apparent distress. Patient alert and oriented. Patient resting in hospital bed without any difficulty Afebrile vital signs are stable. Patient did receive 5 mg of amlodipine this morning and not the 10 mg she is usually on blood pressure at 11:00 a.m. was 104/57. Patient had no symptoms at that time. Patient became dizzy and blood pressure was 137/70. HEENT NT unchanged Neck: Supple without adenopathy Chest: Clear to auscultation without wheezes rhonchi or crackles Cor: Regular rate and rhythm without a murmur, distant S1-S2 Abdomen: Obese, nontender, nondistended, no hepatosplenomegaly Extremities: No edema, pulses intact Skin no rashes Objective Labs Result Diagrams: 12/29/21 07:05 12/29/21 07:05 Labs: Laboratory Results - last 24 hr 12/29/21 12/29/21 07:05 07:05 WBC 6.9 RBC 4.43 Hgb 12.6 Hct 37.3 MCV 84.3 MCH 28.4 MCHC 33.7 RDW 15.1 H Plt Count 119 L Neut % (Auto) 54.3 Lymph % (Auto) 26.2 [place] % (Auto) 10.6 Eos % (Auto) 8.5 H Baso % (Auto) 0.4 Neut # (Auto) 3700 Lymph # (Auto) 1800 [place] # (Auto) 700 Eos # (Auto) 600 H Baso # (Auto) 0 Sodium 139 Potassium 4.5 Chloride 106 Carbon Dioxide 25 BUN 36 H Creatinine 1.36 H Estimated GFR 41 L BUN/Creatinine Ratio 26.5 H Glucose 115 H Calcium 8.9 Total Bilirubin 0.5 AST 33 ALT 30 Alkaline Phosphatase 85 Total Protein 6.6 Albumin 3.5 Globulin 3.1 Albumin/Globulin Ratio 1.1 [facility] Medical History Acute on chronic diastolic CHF (congestive heart failure) Aortic aneurysm Ascending aortic aneurysm Ascending aortic dissection CAD (coronary atherosclerotic disease) (10/29/10) Chest pain Chronic gout (10/29/10) Essential hypertension (10/29/10) GERD (gastroesophageal reflux disease) History of peritoneal dialysis Lumbar radiculopathy Other and unspecified hyperlipidemia Peripheral polyneuropathy (03/06/16) ST elevation Stage 3b chronic kidney disease (CKD) Tertiary hyperparathyroidism Type 2 diabetes mellitus Type 2 diabetes mellitus with other circulatory complication (02/19/15) Vesicoureteral reflux (07/01/13) Weakness on right side of face Surgical History History of cardiac cath (04/2012) History of carpal tunnel repair Status post breast biopsy Status post kidney transplant (04/03/13) Status post parathyroidectomy Social History marital status: number of children: 0 household members: spouse lives independently: Yes caregiver/support person: No housing: house pets and animals: No education level: high school occupational status: other 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 Assessment 1. Nausea vomiting and dehydration improved. Patient is not back to baseline renal function. She is not back to baseline p.o. intake. There is no clear etiology for her symptomatology. She is improving and requires at least 1 more overnight stay for continued treatment with IV fluid treatment and with holding outpatient lisinopril and metformin.. Assessment 2. Acute on chronic kidney disease in light of history of kidney transplant.? Question whether CT angiogram contributed.? Improved. Continues to improve. Plan:? We will gently hydrate and watch for fluid overload.? We will continue to hold metformin, hydrochlorothiazide, lisinopril, furosemide at this time and will reassess in a.m. Assessment 3. Hypertension with excellent control but now episode of hypotension. She is off 3 of her antihypertensives and we have decreased her amlodipine to 5 mg and it is unclear why she is having the episodes of hypotension..? Patient has had a recent echo, which did not show significant suppressed ejection fraction or cardiomyopathy etc. Suspect that IV Lasix in the emergency room perhaps contributed to hypotension. Plan:? Will continue on lower dose of amlodipine at to 5 mg daily.? Continue on the carvedilol.? We will hold hydrochlorothiazide and lisinopril until kidney function improves. If further episodes of hypotension we will repeat echo which was last done in October. Assessment 4.? Type 2 diabetes on chronic insulin Plan: Will continue the Lantus at night.? Will do sliding scale insulin.? Will do CBGS q.a.c. and q.h.s..? Will hold metformin now due to acute exacerbation of chronic kidney disease. Will make sure that patient is on a low carb diet. Understandable her blood sugar would rise with [place]err[place]ian toast. Assessment 5. Hyperlipidemia with known history of coronary artery disease without acute symptoms Plan:? Will continue on statin and baby aspirin Assessment 6. Gout Plan: Will continue with colchicine.? Unclear if she is been taking her colchicine.? Uric acid is elevated but she does not have current gout symptoms.? We will discuss adding allopurinol with Nephrology. Assessment 7.? Severe coronary artery disease without current symptoms Plan:? Continue isosorbide mononitrate.? Continue with same statin and Coreg baby aspirin Assessment 8. Status post renal transplant Plan: Continue tacrolimus and prednisone.? I do not think patient needs stress dosing Assessment 9.? Peripheral neuropathy Plan: At this point will hold Lyrica.? We will give oxycodone as needed.? Will consider re initiating gabapentin pending how she does. Assessment 10.? History of chronic ascending aorta aneurysm.? If patient continues to have hypotension we will repeat echo.? Assessment 11.? DVT prophylaxis Plan: Continue with Lovenox and SCDs Assessment 12. Peripheral edema suspect related to the Lyrica though I have not seen this side effect before. Her symptoms have improved. Plan: Continue off Lyrica. Continue with gentle hydration. Continue with holding the furosemide 35 minute spent with patient in discussing with nursing, meeting with patient, reviewing chart, formulating a plan and documenting. Time Spent With Patient Critical Care time: I spent a total of [] minutes of critical care time on this patient's care today; this time is exclusive of procedural time. Quality VTE Deep Vein Thrombosis/Pulmonary Embolism Present on Admission: No
[2021-12-29] MEDS: ONDANSETRON 4 MG ODT PO (21:51)
[2021-12-29] MEDS: PRAVASTATIN 20 MG TABLET 80 MG PO (21:52)
[2021-12-29] MEDS: INSULIN GLARGINE 100 UNIT/ML 3ML PEN 20 UNIT SUBCUT (22:18)
[2021-12-30 03:20] VITALS: BP 116/67; PULSE 77; RESP 14; TEMP 35.9; O2SAT 97
[2021-12-30] MEDS: OXYCODONE IR 5 MG TABLET PO (03:24)
[2021-12-30 05:00] VITALS: BP 146/80; PULSE 91; O2SAT 98
[2021-12-30] MEDS: ONDANSETRON 4 MG ODT PO (05:08)
[2021-12-30] MEDS: SODIUM CHLORIDE 0.45% 1,000 ML 75 ML IV (05:08)
[2021-12-30 07:42] LABS: Add Manual Diff / Slide Review NO; Basophils Absolute Auto 0 /uL (0-100); Basophils Percent Auto 0.4 % (0-2); Eosinophils Absolute Auto 600 /uL (0-450); Eosinophils Percent Auto 8.6 % (2-4); Hematocrit 37.5 % (36-46); Hemoglobin 12.5 g/dL (12.0-16.0); Lymphocytes Absolute Auto 2100 /uL (1100-4500); Lymphocytes Percent Auto 30.6 % (25-40); Mean Corpuscular HGB Conc 33.5 % (30-36); Mean Corpuscular Hemoglobin 28.5 PG (26-34); Monocytes Absolute Auto 700 /uL (0-900); Monocytes Percent Auto 9.9 % (3-14); Neutrophils Absolute Auto 3400 /uL (1500-7000); Neutrophils Percent Auto 50.5 % (50-75); Platelet Count 126 X10^3/uL (150-400); Red Blood Cell Count 4.41 X10^6/uL (4.0-5.2); Red Cell Distribution Width 15.2 % (11.6-14.8); White Blood Cell Count 6.8 X10^3/uL (4.5-11.0)
--- NOTE | 2021-12-30 07:59 | PM.DS.1 ---
History of Present Illness History of Present Illness Date Patient Seen: 12/30/21 Time Patient Seen: 07:59 Chief complaint: Having trouble eating, trouble swallowing Narrative: This is a very pleasant 76-year-old female with multiple chronic medical problems who is followed by Dr. Valentino as her PCP.? Patient has had numerous office, urgent care, ER visits regarding lower extremity edema and foot pain.? She was switched from gabapentin to Lyrica in the end of July by her dishwashing machine repairer, Dr. Snow.? This was because she was on very high dose of gabapentin it did not seem to be effective.? The Lyrica was tolerated well and gradually increased.? The patient developed lower extremity edema over the last week or so and was seen by Dr. Cueva who recommended decreasing this as this was causing her lower extremity edema.? The patient has had progressive nausea with decreased appetite.? She was evaluated in the emergency department multiple times over the last few days with the intervening visit to the outpatient clinic.? She had a CT angiogram on month ago and then had another CT angiogram yesterday and now she has acute on chronic kidney disease.? She is a history of renal transplant 10 years ago, severe coronary artery disease with a stress MIBI in October that showed no ischemia.? She had an updated echo that showed enlargement of her ascending aorta but otherwise no significant pathology.? She was evaluated by a cardiothoracic surgeon and they opted to monitor the aortic aneurism given concerns for her tolerating the surgical repair. Patient really feels she is unable to eat anything because of nausea and unable to drink there is no clear etiology for this but now patient with acute on chronic kidney disease and admitted for further evaluation and treatment. {from Dr. Wilson's H&P 12/27/21} Discharge Providers Provider Date of admission: 12/27/21 16:28 Discharge Date: 12/30/21 Primary care physician: Gaston Valentino MD Consults: 12/27/21 19:25 Consult to Dietitian, Adult Routine Comment: Reason For Exam: malnutrition, diabetes Consult to Discharge Planning Routine Comment: Discharge provider: Gaston Valentino MD Summary Hospital Course Discharge Diagnosis: 1. Acute kidney injury 2. Acute dehydration 3. Lower extremity edema 4. Chronic renal failure stage IIIB 5. Diabetes type 2 on insulin 6. Coronary artery disease with stents in RCA and circumflex, stable this hospitalization 7. Essential hypertension 8. Ascending aortic aneurysm 9. Status post kidney transplant 2012 10. Peripheral poly neuropathy 11. GERD without esophagitis 12. Tertiary hyperparathyroidism Hospital Course: Patient was admitted because of worsening renal function with persistent nausea vomiting etcetera. She had been seen several times in the clinic and or walk-in clinic and or emergency department with complaints of a GI nature as well as her peripheral edema. She had been started on Lasix and between the Lasix and poor p.o. intake was felt to have an acute kidney injury resulting in elevation of her creatinine and decline in her GFR over baseline. He is also somewhat hypotensive. Her renal function improved with IV fluids and increased oral intake. She also had her diuretics discontinued during this hospitalization. Upon discharge patient's creatinine and renal function were felt to be back to baseline for her Patient's GI symptoms improved significantly with time and perhaps with IV fluids etcetera. Day prior to discharge patient ate 100% of her meals without any difficulty and reported no symptoms at all morning of discharge Patient's peripheral edema was felt to be multifactorial perhaps related to medications such as her Lyrica and or her amlodipine both of which will be held upon discharge. She will not be restarted on Lasix however Patient's blood pressure is quite labile during hospitalization but during the 18-24 hours prior to discharge blood pressures were at baseline. Plan at discharge is to discontinue her amlodipine over concerns regarding edema continue with lisinopril although half dose and continue with usual dose carvedilol which per Cardiology appears to be 6.25 mg b.i.d.. Also patient will continue on low-dose hydrochlorothiazide with close outpatient follow-up with both myself and her dishwashing machine repairer Again at the time of discharge patient was eating and drinking normally not reporting any significant GI symptoms edema was not bothersome she was up and about ambulating in the room without difficulty blood sugars are well controlled. She will also be restarted on her metformin given her increasingly normal diet and return to her home routine as well as her improved renal function Status at Discharge Cognitive/behavioral status at discharge: at baseline, oriented Functional status at discharge: independent ambulation Overall status at discharge: patient is progressing back to baseline Time Spent with Patient Time spent: Greater than 30 minutes Exam Vital Signs (past 8 hours): - 12/30/21 03:20 12/30/21 05:00 Temperature 96.6 F L Pulse Rate 77 91 H Respiratory Rate 14 Blood Pressure 116/67 146/80 H Pulse Oximetry 97 98 Oxygen Flow Rate 0 0 Oxygen Delivery Method Room Air Oxygen Flow Rate 0 Objective Labs Result Diagrams: 12/30/21 06:58 12/29/21 07:05 Labs: Laboratory Results - last 24 hr 12/30/21 06:58 WBC 6.8 RBC 4.41 Hgb 12.5 Hct 37.5 MCV 85.0 MCH 28.5 MCHC 33.5 RDW 15.2 H Plt Count 126 L Neut % (Auto) 50.5 Lymph % (Auto) 30.6 [place] % (Auto) 9.9 Eos % (Auto) 8.6 H Baso % (Auto) 0.4 Neut # (Auto) 3400 Lymph # (Auto) 2100 [place] # (Auto) 700 Eos # (Auto) 600 H Baso # (Auto) 0 PFSH Medical History Acute on chronic diastolic CHF (congestive heart failure) Aortic aneurysm Ascending aortic aneurysm Ascending aortic dissection CAD (coronary atherosclerotic disease) (10/29/10) Chest pain Chronic gout (10/29/10) Essential hypertension (10/29/10) GERD (gastroesophageal reflux disease) History of peritoneal dialysis Lumbar radiculopathy Other and unspecified hyperlipidemia Peripheral polyneuropathy (03/06/16) ST elevation Stage 3b chronic kidney disease (CKD) Tertiary hyperparathyroidism Type 2 diabetes mellitus Type 2 diabetes mellitus with other circulatory complication (02/19/15) Vesicoureteral reflux (07/01/13) Weakness on right side of face Surgical History History of cardiac cath (04/2012) History of carpal tunnel repair Status post breast biopsy Status post kidney transplant (04/03/13) Status post parathyroidectomy Social History marital status: number of children: 0 household members: spouse lives independently: Yes caregiver/support person: No housing: house pets and animals: No education level: high school occupational status: other Previous occupational history: [employer] in [employer]/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 Discontinue Lyrica. Discontinue Lasix. Continue on lisinopril at half dose 20 mg daily, continue on carvedilol at usual dose as well as hydrochlorothiazide her usual dose. Patient will continue all of her other usual medications including her metformin upon discharge. Patient be seen in the outpatient clinic in approximately 2 weeks for close evaluation and follow-up of renal function GI symptoms diabetes etcetera Discharge Plan Discharge Plan Patient Disposition: Home Discharge orders & Medications Prescriptions: New carvedilol 6.25 mg tablet 6.25 mg PO BID Qty: 180 3RF Rx Instructions: must administer with a meal/food Continued diclofenac sodium 1 % gel 4 g topical QID Qty: 100 0RF Rx Instructions: apply to affected area fluticasone propionate 16 GM spray,suspension 1 spray Intranasal BID Qty: 16 12RF timolol maleate 0.5 % drops 1 drp OPHTH QDAY Qty: 0 loratadine 10 MG tablet 10 mg PO QDAY Qty: 0 tacrolimus 1 MG capsule 1 mg PO BID Qty: 0 Humalog U-100 Insulin 100 unit/mL solution See Rx Instructions SUBCUT TID Qty: 2 12RF Rx Instructions: Use 8 to 30 units per sliding scale as needed SUBCUT three times a day hydrochlorothiazide 25 mg tablet 25 mg PO DAILY Qty: 30 3RF olopatadine 0.1 % drops 1 drp EYE-BOTH DAILY Qty: 5 2RF Glucocard Expression Strip See Rx Instructions .ROUTE .COMPLEX Qty: 250 11RF Dose Instruction: USE TO TEST BLOOD SUGAR UP TO FOUR TIMES A DAY. Rx Instructions: USE TO TEST BLOOD SUGAR UP TO FOUR TIMES A DAY. Lantus U-100 Insulin 100 unit/mL solution 20 - 30 unit subcut QHS Qty: 20 12RF magnesium oxide 400 mg (241.3 mg magnesium) tablet 800 mg PO BID Qty: 360 3RF pravastatin 80 mg tablet 80 mg PO HS Qty: 90 3RF prednisone 5 mg tablet 5 mg PO DAILY Qty: 90 3RF insulin syringe-needle U-100 0.5 mL 31 gauge x 5/16 syringe See Rx Instructions .ROUTE .COMPLEX Qty: 120 6RF Dose Instruction: USE TO INJECT INSULIN FOUR TIMES DAILY. Rx Instructions: USE TO INJECT INSULIN FOUR TIMES DAILY. colchicine 0.6 mg tablet 0.6 mg PO QDAY Qty: 90 3RF metformin 1,000 mg tablet 1,000 mg PO BIDCC Qty: 180 3RF aspirin 81 mg tablet,delayed release (DR/EC) 81 mg PO DAILY isosorbide mononitrate 30 mg tablet extended release 24 hr 30 mg PO QAM Disabled Parking Permit See Rx Instructions .Route .COMPLEX Qty: 1 0RF Rx Instructions: I find this patient to be medically disabled and qualified for Disabled Parking as indicated, and signed, on the accompanying Disabled Parking Application for Individuals ; omeprazole 20 mg tablet,delayed release (DR/EC) 20 mg PO BID cyclobenzaprine 7.5 mg tablet 7.5 mg PO TID PRN (Reason: muscle spasm) Qty: 20 0RF oxycodone [Roxicodone] 5 mg tablet 5 mg PO QID PRN (Reason: pain) Qty: 120 0RF ondansetron 4 mg tablet,disintegrating 4 mg PO Q8H PRN (Reason: nausea and vomiting) Qty: 10 0RF Glucose: Home Monitoring Kit 1 kit TD QID Changed lisinopril 40 mg tablet 20 mg PO DAILY Qty: 45 0RF Discontinued ondansetron HCl 4 mg tablet 4 mg PO Q6-8H PRN (Reason: nausea and vomiting) Qty: 30 6RF pregabalin 100 mg capsule 100 mg PO TID Qty: 270 3RF amlodipine 10 mg tablet 10 mg PO DAILY carvedilol 3.125 mg tablet 3.125 mg PO BID furosemide [Lasix] 20 mg tablet 20 mg PO QAM Qty: 4 0RF carvedilol 12.5 mg tablet 12.5 mg PO DAILY Follow up/Referrals: Gaston Valentino MD [Primary Care Provider] - 2 Weeks Discharge Health Status Multidrug resistant organism: No MDRO Diet/Activity/Treatments Diet: Diet as Tolerated and Carb-consistent/Diabetic Discharge Data Primary Care Provider: Gaston Valentino Attending Provider: Gaston Valentino Quality VTE Deep Vein Thrombosis/Pulmonary Embolism Present on Admission: No
[2021-12-30 08:00] LABS: BUN Creatinine Ratio 31.1 (6-22); Blood Urea Nitrogen 37 mg/dL (7-17); Calcium 8.9 mg/dL (8.4-10.2); Carbon Dioxide 25 mmol/L (22-32); Chloride 107 mmol/L (98-107); Estimated Glomerular Filt Rate 48 mL/min (>60); Glucose 147 mg/dL (80-110); HEMOLYSIS < 15 (0-50); Potassium 4.6 mmol/L (3.4-5.1); Sodium 139 mmol/L (137-145)
[2021-12-30 08:12] VITALS: BP 114/64; PULSE 77; RESP 20; TEMP 35.8; O2SAT 98
[2021-12-30] MEDS: COLCHICINE 0.6 MG TABLET PO (09:46)
[2021-12-30] MEDS: ASPIRIN EC 81 MG TABLET PO (09:47)
[2021-12-30] MEDS: predniSONE 5 MG TABLET PO (09:47)
[2021-12-30] MEDS: ISOSORBIDE MONONITRATE ER 30 MG TABLET PO (09:47)
[2021-12-30] MEDS: TACROLIMUS 0.5 MG CAPSULE 1 MG PO (09:47)
[2021-12-30] MEDS: MAGNESIUM OXIDE 400 MG TABLET 800 MG PO (09:48)
[2021-12-30] MEDS: AMLODIPINE 5 MG TABLET 10 MG PO (09:48)
[2021-12-30 09:49] VITALS: BP 114/64
[2021-12-30] MEDS: ENOXAPARIN 30 MG/0.3 ML SYRINGE SUBCUT (09:49)
[2021-12-30] MEDS: carvediloL 3.125 MG TABLET PO (09:49)
[2021-12-30] MEDS: PANTOPRAZOLE DR 20 MG TABLET PO (09:49)
[2021-12-30] MEDS: DICLOFENAC 1% GEL 100 GM 1 APPLIC TOP (09:50)
[2021-12-30] MEDS: LORATADINE 10 MG TABLET PO (09:52)
[2021-12-30] MEDS: FLUTICASONE 120 SPRAY/16 GM SPRAY.SUSP NASAL (09:53)
[2021-12-30] MEDS: OLOPATADINE 0.1% OPHTH DROPS 5 ML 1 DROPS EYE-BOTH (09:54)
[2021-12-30] MEDS: TIMOLOL 0.5% OPHTH 1 DROPS EYE-BOTH (09:55)
--- NOTE | 2021-12-30 10:36 | PC.NURSE ---
Pt is dressed and ready for discharge home with Spouse-IV has been removed. Went over d/c instructions with Pt and Spouse-discussed d/c meds, time of last dose, reviewed stroke education, diabetic diet, CHF guidelines sheet, encouraged Pt to drink plenty of fluids to prevent constipation or dehydration, get up slowly from bed or chair secondary to blood pressure medications, and follow up with Dr. Valentino in 2 weeks. Pt and Spouse denied further questions and Pt was taken out via w/c by Student RN to pov with Spouse and all belongings.
== END 2021-12-30 10:40 | disposition home or self-care (01) | DRG 683 ==
LOC: ED 16:23 → AC 16:29
PROVIDERS: Family Medicine; Admitting Provider Family Medicine; Emergency Provider Emergency Medicine; Family Provider Internal Medicine; PCP Internal Medicine; Referring Provider Emergency Medicine; Visit Provider Internal Medicine
DX: N17.9 Acute kidney failure, unspecified (principal); Z94.0 Kidney transplant status; E86.0 Dehydration; R11.2 Nausea with vomiting, unspecified; I95.9 Hypotension, unspecified; I25.10 Atherosclerotic heart disease of native coronary artery without angina pectoris; M10.9 Gout, unspecified; E11.42 Type 2 diabetes mellitus with diabetic polyneuropathy; E11.22 Type 2 diabetes mellitus with diabetic chronic kidney disease; I12.9 Hypertensive chronic kidney disease with stage 1 through stage 4 chronic kidney disease, or unspecified chronic kidney disease; N18.32 Chronic kidney disease, stage 3b; E78.5 Hyperlipidemia, unspecified; Z79.4 Long term (current) use of insulin; Z79.84 Long term (current) use of oral hypoglycemic drugs; Z20.822 Contact with and (suspected) exposure to COVID-19; Z95.5 Presence of coronary angioplasty implant and graft
CPT/HCPCS: 36415; 71045; 71275; 80048; 80053; 81003; 81015; 82550; 82553; 82962; 83605; 83690; 83735; 83880; 84484; 84550; 85025; 85379; 85610; 85730; 87086; 87635; 93005; 96361; 96374; 96375; 99238; 99284; C9803; G0378; J1650; J1815; J1940; J2405; J2765; J7050; J7507; Q9967

== ENCOUNTER → 2022-01-07 11:04 | Outpatient (CLI) | payer MEDICARE, SELFPAY ==
[2021-12-27 17:05] VITALS: BMI 27.1
[2022-01-07 12:42] LABS: Add Manual Diff / Slide Review NO; Basophils Absolute Auto 0 /uL (0-100); Basophils Percent Auto 0.6 % (0-2); Eosinophils Absolute Auto 500 /uL (0-450); Eosinophils Percent Auto 6.6 % (2-4); Hematocrit 42.3 % (36-46); Lymphocytes Absolute Auto 1700 /uL (1100-4500); Lymphocytes Percent Auto 24.5 % (25-40); Mean Corpuscular Hemoglobin 28.2 PG (26-34); Mean Corpuscular Volume 85.4 fL (80-100); Monocytes Absolute Auto 700 /uL (0-900); Monocytes Percent Auto 10.2 % (3-14); Neutrophils Absolute Auto 4100 /uL (1500-7000); Neutrophils Percent Auto 58.1 % (50-75); Platelet Count 198 X10^3/uL (150-400); Red Blood Cell Count 4.95 X10^6/uL (4.0-5.2); Red Cell Distribution Width 15.4 % (11.6-14.8)
[2022-01-07 13:03] LABS: Erythrocyte Sedimentation Rate 7 MM/HR (0-20)
[2022-01-07 13:31] LABS: Alanine Aminotransferase 55 IU/L (<35); Albumin 4.5 g/dL (3.5-5.0); Albumin Globulin Ratio 1.4 (1.0-2.8); Alkaline Phosphatase 103 U/L (38-126); Aspartate Aminotransferase 58 IU/L (14-36); BUN Creatinine Ratio 14.7 (6-22); Bilirubin Total 0.7 mg/dL (0.2-1.3); Blood Urea Nitrogen 23 mg/dL (7-17); Calcium 10.7 mg/dL (8.4-10.2); Carbon Dioxide 24 mmol/L (22-32); Chloride 100 mmol/L (98-107); Estimated Glomerular Filt Rate 35 mL/min (>60); Globulin 3.3 g/dL (1.7-4.1); Glucose 163 mg/dL (80-110); HEMOLYSIS < 15 (0-50); Magnesium 1.6 mg/dL (1.6-2.3); Potassium 5.1 mmol/L (3.4-5.1); Sodium 138 mmol/L (137-145); Total Protein 7.8 g/dL (6.3-8.2)
[2022-01-07 13:35] LABS: NT-proBNP (BNP-Adult 18+) 306 pg/mL (<125)
== END ==
PROVIDERS: Family Provider Internal Medicine; PCP Internal Medicine; Referring Provider Internal Medicine; Visit Provider Internal Medicine
DX: E83.42 Hypomagnesemia (principal); I50.33 Acute on chronic diastolic (congestive) heart failure; N17.9 Acute kidney failure, unspecified; N18.32 Chronic kidney disease, stage 3b; R60.0 Localized edema; Z94.0 Kidney transplant status
CPT/HCPCS: 36415; 80053; 83735; 83880; 85025; 85651

== ENCOUNTER → 2022-01-10 11:20 | Outpatient (CLI) | payer MEDICARE, SELFPAY ==
[2021-12-27 17:05] VITALS: BMI 27.1
--- NOTE | 2022-01-10 11:22 | DI.CT.S_ITS ---
PROCEDURE: CT ABDOMEN PELVIS WO CON INDICATIONS n/v abd pain TECHNIQUE Noncontrast 5 mm thick sections acquired from the diaphragms to the symphysis. 5 mm coronal and sagittal reformats were then performed. For radiation dose reduction, the following was used: automated exposure control, adjustment of mA and/or kV according to patient size. COMPARISON [facility], CT, CT CHEST ABDOMEN WITHOUT CONTRAST, 06/14/2019, 10:03. FINDINGS: Image quality: Excellent Lower chest: Coronary artery disease. Solid organs: Limited evaluation on noncontrast CT. No acute liver abnormality. There is suspected gallbladder sludge, layering in the fundus. Appearance of the gallbladder is similar to prior. Mass is considered less likely. Mildly dilated biliary tree again seen. Mild pancreatic atrophy. Probable splenic granulomas. No adrenal nodule. Atrophic bilateral kidneys. Bosniak 1 and 2 renal lesions are present, for which no dedicated followup is necessary per 2019 proposed guidelines. Right lower quadrant renal transplant, not well evaluated on noncontrast imaging. Vessels and lymph nodes: No abdominal aortic aneurysm. The aorta is tortuous with atherosclerotic calcifications. No adenopathy by size criteria. Bowel and peritoneum: Bowel is nonobstructed the appendix is normal. No pathologic ascites. Body wall: Nonspecific anterior abdominal wall fat stranding, probably scarring, seen previously. Tiny fat containing umbilical hernia Pelvis: Right lower quadrant renal transplant again seen, not well evaluated on noncontrast imaging. Bladder is unremarkable. Unremarkable appearance of the reproductive organs. Bones: No acute or suspicious osseous abnormality. There is spinal curvature, spondylosis, and multilevel spondylolisthesis.. Impression: Limited non-contrast CT abdomen pelvis. No acute abnormality identified. Incidental findings are noted above. Dictated by: Brian Bingham M.D. on 01/10/2022 at 14:41 Approved by: Brian Bingham M.D. on 01/10/2022 at 14:50
== END ==
PROVIDERS: Family Provider Internal Medicine; PCP Internal Medicine; Referring Provider Internal Medicine; Visit Provider Internal Medicine
DX: M43.19 Spondylolisthesis, multiple sites in spine (principal); M47.819 Spondylosis without myelopathy or radiculopathy, site unspecified; R11.2 Nausea with vomiting, unspecified; R10.9 Unspecified abdominal pain; Z94.0 Kidney transplant status
CPT/HCPCS: 74176

== ENCOUNTER → 2022-01-20 07:49 | Outpatient (CLI) | payer MEDICARE, SELFPAY ==
[2021-12-27 17:05] VITALS: BMI 27.1
[2022-01-20 09:24] LABS: Hemoglobin A1C% w Est Avg Glu 7.2 % (4.0-6.0)
[2022-01-20 09:46] LABS: Alanine Aminotransferase 29 IU/L (<35); Albumin 3.8 g/dL (3.5-5.0); Albumin Globulin Ratio 1.1 (1.0-2.8); Alkaline Phosphatase 122 U/L (38-126); Aspartate Aminotransferase 39 IU/L (14-36); BUN Creatinine Ratio 24.2 (6-22); Bilirubin Total 0.7 mg/dL (0.2-1.3); Blood Urea Nitrogen 31 mg/dL (7-17); Calcium 10.8 mg/dL (8.4-10.2); Carbon Dioxide 23 mmol/L (22-32); Chloride 105 mmol/L (98-107); Estimated Glomerular Filt Rate 44 mL/min (>60); Globulin 3.5 g/dL (1.7-4.1); Glucose 134 mg/dL (80-110); HEMOLYSIS < 15 (0-50); Sodium 139 mmol/L (137-145); Total Protein 7.3 g/dL (6.3-8.2)
[2022-01-20 09:48] LABS: Potassium 5.4 mmol/L (3.4-5.1)
== END ==
PROVIDERS: Family Provider Internal Medicine; PCP Internal Medicine; Referring Provider Internal Medicine; Visit Provider Internal Medicine
DX: E11.65 Type 2 diabetes mellitus with hyperglycemia (principal); I10 Essential (primary) hypertension; Z94.0 Kidney transplant status
CPT/HCPCS: 36415; 80053; 83036

== ENCOUNTER 2022-01-20 14:18 | Emergency (ER) | payer MEDICARE, SELFPAY ==
[2021-12-27 17:05] VITALS: BMI 27.1
[2022-01-20 14:26] VITALS: BP 170/83; PULSE 105; RESP 22; TEMP 36.2; O2SAT 98; BMI 22.4
--- NOTE | 2022-01-20 14:32 | DI.RAD.S_ITS ---
PROCEDURE: XR CHEST 1V INDICATIONS: Chest pain TECHNIQUE: One view of the chest was acquired. COMPARISON: [facility], CR, XR CHEST 1V, 12/26/2021, 6:01. FINDINGS: Surgical changes and devices: None. Lungs and pleura: Lungs are clear. No pleural effusions or pneumothorax. Mediastinum: Mediastinal contours appear normal. Heart size is normal. Bones and chest wall: No suspicious bony lesions. Overlying soft tissues appear unremarkable. IMPRESSION: No acute cardiopulmonary process demonstrated radiographically. Dictated by: Gaetano Schmidt M.D. on 01/20/2022 at 15:26 Approved by: Gaetano Schmidt M.D. on 01/20/2022 at 15:26
[2022-01-20 15:18] LABS: Add Manual Diff / Slide Review NO; Basophils Absolute Auto 0 /uL (0-100); Basophils Percent Auto 0.5 % (0-2); Eosinophils Absolute Auto 200 /uL (0-450); Eosinophils Percent Auto 3.1 % (2-4); Hematocrit 40.2 % (36-46); Hemoglobin 13.2 g/dL (12.0-16.0); Lymphocytes Absolute Auto 1600 /uL (1100-4500); Lymphocytes Percent Auto 22.3 % (25-40); Mean Corpuscular HGB Conc 32.9 % (30-36); Mean Corpuscular Hemoglobin 27.6 PG (26-34); Mean Corpuscular Volume 83.8 fL (80-100); Monocytes Absolute Auto 800 /uL (0-900); Monocytes Percent Auto 10.8 % (3-14); Neutrophils Absolute Auto 4400 /uL (1500-7000); Neutrophils Percent Auto 63.3 % (50-75); Platelet Count 185 X10^3/uL (150-400); Red Cell Distribution Width 15.1 % (11.6-14.8)
[2022-01-20 15:25] LABS: Alanine Aminotransferase 30 IU/L (<35); Albumin 3.9 g/dL (3.5-5.0); Alkaline Phosphatase 119 U/L (38-126); Aspartate Aminotransferase 46 IU/L (14-36); BUN Creatinine Ratio 26.4 (6-22); Bilirubin Total 0.8 mg/dL (0.2-1.3); Blood Urea Nitrogen 32 mg/dL (7-17); Calcium 10.7 mg/dL (8.4-10.2); Carbon Dioxide 22 mmol/L (22-32); Chloride 104 mmol/L (98-107); Creatine Kinase 74 U/L (30-135); Estimated Glomerular Filt Rate 47 mL/min (>60); Globulin 3.8 g/dL (1.7-4.1); Glucose 151 mg/dL (80-110); HEMOLYSIS < 15 (0-50); Lipase 54 U/L (23-300); Magnesium 1.5 mg/dL (1.6-2.3); Potassium 4.9 mmol/L (3.4-5.1); Sodium 139 mmol/L (137-145); Total Protein 7.7 g/dL (6.3-8.2)
[2022-01-20 15:37] LABS: Troponin I < 0.012 ng/mL (0.01-0.034)
[2022-01-20 15:46] LABS: RBC Urine None Seen (0-5/HPF)
[2022-01-20 15:47] LABS: Bacteria Urine Occasional (0-1); Culture Indicated Urine Specimen Cultured; WBC Urine 1-5/HPF (0-5/HPF)
[2022-01-20 16:05] VITALS: PULSE 93; RESP 17; O2SAT 98
[2022-01-20 16:07] VITALS: BP 195/86; PULSE 93; RESP 18; O2SAT 98
[2022-01-20 16:30] VITALS: BP 156/82; PULSE 85; RESP 18; O2SAT 98
--- NOTE | 2022-01-20 16:33 | ED.WEAKNESS ---
HPI - Weakness General Chief complaint: Weakness Stated complaint: weakness, can't walk or stand x1 week Time Seen by Provider: 01/20/22 14:37 Source: patient Mode of arrival: Wheelchair Limitations: no limitations History of Present Illness HPI Narrative: This is a 76 year old female with history of renal transplant, coronary artery disease, hypertension and dyslipidemia with known ascending aortic aneurysm with complaint of weakness. Patient states she is felt weak all over she describes it as generalized. No headaches, no fevers or chills. She has chronic pain all over and in her joints which she states she takes oxycodone for and has been helpful. She states she sometimes has sensations of chest pain but nothing in the last day or 2, no shortness of breath, she occasionally has nausea but takes medication for this and is helpful. She is not had any vomiting. She denies any diarrhea, she is had some decreased stool output but is having regular flatus, she states her appetite has been decreased she is been drinking broth but minimal solids. She describes no new swelling in her extremities she has some mild pedal swelling that she states is stable. She states she is been urinating regularly without any issues no dysuria, urgency or frequency. She has not had any new medication changes in the past several weeks. Patient states she is felt increasingly weak over the past 1-2 weeks she is been having some assistance to get up and off the toilet although her states sometimes she gets on and off the toilet without any assistance and they both states she is been walking in the house without any assistance other than her walker. Patient states she has had a renal transplant, she has been told her aorta is too calcified to have surgery for her coronary artery disease. Patient states she would like to go home. Related Data Home Medications Medication Instructions Recorded Confirmed loratadine 10 mg tablet 10 mg PO QDAY ##0 04/23/17 01/07/22 timolol maleate 0.5 % eye drops 1 drp [facility] QDAY ##0 04/23/17 01/07/22 tacrolimus 1 mg capsule, 1 mg PO BID ##0 07/07/17 01/07/22 immediate-release aspirin 81 mg tablet,delayed 81 mg PO DAILY 09/17/17 01/07/22 release isosorbide mononitrate 30 mg 30 mg PO QAM 06/14/18 10/04/22 tablet,extended release 24 hr omeprazole 20 mg tablet,delayed 20 mg PO BID 11/09/20 01/07/22 release Glucose: Home Monitoring Kit 1 kit TD QID 12/27/21 01/07/22 Previous Rx's Medication Instructions Recorded fluticasone propionate 50 1 spray intranasal BID ##16 04/14/16 mcg/actuation nasal spray,suspension Disabled Parking Permit See Rx Instructions .Route 09/17/17 .COMPLEX #1 ea insulin lispro 100 unit/mL See Rx Instructions SUBCUT TID #2 12/05/19 subcutaneous solution (Humalog vials U-100 Insulin) hydrochlorothiazide 25 mg tablet 25 mg PO DAILY #30 tabs 12/26/19 olopatadine 0.1 % eye drops 1 drp EYE-BOTH DAILY #5 mL 10/22/20 cyclobenzaprine 7.5 mg tablet 7.5 mg PO TID PRN muscle spasm #20 12/07/20 tabs blood sugar diagnostic (Glucocard See Rx Instructions .Route 12/13/20 Expression strips) .COMPLEX #250 ea magnesium oxide 400 mg (241.3 mg 800 mg PO BID #360 tabs 12/31/20 magnesium) tablet pravastatin 80 mg tablet 80 mg PO HS #90 tabs 02/18/21 prednisone 5 mg tablet 5 mg PO DAILY #90 tabs 02/25/21 insulin syringe-needle U-100 0.5 See Rx Instructions .Route 04/16/21 mL 31 gauge x 5/16 .COMPLEX ##120 colchicine 0.6 mg tablet 0.6 mg PO QDAY #90 tabs 08/07/21 diclofenac sodium 1 % topical gel 4 g topical QID #100 grams 09/03/21 metformin 1,000 mg tablet 1,000 mg PO BIDCC #180 tabs 09/17/21 oxycodone 5 mg tablet (Roxicodone) 5 mg PO QID PRN pain #120 tabs 12/25/21 carvedilol 6.25 mg tablet 6.25 mg PO BID #180 tabs 12/30/21 insulin glargine 100 unit/mL 20 - 30 unit (0.2 - 0.3 mL) SUBCUT 12/30/21 subcutaneous solution (Lantus QHS #20 mL U-100 Insulin) lisinopril 40 mg tablet 20 mg PO DAILY #45 tabs 12/30/21 ondansetron 4 mg disintegrating 4 mg PO Q8H PRN nausea and 12/31/21 tablet vomiting #30 tabs metoclopramide HCl 5 mg tablet 5 mg PO QACHS #120 tabs 01/07/22 Allergies Allergy/AdvReac Type Severity Reaction Status Date / Time clopidogrel [CLOPIDOGREL] Allergy Mild AGRANOLOCYT Verified 01/07/22 10:37 OSIS Review of Systems Review of Systems ROS Unobtainable: All systems reviewed & are unremarkable except as noted in HPI and below Patient History Medical History Acute on chronic diastolic CHF (congestive heart failure) Aortic aneurysm Ascending aortic aneurysm Ascending aortic dissection CAD (coronary atherosclerotic disease) (10/29/10) Chest pain Chronic gout (10/29/10) Essential hypertension (10/29/10) GERD (gastroesophageal reflux disease) History of peritoneal dialysis Lumbar radiculopathy Other and unspecified hyperlipidemia Peripheral polyneuropathy (03/06/16) ST elevation Stage 3b chronic kidney disease (CKD) Tertiary hyperparathyroidism Type 2 diabetes mellitus Type 2 diabetes mellitus with other circulatory complication (02/19/15) Vesicoureteral reflux (07/01/13) Weakness on right side of face Surgical History History of cardiac cath (04/2012) History of carpal tunnel repair Status post breast biopsy Status post kidney transplant (04/03/13) Status post parathyroidectomy Social History marital status: number of children: 0 household members: spouse lives independently: Yes caregiver/support person: No housing: house pets and animals: No education level: high school occupational status: other Previous occupational history: [employer] in [employer]/denominational: Christian leisure activities: exercise and other Smoking Status: Never smoker Tobacco: How many years used: 0 quit status: quit date established second hand exposure: No alcohol intake: never substance use type: does not use Smoking Status: Never smoker alcohol intake frequency: 0-2 drinks per day Substance Use Type: does not use and prescription drug Exam Narrative Exam Narrative: GENERAL: Alert and oriented x three, elderly female in mild distress. Patient has mild right-sided tremor which she states is her baseline HEENT: Head normocephalic, atraumatic, EOMI, pupils reactive, face symmetric, moist mucous membranes, no facial droop appreciated NECK: Supple, full range of motion CARDIOVASCULAR: Regular rate and rhythm without murmurs, rubs or gallops. No JVD. Trace pedal edema bilaterally. RESPIRATORY: Breath sounds equal bilaterally, no wheezes rales or rhonchi. No tachypnea accessory muscle use. ABDOMEN: Soft, nontender. Nondistended Normoactive bowel sounds all 4 quadrants. No guarding or rebound, rigidity, no mass : No CVA tenderness EXTREMITIES: Normal range of motion, no clubbing or edema. Neurovascularly intact NEUROLOGICAL: Cranial nerves II through XII grossly intact. Moving all extremities. SKIN: Warm, dry, no petechiae, no rashes or lesions. Initial Vital Signs Initial Vital Signs: Vital Signs Temperature 97.1 F L 01/20/22 14:26 Pulse Rate 105 H 01/20/22 14:26 Respiratory Rate 22 01/20/22 14:26 Blood Pressure 170/83 H 01/20/22 14:26 Pulse Oximetry 98 01/20/22 14:26 Oxygen Delivery Method 01/20/22 14:26 Course Orders Ordered: ED Orders 01/20/22 14:32 XR chest 1V Stat EKG-12 Lead Stat 01/20/22 14:33 Consult to [facility] – [place] - Central Office Worker Stat 01/20/22 15:10 Complete Blood Count AUTO DIFF Stat Comprehensive Metabolic Panel Stat Lipase Stat Magnesium Stat Troponin & CK Cardiac Panel Stat 01/20/22 15:29 Urine Culture Stat Urine Microscopic Stat 01/20/22 17:48 Consult to Home Health Stat Discontinued Medications Magnesium Oxide (Magnesium Oxide 400 Mg Tablet) 400 mg PO NOW ONE Stop: 01/20/22 16:53 Last Admin: 01/20/22 17:04 Dose: 400 mg Documented By: RB Vital Signs Vital signs: Vital Signs - 8 hr 01/20/22 14:26 01/20/22 16:05 01/20/22 16:07 Temperature 97.1 F L Pulse Rate 105 H 93 H 93 H Respiratory Rate 22 17 18 Blood Pressure 170/83 H Pulse Oximetry 98 98 98 Oxygen Delivery Method Room Air Room Air Room Air 01/20/22 16:07 01/20/22 16:30 01/20/22 16:30 Temperature Pulse Rate 85 Respiratory Rate 18 Blood Pressure 195/86 H 156/82 H Pulse Oximetry 98 Oxygen Delivery Method 01/20/22 17:00 01/20/22 17:00 Temperature Pulse Rate 94 H Respiratory Rate 16 Blood Pressure 171/95 H Pulse Oximetry 99 Oxygen Delivery Method MDM - Weakness Lab Data Result diagrams: 01/20/22 15:10 01/20/22 15:10 Labs: Lab Results 01/20/22 01/20/22 01/20/22 Range/Units 15:10 15:10 15:29 WBC 7.0 (4.5-11.0) X10^3/uL RBC 4.80 (4.0-5.2) X10^6/uL Hgb 13.2 (12.0-16.0) g/dL Hct 40.2 (36-46) % MCV 83.8 (80-100) fL MCH 27.6 (26-34) PG MCHC 32.9 (30-36) % RDW 15.1 H (11.6-14.8) % Plt Count 185 (150-400) X10^3/uL Neut % (Auto) 63.3 (50-75) % Lymph % (Auto) 22.3 L (25-40) % [place] % (Auto) 10.8 (3-14) % Eos % (Auto) 3.1 (2-4) % Baso % (Auto) 0.5 (0-2) % Neut # (Auto) 4400 (1156-8612) /uL Lymph # (Auto) 1600 (5067-1574) /uL [place] # (Auto) 800 (0-900) /uL Eos # (Auto) 200 (0-450) /uL Baso # (Auto) 0 (0-100) /uL Sodium 139 (137-145) mmol/L Potassium 4.9 (3.4-5.1) mmol/L Chloride 104 (98-107) mmol/L Carbon Dioxide 22 (22-32) mmol/L BUN 32 H (7-17) mg/dL Creatinine 1.21 H (0.52-1.04) mg/dL Estimated GFR 47 L (>60) mL/min BUN/Creatinine Ratio 26.4 H (6-22) Glucose 151 H (80-110) mg/dL Calcium 10.7 H (8.4-10.2) mg/dL Magnesium 1.5 L (1.6-2.3) mg/dL Total Bilirubin 0.8 (0.2-1.3) mg/dL AST 46 H (14-36) IU/L ALT 30 (<35) IU/L Alkaline Phosphatase 119 (38-126) U/L Total Creatine Kinase 74 (30-135) U/L CK-MB (CK-2) TNP CK-MB (CK-2) Rel Index TNP Troponin I < 0.012 (0.01-0.034) ng/mL Total Protein 7.7 (6.3-8.2) g/dL Albumin 3.9 (3.5-5.0) g/dL Globulin 3.8 (1.7-4.1) g/dL Albumin/Globulin Ratio 1.0 (1.0-2.8) Lipase 54 (23-300) U/L Urine RBC None seen (0-5/HPF) Urine WBC 1-5/hpf (0-5/HPF) Urine Bacteria Occasional (0-1) (None) Ur Culture Indicated? Specimen cultured Urine Dip Bedside Urine Glucose Negative Bedside Urine Bilirubin - Negative Bedside Urine Ketone +/- 5 Urine Specific [place] 1.030 Bedside Urine Occult Blood ++ Bedside Urine pH 6.0 Bedside Urine Protein +++ 300 Bedside Urine Urobilinogen - Negative Bedside Urine Nitrite - Negative Bedside Urine Leukocytes - Negative Esterase Imaging Data Chest x-ray: Radiologist Impression: Ignacia Marino T??76??F??1945 ? Allergy/Adv: clopidogrel Close Chest X-Ray (Signed) Gaetano Schmidt - 01/20/22 Abdomen/Pelvis CT (Signed) Brian Bingham - 01/10/22 Chest CTA (Signed) Eric Bailey - 12/26/21 Chest X-Ray (Signed) Justin Lloyd - 12/26/21 Chest X-Ray (Signed) Gaetano Schmidt - 12/24/21 Chest CTA (Signed) Judah Barber - 11/29/21 Myocardial Perfusion Scan Nuc Med (Signed) Luz Marina Lovettu - 10/18/21 Echocardiogram Ultrasound (Signed) Mariano Wardu - 10/18/21 Telemetry Strips 08/01/21 Finger X-Ray (Signed) Conor Way - 06/28/21 Mammogram Screening (Signed) Gaetano Schmidt - 03/27/21 Echocardiogram Ultrasound (Signed) Suzanne Ward - 05/14/20 Cervical Spine X-Ray (Signed) Robert Coy - 11/07/19 Chest X-Ray (Signed) Júnior Nieves - 06/19/19 Mammogram Screening (Signed) Conor Way - 04/04/19 Echocardiogram Ultrasound (Signed) Suzanne Ward - 06/25/18 Mammogram Screening (Signed) Antoni Modi - 04/03/18 Foot X-Ray (Signed) Lucio Pelletier - 12/01/17 Abdomen Ultrasound (Signed) ChristineAbbie olmstead - 11/02/17 DI Result CC 10/24/17 Chest X-Ray (Signed) Marcellus Navarro - 09/05/17 EKG Rpt. 09/05/17 Echocardiogram Ultrasound (Signed) Suzanne Ward - 08/27/17 Chest X-Ray (Signed) Marcellus Navarro - 08/25/17 Launch?[place] [address] XRay Report Signed Patient: Ignacia Marino MR#: [id number] : 1945 Acct:[id number] Age/Sex: 76 / F Date of Service: 01/20/22 Loc: Accession Number: [id number] ?? Procedure: XR chest 1V Ordering Provider: Vanessa Villalobos D.O. PROCEDURE:? XR CHEST 1V ? INDICATIONS:? Chest pain ? TECHNIQUE:? One view of the chest was acquired.? ? COMPARISON:? [facility], CR, XR CHEST 1V, 12/26/2021, 6:01. ? FINDINGS:? ? Surgical changes and devices:? None.? ? Lungs and pleura:? Lungs are clear.? No pleural effusions or pneumothorax.? ? Mediastinum:? Mediastinal contours appear normal.? Heart size is normal.? ? Bones and chest wall:? No suspicious bony lesions.? Overlying soft tissues appear unremarkable.? ? IMPRESSION:? No acute cardiopulmonary process demonstrated radiographically. ? ? Dictated by: Gaetano Schmidt M.D. on 01/20/2022 at 15:26 ? ? Approved by: Gaetano Schmidt M.D. on 01/20/2022 at 15:26 ECG Data Attestation: I personally reviewed and interpreted this ECG as follows: Prior ECG tracings: available for review Interpretation: Sinus rhythm rate of 98 RI 140, QRS is 76 QTC of 436. No acute ST changes appreciated. Patient has prior from 12/27/2021 no acute change MDM Narrative Medical decision making narrative: This is a 76-year-old female with complaint of generalized weakness who states she is having trouble getting around but her and her also states she is been able to walk around. She is requiring some assistance get up and down from the toilet sometimes. Labs show stable hemoglobin, white count no significant change in platelets, she is chronic kidney disease but at baseline. Patient labs reviewed very mildly low magnesium. Urine shows very questionable infection plan for urine culture. Patient states she would like to go home, she states she feels safe to get home and walk and is agreeable as well. Patient discharged home with return precautions. Do think she would be very good candidate for home health care and that she does need assistance intermittently at home. Social work did meet with the patient and is helping to facilitate this. Discharge Plan Departure Patient Disposition: Home Clinical Impression: Weakness Activity Restrictions/Additional Instructions: Your urine shows possibly infection in urine culture is pending. Typically takes 48 hours to result and if positive you would be contacted. Your magnesium is mildly low you can take [id number] magnesium once daily and follow-up with your physician to have it rechecked. You can continue home medications as prescribed. Please return for worsening symptoms, increasing weakness, passing out, new chest pain, new shortness of breath, persistent vomiting, increasing swelling in her extremities or other new or concerning changes. Prescriptions: No Action diclofenac sodium 1 % gel 4 g topical QID Qty: 100 0RF Rx Instructions: apply to affected area fluticasone propionate 16 GM spray,suspension 1 spray Intranasal BID Qty: 16 12RF timolol maleate 0.5 % drops 1 drp OPHTH QDAY Qty: 0 loratadine 10 MG tablet 10 mg PO QDAY Qty: 0 tacrolimus 1 MG capsule 1 mg PO BID Qty: 0 Humalog U-100 Insulin 100 unit/mL solution See Rx Instructions SUBCUT TID Qty: 2 12RF Rx Instructions: Use 8 to 30 units per sliding scale as needed SUBCUT three times a day hydrochlorothiazide 25 mg tablet 25 mg PO DAILY Qty: 30 3RF olopatadine 0.1 % drops 1 drp EYE-BOTH DAILY Qty: 5 2RF Glucocard Expression Strip See Rx Instructions .ROUTE .COMPLEX Qty: 250 11RF Dose Instruction: USE TO TEST BLOOD SUGAR UP TO FOUR TIMES A DAY. Rx Instructions: USE TO TEST BLOOD SUGAR UP TO FOUR TIMES A DAY. magnesium oxide 400 mg (241.3 mg magnesium) tablet 800 mg PO BID Qty: 360 3RF pravastatin 80 mg tablet 80 mg PO HS Qty: 90 3RF prednisone 5 mg tablet 5 mg PO DAILY Qty: 90 3RF insulin syringe-needle U-100 0.5 mL 31 gauge x 5/16 syringe See Rx Instructions .ROUTE .COMPLEX Qty: 120 6RF Dose Instruction: USE TO INJECT INSULIN FOUR TIMES DAILY. Rx Instructions: USE TO INJECT INSULIN FOUR TIMES DAILY. colchicine 0.6 mg tablet 0.6 mg PO QDAY Qty: 90 3RF metformin 1,000 mg tablet 1,000 mg PO BIDCC Qty: 180 3RF Lantus U-100 Insulin 100 unit/mL solution 20 - 30 unit subcut QHS Qty: 20 12RF ondansetron 4 mg tablet,disintegrating 4 mg PO Q8H PRN (Reason: nausea and vomiting) Qty: 30 2RF metoclopramide HCl 5 mg tablet 5 mg PO QACHS Qty: 120 3RF aspirin 81 mg tablet,delayed release (DR/EC) 81 mg PO DAILY isosorbide mononitrate 30 mg tablet extended release 24 hr 30 mg PO QAM Disabled Parking Permit See Rx Instructions .Route .COMPLEX Qty: 1 0RF Rx Instructions: I find this patient to be medically disabled and qualified for Disabled Parking as indicated, and signed, on the accompanying Disabled Parking Application for Individuals ; omeprazole 20 mg tablet,delayed release (DR/EC) 20 mg PO BID cyclobenzaprine 7.5 mg tablet 7.5 mg PO TID PRN (Reason: muscle spasm) Qty: 20 0RF oxycodone [Roxicodone] 5 mg tablet 5 mg PO QID PRN (Reason: pain) Qty: 120 0RF Glucose: Home Monitoring Kit 1 kit TD QID carvedilol 6.25 mg tablet 6.25 mg PO BID Qty: 180 3RF Rx Instructions: must administer with a meal/food lisinopril 40 mg tablet 20 mg PO DAILY Qty: 45 0RF Referrals: Gaston Valentino MD [Primary Care Provider] - Visit Report Forms: Patient Portal/API
[2022-01-20 17:00] VITALS: BP 171/95; PULSE 94; RESP 16; O2SAT 99
[2022-01-20] MEDS: MAGNESIUM OXIDE 400 MG TABLET PO (17:04)
--- NOTE | 2022-01-20 17:59 | CM.SWNOTE ---
COAT REPAIR INSPECTOR/DCP Note Patient is 76 y/o female who presents to ED due to concern for weakness and inability to stand/walk for the last 1-2 weeks. Per EMR, patient was d/c'd from on 12/30/21 without any DCP needs. Patient's PCP is Dr. Valentino, patient has close f/u and upcoming appt on Thursday01/24/22. Patient has [employer] and [employer] insurance. Patient has hx of Renal transplant, CAD, hypertension, CKD and dyslipidemia. Patient presents to ED with Antonio. Patient presents as A/Ox3. It is reported that patient has been requiring assistance from spouse the last 1-2 weeks for transitioning from sit to stand position. It is reported that patient's spouse is caregiver for patient and drives patient. It is reported that patient has FWW at home. Patient and spouse are requesting HH and state they plan to speak with PCP about this as well. COAT REPAIR INSPECTOR endorses that COAT REPAIR INSPECTOR can assist with HH referral. COAT REPAIR INSPECTOR discusses HH options, patient and spouse deny preference for HH agencies. Per calendar rotation, COAT REPAIR INSPECTOR calls [facility] and faxes f2f, order and clinicals for HH referral for RN, PT, OT and HH aide. It is reported that [facility] can get started with services by Thursday this week. Patient discharges prior to COAT REPAIR INSPECTOR providing HH agency information. COAT REPAIR INSPECTOR calls patient's home and leaves with information. Plan: Patient d/c'd to home upon medical clearance with spouse, [facility] to start services this week. Deena Lawton, PURE PAK MACHINE OPERATOR
== END 2022-01-20 17:29 | disposition home or self-care (01) ==
PROVIDERS: Emergency Provider Emergency Medicine; Family Provider Internal Medicine; PCP Internal Medicine
DX: R53.1 Weakness (principal); R07.9 Chest pain, unspecified; E61.2 Magnesium deficiency; E11.65 Type 2 diabetes mellitus with hyperglycemia; I10 Essential (primary) hypertension; Z94.0 Kidney transplant status
CPT/HCPCS: 36415; 71045; 80053; 81003; 81015; 82550; 83036; 83690; 83735; 84484; 85025; 87086; 93005; 93010; 99284

== ENCOUNTER 2022-01-22 23:30 | Emergency (ER) | payer MEDICARE, SELFPAY ==
[2021-12-27 17:05] VITALS: BMI 27.1
[2022-01-22 23:40] VITALS: BP 171/87; PULSE 96; RESP 20; TEMP 36.4; O2SAT 96
[2022-01-22 23:45] VITALS: BP 171/87; PULSE 99; O2SAT 97
[2022-01-23] VITALS: PULSE 98; RESP 25; O2SAT 96
--- NOTE | 2022-01-23 00:23 | DI.CT.S_ITS ---
PROCEDURE: CT ABDOMEN PELVIS WO CON INDICATIONS: Diarrhea TECHNIQUE: Noncontrast 5 mm thick sections acquired from the diaphragms to the symphysis. 5 mm coronal and sagittal reformats were then performed. For radiation dose reduction, the following was used: automated exposure control, adjustment of mA and/or kV according to patient size. COMPARISON: [facility], CT, CT ABDOMEN PELVIS WO CON, 01/10/2022, 11:41. FINDINGS: Image quality: Excellent. ABDOMEN: Lung bases: Lung bases are clear. Heart size is enlarged, with trace pericardial effusion. Dense atherosclerotic calcifications are seen throughout coronary vessels. Solid organs: Liver is normal in size. 1.4 cm hypodensity involving medial segment of left hepatic lobe is seen and measures -11 Hounsfield unit in density likely represent hepatic cyst. Gallbladder contains hyperdense sludge material in its dependent portion unchanged from prior study. No gallbladder wall thickening or pericholecystic fluid. Pancreas is normal in contours. Spleen is normal in size. No adrenal nodules. Kidneys are markedly atrophic. No hydronephrosis. Small bilateral renal cysts are again seen unchanged from prior study. Transplant kidney is noted in right lower quadrant. No hydronephrosis or obstructing stone is seen. No hydroureter. Peritoneum and bowel: Stomach and small bowel loops are decompressed. No small bowel obstruction. No gastric or small bowel wall thickening. Fluid distended colon loops are is noted throughout abdomen with fecal matter distending sigmoid colon and rectum. No gross abnormal bowel wall thickening. No mesenteric fat stranding. No free fluid or free air. Nodes and vessels: No retroperitoneal or mesenteric adenopathy by size criteria. Aorta and inferior vena cava are normal in caliber. Moderate atherosclerotic calcifications in abdominal aorta is seen. Miscellaneous: No ventral hernias. PELVIS: Genitourinary: Bladder wall thickness is normal. Miscellaneous: No inguinal hernias or adenopathy. Bones: No suspicious bony lesions. No vertebral body compression fractures. IMPRESSION: 1. Moderate fluid distension of colon loops with a few air-fluid levels. No small bowel obstruction. Mild fecal stasis in sigmoid colon and rectum. No abnormal bowel wall thickening. No free fluid or free air. 2. Prior right sided transplant kidney with atrophic bilateral robinson kidneys unchanged from prior study. No hydronephrosis or hydroureter. Normal appearing urinary bladder. 3. Moderate atherosclerotic disease throughout abdominal aorta and coronary vessels. Cardiomegaly and small amount of pericardial effusion. Dictated by: Lucio Pelletier M.D. on 01/23/2022 at 1:06 Approved by: Lucio Pelletier M.D. on 01/23/2022 at 1:18
--- NOTE | 2022-01-23 00:23 | ED.NAVMDI ---
HPI - Nausea/Vomiting/Diarrhea General Chief complaint: Nausea/Vomiting/Diarrhea Stated complaint: DIARRHEA Time Seen by Provider: 01/23/22 00:11 Source: patient and family Mode of arrival: Wheelchair History of Present Illness HPI Narrative: Patient here with and neighbor. Complains of numerous episodes of watery diarrhea. Denies denies any chest pain abdominal pain or back pain or numbness or tingling or weakness. Patient does have history of renal transplant as well as aortic dissection/aneurysm. Again denies any pain. Patient thought she was constipated and took milk of magnesia starting at 1:00 a.m. today and this afternoon. Since then has had multiple bowel movements and then watery diarrhea. However, according to and neighbor, patient has not eaten very much in the past 3 weeks, never complained of abdominal pain. She did have bowel movements in the past 3 weeks. Patient in no distress at this time. Related Data Home Medications Medication Instructions Recorded Confirmed loratadine 10 mg tablet 10 mg PO QDAY ##0 04/23/17 01/07/22 timolol maleate 0.5 % eye drops 1 drp OPHTH QDAY ##0 04/23/17 01/07/22 tacrolimus 1 mg capsule, 1 mg PO BID ##0 07/07/17 01/07/22 immediate-release aspirin 81 mg tablet,delayed 81 mg PO DAILY 09/17/17 01/07/22 release isosorbide mononitrate 30 mg 30 mg PO QAM 09/17/17 01/07/22 tablet,extended release 24 hr omeprazole 20 mg tablet,delayed 20 mg PO BID 11/09/20 01/07/22 release Glucose: Home Monitoring Kit 1 kit TD QID 12/27/21 01/07/22 Previous Rx's Medication Instructions Recorded fluticasone propionate 50 1 spray intranasal BID ##16 04/14/16 mcg/actuation nasal spray,suspension Disabled Parking Permit See Rx Instructions .Route 09/17/17 .COMPLEX #1 ea insulin lispro 100 unit/mL See Rx Instructions SUBCUT TID #2 12/05/19 subcutaneous solution (Humalog vials U-100 Insulin) hydrochlorothiazide 25 mg tablet 25 mg PO DAILY #30 tabs 12/26/19 olopatadine 0.1 % eye drops 1 drp EYE-BOTH DAILY #5 mL 10/22/20 cyclobenzaprine 7.5 mg tablet 7.5 mg PO TID PRN muscle spasm #20 12/07/20 tabs blood sugar diagnostic (Glucocard See Rx Instructions .Route 12/13/20 Expression strips) .COMPLEX #250 ea magnesium oxide 400 mg (241.3 mg 800 mg PO BID #360 tabs 12/31/20 magnesium) tablet pravastatin 80 mg tablet 80 mg PO HS #90 tabs 02/18/21 prednisone 5 mg tablet 5 mg PO DAILY #90 tabs 02/25/21 insulin syringe-needle U-100 0.5 See Rx Instructions .Route 04/16/21 mL 31 gauge x 5/16 .COMPLEX ##120 colchicine 0.6 mg tablet 0.6 mg PO QDAY #90 tabs 08/07/21 diclofenac sodium 1 % topical gel 4 g topical QID #100 grams 09/03/21 metformin 1,000 mg tablet 1,000 mg PO BIDCC #180 tabs 09/17/21 carvedilol 6.25 mg tablet 6.25 mg PO BID #180 tabs 12/30/21 lisinopril 40 mg tablet 20 mg PO DAILY #45 tabs 12/30/21 ondansetron 4 mg disintegrating 4 mg PO Q8H PRN nausea and 12/31/21 tablet vomiting #30 tabs metoclopramide HCl 5 mg tablet 5 mg PO QACHS #120 tabs 01/07/22 insulin glargine 100 unit/mL 20 - 30 unit (0.2 - 0.3 mL) SUBCUT 01/21/22 subcutaneous solution (Lantus QHS #20 mL U-100 Insulin) oxycodone 5 mg tablet (Roxicodone) 5 mg PO QID PRN pain #120 tabs 01/21/22 Allergies Allergy/AdvReac Type Severity Reaction Status Date / Time clopidogrel [CLOPIDOGREL] Allergy Mild AGRANOLOCYT Verified 01/07/22 10:37 OSIS Review of Systems Review of Systems Narrative: GENERAL: Denies chills, fatigue, malaise, fever, sweats. HEENT: Denies sinus pain, ear pain, sore throat RESPIRATORY: Denies dyspnea, cough CARDIOVASCULAR: Denies chest pain, palpitations GASTROINTESTINAL: Denies nausea, vomiting, abdominal pain, positive diarrhea : Denies dysuria, frequency, hematuria MUSCULOSKELETAL: denies muscle or bony pain SKIN: Denies rash, skin lesions NEUROLOGIC: Denies weakness, numbness ROS Unobtainable: All systems reviewed & are unremarkable except as noted in HPI and below Patient History Medical History Acute on chronic diastolic CHF (congestive heart failure) Aortic aneurysm Ascending aortic aneurysm Ascending aortic dissection CAD (coronary atherosclerotic disease) (10/29/10) Chest pain Chronic gout (10/29/10) Essential hypertension (10/29/10) GERD (gastroesophageal reflux disease) History of peritoneal dialysis Lumbar radiculopathy Other and unspecified hyperlipidemia Peripheral polyneuropathy (03/06/16) ST elevation Stage 3b chronic kidney disease (CKD) Tertiary hyperparathyroidism Type 2 diabetes mellitus Type 2 diabetes mellitus with other circulatory complication (02/19/15) Vesicoureteral reflux (07/01/13) Weakness on right side of face Surgical History History of cardiac cath (04/2012) History of carpal tunnel repair Status post breast biopsy Status post kidney transplant (04/03/13) Status post parathyroidectomy Social History marital status: number of children: 0 household members: spouse lives independently: Yes caregiver/support person: No housing: house pets and animals: No education level: high school occupational status: other Previous occupational history: [employer] in [employer]: [employer] leisure activities: exercise and other Smoking Status: Never smoker Tobacco: How many years used: 0 quit status: quit date established second hand exposure: No alcohol intake: never substance use type: does not use Smoking Status: Never smoker alcohol intake frequency: 0-2 drinks per day Substance Use Type: does not use and prescription drug Exam Narrative Exam Narrative: GENERAL: in no distress, not toxic not dyspneic HEAD: Normocephalic. EYES: Pupils equal round No scleral icterus. ENT: Mucous membranes moist. NECK: Trachea midline. CARDIOVASCULAR: Regular rate and rhythm without murmurs RESPIRATORY: Clear to auscultation. Breath sounds equal bilaterally. No wheezes, rales, or rhonchi. GASTROINTESTINAL: Abdomen soft, non-tender, nontender, no peritoneal signs, no pain out of proportion to exam EXTREMITIES: No gross deformities. NEURO: AOx4. SKIN: Warm and dry PSYCH: Not anxious, is cooperative Initial Vital Signs Initial Vital Signs: Vital Signs Temperature 97.6 F 01/22/22 23:40 Pulse Rate 96 H 01/22/22 23:40 Respiratory Rate 20 01/22/22 23:40 Blood Pressure 171/87 H 01/22/22 23:40 Pulse Oximetry 96 01/22/22 23:40 Oxygen Delivery Method 01/22/22 23:40 Course Course Course Narrative: No new issues during course of stay Orders Ordered: ED Orders 01/23/22 00:23 CT abdomen pelvis wo con Stat 01/23/22 00:51 Complete Blood Count AUTO DIFF Stat Comprehensive Metabolic Panel Stat Discontinued Medications Sodium Chloride (Normal Saline 0.9%) 500 mls @ 1,000 mls/hr IV BOLUS ONE Stop: 01/23/22 00:51 Last Infusion: 01/23/22 02:34 Dose: 0 mls/hr Documented By: Admin: 01/23/22 01:17 Dose: 1,000 mls/hr Documented By: NR Reevaluation(s) Reevaluation #1: Patient doing well. No diarrhea during course of stay. Laboratory studies are at baseline. Imaging does not show any signs of obstruction/bowel obstruction or significant constipation. Patient feeling much better. Reviewed results with patient and . Return precautions reviewed with them. They desire discharge home. Informed the do not continue with any laxatives Time: 01:44 Vital Signs Vital signs: Vital Signs - 8 hr 01/22/22 23:40 01/22/22 23:45 01/22/22 23:45 Temperature 97.6 F Pulse Rate 96 H 99 H Respiratory Rate 20 Blood Pressure 171/87 H 171/87 H Pulse Oximetry 96 97 Oxygen Delivery Method Room Air 01/23/22 00:00 01/23/22 00:30 01/23/22 01:16 Temperature Pulse Rate 98 H 98 H 86 Respiratory Rate 25 H 30 H 24 Blood Pressure Pulse Oximetry 96 98 96 Oxygen Delivery Method 01/23/22 01:17 01/23/22 01:17 01/23/22 01:30 Temperature Pulse Rate 87 Respiratory Rate 18 Blood Pressure 132/73 127/67 Pulse Oximetry 95 Oxygen Delivery Method 01/23/22 01:30 01/23/22 02:00 10/20/22 02:00 Temperature Pulse Rate 77 82 Respiratory Rate 19 20 Blood Pressure 169/75 H Pulse Oximetry 97 97 Oxygen Delivery Method MDM - Nausea/Vomiting/Diarrhea Differential Diagnosis Differential diagnosis: Likely dehydration and other (Medication reaction/constipation/functional diarrhea) Lab Data Result diagrams: 01/23/22 00:51 01/23/22 00:51 Labs: Lab Results 01/23/22 01/23/22 Range/Units 00:51 00:51 WBC 9.6 (4.5-11.0) X10^3/uL RBC 4.95 (4.0-5.2) X10^6/uL Hgb 13.7 (12.0-16.0) g/dL Hct 41.2 (36-46) % MCV 83.2 (80-100) fL MCH 27.6 (26-34) PG MCHC 33.2 (30-36) % RDW 15.1 H (11.6-14.8) % Plt Count 216 (150-400) X10^3/uL Neut % (Auto) 79.1 H (50-75) % Lymph % (Auto) 12.8 L (25-40) % [place] % (Auto) 7.6 (3-14) % Eos % (Auto) 0.2 L (2-4) % Baso % (Auto) 0.3 (0-2) % Neut # (Auto) 7600 H (4928-4823) /uL Lymph # (Auto) 1200 (0598-2896) /uL [place] # (Auto) 700 (0-900) /uL Eos # (Auto) 0 (0-450) /uL Baso # (Auto) 0 (0-100) /uL Sodium 141 (137-145) mmol/L Potassium 4.9 (3.4-5.1) mmol/L Chloride 100 (98-107) mmol/L Carbon Dioxide 29 (22-32) mmol/L BUN 33 H (7-17) mg/dL Creatinine 1.26 H (0.52-1.04) mg/dL Estimated GFR 45 L (>60) mL/min BUN/Creatinine Ratio 26.2 H (6-22) Glucose 207 H (80-110) mg/dL Calcium 10.8 H (8.4-10.2) mg/dL Total Bilirubin 0.9 (0.2-1.3) mg/dL AST 44 H (14-36) IU/L ALT 36 H (<35) IU/L Alkaline Phosphatase 129 H (38-126) U/L Total Protein 7.9 (6.3-8.2) g/dL Albumin 4.0 (3.5-5.0) g/dL Globulin 3.9 (1.7-4.1) g/dL Albumin/Globulin Ratio 1.0 (1.0-2.8) Imaging Data CT scan - abdomen/pelvis: Radiologist's Impression: [address] [address] [address] Scan Report Signed Patient: Ignacia Marino MR#: [id number] : 1945 Acct:[id number] Age/Sex: 76 / F Date of Service: 01/23/22 Loc: ED Accession Number: [id number] ?? Procedure: CT abdomen pelvis wo con Ordering Provider: Baltazar Morrell MD PROCEDURE:? CT ABDOMEN PELVIS WO CON ? INDICATIONS:? Diarrhea ? TECHNIQUE:? Noncontrast 5 mm thick sections acquired from the diaphragms to the symphysis.? 5 mm coronal and sagittal reformats were then performed.? For radiation dose reduction, the following was used:? automated exposure control, adjustment of mA and/or kV according to patient size.? ? COMPARISON:? [facility], CT, CT ABDOMEN PELVIS WO CON, 01/10/2022, 11:41. ? FINDINGS:? Image quality:? Excellent.? ? ABDOMEN:? Lung bases:? Lung bases are clear.? Heart size is enlarged, with trace pericardial effusion.? Dense atherosclerotic calcifications are seen throughout coronary vessels. ? Solid organs:? Liver is normal in size.? 1.4 cm hypodensity involving medial segment of left hepatic lobe is seen and measures -11 Hounsfield unit in density likely represent hepatic cyst.? Gallbladder contains hyperdense sludge material in its dependent portion unchanged from prior study.? No gallbladder wall thickening or pericholecystic fluid.? Pancreas is normal in contours.? Spleen is normal in size.? No adrenal nodules.? Kidneys are markedly atrophic.? No hydronephrosis.? Small bilateral renal cysts are again seen unchanged from prior study.? Transplant kidney is noted in right lower quadrant.? No hydronephrosis or obstructing stone is seen.? No hydroureter. ? Peritoneum and bowel:? Stomach and small bowel loops are decompressed.? No small bowel obstruction.? No gastric or small bowel wall thickening.? Fluid distended colon loops are is noted throughout abdomen with fecal matter distending sigmoid colon and rectum.? No gross abnormal bowel wall thickening.? No mesenteric fat stranding.? No free fluid or free air. ? Nodes and vessels:? No retroperitoneal or mesenteric adenopathy by size criteria.? Aorta and inferior vena cava are normal in caliber.? Moderate atherosclerotic calcifications in abdominal aorta is seen. ? Miscellaneous:? No ventral hernias.? ? ? PELVIS:? Genitourinary:? Bladder wall thickness is normal.? ? Miscellaneous:? No inguinal hernias or adenopathy.? ? Bones:? No suspicious bony lesions.? No vertebral body compression fractures.? ? IMPRESSION:? 1. Moderate fluid distension of colon loops with a few air-fluid levels.? No small bowel obstruction.? Mild fecal stasis in sigmoid colon and rectum.? No abnormal bowel wall thickening.? No free fluid or free air. ? 2. Prior right sided transplant kidney with atrophic bilateral [place] kidneys unchanged from prior study.? No hydronephrosis or hydroureter.? Normal appearing urinary bladder. ? 3. Moderate atherosclerotic disease throughout abdominal aorta and coronary vessels.? Cardiomegaly and small amount of pericardial effusion.? ? ? Dictated by: Lucio Pelletier M.D. on 01/23/2022 at 1:06 ? ? Approved by: Lucio Pelletier M.D. on 01/23/2022 at 1:18 ? MDM Narrative Medical decision making narrative: Appropriate for discharge home. Patient thought she was constipated, however she is not had much to eat or drink for the past few days that would provide good bowel movements. Tonight's watery diarrhea likely due to the magnesium/laxative that she took this afternoon. Symptoms have improved during course of stay. Return precautions reviewed with patient and . They desire discharge home. Discharge Plan Departure Patient Disposition: Home Clinical Impression: Diarrhea in adult patient Instructions: Diarrhea Activity Restrictions/Additional Instructions: Return if worsening questions or concerns. Be sure to eat plenty of fruits and vegetables and fiber daily to maintain good bowel movements. Keep well hydrated. Return if worse if any questions or concerns. At this time do not continue with any laxatives. Diarrhea should improve as the laxatives will wear off. See family doctor in a week for re-evaluation Prescriptions: No Action diclofenac sodium 1 % gel 4 g topical QID Qty: 100 0RF Rx Instructions: apply to affected area fluticasone propionate 16 GM spray,suspension 1 spray Intranasal BID Qty: 16 12RF timolol maleate 0.5 % drops 1 drp OPHTH QDAY Qty: 0 loratadine 10 MG tablet 10 mg PO QDAY Qty: 0 tacrolimus 1 MG capsule 1 mg PO BID Qty: 0 Humalog U-100 Insulin 100 unit/mL solution See Rx Instructions SUBCUT TID Qty: 2 12RF Rx Instructions: Use 8 to 30 units per sliding scale as needed SUBCUT three times a day hydrochlorothiazide 25 mg tablet 25 mg PO DAILY Qty: 30 3RF olopatadine 0.1 % drops 1 drp EYE-BOTH DAILY Qty: 5 2RF Glucocard Expression Strip See Rx Instructions .ROUTE .COMPLEX Qty: 250 11RF Dose Instruction: USE TO TEST BLOOD SUGAR UP TO FOUR TIMES A DAY. Rx Instructions: USE TO TEST BLOOD SUGAR UP TO FOUR TIMES A DAY. magnesium oxide 400 mg (241.3 mg magnesium) tablet 800 mg PO BID Qty: 360 3RF pravastatin 80 mg tablet 80 mg PO HS Qty: 90 3RF prednisone 5 mg tablet 5 mg PO DAILY Qty: 90 3RF insulin syringe-needle U-100 0.5 mL 31 gauge x 5/16 syringe See Rx Instructions .ROUTE .COMPLEX Qty: 120 6RF Dose Instruction: USE TO INJECT INSULIN FOUR TIMES DAILY. Rx Instructions: USE TO INJECT INSULIN FOUR TIMES DAILY. colchicine 0.6 mg tablet 0.6 mg PO QDAY Qty: 90 3RF metformin 1,000 mg tablet 1,000 mg PO BIDCC Qty: 180 3RF ondansetron 4 mg tablet,disintegrating 4 mg PO Q8H PRN (Reason: nausea and vomiting) Qty: 30 2RF Lantus U-100 Insulin 100 unit/mL solution 20 - 30 unit subcut QHS Qty: 20 12RF oxycodone [Roxicodone] 5 mg tablet 5 mg PO QID PRN (Reason: pain) Qty: 120 0RF metoclopramide HCl 5 mg tablet 5 mg PO QACHS Qty: 120 3RF aspirin 81 mg tablet,delayed release (DR/EC) 81 mg PO DAILY isosorbide mononitrate 30 mg tablet extended release 24 hr 30 mg PO QAM Disabled Parking Permit See Rx Instructions .Route .COMPLEX Qty: 1 0RF Rx Instructions: I find this patient to be medically disabled and qualified for Disabled Parking as indicated, and signed, on the accompanying Disabled Parking Application for Individuals ; omeprazole 20 mg tablet,delayed release (DR/EC) 20 mg PO BID cyclobenzaprine 7.5 mg tablet 7.5 mg PO TID PRN (Reason: muscle spasm) Qty: 20 0RF Glucose: Home Monitoring Kit 1 kit TD QID carvedilol 6.25 mg tablet 6.25 mg PO BID Qty: 180 3RF Rx Instructions: must administer with a meal/food lisinopril 40 mg tablet 20 mg PO DAILY Qty: 45 0RF Referrals: Gaston Valentino MD [Primary Care Provider] - Visit Report Forms: Patient Portal/API
[2022-01-23 00:30] VITALS: PULSE 98; RESP 30; O2SAT 98
[2022-01-23 00:58] LABS: Add Manual Diff / Slide Review NO; Basophils Absolute Auto 0 /uL (0-100); Basophils Percent Auto 0.3 % (0-2); Eosinophils Absolute Auto 0 /uL (0-450); Eosinophils Percent Auto 0.2 % (2-4); Hematocrit 41.2 % (36-46); Hemoglobin 13.7 g/dL (12.0-16.0); Lymphocytes Absolute Auto 1200 /uL (1100-4500); Lymphocytes Percent Auto 12.8 % (25-40); Mean Corpuscular HGB Conc 33.2 % (30-36); Mean Corpuscular Hemoglobin 27.6 PG (26-34); Mean Corpuscular Volume 83.2 fL (80-100); Monocytes Absolute Auto 700 /uL (0-900); Monocytes Percent Auto 7.6 % (3-14); Neutrophils Absolute Auto 7600 /uL (1500-7000); Neutrophils Percent Auto 79.1 % (50-75); Platelet Count 216 X10^3/uL (150-400); Red Blood Cell Count 4.95 X10^6/uL (4.0-5.2); Red Cell Distribution Width 15.1 % (11.6-14.8); White Blood Cell Count 9.6 X10^3/uL (4.5-11.0)
[2022-01-23 01:09] LABS: Alanine Aminotransferase 36 IU/L (<35); Alkaline Phosphatase 129 U/L (38-126); Aspartate Aminotransferase 44 IU/L (14-36); BUN Creatinine Ratio 26.2 (6-22); Bilirubin Total 0.9 mg/dL (0.2-1.3); Blood Urea Nitrogen 33 mg/dL (7-17); Calcium 10.8 mg/dL (8.4-10.2); Carbon Dioxide 29 mmol/L (22-32); Chloride 100 mmol/L (98-107); Estimated Glomerular Filt Rate 45 mL/min (>60); Globulin 3.9 g/dL (1.7-4.1); Glucose 207 mg/dL (80-110); HEMOLYSIS 26 (0-50); Potassium 4.9 mmol/L (3.4-5.1); Sodium 141 mmol/L (137-145); Total Protein 7.9 g/dL (6.3-8.2)
[2022-01-23 01:16] VITALS: PULSE 86; RESP 24; O2SAT 96
[2022-01-23 01:17] VITALS: BP 132/73; PULSE 87; RESP 18; O2SAT 95
[2022-01-23] MEDS: SODIUM CHLORIDE 0.9% 500 ML 1000 ML IV (01:17)
--- NOTE | 2022-01-23 01:18 | PC.NURSE ---
Patient was feeling constipated and so she took two doses of Milk of Magnesia. She then had explosive diarrhea, was unable to make it too the toilet. patient and called neighbor to bring them to the Emergency department. Patient has had off and on nausea for weeks now and c/o of abdominal pain. patient's neighbor is asking about options for patient to stay the night here in the hospital. explain to her that patient can only stay in the hospital if she gets a medical diagnosis that requires hospitalization. she asks if pt can stay in the ER so she and the of the patient can go home. explained to her that if there are not a lot of people in the waiting room, she may stay in the room she is in, but if there were many patients in the waiting room, she may be asked to wait in the waiting room for her ride. neighbor and decided to leave, phone number verified with . they state might drive over and pick her up if he wakes up to his phone, neighbor is unwilling, she has to work in the morning, she has doctors appointments, and she has an appointment to get her hair done.
[2022-01-23 01:30] VITALS: BP 127/67; PULSE 77; RESP 19; O2SAT 97
[2022-01-23 02:00] VITALS: BP 169/75; PULSE 82; RESP 20; O2SAT 97
== END 2022-01-23 02:45 | disposition home or self-care (01) ==
PROVIDERS: Emergency Provider Emergency Medicine; Family Provider Internal Medicine; PCP Internal Medicine
DX: R19.7 Diarrhea, unspecified (principal)
CPT/HCPCS: 36415; 74176; 80053; 85025; 96360; 99284